=== PATIENT | male | born 1945 | race Caucasian/White ===

== ENCOUNTER → 2016-03-06 | Outpatient (CLI) | payer OTHER ==
[~2016-03-06] MED LIST: ALLO100T PO; AZIT250T PO; LPR25 PO
== END | disposition home or self-care (01) ==
LOC: C.LAB1850 09:09
PROVIDERS: ATTEND Internal Medicine Endocrinology, Diabetes & Metabolism
DX: F64.0 Transsexualism (principal)

== ENCOUNTER → 2016-06-19 | Outpatient (CLI) | payer OTHER ==
[2016-06-19 12:41] LABS: ALB/GLOB RATIO 1.4 (0.9-2); ALKALINE PHOSPHATASE 80 U/L (45-117); ALT/SGPT 34 U/L (12-78); AST/SGOT 21 U/L (15-37); BLOOD UREA NITROGEN 24 mg/dl (7-18); BUN/CREATININE RATIO 21.4 (10-20); CALCIUM 9.7 mg/dl (8.5-10.1); CARBON DIOXIDE 24 mmol/L (21-32); CHLORIDE 102 mmol/L (98-107); GLUCOSE 101 mg/dl (70-99); POTASSIUM 5.7 mmol/L (3.5-5.1); SODIUM 134 mmol/L (136-145)
== END | disposition home or self-care (01) ==
LOC: C.LAB1850 10:00
PROVIDERS: ATTEND Internal Medicine Endocrinology, Diabetes & Metabolism
DX: F64.0 Transsexualism (principal)

== ENCOUNTER → 2016-07-31 | Outpatient (CLI) | payer OTHER ==
[2016-07-31 10:55] LABS: BLOOD UREA NITROGEN 21 mg/dl (7-18); BUN/CREATININE RATIO 22.8 (10-20); CALCIUM 9.3 mg/dl (8.5-10.1); CARBON DIOXIDE 30 mmol/L (21-32); CHLORIDE 103 mmol/L (98-107); CREATININE 0.93 mg/dl (0.60-1.40); GLUCOSE 99 mg/dl (70-99); POTASSIUM 4.6 mmol/L (3.5-5.1); SODIUM 139 mmol/L (136-145)
== END | disposition home or self-care (01) ==
LOC: C.LAB1850 09:28
PROVIDERS: ATTEND Internal Medicine Endocrinology, Diabetes & Metabolism
DX: F64.0 Transsexualism (principal)

== ENCOUNTER → 2016-09-25 | Outpatient (CLI) | payer OTHER ==
[2016-09-25 13:27] LABS: BLOOD UREA NITROGEN 21 mg/dl (7-18); BUN/CREATININE RATIO 24.3 (10-20); CALCIUM 9.3 mg/dl (8.5-10.1); CARBON DIOXIDE 25 mmol/L (21-32); CHLORIDE 105 mmol/L (98-107); CREATININE 0.87 mg/dl (0.60-1.40); GLUCOSE 95 mg/dl (70-99); POTASSIUM 4.3 mmol/L (3.5-5.1); SODIUM 137 mmol/L (136-145)
[2016-09-25 13:37] LABS: TESTOSTERONE,TOTAL 106.1 ng/dl
== END | disposition home or self-care (01) ==
LOC: C.LAB1850 11:11
PROVIDERS: ATTEND Internal Medicine Endocrinology, Diabetes & Metabolism
DX: F64.0 Transsexualism (principal)

== ENCOUNTER → 2017-02-22 | Outpatient (CLI) | payer OTHER ==
[2017-02-22 13:49] LABS: TESTOSTERONE,TOTAL 74.2 ng/dl
[2017-02-22 14:23] LABS: ALBUMIN 4.2 gm/dl (3.4-5.0); ALKALINE PHOSPHATASE 73 U/L (45-117); ALT/SGPT 29 U/L (12-78); AST/SGOT 23 U/L (15-37); BLOOD UREA NITROGEN 22 mg/dl (7-18); CALCIUM 8.9 mg/dl (8.5-10.1); CARBON DIOXIDE 26 mmol/L (21-32); CREATININE 0.98 mg/dl (0.60-1.40); GLUCOSE 114 mg/dl (70-99); POTASSIUM 4.3 mmol/L (3.5-5.1); SODIUM 138 mmol/L (136-145)
[2017-02-22 14:24] LABS: TOTAL PROTEIN 7.4 gm/dl (6.4-8.2)
== END | disposition home or self-care (01) ==
LOC: C.LAB1850 12:20
PROVIDERS: ATTEND Internal Medicine Endocrinology, Diabetes & Metabolism
DX: F64.0 Transsexualism (principal)

== ENCOUNTER → 2017-08-28 | Outpatient (CLI) | payer OTHER ==
[2017-08-28 12:35] LABS: BLOOD UREA NITROGEN 20 mg/dl (7-18); CARBON DIOXIDE 25 mmol/L (21-32); CREATININE 0.97 mg/dl (0.60-1.40); GLUCOSE 110 mg/dl (70-99); SODIUM 136 mmol/L (136-145)
== END | disposition home or self-care (01) ==
LOC: C.LAB1850 11:24
PROVIDERS: ATTEND Internal Medicine Endocrinology, Diabetes & Metabolism
DX: F64.0 Transsexualism (principal)

== ENCOUNTER 2021-09-18 15:27 | Observation (INO) ==
--- NOTE | 2021-09-18 15:58 | ED Triage Note ---
Date of Service September 18, 2021 History of Present Illness This patient was briefly evaluated while in triage. An abbreviated physical exam was performed. This patient is a 76-year-old Male with past medical history of restless leg syndrome, family history of MS, TBI, who presents to the ED for evaluation of multiple days of progressive leg weakness. He has had 3 recent falls. Denies any injuries from these falls aside from a bruise to his right elbow. Denies any numbness in his legs, bowel or bladder incontinence, saddle anesthesia, back pain, chest pain, abdominal pain. Family member is hoping for a brain MRI. Has been seen by multiple providers recently. Physical Exam CONSTITUTIONAL: in no acute distress CARDIAC: regular rate normal rhythm RESPIRATORY: lungs clear to auscultation NEUROLOGIC: able to raise both legs off ground. No overt numbness in lower extremities Initial orders for labs and / or imaging were placed and patient was placed in the waiting area until a bed is available. Please see further documentation for the full ED course.
[2021-09-18 16:37] LABS: Basophils # (auto) 0.04 K/uL (0-0.2); Basophils % (auto) 0.5 %; Eosinophils # (auto) 0.05 K/uL (0-0.50); Eosinophils % (auto) 0.6 %; Hematocrit (blood only) 45.3 % (40.1-51.0); Hemoglobin 16.7 g/dl (14.0-18.0); Immature Granulocytes # (auto) 0.03 K/uL (0.00-0.02); Immature Granulocytes % (auto) 0.3 %; Lymphocytes # (auto) 1.34 K/uL (1.2-3.4); Lymphocytes % (auto) 15.4 %; Mean Corpuscular Hemoglobin 34.4 pg (25.0-34.0); Mean Corpuscular Hgb Conc 36.9 g/dL (32.0-36.0); Mean Corpuscular Volume 93.2 fL (80.0-100.0); Monocytes # (auto) 0.81 K/uL (0.24-0.82); Monocytes % (auto) 9.3 %; Neutrophils # (auto) 6.43 K/uL (1.4-6.5); Neutrophils % (auto) 73.9 %; Platelet Count 230 K/uL (130-400); RDW Coefficient of Variation 11.5 % (11.5-14.5); RDW Standard Deviation 39.7 fL (36.4-46.3); Red Blood Count 4.86 M/uL (4.63-6.08)
[2021-09-18] MEDS ORDERED: THIAMINE HCL 200 MG in SODIUM CHLORIDE 0.9% 50 ML IV STA (16:46)
--- NOTE | 2021-09-18 16:51 | Emergency Department Note ---
Impression & Plan Weakness, Acute hyponatremia, Falls frequently ED Provider Note NAME: DEREK RUANO AGE: 76 SEX: M : 1945 ARRIVES VIA: Walk-In INFORMANT: Patient, the patient's daughter ED PROVIDER(S): Gabino Maurer DO CHIEF COMPLAINT: Generalized weakness HPI: The patient is a 76-year-old male who presented to the emergency department for an evaluation of generalized weakness. The patient has been having problems for at least the last 5 weeks. His daughter states that he is been trying to go to his outpatient appointments which include his primary care physician. He was seen there recently and had some laboratory studies. He was found to have vitamin B deficiency as well as vitamin D. He does have a history of drinking alcohol but not very often and certainly does not consider himself an alcoholic. He is not been drinking recently because he has been noticing that when he tries to ambulate he has instances where both legs will go out from underneath him and he cannot support his own weight. According to his daughter he has had multiple falls because of this. She is very concerned about him being at home. She presented with him today because he had another episode where his legs went out from underneath him when he was trying to maneuver to a vehicle. The patient himself denies having any back pain. He denies having any headaches. He denies having any fever. He does have a history of intracranial hemorrhage in the past. He said he is been compliant with his outpatient medications otherwise. ROS: See above HPI for pertinent positives & negatives. A total of 10 systems reviewed and were otherwise negative. PAST MEDICAL HISTORY: See Below PAST SURGICAL HISTORY: See Below FAMILY HISTORY: See Below SOCIAL HISTORY: See Below HOME MEDICATIONS: See Below ALLERGIES: See Below VITALS: See Below PHYSICAL EXAMINATION: GENERAL: The patient is awake and alert. The patient is nonanxious appearing. He appears comfortable. EYES: The conjunctivae are clear. The pupils are round and reactive. EARS, NOSE, MOUTH AND THROAT: The nose is without any evidence of any deformity. NECK: The neck is nontender and supple. RESPIRATORY: Normal respiratory effort is noted there is no evidence of wheezing rhonchi or rales CARDIOVASCULAR: Irregular heart sounds are noted auscultation. There is no definite murmur. GASTROINTESTINAL: The abdomen is soft. Abdomen is nontender. MUSCULOSKELETAL/EXTREMITIES: There is no evidence of gross deformity full range of motion is noted in the hips and shoulders. SKIN: There is no obvious evidence of any rash. There are no petechiae, pallor or cyanosis noted. NEUROLOGIC: Patient is awake and oriented to person place and situation. Gonsalez lar tendon reflexes are absent bilaterally. Patient is able to hold each leg off the bed for approximately 5 seconds. MEDICAL DECISION MAKING: The patient is a 76-year-old male who presented to the emergency department for an evaluation with his daughter. The patient's daughter was very concerned because the patient had increasing symptoms over the course the last month. The patient's had frequent falls. He does have a history of a fall in the past where he did have an intracranial hemorrhage. The patient had no focal neurologic deficit but he appears to be off balance when he tries ambulate. I discussed patient's laboratory and radiographic studies with him and his family member. He was found to have a low sodium which appears to be a new finding. CT did not appear to show any acute process. Given the patient's findings I will discuss his case with the on-call [facility] hospitalist. Triage Nursing notes reviewed. Prior medical records reviewed Vital Signs: reviewed and remarkable for elevated blood pressure. Differential diagnosis: Infection, dehydration, metabolic abnormality, hypo/hyperglycemia, electrolyte disturbance, anemia, hypoxia, cardiac sources, intracerebral event, toxicologic, neurologic, as well as other pathologies. ER treatment provided: See below Diagnostics interpreted by me: ECG: EKG was obtained in the emergency department. My interpretation is sinus bradycardia at 59 bpm. There was no ectopy. There was no acute ST segment abnormalities noted. This was compared to a tracing from February 01, 2020. No changes were noted. Cardiac Monitoring: An order was placed for continuous cardiac monitoring. The monitor shows a rate of 55 bpm with sinus bradycardia. Laboratory studies: As stated above and show below. Imaging studies: See below Consultation(s): I discussed this case with Dr. Au [facility]. Past Med/Surg History Medical History Alcohol use Bilateral impacted cerumen GERD (gastroesophageal reflux disease) Gout, joint History of fracture of skull History of subarachnoid hemorrhage Hypertension Intracranial bleed Olecranon bursitis, right elbow Stroke TBI (traumatic brain injury) Vitamin B12 deficiency Surgical History Hx of tonsillectomy Family History Father Diabetes Tuberculosis Multiple sclerosis Denies family history of Ovarian cancer Prostate cancer Myocardial infarction Breast cancer Colorectal cancer Social History Smoking Status: Never smoker Second Hand Exposure: No; Hx Alcohol Use: Yes Alcohol Intake Frequency: 4 or More x per/Week Alcohol Intake Frequency Comment: 10 / week Hx Substance Use: No Preferred Language: Azeri Visual Impairment: Partially Limited Hearing Ability: Hard of Hearing Beliefs That Will Affect Care: None marital status: Current Living Situation: Family current occupational status: retired How many Children do You have: 3 How many Children do You have Comment: 2 girls 1 boy Feels Safe at Home: Yes Childhood Exposure to Second-Hand Smoke: No during the past year weight has: remained stable Dental Care, Regularly: No Physical Activity Frequency: Does not Exercise Seatbelt Use: always Sunscreen Use: No Allergies Allergies Allergy/AdvReac Type Severity Reaction Status Date / Time No Known Drug Allergies Allergy Verified 09/14/21 17:47 Home Meds Home Medications Medication Instructions Recorded Confirmed omeprazole magnesium 20 mg 20 mg PO DAILY 09/22/19 09/18/21 tablet,delayed release (Prilosec OTC) Previous Rx's Medication Instructions Recorded metoprolol tartrate 25 mg tablet 25 mg PO DAILY #90 tabs 10/03/20 ropinirole 0.25 mg tablet 0.25 mg PO DAILY #30 tabs 09/14/21 Results & Data (ED) Vital Signs Vital Signs - 24 hr 09/18/21 15:53 09/18/21 16:51 09/18/21 16:59 Temperature 36.9 C Temperature Source Temporal Artery Scan Pulse Rate 59 L 60 Pulse Rate [Apical] 59 L Respiratory Rate 18 18 Respiratory Effort / Characteristics Non-Labored Spontaneous Non-Labored Respiratory Depth Normal Normal Respiratory Pattern Regular Blood Pressure 134/74 Blood Pressure [Right Arm] 164/89 H Blood Pressure Mean 94 Blood Pressure Mean [Right Arm] 114 Pulse Oximetry 96 97 98 Oxygen Delivery Method Room Air Room Air Room Air Sepsis Recent Fever Within 48 Hours No Sepsis New/Unexplained Change in Mental Status No Sepsis Action Taken by Nursing No Action Required 09/18/21 18:09 09/18/21 18:49 Temperature Temperature Source Pulse Rate Pulse Rate [Apical] 55 L 64 Respiratory Rate 18 18 Respiratory Effort / Characteristics Respiratory Depth Respiratory Pattern Blood Pressure Blood Pressure [Right Arm] 171/92 H 195/99 H Blood Pressure Mean Blood Pressure Mean [Right Arm] 118 131 Pulse Oximetry 100 99 Oxygen Delivery Method Room Air Room Air Sepsis Recent Fever Within 48 Hours Sepsis New/Unexplained Change in Mental Status Sepsis Action Taken by Skilled Nursing Medications Current Medication List: was personally reviewed by me Laboratory Data Attestation: I reviewed the patient's lab results. Result diagrams: 09/18/21 16:26 09/18/21 16:26 Lab Results 09/18/21 09/18/21 09/18/21 Range/Units 16:26 16:26 16:26 WBC 8.70 (4.8-10.8) K/ul RBC 4.86 (4.63-6.08) M/uL Hgb 16.7 (14.0-18.0) g/dl Hct 45.3 (40.1-51.0) % MCV 93.2 (80.0-100.0) fL MCH 34.4 H (25.0-34.0) pg MCHC 36.9 H (32.0-36.0) g/dL RDW Std Deviation 39.7 (36.4-46.3) fL RDW Coeff of Rogers 11.5 (11.5-14.5) % Plt Count 230 (130-400) K/uL MPV 10.0 (9.4-12.4) fL Immature Gran % (Auto) 0.3 % Neut % (Auto) 73.9 % Lymph % (Auto) 15.4 % [place] % (Auto) 9.3 % Eos % (Auto) 0.6 % Baso % (Auto) 0.5 % Neut # (Auto) 6.43 (1.4-6.5) K/uL Lymph # (Auto) 1.34 (1.2-3.4) K/uL [place] # (Auto) 0.81 (0.24-0.82) K/uL Eos # (Auto) 0.05 (0-0.50) K/uL Baso # (Auto) 0.04 (0-0.2) K/uL Immature Gran # (Auto) 0.03 H (0.00-0.02) K/uL PT (9.0-12.0) Seconds INR (0.9-1.1) APTT (21.0-31.0) Seconds PTT Ratio Sodium 129 L (136-145) mmol/L Potassium 4.2 (3.5-5.1) mmol/L Chloride 98 (98-107) mmol/L Carbon Dioxide 22 (21-32) mmol/L Anion Gap 9 (3-11) BUN 17 (6-23) mg/dl Creatinine 0.92 (0.6-1.4) mg/dl Est Cr Clr Drug Dosing 75.7 ml/min Est GFR ( Amer) 92.7 ml/min Est GFR (Non-Af Amer) 79.9 ml/min BUN/Creatinine Ratio 18.5 (10-20) Glucose 144 H (70-99(Fasting)) mg/dl Calcium 9.2 (8.5-10.1) mg/dl Magnesium 1.9 (1.7-2.4) mg/dl Total Bilirubin 1.0 (0.2-1.0) mg/dl AST 32 (13-39) U/L ALT 54 H (7-52) U/L Alkaline Phosphatase 64 (34-104) U/L Total Creatine Kinase 90 (30-223) U/L Troponin I High Sens 8.2 (0-20) pg/ml Total Protein 6.8 (6.0-8.3) gm/dl Albumin 4.3 (3.4-5.0) gm/dl Globulin 2.5 (2.5-4.0) gm/dl Albumin/Globulin Ratio 1.7 (0.9-2) TSH (0.300-4.500) uIu/ml SARS-CoV-2, RNA, NAAT (NEGATIVE) 09/18/21 09/18/21 09/18/21 Range/Units 16:26 17:00 17:31 WBC (4.8-10.8) K/ul RBC (4.63-6.08) M/uL Hgb (14.0-18.0) g/dl Hct (40.1-51.0) % MCV (80.0-100.0) fL MCH (25.0-34.0) pg MCHC (32.0-36.0) g/dL RDW Std Deviation (36.4-46.3) fL RDW Coeff of Rogers (11.5-14.5) % Plt Count (130-400) K/uL MPV (9.4-12.4) fL Immature Gran % (Auto) % Neut % (Auto) % Lymph % (Auto) % [place] % (Auto) % Eos % (Auto) % Baso % (Auto) % Neut # (Auto) (1.4-6.5) K/uL Lymph # (Auto) (1.2-3.4) K/uL [place] # (Auto) (0.24-0.82) K/uL Eos # (Auto) (0-0.50) K/uL Baso # (Auto) (0-0.2) K/uL Immature Gran # (Auto) (0.00-0.02) K/uL PT 12.3 H (9.0-12.0) Seconds INR 1.2 H (0.9-1.1) APTT 32.0 H (21.0-31.0) Seconds PTT Ratio 1.2 Sodium (136-145) mmol/L Potassium (3.5-5.1) mmol/L Chloride (98-107) mmol/L Carbon Dioxide (21-32) mmol/L Anion Gap (3-11) BUN (6-23) mg/dl Creatinine (0.6-1.4) mg/dl Est Cr Clr Drug Dosing ml/min Est GFR ( Amer) ml/min Est GFR (Non-Af Amer) ml/min BUN/Creatinine Ratio (10-20) Glucose (70-99(Fasting)) mg/dl Calcium (8.5-10.1) mg/dl Magnesium (1.7-2.4) mg/dl Total Bilirubin (0.2-1.0) mg/dl AST (13-39) U/L ALT (7-52) U/L Alkaline Phosphatase (34-104) U/L Total Creatine Kinase (30-223) U/L Troponin I High Sens (0-20) pg/ml Total Protein (6.0-8.3) gm/dl Albumin (3.4-5.0) gm/dl Globulin (2.5-4.0) gm/dl Albumin/Globulin Ratio (0.9-2) TSH 1.598 (0.300-4.500) uIu/ml SARS-CoV-2, RNA, NAAT NEGATIVE (NEGATIVE) Administered Medications Discontinued Medications Sodium Chloride (Nss) 500 mls @ 999 mls/hr IV .Q31M CALVIN Stop: 09/18/21 17:30 Last Infusion: 09/18/21 17:35 Dose: 0 mls/hr Documented By: Admin: 09/18/21 16:58 Dose: 999 mls/hr Documented By: TAMMY Thiamine HCl 200 mg/ Sodium (Chloride) 52 mls @ 208 mls/hr IV NOW STA Stop: 09/18/21 16:47 Last Infusion: 09/18/21 18:27 Dose: 0 mls/hr Documented By: Admin: 09/18/21 18:09 Dose: 208 mls/hr Documented By: TAMMY Imaging Data Radiologist's Impression: Cervical Spine CT 09/18/21 16:46 CT cervical spine wo con CLINICAL HISTORY: fall . Weakness. Neck pain. COMPARISON STUDY: 02/01/2020 CT DOSE: TECHNIQUE: Standard CT of the Cervical Spine was performed without IV contrast. A dose lowering technique was utilized adhering to the principles of ALARA. FINDINGS: Bones: The bones are osteopenic. There is no evidence for an acute fracture or malalignment. The heights of the vertebral bodies are maintained. The vertebral bodies are in anatomic alignment. The odontoid is intact. Degenerative changes are seen at the atlantoaxial articulation. Disc spaces: Moderate to marked disc space narrowing is again seen at C5-6 and C6-7 bridging osteophyte formation. Apophyseal joints: Extensive degenerative apophyseal joint disease is again seen bilaterally. Soft tissues: The prevertebral soft tissues are within normal limits. IMPRESSION: 1. Osteopenia with no acute osseous pathology. 2. Degenerative disc and degenerative joint disease. ACT 112: Negative or not required by law. Electronically signed by: Isreal Mcpherson M.D. 09/18/2021 5:24 PM Chest X-Ray 09/18/21 16:46 XR chest 1V portable CLINICAL HISTORY: weakness. Evaluate cardiopulmonary status COMPARISON STUDY: 10/26/2019 TECHNIQUE: 1 view of the chest FINDINGS: Single frontal view of the chest demonstrates the cardiomediastinal silhouette to be within normal limits. The lungs are clear of alveolar opacities. There is no evidence for pleural effusion. There is no evidence for vascular congestion. There is no acute osseous pathology. IMPRESSION: 1. No acute cardiopulmonary disease. ACT 112: Negative or not required by law. Electronically signed by: Isreal Mcpherson M.D. 09/18/2021 5:[address] 09/18/21 16:46 CT head/brain wo con CLINICAL HISTORY: weakness . Status post fall COMPARISON STUDY: 02/01/2020 CT DOSE: 1521.98 mGy.cm TECHNIQUE: Standard CT of the Brain was performed without IV contrast. A dose lowering technique was utilized adhering to the principles of ALARA. FINDINGS: Extraaxial space: There is no evidence for subdural hematoma. There are no extra-axial fluid collections. Ventricles and cisterns: The ventricles are mildly dilated bilaterally. There is no evidence for midline shift or mass effect. Parenchyma: There is no subarachnoid or intraparenchymal hemorrhage. There is no evidence for an acute infarct or cerebral edema. There is again an old left frontoparietal infarct with encephalomalacia present. This is unchanged. There is mild cerebral cortical atrophy and decreased attenuation in the periventricular white matter representing remote small vessel disease. There are no gross mass lesions. Osseous structures: There is no evidence for an acute fracture. The visualized paranasal sinuses are clear. The mastoid air cells are clear bilaterally. Soft tissues: There is no evidence for focal soft tissue swelling. IMPRESSION: 1. No acute intracerebral pathology. 2. 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 3. Cerebral cortical atrophy and remote small vessel disease are again as well. ACT 112: Negative or not required by law. Electronically signed by: Isreal Mcpherson M.D. 09/18/2021 5:20 PM Discharge Plan Visit Data Chief Complaint: Leg Weakness, Bilateral Stated Complaint: LEGS DON'T WORK ED Provider: Gabino Maurer Discharge Problem: Weakness, Acute hyponatremia, Falls frequently Patient Disposition: Being Evaluated by Hospitalist Forms Stand Alone Forms: [facility] Prescriptions Prescriptions: No Action metoprolol tartrate 25 mg tablet 25 mg PO DAILY Qty: 90 3RF omeprazole magnesium [Prilosec OTC] 20 mg tablet,delayed release (DR/EC) 20 mg PO DAILY ropinirole 0.25 mg tablet 0.25 mg PO DAILY Qty: 30 1RF Referrals Referrals: Pro,Gabino Davila MD [Primary Care Provider] -
[2021-09-18 16:56] LABS: Albumin Globulin Ratio 1.7 (0.9-2); Albumin Level 4.3 gm/dl (3.4-5.0); BUN Creatinine Ratio 18.5 (10-20); Calcium 9.2 mg/dl (8.5-10.1); Creatinine Clr Calc Pharmacy 75.7 ml/min; Est GFR (African American) 92.7 ml/min; Est GFR (Non-African American) 79.9 ml/min; Globulin 2.5 gm/dl (2.5-4.0); Magnesium 1.9 mg/dl (1.7-2.4); Potassium 4.2 mmol/L (3.5-5.1); Total Protein 6.8 gm/dl (6.0-8.3)
[2021-09-18] MEDS ORDERED: SODIUM CHLORIDE 0.9% 500 ML IV SCH (17:00)
[2021-09-18 17:18] LABS: Troponin I High Sensitivity 8.2 pg/ml (0-20)
--- NOTE | 2021-09-18 17:21 | CT Scan Report ---
CT head/brain wo con CLINICAL HISTORY: weakness . Status post fall COMPARISON STUDY: 02/01/2020 CT DOSE: 1521.98 mGy.cm TECHNIQUE: Standard CT of the Brain was performed without IV contrast. A dose lowering technique was utilized adhering to the principles of ALARA. FINDINGS: Extraaxial space: There is no evidence for subdural hematoma. There are no extra-axial fluid collecti ons. Ventricles and cisterns: The ventricles are mildly dilated bilaterally. There is no evidence for midl ine shift or mass effect. Parenchyma: There is no subarachnoid or intraparenchymal hemorrhage. There is no evidence for an acut e infarct or cerebral edema. There is again an old left frontoparietal infarct with encephalomalacia present. This is unchanged. There is mild cerebral cortical atrophy and decreased attenuation in the periventricular white matter representing remote small vessel disease. There are no gross mass lesion s. Osseous structures: There is no evidence for an acute fracture. The visualized paranasal sinuses are clear. The mastoid air cells are clear bilaterally. Soft tissues: There is no evidence for focal soft tissue swelling. IMPRESSION: 1. No acute intracerebral pathology. 2. 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 3. Cerebral cortical atrophy and remote small vessel disease are again as well. ACT 112: Negative or not required by law. Electronically signed by: Isreal Mcpherson M.D. 09/18/2021 5:20 PM
--- NOTE | 2021-09-18 17:25 | CT Scan Report ---
CT cervical spine wo con CLINICAL HISTORY: fall . Weakness. Neck pain. COMPARISON STUDY: 02/01/2020 CT DOSE: TECHNIQUE: Standard CT of the Cervical Spine was performed without IV contrast. A dose lowering saurabh hnique was utilized adhering to the principles of ALARA. FINDINGS: Bones: The bones are osteopenic. There is no evidence for an acute fracture or malalignment. The heig hts of the vertebral bodies are maintained. The vertebral bodies are in anatomic alignment. The odont oid is intact. Degenerative changes are seen at the atlantoaxial articulation. Disc spaces: Moderate to marked disc space narrowing is again seen at C5-6 and C6-7 bridging osteophy te formation. Apophyseal joints: Extensive degenerative apophyseal joint disease is again seen bilaterally. Soft tissues: The prevertebral soft tissues are within normal limits. IMPRESSION: 1. Osteopenia with no acute osseous pathology. 2. Degenerative disc and degenerative joint disease. ACT 112: Negative or not required by law. Electronically signed by: Isreal Mcpherson M.D. 09/18/2021 5:24 PM
--- NOTE | 2021-09-18 17:33 | XRay Report ---
XR chest 1V portable CLINICAL HISTORY: weakness. Evaluate cardiopulmonary status COMPARISON STUDY: 10/26/2019 TECHNIQUE: 1 view of the chest FINDINGS: Single frontal view of the chest demonstrates the cardiomediastinal silhouette to be within normal li mits. The lungs are clear of alveolar opacities. There is no evidence for pleural effusion. There is no evidence for vascular congestion. There is no acute osseous pathology. IMPRESSION: 1. No acute cardiopulmonary disease. ACT 112: Negative or not required by law. Electronically signed by: Isreal Mcpherson M.D. 09/18/2021 5:32 PM
[2021-09-18 18:04] LABS: INR 1.2 (0.9-1.1); Partial Thromboplastin Ratio 1.2; Prothrombin Time 12.3 Seconds (9.0-12.0)
[2021-09-18] MEDS ORDERED: METOPROLOL TARTRATE 25 MG TAB PO ONE (20:00)
[2021-09-18 20:12] LABS: Appearance Urine Clear (Clear); Bilirubin Urine Negative (Negative); Blood Urine Negative (Negative); Color Urine Yellow; Glucose Urine UA Negative (Negative); Ketones Urine Trace (Negative); Leukocyte Esterase Urine Negative (Negative); Nitrite Urine Negative (Negative); Protein Urine Negative (Negative); Specific Gravity Urine 1.017 (1.000-1.030); Urobilinogen Urine Negative (Negative)
--- NOTE | 2021-09-18 20:32 | History & Physical Report ---
Date of Service September 18, 2021 Assessment & Plan (1) Weakness: Plan: -Likely multifactorial due to previous hemorrhagic stroke, current alcohol use, deconditioning, and poor nutrition. >Acute hyponatremia seen today not likely a major factor as this has been an ongoing issue and previous sodium was WNL -No focal neurologic defects on exam, head and cervical CT negative in ED -Stressed to patient the importance of starting PT to help build strength, PT/OT consults placed -Fall precautions ordered -Patient likely needs short inpatient rehab stay or at least home with PT/OT services and additional home health (2) Falls frequently: Plan: -See above for plan (3) Hypertension: Plan: -Patient noted to be hypertensive with systolic BP in the 190's on admission -Will give 25 mg PO metoprolol now and continue LAUNCH CHECK OUT dose in am (4) Acute hyponatremia: Plan: -Sodium noted to be 129 today, has been at or above 135 in the recent past -Serum osmolality noted to be low at 275, urine studies have yet to be collected -Acute hyponatremia likely the result or poor oral intake and possibly beer potomania -Was given 1L NSS bolus in the ED, will hold additional IV fluid for now -Monitor am BMP and urine stuides when available (5) Alcohol use: Plan: -Patient with long history of alcohol abuse -Noted to still be drinking, difficult to obtain accurate history from patient as he denies a current issue -States he has approximately 2 glasses of wine daily with dinner, last drink was noted to be 24 hours ago -No acute withdrawal symptoms, monitor on alcohol severity scale and PO ativan for now -Continue to stress the importance of decreased alcohol intake (6) Vitamin B12 deficiency: Plan: -Noted to be 140 on 08/16, was started on outpatient B12 injections -Daughter states that he is due for another injection tomorrow, could possibly give while admitted -FU with B12 ordered on admisison (7) GERD without esophagitis: Plan: -LAUNCH CHECK OUT omeprazole (8) Restless leg syndrome: Plan: -LAUNCH CHECK OUT requip , was only started on it as of 09/14 (9) Hyperglycemia, unspecified: Plan: -Monitor blood glucose as needed History of Present Illness Chief Complaint: Progressive BL lower extremity weakness with multiple falls Primary Care Provider: Gabino Ferrell MD Bradley is a 76 year old male with a PMH significant for Alcohol abuse (still using), Hypertension, GERD, previous fall and with intracranial bleed in 2014 without residual weakness, previous fall and 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 History obtained from the patient and his daughter who is primary head of sales and sitting bedside at the time of the exam. At the time of the exam the patient is resting comfortably and in no acute distress. They state that the patient has experienced progressive, BL, lower extremity weakness causing him to have multiple falls within the past month. He states that when his falls occur they are due to feeling weak in his knees and suddenly losing strength. When this happens he is typically able to catch himself and lower himself to the ground, but his daughter is concerned for the suddenness of his weakness. When asked, the patient denies recent LOC with his falls, he also denies hitting his head, chest pain, heart palpitations, SOB, loss of bowel or bladder function, saddle anesthesia, and numbness in his BL lower extremities. Of note, the patient was recently seen on 09/14/21 in the [facility] primary care clinic for the same issues. Per the clinic visit note, the patient had previously been offered PT and was also started on B12 injections for a B12 level of 140 on 08/16/21. The patient refused PT at that time stating "I don't know how it would help". Lyme titer from this visit was also noted to be negative. During the visit the patient was started on Requip for restless leg syndrome and an outpatient MRI of the brain was ordered, which has not been obtained at this time. The patient's daughter brought the patient to the ED today as she is concerned for his rapid decline in strength and concerned for high fall risk. The patient currently lives by himself and does not use a cane or walker to ambulate. When asked, the patient states that he is still drinking "a few glasses of wine with dinner" daily. He states that "I used to drink a lot when I was younger but it is not a problem now". He notes his last drink to be approximately 24 hours ago. In the ED the patient was noted to be hypertensive with systolic BP in the 190's. He was found to be hyponatremic with a sodium of 129 , serum osmolality was noted to be 275. ALT mildly elevated at 54. CT of the head and cervical spi ne were negative for acute trauma. Chest xray was negative for acute findings. In the ED the patient was given 1L NSS bolus and 200 mg IV thiamine. Allergies Allergy/AdvReac Type Severity Reaction Status Date / Time No Known Drug Allergies Allergy Verified 09/14/21 17:47 Home Medications Medication Instructions Recorded Confirmed Type omeprazole magnesium 20 mg 20 mg PO DAILY 09/22/19 09/18/21 History tablet,delayed release (Prilosec OTC) metoprolol tartrate 25 mg tablet 25 mg PO DAILY #90 tabs 10/03/20 09/18/21 Rx ropinirole 0.25 mg tablet 0.25 mg PO DAILY #30 tabs 09/14/21 09/18/21 Rx Past Med/Surg History Medical History (Updated 09/18/21 @ 21:17 by Darrell Pereyra PA-C) Alcohol use Bilateral impacted cerumen Change in mental status Constipation Gender dysphoria in adult GERD (gastroesophageal reflux disease) Gout, joint History of diverticulitis of colon History of fracture of skull History of subarachnoid hemorrhage Hypertension Inhibited sexual excitement Insomnia Intracranial bleed Olecranon bursitis, right elbow Orbital floor fracture Periorbital swelling Screening for diabetes mellitus (DM) Stroke TBI (traumatic brain injury) Vitamin B12 deficiency Surgical History Hx of tonsillectomy Family History Father Diabetes Tuberculosis Multiple sclerosis Denies family history of Ovarian cancer Prostate cancer Myocardial infarction Breast cancer Colorectal cancer Social History (Updated 09/18/21 @ 20:38 by Darrell Pereyra PA-C) Smoking Status: Never smoker Second Hand Exposure: No; Do You Dip or Chew Tobacco: No; Tobacco Cessation Education Requested by Patient: No Hx Alcohol Use: Yes Alcohol type: wine Alcohol Intake Frequency: 4 or More x per/Week Alcohol Intake Frequency Comment: At least 2 drinks daily or more Hx Substance Use: No Preferred Language: Micronesian Communication Ability: Effective Visual Impairment: Partially Limited Hearing Ability: Hard of Hearing Benefits Clerk Required: No Beliefs That Will Affect Care: None marital status: Current Living Situation: Alone current occupational status: retired How many Children do You have: 3 How many Children do You have Comment: 2 girls 1 boy Other Information That Helps Us Care for You: No Feels Safe at Home: Yes Safety Concerns: Feels Safe At This Time Childhood Exposure to Second-Hand Smoke: No during the past year weight has: remained stable Dental Care, Regularly: No Physical Activity Frequency: Does not Exercise Seatbelt Use: always Sunscreen Use: No Assistive Devices: Cane and Glasses Review of Systems Constitutional: as per Subjective / HPI; no fever and no chills Eyes: as per Subjective / HPI Ear, Nose, Mouth, Throat: as per Subjective / HPI; no dizziness and no problem reported Respiratory: as per Subjective / HPI; no cough, no chest congestion and no dyspnea Cardiovascular: as per Subjective / HPI; no chest pain, no palpitations and no lightheadedness Gastrointestinal: as per Subjective / HPI; no abdominal pain, no nausea, no vomiting, no hematemesis, no diarrhea/loose stools and no melena Genitourinary: no dysuria, no difficulty urinating or no urinary frequency Musculoskeletal: + muscle weakness BL lower extremity weakness Integumentary: as per Subjective / HPI; no problem reported Neurologic: + gait abnormality, + falls, + generalized weakness and + restless legs; no numbness, no seizure-like activity, no syncope and no headache(s) Psychiatric: no depression, no suicidal ideation and no homicidal ideation Endocrine: no problem reported Hematologic / Lymphatic: no easy bleeding and no easy bruising Allergy / Immunological: no problem reported Physical Exam Constitutional: + malnourished; no acute distress and not obese Eyes: patient with baseline right eye blindness, left pupil is round and reactive to light ENMT: external ear and nose normal, oropharynx normal Neck: trachea midline, no thyromegaly Respiratory: normal respiratory effort, lungs clear to auscultation Cardiovascular: RRR, no murmur, no edema Gastrointestinal (Abdomen): normal bowel sounds, soft, nontender, no hepatosplenomegaly Musculoskeletal: Patient without signs of acute trauma. Active and passive ROM without limitation or pain in the BL UEs. Patient with symmetrical decreased ROM of the BL LE's due to weakness Skin: no rashes, warm and dry Neurologic: CN's II-XI intact bilaterally (Patient with baseline right eye blindness ), deep tendon reflexes 2+ bilaterally and moves all extremities; not confused Speech / Cognition: normal speech and normal cognition Motor/Sensory: no tremor, normal movement and no asterixis Coordination: normal fcppec-pl-rtty test Psychiatric: A+Ox3, euthymic affect Results & Data Results & [facility] ([facility]) Vital Signs (Past 12 Hours) Vital Signs Temp Pulse Pulse Resp BP BP Pulse Ox 09/18/21 18:49 64 18 195/99 H 99 09/18/21 18:09 55 L 18 171/92 H 100 09/18/21 16:59 59 L 18 164/89 H 98 09/18/21 16:51 60 97 09/18/21 15:53 36.9 C 59 L 18 134/74 96 O2 Del Method 09/18/21 18:49 Room Air 09/18/21 18:09 Room Air 09/18/21 16:59 Room Air 09/18/21 16:51 Room Air 09/18/21 15:53 Room Air Laboratory Results Abnormal lab results 09/18/21 09/18/21 09/18/21 Range/Units 16:26 16:26 16:26 MCH 34.4 H (25.0-34.0) pg MCHC 36.9 H (32.0-36.0) g/dL Immature Gran # (Auto) 0.03 H (0.00-0.02) K/uL PT (9.0-12.0) Seconds INR (0.9-1.1) APTT (21.0-31.0) Seconds Sodium 129 L (136-145) mmol/L Glucose 144 H (70-99(Fasting)) mg/dl Osmolality 275 L (280-300) mOsm/kg ALT 54 H (7-52) U/L Urine Ketones (Negative) 09/18/21 09/18/21 Range/Units 17:31 19:35 MCH (25.0-34.0) pg MCHC (32.0-36.0) g/dL Immature Gran # (Auto) (0.00-0.02) K/uL PT 12.3 H (9.0-12.0) Seconds INR 1.2 H (0.9-1.1) APTT 32.0 H (21.0-31.0) Seconds Sodium (136-145) mmol/L Glucose (70-99(Fasting)) mg/dl Osmolality (280-300) mOsm/kg ALT (7-52) U/L Urine Ketones Trace H (Negative) Diagnostic Findings Cervical Spine CT 09/18/21 16:46 CT cervical spine wo con CLINICAL HISTORY: fall . Weakness. Neck pain. COMPARISON STUDY: 02/01/2020 CT DOSE: TECHNIQUE: Standard CT of the Cervical Spine was performed without IV contrast. A dose lowering technique was utilized adhering to the principles of ALARA. FINDINGS: Bones: The bones are osteopenic. There is no evidence for an acute fracture or malalignment. The heights of the vertebral bodies are maintained. The vertebral bodies are in anatomic alignment. The odontoid is intact. Degenerative changes are seen at the atlantoaxial articulation. Disc spaces: Moderate to marked disc space narrowing is again seen at C5-6 and C6-7 bridging osteophyte formation. Apophyseal joints: Extensive degenerative apophyseal joint disease is again seen bilaterally. Soft tissues: The prevertebral soft tissues are within normal limits. IMPRESSION: 1. Osteopenia with no acute osseous pathology. 2. Degenerative disc and degenerative joint disease. ACT 112: Negative or not required by law. Electronically signed by: Isreal Mcpherson M.D. 09/18/2021 5:24 PM Chest X-Ray 09/18/21 16:46 XR chest 1V portable CLINICAL HISTORY: weakness. Evaluate cardiopulmonary status COMPARISON STUDY: 10/26/2019 TECHNIQUE: 1 view of the chest FINDINGS: Single frontal view of the chest demonstrates the cardiomediastinal silhouette to be within normal limits. The lungs are clear of alveolar opacities. There is no evidence for pleural effusion. There is no evidence for vascular congestion. There is no acute osseous pathology. IMPRESSION: 1. No acute cardiopulmonary disease. ACT 112: Negative or not required by law. Electronically signed by: Isreal Mcpherson M.D. 09/18/2021 5:[address] 09/18/21 16:46 CT head/brain wo con CLINICAL HISTORY: weakness . Status post fall COMPARISON STUDY: 02/01/2020 CT DOSE: 1521.98 mGy.cm TECHNIQUE: Standard CT of the Brain was performed without IV contrast. A dose lowering technique was utilized adhering to the principles of ALARA. FINDINGS: Extraaxial space: There is no evidence for subdural hematoma. There are no extra-axial fluid collections. Ventricles and cisterns: The ventricles are mildly dilated bilaterally. There is no evidence for midline shift or mass effect. Parenchyma: There is no subarachnoid or intraparenchymal hemorrhage. There is no evidence for an acute infarct or cerebral edema. There is again an old left frontoparietal infarct with encephalomalacia present. This is unchanged. There is mild cerebral cortical atrophy and decreased attenuation in the periventricular white matter representing remote small vessel disease. There are no gross mass lesions. Osseous structures: There is no evidence for an acute fracture. The visualized paranasal sinuses are clear. The mastoid air cells are clear bilaterally. Soft tissues: There is no evidence for focal soft tissue swelling. IMPRESSION: 1. No acute intracerebral pathology. 2. 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 3. Cerebral cortical atrophy and remote small vessel disease are again as well. ACT 112: Negative or not required by law. Electronically signed by: Isreal Mcpherson M.D. 09/18/2021 5:20 PM Medications Administered Home Medications omeprazole magnesium 20 mg tablet,delayed release (Prilosec OTC) 20 mg PO DAILY 09/22/19 [History Confirmed 09/18/21] metoprolol tartrate 25 mg tablet 25 mg PO DAILY #90 tabs 10/03/20 [Rx Confirmed 09/18/21] ropinirole 0.25 mg tablet 0.25 mg PO DAILY #30 tabs 09/14/21 [Rx Confirmed 09/18/21] ECG Additional Comments: Sinus bradycardia Otherwise normal ECG When compared with ECG of 01-FEB-2020 21:20, T wave amplitude has decreased in Lateral leads Code Status & VTE Plan Code Status Full code as discussed with patient and family VTE Prophylaxis: Sub-Q lovenox VTE Prophylaxis Plan VTE Prophylaxis will be ordered: Yes Supervising Physician Co-Signing Physician Notes I supervised Darrell Pereyra PA-C on this admission. I interviewed and examined the patient independently of him. The plan is as written in the note except for any following changes/exceptions: None 76yo M w/ hx of B12 deficiency and prior falls who presents with falls at home. Noted to be hyponatremic. Patient reports 2 drinks/day. Noted to be B12 deficient on lab check about 1 month ago. Patient seen at approx. 3am and awake in room, but exhibiting no withdrawal symptoms. Will recheck vitamin levels, monitor and correct Na level, and get PT/OT. Monitor for any signs of alcohol withdrawal. PG Care Time/CCT Total # of Minutes Spent Total Time Spent with Patient: Total time spent is greater than 50% in coordination of care (as documented) at patient's floor/unit and/or counseling patient: Coding Level of Care Code 17151 Initial Inpt Care Lvl 3 Diagnoses Weakness R53.1 Falls frequently R29.6 Hypertension I10 Hypertension type: primary hypertension Acute hyponatremia E87.1 Alcohol use Z72.89 Vitamin B12 deficiency E53.8 GERD without esophagitis K21.9 Restless leg syndrome G25.81 Hyperglycemia, unspecified R73.9 (1) Hypertension Hypertension type: primary hypertension Qualified Code(s): I10 - Essential (primary) hypertension
[2021-09-18] MEDS ORDERED: ACETAMINOPHEN 325 MG TAB PO PRN (23:24)
[2021-09-18] MEDS ORDERED: LORazepam 1 MG TAB PO PRN (23:24)
[2021-09-19] MEDS: FOLIC ACID 1 MG TAB PO SCH ×2 (00:41→07:49)
[2021-09-19] MEDS: ENOXAPARIN INJ 40 MG/0.4 ML SYR SQ SCH (00:42)
[2021-09-19 07:09] LABS: BUN Creatinine Ratio 15.2 (10-20); Calcium 8.8 mg/dl (8.5-10.1); Creatinine Clr Calc Pharmacy 75.5 ml/min; Est GFR (African American) 92.7 ml/min; Est GFR (Non-African American) 79.9 ml/min; Potassium 3.7 mmol/L (3.5-5.1)
[2021-09-19] MEDS ORDERED: hydrALAZINE HCL 20 MG/ML VIAL IV PRN (07:43)
--- NOTE | 2021-09-19 07:46 | Hospitalist Progress Note ---
Date of Service September 19, 2021 Assessment & Plan (1) Weakness: Plan: Likely multifactorial due to previous hemorrhagic stroke, current alcohol use, deconditioning, and poor nutrition. CT head/cervical spine negative on admit, old L frontal parietal infarct with encephalomalacia, cerebral cortical atrophy and remote small vessel disease again seen. Na 129 on admit, likely related to etoh use (reports wine with dinner daily, confirmed by daughter Eleanor) TSH wnl Lyme negative, anaplasmosis smear negative (prior tx last summer) Will check babesiosis as well for completeness Rec cutting back on alcohol use (reported only 1 glass wine w/ dinner per daughter reported) B12 improved on repeat -- give dose IM as he said he was due for this this morning Ordered IV thiamine daily, given long standing issues, increased to 200mg IV BID and would continue BID for 1 month then daily at d/c to see if any improvement Fall precautions PT/OT consulted --> daughter inquired about walker. Will await reports but obv rx for walker to be provided. ?benefit from inpatient rehab vs home w/ home health PT/OT as lives alone (daughter just got life alert delivered today, attempting to keep her father in his home) Check BNP as well given SOB w/ exertion observed by nursing although could be from general deconditioning (prior echo in system from last month for reported syncope) ?Consider holter monitor to look for any pauses/arrhtyhmia causing "syncope"/weakness however denied any palpitations or curtain closing in on him/room spinning/etc MRI brain ordered for completeness --Discussed with daughter, would like this completed. 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 Also could consider outpatient follow-up for EMG testing (2) Falls frequently: Plan: -See above for plan (3) Hypertension: Plan: Patient noted to be hypertensive with systolic BP in the 190's on admission Given metoprolol 25mg PO x1 and resumed 25mg dose daily HR in the 50-60s....consider decreasing dose of BB and adding medication like low dose HCTZ (but would avoid now given hyponatremia) vs low dose lisinopril 2.5mg daily and monitor? BP currently 176/80 and will try x1 dose of lisinopril 2.5mg for better BP control although no MOYER/CP/SOb reported and monitor (4) Acute hyponatremia: Plan: Sodium noted to be 129 today, prior lows in system but has had normal values TSH wnl Serum osm 275, urine sodium 82, likely salt wasting from etoh use/beer potomania Na improved to 130 on AM labs (got 1L NSS bolus in ER), check BNP fluid restriction, nacl 1gm x1 now BMP in AM (5) Alcohol use: Plan: Patient with long history of alcohol abuse -Noted to still be drinking, difficult to obtain accurate history from patient as he denies a current issue , drinking 1-2 glasses of wine reported on admit (daughter states 1 glass per evening) ?as patient lives alone could be drinking more AWSS, Ativan available prn Continue folic acid, thiamine (increased as outlined), B12 supplementation B12 improved on repeat check, will check folate w/ AM labs Decreased etoh recommended No evidence for DTs at present, monitor (6) Vitamin B12 deficiency: Plan: Noted to be 140 on 08/16, was started on outpatient B12 injections Due for dose this morning, provided Repeat B12 improved to 528 and continue outpt tx (7) GERD without esophagitis: Plan: -FUNERAL PRE NEED CONSULTANT omeprazole , protonix while inpatient (8) Restless leg syndrome: Plan: FUNERAL [employer] NEED CONSULTANT requip , was only started on it as of 09/14 Will check iron stores with AM labs (although hgb 16.7 on admit but some dehydration and will check in AM) given MCV wnl and B12 deficiency. Will also check folate given etoh use Plan continued inpatient stay MRI brain pending Admission and Anticipated Discharge Date Admission Date: September 18, 2021 Supervising Physician Co-Signing Physician Notes SANDRA Supervision Note: I did not personally see or examine the patient today, but I verified all [place] points of SANDRA Sanchez's assessment and plan with the following exceptions/additions: None Subjective Patient evaluated-Doing well, sitting up eating lunch. No CP/SOB or fevers but reports weakness to b/l LE that comes and goes and causes him to fall. Does endorse wine every evening with dinner, discussed low Na also contributing. B12 levels improved and discussed long standing deficiency and could take some time to notice a difference. Given IM this morning as reported was due for shot. He was initially hopeful for d/c but discussed checking MRI as ordered outpatient and wanted by daughter dannie as updated on phone. She is worried as the weakness has been much worse over the past 3-4 weeks. She just got him a life alert and has been trying to keep him in his home. Inquired about neuro consult -- discussed will check MRI brain and if abnormal will consult but otherwise will consider outpatient f/u for EMG testing. Will also provide walker. Also discussed thiamine and would continue increased supplementation at d/c to help with balance given alcohol use and other vitamin def in prior testing. Pending MRI brain and sodium levels on repeat will consider discharge in am but encouragement provided to patient as he was anxious for discharge but daughter to come and visit this evening as well. She states he had been doing very well except over the past couple of weeks where she noticed increased weakness. He did endorse having rash to abdomen last year and his doctor thought it was from a tick and he took antibiotics for this. He states he was compliant with medications. Review of Systems Review of Systems: All systems reviewed & are unremarkable except as noted in HPI & below Physical Exam Constitutional: + malnourished; no acute distress and not obese Eyes: pupils equal and reactive ENMT: trachea midline without deviation, slightly dry mm Neck: trachea midline, no thyromegaly Respiratory: normal respiratory effort, lungs clear to auscultation Cardiovascular: RRR, no murmur, no edema Gastrointestinal (Abdomen): normal bowel sounds, soft, nontender, no hepatosplenomegaly Skin: no rashes, warm and dry Neurologic: CN's II-XI intact bilaterally (Patient with baseline right eye blindness ), deep tendon reflexes 2+ bilaterally and moves all extremities; not confused Speech / Cognition: normal speech and normal cognition Motor/Sensory: no tremor, normal movement and no asterixis Coordination: normal [id number] test dorsiflexion/plantar flexion equal bilaterally, no clonus, pulses palpable, slightly diminished sensation to light touch Psychiatric: alert, oriented to person/place/time, cooperative but initially irritated about staying in the hospital Genitourinary: no delacruz Results & Data Results & Data ([facility]) Vital Signs (Past 12 Hours) Vital Signs Temp Pulse Pulse Resp BP Pulse Ox O2 Del Method 09/19/21 07:41 36.8 C 80 17 192/99 H 94 Room Air 09/18/21 23:15 Room Air 09/18/21 23:15 Room Air 09/18/21 23:15 36.8 C 65 16 179/91 H 93 Room Air 09/18/21 20:00 59 L 20 171/106 H 97 Room Air Laboratory Results 09/19/21 09/18/21 09/18/21 Range/Units 06:23 19:35 19:35 WBC (4.8-10.8) K/ul RBC (4.63-6.08) M/uL Hgb (14.0-18.0) g/dl Hct (40.1-51.0) % MCV (80.0-100.0) fL MCH (25.0-34.0) pg MCHC (32.0-36.0) g/dL RDW Std Deviation (36.4-46.3) fL RDW Coeff of Rogers (11.5-14.5) % Plt Count (130-400) K/uL MPV (9.4-12.4) fL Immature Gran % (Auto) % Neut % (Auto) % Lymph % (Auto) % Weston % (Auto) % Eos % (Auto) % Baso % (Auto) % Neut # (Auto) (1.4-6.5) K/uL Lymph # (Auto) (1.2-3.4) K/uL Weston # (Auto) (0.24-0.82) K/uL Eos # (Auto) (0-0.50) K/uL Baso # (Auto) (0-0.2) K/uL Immature Gran # (Auto) (0.00-0.02) K/uL PT (9.0-12.0) Seconds INR (0.9-1.1) APTT (21.0-31.0) Seconds PTT Ratio Sodium 130 L (136-145) mmol/L Potassium 3.7 (3.5-5.1) mmol/L Chloride 98 (98-107) mmol/L Carbon Dioxide 23 (21-32) mmol/L Anion Gap 9 (3-11) BUN 14 (6-23) mg/dl Creatinine 0.92 (0.6-1.4) mg/dl Est Cr Clr Drug Dosing 75.5 ml/min Est GFR ( Amer) 92.7 ml/min Est GFR (Non-Af Amer) 79.9 ml/min BUN/Creatinine Ratio 15.2 (10-20) Glucose 115 H (70-99(Fasting)) mg/dl Osmolality (280-300) mOsm/kg Calcium 8.8 (8.5-10.1) mg/dl Magnesium (1.7-2.4) mg/dl Total Bilirubin (0.2-1.0) mg/dl AST (13-39) U/L ALT (7-52) U/L Alkaline Phosphatase (34-104) U/L Total Creatine Kinase (30-223) U/L Troponin I High Sens (0-20) pg/ml Total Protein (6.0-8.3) gm/dl Albumin (3.4-5.0) gm/dl Globulin (2.5-4.0) gm/dl Albumin/Globulin Ratio (0.9-2) Vitamin B12 (180-914) pg/ml TSH (0.300-4.500) uIu/ml Urine Color Urine Appearance (Clear) Urine pH (4.5-7.5) Ur Specific [place] (1.000-1.030) Urine Protein (Negative) Urine Glucose (UA) (Negative) Urine Ketones (Negative) Urine Blood (Negative) Urine Nitrite (Negative) Urine Bilirubin (Negative) Urine Urobilinogen (Negative) Ur Leukocyte Esterase (Negative) Urine Osmolality 595 (500-800) mOsm/kg Ur Random Sodium 82 mmol/L Ethyl Alcohol mg/dL (<10.0) mg/dl SARS-CoV-2, RNA, NAAT (NEGATIVE) 09/18/21 09/18/21 09/18/21 Range/Units 19:35 17:32 17:31 WBC (4.8-10.8) K/ul RBC (4.63-6.08) M/uL Hgb (14.0-18.0) g/dl Hct (40.1-51.0) % MCV (80.0-100.0) fL MCH (25.0-34.0) pg MCHC (32.0-36.0) g/dL RDW Std Deviation (36.4-46.3) fL RDW Coeff of Rogers (11.5-14.5) % Plt Count (130-400) K/uL MPV (9.4-12.4) fL Immature Gran % (Auto) % Neut % (Auto) % Lymph % (Auto) % Weston % (Auto) % Eos % (Auto) % Baso % (Auto) % Neut # (Auto) (1.4-6.5) K/uL Lymph # (Auto) (1.2-3.4) K/uL Weston # (Auto) (0.24-0.82) K/uL Eos # (Auto) (0-0.50) K/uL Baso # (Auto) (0-0.2) K/uL Immature Gran # (Auto) (0.00-0.02) K/uL PT 12.3 H (9.0-12.0) Seconds INR 1.2 H (0.9-1.1) APTT 32.0 H (21.0-31.0) Seconds PTT Ratio 1.2 Sodium (136-145) mmol/L Potassium (3.5-5.1) mmol/L Chloride (98-107) mmol/L Carbon Dioxide (21-32) mmol/L Anion Gap (3-11) BUN (6-23) mg/dl Creatinine (0.6-1.4) mg/dl Est Cr Clr Drug Dosing ml/min Est GFR ( Amer) ml/min Est GFR (Non-Af Amer) ml/min BUN/Creatinine Ratio (10-20) Glucose (70-99(Fasting)) mg/dl Osmolality (280-300) mOsm/kg Calcium (8.5-10.1) mg/dl Magnesium (1.7-2.4) mg/dl Total Bilirubin (0.2-1.0) mg/dl AST (13-39) U/L ALT (7-52) U/L Alkaline Phosphatase (34-104) U/L Total Creatine Kinase (30-223) U/L Troponin I High Sens (0-20) pg/ml Total Protein (6.0-8.3) gm/dl Albumin (3.4-5.0) gm/dl Globulin (2.5-4.0) gm/dl Albumin/Globulin Ratio (0.9-2) Vitamin B12 (180-914) pg/ml TSH (0.300-4.500) uIu/ml Urine Color Yellow Urine Appearance Clear (Clear) Urine pH 7.0 (4.5-7.5) Ur Specific [place] 1.017 (1.000-1.030) Urine Protein Negative (Negative) Urine Glucose (UA) Negative (Negative) Urine Ketones Trace H (Negative) Urine Blood Negative (Negative) Urine Nitrite Negative (Negative) Urine Bilirubin Negative (Negative) Urine Urobilinogen Negative (Negative) Ur Leukocyte Esterase Negative (Negative) Urine Osmolality (500-800) mOsm/kg Ur Random Sodium mmol/L Ethyl Alcohol mg/dL < 10.0 (<10.0) mg/dl SARS-CoV-2, RNA, NAAT (NEGATIVE) 09/18/21 09/18/21 09/18/21 Range/Units 17:00 16:26 16:26 WBC (4.8-10.8) K/ul RBC (4.63-6.08) M/uL Hgb (14.0-18.0) g/dl Hct (40.1-51.0) % MCV (80.0-100.0) fL MCH (25.0-34.0) pg MCHC (32.0-36.0) g/dL RDW Std Deviation (36.4-46.3) fL RDW Coeff of Rogers (11.5-14.5) % Plt Count (130-400) K/uL MPV (9.4-12.4) fL Immature Gran % (Auto) % Neut % (Auto) % Lymph % (Auto) % Weston % (Auto) % Eos % (Auto) % Baso % (Auto) % Neut # (Auto) (1.4-6.5) K/uL Lymph # (Auto) (1.2-3.4) K/uL Weston # (Auto) (0.24-0.82) K/uL Eos # (Auto) (0-0.50) K/uL Baso # (Auto) (0-0.2) K/uL Immature Gran # (Auto) (0.00-0.02) K/uL PT (9.0-12.0) Seconds INR (0.9-1.1) APTT (21.0-31.0) Seconds PTT Ratio Sodium (136-145) mmol/L Potassium (3.5-5.1) mmol/L Chloride (98-107) mmol/L Carbon Dioxide (21-32) mmol/L Anion Gap (3-11) BUN (6-23) mg/dl Creatinine (0.6-1.4) mg/dl Est Cr Clr Drug Dosing ml/min Est GFR ( Amer) ml/min Est GFR (Non-Af Amer) ml/min BUN/Creatinine Ratio (10-20) Glucose (70-99(Fasting)) mg/dl Osmolality 275 L (280-300) mOsm/kg Calcium (8.5-10.1) mg/dl Magnesium (1.7-2.4) mg/dl Total Bilirubin (0.2-1.0) mg/dl AST (13-39) U/L ALT (7-52) U/L Alkaline Phosphatase (34-104) U/L Total Creatine Kinase (30-223) U/L Troponin I High Sens (0-20) pg/ml Total Protein (6.0-8.3) gm/dl Albumin (3.4-5.0) gm/dl Globulin (2.5-4.0) gm/dl Albumin/Globulin Ratio (0.9-2) Vitamin B12 528 (180-914) pg/ml TSH (0.300-4.500) uIu/ml Urine Color Urine Appearance (Clear) Urine pH (4.5-7.5) Ur Specific [place] (1.000-1.030) Urine Protein (Negative) Urine Glucose (UA) (Negative) Urine Ketones (Negative) Urine Blood (Negative) Urine Nitrite (Negative) Urine Bilirubin (Negative) Urine Urobilinogen (Negative) Ur Leukocyte Esterase (Negative) Urine Osmolality (500-800) mOsm/kg Ur Random Sodium mmol/L Ethyl Alcohol mg/dL (<10.0) mg/dl SARS-CoV-2, RNA, NAAT NEGATIVE (NEGATIVE) 09/18/21 09/18/21 09/18/21 Range/Units 16:26 16:26 16:26 WBC (4.8-10.8) K/ul RBC (4.63-6.08) M/uL Hgb (14.0-18.0) g/dl Hct (40.1-51.0) % MCV (80.0-100.0) fL MCH (25.0-34.0) pg MCHC (32.0-36.0) g/dL RDW Std Deviation (36.4-46.3) fL RDW Coeff of Rogers (11.5-14.5) % Plt Count (130-400) K/uL MPV (9.4-12.4) fL Immature Gran % (Auto) % Neut % (Auto) % Lymph % (Auto) % Weston % (Auto) % Eos % (Auto) % Baso % (Auto) % Neut # (Auto) (1.4-6.5) K/uL Lymph # (Auto) (1.2-3.4) K/uL Weston # (Auto) (0.24-0.82) K/uL Eos # (Auto) (0-0.50) K/uL Baso # (Auto) (0-0.2) K/uL Immature Gran # (Auto) (0.00-0.02) K/uL PT (9.0-12.0) Seconds INR (0.9-1.1) APTT (21.0-31.0) Seconds PTT Ratio Sodium 129 L (136-145) mmol/L Potassium 4.2 (3.5-5.1) mmol/L Chloride 98 (98-107) mmol/L Carbon Dioxide 22 (21-32) mmol/L Anion Gap 9 (3-11) BUN 17 (6-23) mg/dl Creatinine 0.92 (0.6-1.4) mg/dl Est Cr Clr Drug Dosing 75.7 ml/min Est GFR ( Amer) 92.7 ml/min Est GFR (Non-Af Amer) 79.9 ml/min BUN/Creatinine Ratio 18.5 (10-20) Glucose 144 H (70-99(Fasting)) mg/dl Osmolality (280-300) mOsm/kg Calcium 9.2 (8.5-10.1) mg/dl Magnesium 1.9 (1.7-2.4) mg/dl Total Bilirubin 1.0 (0.2-1.0) mg/dl AST 32 (13-39) U/L ALT 54 H (7-52) U/L Alkaline Phosphatase 64 (34-104) U/L Total Creatine Kinase 90 (30-223) U/L Troponin I High Sens 8.2 (0-20) pg/ml Total Protein 6.8 (6.0-8.3) gm/dl Albumin 4.3 (3.4-5.0) gm/dl Globulin 2.5 (2.5-4.0) gm/dl Albumin/Globulin Ratio 1.7 (0.9-2) Vitamin B12 (180-914) pg/ml TSH 1.598 (0.300-4.500) uIu/ml Urine Color Urine Appearance (Clear) Urine pH (4.5-7.5) Ur Specific [place] (1.000-1.030) Urine Protein (Negative) Urine Glucose (UA) (Negative) Urine Ketones (Negative) Urine Blood (Negative) Urine Nitrite (Negative) Urine Bilirubin (Negative) Urine Urobilinogen (Negative) Ur Leukocyte Esterase (Negative) Urine Osmolality (500-800) mOsm/kg Ur Random Sodium mmol/L Ethyl Alcohol mg/dL (<10.0) mg/dl SARS-CoV-2, RNA, NAAT (NEGATIVE) 09/18/21 Range/Units 16:26 WBC 8.70 (4.8-10.8) K/ul RBC 4.86 (4.63-6.08) M/uL Hgb 16.7 (14.0-18.0) g/dl Hct 45.3 (40.1-51.0) % MCV 93.2 (80.0-100.0) fL MCH 34.4 H (25.0-34.0) pg MCHC 36.9 H (32.0-36.0) g/dL RDW Std Deviation 39.7 (36.4-46.3) fL RDW Coeff of Rogers 11.5 (11.5-14.5) % Plt Count 230 (130-400) K/uL MPV 10.0 (9.4-12.4) fL Immature Gran % (Auto) 0.3 % Neut % (Auto) 73.9 % Lymph % (Auto) 15.4 % Weston % (Auto) 9.3 % Eos % (Auto) 0.6 % Baso % (Auto) 0.5 % Neut # (Auto) 6.43 (1.4-6.5) K/uL Lymph # (Auto) 1.34 (1.2-3.4) K/uL Weston # (Auto) 0.81 (0.24-0.82) K/uL Eos # (Auto) 0.05 (0-0.50) K/uL Baso # (Auto) 0.04 (0-0.2) K/uL Immature Gran # (Auto) 0.03 H (0.00-0.02) K/uL PT (9.0-12.0) Seconds INR (0.9-1.1) APTT (21.0-31.0) Seconds PTT Ratio Sodium (136-145) mmol/L Potassium (3.5-5.1) mmol/L Chloride (98-107) mmol/L Carbon Dioxide (21-32) mmol/L Anion Gap (3-11) BUN (6-23) mg/dl Creatinine (0.6-1.4) mg/dl Est Cr Clr Drug Dosing ml/min Est GFR ( Amer) ml/min Est GFR (Non-Af Amer) ml/min BUN/Creatinine Ratio (10-20) Glucose (70-99(Fasting)) mg/dl Osmolality (280-300) mOsm/kg Calcium (8.5-10.1) mg/dl Magnesium (1.7-2.4) mg/dl Total Bilirubin (0.2-1.0) mg/dl AST (13-39) U/L ALT (7-52) U/L Alkaline Phosphatase (34-104) U/L Total Creatine Kinase (30-223) U/L Troponin I High Sens (0-20) pg/ml Total Protein (6.0-8.3) gm/dl Albumin (3.4-5.0) gm/dl Globulin (2.5-4.0) gm/dl Albumin/Globulin Ratio (0.9-2) Vitamin B12 (180-914) pg/ml TSH (0.300-4.500) uIu/ml Urine Color Urine Appearance (Clear) Urine pH (4.5-7.5) Ur Specific [place] (1.000-1.030) Urine Protein (Negative) Urine Glucose (UA) (Negative) Urine Ketones (Negative) Urine Blood (Negative) Urine Nitrite (Negative) Urine Bilirubin (Negative) Urine Urobilinogen (Negative) Ur Leukocyte Esterase (Negative) Urine Osmolality (500-800) mOsm/kg Ur Random Sodium mmol/L Ethyl Alcohol mg/dL (<10.0) mg/dl SARS-CoV-2, RNA, NAAT (NEGATIVE) Diagnostic Findings Cervical Spine CT 09/18/21 16:46 CT cervical spine wo con CLINICAL HISTORY: fall . Weakness. Neck pain. COMPARISON STUDY: 02/01/2020 CT DOSE: TECHNIQUE: Standard CT of the Cervical Spine was performed without IV contrast. A dose lowering technique was utilized adhering to the principles of ALARA. FINDINGS: Bones: The bones are osteopenic. There is no evidence for an acute fracture or malalignment. The heights of the vertebral bodies are maintained. The vertebral bodies are in anatomic alignment. The odontoid is intact. Degenerative changes are seen at the atlantoaxial articulation. Disc spaces: Moderate to marked disc space narrowing is again seen at C5-6 and C6-7 bridging osteophyte formation. Apophyseal joints: Extensive degenerative apophyseal joint disease is again seen bilaterally. Soft tissues: The prevertebral soft tissues are within normal limits. IMPRESSION: 1. Osteopenia with no acute osseous pathology. 2. Degenerative disc and degenerative joint disease. ACT 112: Negative or not required by law. Electronically signed by: Isreal Mcpherson M.D. 09/18/2021 5:24 PM Chest X-Ray 09/18/21 16:46 XR chest 1V portable CLINICAL HISTORY: weakness. Evaluate cardiopulmonary status COMPARISON STUDY: 10/26/2019 TECHNIQUE: 1 view of the chest FINDINGS: Single frontal view of the chest demonstrates the cardiomediastinal silhouette to be within normal limits. The lungs are clear of alveolar opacities. There is no evidence for pleural effusion. There is no evidence for vascular congestion. There is no acute osseous pathology. IMPRESSION: 1. No acute cardiopulmonary disease. ACT 112: Negative or not required by law. Electronically signed by: Isreal Mcpherson M.D. 09/18/2021 5:[address] 09/18/21 16:46 CT head/brain wo con CLINICAL HISTORY: weakness . Status post fall COMPARISON STUDY: 02/01/2020 CT DOSE: 1521.98 mGy.cm TECHNIQUE: Standard CT of the Brain was performed without IV contrast. A dose lowering technique was utilized adhering to the principles of ALARA. FINDINGS: Extraaxial space: There is no evidence for subdural hematoma. There are no extra-axial fluid collections. Ventricles and cisterns: The ventricles are mildly dilated bilaterally. There is no evidence for midline shift or mass effect. Parenchyma: There is no subarachnoid or intraparenchymal hemorrhage. There is no evidence for an acute infarct or cerebral edema. There is again an old left frontoparietal infarct with encephalomalacia present. This is unchanged. There is mild cerebral cortical atrophy and decreased attenuation in the periventricular white matter representing remote small vessel disease. There are no gross mass lesions. Osseous structures: There is no evidence for an acute fracture. The visualized paranasal sinuses are clear. The mastoid air cells are clear bilaterally. Soft tissues: There is no evidence for focal soft tissue swelling. IMPRESSION: 1. No acute intracerebral pathology. 2. 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 3. Cerebral cortical atrophy and remote small vessel disease are again as well. ACT 112: Negative or not required by law. Electronically signed by: Isreal Mcpherson M.D. 09/18/2021 5:20 PM PG Care Time/CCT Total # of Minutes Spent Total Time Spent with Patient: Total time spent is greater than 50% in coordination of care (as documented) at patient's floor/unit and/or counseling patient: Coding Level of Care Code 07610 Subseq Obs Care Lvl 3 Diagnoses Weakness R53.1 Falls frequently R29.6 Hypertension I10 Hypertension type: primary hypertension Acute hyponatremia E87.1 Alcohol use Z72.89 Vitamin B12 deficiency E53.8 GERD without esophagitis K21.9 Restless leg syndrome G25.81 (1) Hypertension Hypertension type: primary hypertension Qualified Code(s): I10 - Essential (primary) hypertension
[2021-09-19] MEDS: PANTOprazole 40 MG TAB PO SCH (07:49)
[2021-09-19] MEDS: METOPROLOL TARTRATE 25 MG TAB PO SCH (07:49)
--- NOTE | 2021-09-19 08:28 | CT Scan Report ---
CT lumbar spine wo con CLINICAL HISTORY: LE weakness with multiple falls TECHNIQUE: Multidetector row helical CT of the lumbar spine was performed without administration of i ntravenous contrast. Coronal and sagittal reformations were obtained. Automated dose lowering techniq ues and/or adjustment according to patient size were utilized for this exam. CT DOSE: 720.90 mGy.cm Comparison: None available at the time of this dictation. FINDINGS: For counting purposes, the last complete intervertebral disc space is considered L5-S1. No acute fractures are identified. Degenerative changes are noted in the visualized spine. There is s uggestion of moderate canal stenosis at L3-L4 and L4-L5. Vertebral body alignment is within normal li mits. Atherosclerotic changes are seen in the aorta. IMPRESSION: Degenerative changes without evidence of acute bony injury. ACT 112: Negative or not required by law. Electronically signed by: Vince Olivier M.D. 09/19/2021 8:26 AM
[2021-09-19] MEDS: THIAMINE HCL 200 MG in SODIUM CHLORIDE 0.9% 50 ML IV SCH ×2 (08:43→20:40)
[2021-09-19] MEDS ORDERED: CYANOCOBALAMIN 1000 MCG/ML VIAL IM ONE (10:00)
[2021-09-19] MEDS ORDERED: SODIUM CHLORIDE 1 GM TABLET PO ONE (12:13)
[2021-09-19] MEDS ORDERED: lisinopril 2.5 MG TAB PO ONE (13:12)
[2021-09-19] MEDS ORDERED: GADOBUTROL 65ML VIAL IV ONE (13:28)
--- NOTE | 2021-09-19 13:51 | Magnetic Resonance Report ---
MR brain wo/w con CLINICAL HISTORY: b/l LE weakness with multiple falls. Evaluate for mass or cva. COMPARISON STUDY: 08/10/[address] brain from 09/18/2021 TECHNIQUE: Multiplanar multisequence images of the brain were performed before and after Gadavist, 8 .5 mL of IV contrast. Diffusion weighted imaging and ADC mapping was also performed. FINDINGS: Extra-axial space: There is no evidence for a subdural hematoma, There are no extra-axial fluid lala ections. Ventricles and cisterns: The ventricles are mildly dilated bilaterally. There is no evidence for mid line shift or mass effect. Parenchyma: On noncontrast images, there is no evidence for an acute hemorrhage or infarct. No acute diffusion abnormalities are noted on diffusion weighted imaging or ADC mapping. There is again an ol d infarct present involving the left frontal parietal lobe with encephalomalacia present. There is mi ld cerebral cortical atrophy present. There is bright signal seen on T2 and FLAIR weighted sequences within the centrum semiovale and periventricular white matter characteristic of remote small vessel d isease. The sulci and gyri appear normal without effacement. The midline structures are unremarkable. The posterior fossa structures appear normal. On postcontrast images, there is no evidence for enhancing mass lesion. Osseous structures: The paranasal sinuses are well aerated. The mastoid air cells are well aerated. Soft tissues: No focal soft tissue abnormalities are identified. IMPRESSION: 1. No acute intracranial abnormalities. 2. There is again evidence for an old left frontal parietal infarct with encephalomalacia. 3. Cerebral cortical atrophy and remote small vessel disease are again seen as well. ACT 112: Negative or not required by law. Electronically signed by: Isreal Mcpherson M.D. 09/19/2021 1:50 PM
[2021-09-19] MEDS ORDERED: FUROSEMIDE 20 MG TAB PO ONE (15:07)
[2021-09-19] MEDS: MELATONIN 3 MG TAB PO PRN (20:39)
[2021-09-19] MEDS: rOPINIRole HCL 0.25 MG TABLET PO SCH (20:39)
[2021-09-19] MEDS ORDERED: rOPINIRole HCL 0.25 MG TABLET PO SCH (21:00)
[2021-09-20] MEDS: ENOXAPARIN INJ 40 MG/0.4 ML SYR SQ SCH (00:19)
[2021-09-20] MEDS ORDERED: GADOBUTROL 65ML VIAL IV ONE (04:48)
--- NOTE | 2021-09-20 05:35 | Electrocardiogram Report ---
Test Reason : Blood Pressure : / mmHG Vent. Rate : 059 BPM Atrial Rate : 059 BPM P-R Int : 172 ms QRS Dur : 090 ms QT Int : 442 ms P-R-T Axes : 013 000 020 degrees QTc Int : 437 ms Sinus bradycardia Otherwise normal ECG When compared with ECG of 01-FEB-2020 21:20, T wave amplitude has decreased in Lateral leads Confirmed by Gerard Farr ([id number]) on 09/20/2021 5:35:04 AM Referred By: Gabby Ortega Confirmed By:Gerard Farr
--- NOTE | 2021-09-20 06:56 | Magnetic Resonance Report ---
MRI OF THE LUMBAR SPINE WITH AND WITHOUT CONTRAST CLINICAL HISTORY: knees buckling randomly. Multiple falls. COMPARISON STUDY: Lumbar spine CT September 18, 2021. TECHNIQUE: Utilizing a 1.5 Ruthy magnet and dedicated coil, multiplanar, [facility] was [facility] before and after uneventful IV administration of 8.5 mL of Gadavist. FINDINGS: For purposes of numbering on this exam, the L5-S1 disc space is assigned to axial image 23 of 25. Deejay tebral body heights are maintained. There is no suspicious marrow replacement. There is no lumbar spi ne fracture. Marrow signal abnormality along the inferior endplate of L4 is degenerative. There is no intracanalicular mass, fluid collection or abnormal enhancement. The conus terminates at the mid L1 level. Paravertebral soft tissues are unremarkable. Multilevel degenerative changes are most pronounc ed at the L4-L5 level. Paravertebral soft tissues are unremarkable. L1-2: There is mild facet arthrosis. Minimal disc bulge is present. Central canal and neural foramen are patent. L2-3: There is mild facet arthrosis. Central canal and neural foramen are patent. There is a small le ft foraminal disc protrusion. L3-4: Moderate facet arthrosis is present. This minimal disc bulge. Central canal is patent. Neural f oramen are patent. L4-5: There is moderate disc space narrowing. There is disc bulge with severe facet arthrosis. There is mild narrowing of the central canal and moderate narrowing of the left lateral recess. There is mi ld during of the right lateral recess. There is moderate bilateral neural foraminal stenosis. Patent AP diameter canal is 7.7 mm. L5-S1: The central canal is patent. There is severe facet arthrosis. Neural foramen are patent. IMPRESSION: 1. No lumbar spine fracture. No suspicious marrow replacement. Marrow signal abnormality along the in ferior endplate of L4 which is degenerative. 2. Mild multilevel degenerative disc disease and severe multilevel facet arthrosis. Mild central yunior l stenosis at L4-L5. 3. Multilevel neural foraminal stenosis, as detailed above. This is most pronounced at the L4-L5 leve l where there is moderate bilateral neural foraminal stenosis. ACT 112: Negative or not required by law. Electronically signed by: Greg Gee M.D. 09/20/2021 6:54 AM
[2021-09-20 07:24] LABS: BUN Creatinine Ratio 16.5 (10-20); Calcium 9.3 mg/dl (8.5-10.1); Creatinine Clr Calc Pharmacy 63.7 ml/min; Est GFR (African American) 75.5 ml/min; Est GFR (Non-African American) 65.1 ml/min; Potassium 3.8 mmol/L (3.5-5.1)
[2021-09-20] MEDS: PANTOprazole 40 MG TAB PO SCH (07:30)
[2021-09-20] MEDS: FOLIC ACID 1 MG TAB PO SCH (07:30)
[2021-09-20] MEDS: METOPROLOL TARTRATE 25 MG TAB PO SCH (07:30)
--- NOTE | 2021-09-20 07:40 | Hospitalist Progress Note ---
Date of Service September 20, 2021 Assessment & Plan (1) Weakness: Plan: Likely multifactorial due to previous hemorrhagic stroke, current alcohol use, deconditioning, and poor nutrition. CT head/cervical spine negative on admit, old L frontal parietal infarct with encephalomalacia, cerebral cortical atrophy and remote small vessel disease again seen. MRI Brain negative (wanted ordered outpatient) MRI Lumbar spine with multilevel DDD and severe multilevel facet arthrosis and mild central canal stenosis at L4-L5. Moderate b/l neural foraminal stenosis most pronounced at L4-L5 Dr Villaseñor consulted, no surgical intervention, rec'd for PT/OT Lyme negative, anaplasmosis smear negative (prior tx last summer) Babesiosis as well for completeness but doubt contributing -- pending Rec cutting back on alcohol use (reported only 1 glass wine w/ dinner per daughter reported) B12 improved on repeat. Given IM dose 09/19 Na 129 on admit, likely related to etoh use (reports wine with dinner daily, confirmed by daughter [place]) --> 131 this morning. Additional 1gm Nacl to be provided (given 1gm PO x 1 and lasix 20mg PO for elevated TSH wnl BNP although recent ECHO for reported syncope w/ normal LV size/function, EF 55- 60%) Ordered IV thiamine daily, given long standing issues, increased to 200mg IV BID and would continue BID for 1 month then daily at d/c to see if any improvement Of note, patient also taking "Ultra" sleep aides as reporting difficulty sleeping. Did retire in January ?more drinking/deconditioning since then compounded with anticholinergic effects Effective sleep w/ melatonin and requip 0.5mg HS and will continue for tonight and at discharge Fall precautions PT/OT consulted -- recommending rehab. Patient initially hoping to go home with HH PT/OT but lengthy discussion with daughter at bedside and patient at home alone (although just got life alert today) and wanting to maintain independence and willing to talk with CM and have referrals sent. Did discuss sometimes beds take a couple of days as well and lucho continue to monitor his progress while inpatient and pending course may be able to consider but at present time would benefit from acute inpatient rehab to work on strengthening/conditioning and tools to prevent falls at home and continue home health/outpatient following inpatient course. Daughter [place] on board and encouragement provided to patient (2) Falls frequently: Plan: See above for plan (3) Hypertension: Plan: Patient noted to be hypertensive with systolic BP in the 190's on admission Given metoprolol 25mg PO x1 and resumed 25mg dose daily HR in the 50-60s....consider decreasing dose of BB (?holter to look for pauses but denied symptoms prior to fall consistent w/ such) Given lisinopril 2.5mg x 1 09/19 and BP stable 131/78 this afternoon but given 20mg PO lasix x 1 --> consider adding 2.5mg lisinopril daily to help with BP control given prior elevations (4) Acute hyponatremia: Plan: Sodium noted to be 129 today, prior lows in system but has had normal values TSH wnl Serum osm 275, urine sodium 82, likely salt wasting from etoh use/beer potomania Na improved to 130 on AM labs (got 1L NSS bolus in ER), check BNP fluid restriction, nacl 1gm x1 09/19 with improvement in Na to 131 and additinal dose x 1 to be provided this afternoon Monitor (5) Alcohol use: Plan: Patient with long history of alcohol abuse -Noted to still be drinking, difficult to obtain accurate history from patient as he denies a current issue , drinking 1-2 glasses of wine reported on admit (daughter states 1 glass per evening) ?as patient lives alone could be drinking more Continue folic acid, thiamine (increased as outlined), B12 supplementation B12 improved on repeat check Folate wnl but continue PO while inpatient, encouraged continued use if drinking at home but recommended cutting back No evidence for DTs at present, monitor AWSS, Ativan available prn (6) Vitamin B12 deficiency: Plan: Noted to be 140 on 08/16, was started on outpatient B12 injections , given IM x 1 day prior as was due Repeat B12 improved to 528 and continue outpt tx (7) GERD without esophagitis: Plan: WELCOME HOSTESS omeprazole , protonix while inpatient (8) Restless leg syndrome: Plan: WELCOME HOSTESS requip , was only started on it as of 09/14 and reported ineffective --> increased to 0.5mg last evening and reports improvement and will continue 0.5mg dose MCV wnl w/ B12 deficiency, and checked folate/iron stores --> wnl Plan continued inpatient stay as PT/OT recommending rehab in patient otherwise living alone at home. CM following Will also continue PT/OT while inpatient while searching for rehab if making improvements Admission and Anticipated Discharge Date Admission Date: September 18, 2021 Subjective Eval this morning, doing well. Discussed lumbar MRI and therapy recommended per discussion with ortho spine. Patient agreeable. Will have RN call PT for re-eval today to see about home with HH therapy vs inpatient rehab and update daughter [place]. Patient reports improvement in RLS symptoms and did report improvement in sleep with the melatonin up until going down for testing. Discussed his sleep aide could also be contributing and would avoid use in the future and use the melatonin as well. Can send rx for increased dose of requip as well. Patient hopeful for discharge home today however will see how he does and discuss with daughter this afternoon (left voicemail this morning). Discussed with daughter and patient at bedside repeat PT evals with recommendation for inpatient rehab. Patient wanted to discuss home with home therapy first and then see how he does after a week ro two to determine need for rehab. Discussed not the way it works with insurance and it's the opposite. Would like to ensure strength and safety at home given lives alone and wanting to prevent falls and maintain independence at home by himself as that is his and daughters primary goal. Did discuss possibly no bed for couple days depending and could continue to monitor how he does/if makes improvements while waiting could consider but would benefit from at least short term rehab. He was at [facility] for 3 weeks following brain bleed, discussed not nearly as long given totally different situations and would suspect less than a week to work on getting strength and tools to work with walker and prevent falls/worsening issues with back if he has continued traumas. Review of Systems Review of Systems: All systems reviewed & are unremarkable except as noted in HPI & below Physical Exam Constitutional: + malnourished; no acute distress and not obese Eyes: BLINDNESS RIGHT EYE, Baseline, anicteric ENMT: trachea midline without deviation, slightly dry mm Neck: trachea midline, no thyromegaly Respiratory: normal respiratory effort, lungs clear to auscultation Cardiovascular: regular rate (60bpm), regular rhythm, no appreciated m/r/g, no calf tenderness, cap refill wnl, pulses palpable Gastrointestinal (Abdomen): normal bowel sounds, soft, nontender, no hepatosplenomegaly Skin: no rashes, warm and dry Neurologic: CN's II-XI intact bilaterally (Patient with baseline right eye blindness ) and moves all extremities; not confused Speech / Cognition: normal speech and normal cognition Motor/Sensory: no tremor, normal movement and no asterixis Coordination: normal [id number] test dorsiflexion/plantar flexion equal bilaterally, no clonus, pulses palpable slightly diminished DTRs b/l LE, sensation to light touch slightly diminished but + to pressure Psychiatric: alert, oriented to person/place/time, cooperative but initially irritated about staying in the hospital but willing to hear what options are avilable to ensure safety Genitourinary: no delacruz Results & Data Results & Data ([facility]) Vital Signs (Past 12 Hours) Vital Signs Temp Pulse Resp BP Pulse Ox O2 Del Method 09/20/21 07:22 36.6 C 68 18 168/72 H 98 Room Air 09/19/21 20:47 36.4 C L 63 18 173/90 H 96 Room Air Laboratory Results 09/20/21 09/20/21 09/20/21 Range/Units 12:42 06:46 06:46 Sodium 131 L (136-145) mmol/L Potassium 3.9 (3.5-5.1) mmol/L Chloride 96 L (98-107) mmol/L Carbon Dioxide 27 (21-32) mmol/L Anion Gap 8 (3-11) BUN 19 (6-23) mg/dl Creatinine 1.07 (0.6-1.4) mg/dl Est Cr Clr Drug Dosing 64.9 ml/min Est GFR ( Amer) 77.2 ml/min Est GFR (Non-Af Amer) 66.6 ml/min BUN/Creatinine Ratio 17.8 (10-20) Glucose 112 H (70-99(Fasting)) mg/dl Calcium 9.5 (8.5-10.1) mg/dl Iron (35-175) mcg/dl TIBC (250-450) mcg/dl Unsaturated IBC (155-355) mcg/dl Transferrin % Sat (20-50) % Ferritin (8-388) ng/ml Ammonia 27.0 (18-72) umol/L Folate 7.76 (>5.38) ng/ml 09/20/21 Range/Units 06:46 Sodium 131 L (136-145) mmol/L Potassium 3.8 (3.5-5.1) mmol/L Chloride 98 (98-107) mmol/L Carbon Dioxide 26 (21-32) mmol/L Anion Gap 7 (3-11) BUN 18 (6-23) mg/dl Creatinine 1.09 (0.6-1.4) mg/dl Est Cr Clr Drug Dosing 63.7 ml/min Est GFR ( Amer) 75.5 ml/min Est GFR (Non-Af Amer) 65.1 ml/min BUN/Creatinine Ratio 16.5 (10-20) Glucose 124 H (70-99(Fasting)) mg/dl Calcium 9.3 (8.5-10.1) mg/dl Iron 126 (35-175) mcg/dl TIBC 330 (250-450) mcg/dl Unsaturated IBC 204 (155-355) mcg/dl Transferrin % Sat 38 (20-50) % Ferritin 156.8 (8-388) ng/ml Ammonia (18-72) umol/L Folate (>5.38) ng/ml Diagnostic Findings Lumbar Spine MRI 09/20/21 00:00 MRI OF THE LUMBAR SPINE WITH AND WITHOUT CONTRAST CLINICAL HISTORY: knees buckling randomly. Multiple falls. COMPARISON STUDY: Lumbar spine CT September 18, 2021. TECHNIQUE: Utilizing a 1.5 Ruthy magnet and dedicated coil, multiplanar, multiecho imaging of the lumbar spine was performed before and after uneventful IV administration of 8.5 mL of Gadavist. FINDINGS: For purposes of numbering on this exam, the L5-S1 disc space is assigned to axial image 23 of 25. Vertebral body heights are maintained. There is no suspicious marrow replacement. There is no lumbar spine fracture. Marrow signal abnormality along the inferior endplate of L4 is degenerative. There is no intracanalicular mass, fluid collection or abnormal enhancement. The conus terminates at the mid L1 level. Paravertebral soft tissues are unremarkable. Multilevel degenerative changes are most pronounced at the L4-L5 level. Paravertebral soft tissues are unremarkable. L1-2: There is mild facet arthrosis. Minimal disc bulge is present. Central canal and neural foramen are patent. L2-3: There is mild facet arthrosis. Central canal and neural foramen are patent. There is a small left foraminal disc protrusion. L3-4: Moderate facet arthrosis is present. This minimal disc bulge. Central canal is patent. Neural foramen are patent. L4-5: There is moderate disc space narrowing. There is disc bulge with severe facet arthrosis. There is mild narrowing of the central canal and moderate narrowing of the left lateral recess. There is mild during of the right lateral recess. There is moderate bilateral neural foraminal stenosis. Patent AP diameter canal is 7.7 mm. L5-S1: The central canal is patent. There is severe facet arthrosis. Neural foramen are patent. IMPRESSION: 1. No lumbar spine fracture. No suspicious marrow replacement. Marrow signal abnormality along the inferior endplate of L4 which is degenerative. 2. Mild multilevel degenerative disc disease and severe multilevel facet arthrosis. Mild central canal stenosis at L4-L5. 3. Multilevel neural foraminal stenosis, as detailed above. This is most pronounced at the L4-L5 level where there is moderate bilateral neural foraminal stenosis. ACT 112: Negative or not required by law. Electronically signed by: Greg Gee M.D. 09/20/2021 6:54 AM PG Care Time/CCT Total # of Minutes Spent Total Time Spent with Patient: Total time spent is greater than 50% in coordination of care (as documented) at patient's floor/unit and/or counseling patient: Prolonged Care Time Prolonged Care Time: Yes total additional minutes 45 -- > additional 20 minutes at bedside with patient and daughter this afternoon in addition to multiple trips to room earlier in the day to discuss treatment options/rehab for patient and safety concerns as well as coordination with specialist regarding imaging and possible need for any type of surgical intervention Coding Level of Care Code 88411 Subseq Hosp Care Lvl 2 (25 - SIGNIFICANT, SEPARATELY IDENTIFIABLE ) Diagnoses Weakness R53.1 Falls frequently R29.6 Hypertension I10 Hypertension type: primary hypertension Acute hyponatremia E87.1 Alcohol use Z72.89 Vitamin B12 deficiency E53.8 GERD without esophagitis K21.9 Restless leg syndrome G25.81 Additional Codes Prolonged Care Time - Prolonged Care Time: Yes ([id number]) (1) Hypertension Hypertension type: primary hypertension Qualified Code(s): I10 - Essential (primary) hypertension
[2021-09-20 07:41] LABS: Ferritin 156.8 ng/ml (8-388)
[2021-09-20] MEDS ORDERED: FUROSEMIDE 20 MG TAB PO ONE (07:57)
[2021-09-20] MEDS: THIAMINE HCL 200 MG in SODIUM CHLORIDE 0.9% 50 ML IV SCH ×2 (08:57→21:17)
--- NOTE | 2021-09-20 11:44 | Orthopedic Consultation ---
Date of Consultation September 20, 2021 Assessment & Plan (1) Weakness: MRI lumbar spine does demonstrate evidence of an extraforaminal disc L4-5 on the right and normal expected degenerative changes but I do not appreciate any significant neural compression to account for his leg weakness. I suspect this is a more medically related phenomenon. He is not a surgical candidate at this time. History of Present Illness Reason for Consultation: Leg weakness with falls Attending Physician: Becky Fox MD History of Present Illness This is a 76-year-old male presents with history of recent falls and sensation of bilateral leg weakness. This morning he denies any radicular type pain he denies any numbness or tingling in the lower extremities. Allergies Allergy/AdvReac Type Severity Reaction Status Date / Time No Known Drug Allergies Allergy Verified 09/14/21 17:47 Home Medications Medication Instructions Recorded Confirmed Type omeprazole magnesium 20 mg 20 mg PO DAILY 09/22/19 09/18/21 History tablet,delayed release (Prilosec OTC) metoprolol tartrate 25 mg tablet 25 mg PO DAILY #90 tabs 10/03/20 09/18/21 Rx ropinirole 0.25 mg tablet 0.25 mg PO DAILY #30 tabs 09/14/21 09/18/21 Rx Patient History Medical History (Updated 09/18/21 @ 21:17 by Darrell Pereyra PA-C) Alcohol use Bilateral impacted cerumen Change in mental status Constipation Gender dysphoria in adult GERD (gastroesophageal reflux disease) Gout, joint History of diverticulitis of colon History of fracture of skull History of subarachnoid hemorrhage Hypertension Inhibited sexual excitement Insomnia Intracranial bleed Olecranon bursitis, right elbow Orbital floor fracture Periorbital swelling Screening for diabetes mellitus (DM) Stroke TBI (traumatic brain injury) Vitamin B12 deficiency Surgical History Hx of tonsillectomy Family History Father Diabetes Tuberculosis Multiple sclerosis Denies family history of Ovarian cancer Prostate cancer Myocardial infarction Breast cancer Colorectal cancer Social History (Updated 09/18/21 @ 20:38 by Darrell Pereyra PA-C) Smoking Status: Never smoker Second Hand Exposure: No; Do You Dip or Chew Tobacco: No; Tobacco Cessation Education Requested by Patient: No Hx Alcohol Use: Yes Alcohol type: wine Alcohol Intake Frequency: 4 or More x per/Week Alcohol Intake Frequency Comment: At least 2 drinks daily or more Hx Substance Use: No Preferred Language: Estonian Communication Ability: Effective Visual Impairment: Partially Limited Hearing Ability: Hard of Hearing Grinder Operator Tool Required: No Beliefs That Will Affect Care: None marital status: Current Living Situation: Alone current occupational status: retired How many Children do You have: 3 How many Children do You have Comment: 2 girls 1 boy Other Information That Helps Us Care for You: No Feels Safe at Home: Yes Safety Concerns: Feels Safe At This Time Childhood Exposure to Second-Hand Smoke: No during the past year weight has: remained stable Dental Care, Regularly: No Physical Activity Frequency: Does not Exercise Seatbelt Use: always Sunscreen Use: No Assistive Devices: None Physical Exam Physical Exam: On exam he is alert and cooperative. He has reasonable strength testing of the bilateral plantar flexion dorsiflexion quadriceps. Sensory appears to be symmetric and intact. He has no evidence of ankle clonus and deep tendon reflexes are diminished. Results & Data ([facility]) Vital Signs (Past 12 Hours) Vital Signs Temp Pulse Resp BP Pulse Ox O2 Del Method 09/20/21 07:22 36.6 C 68 18 168/72 H 98 Room Air
[2021-09-20 13:27] LABS: BUN Creatinine Ratio 17.8 (10-20); Calcium 9.5 mg/dl (8.5-10.1); Creatinine Clr Calc Pharmacy 64.9 ml/min; Est GFR (African American) 77.2 ml/min; Est GFR (Non-African American) 66.6 ml/min; Potassium 3.9 mmol/L (3.5-5.1)
[2021-09-20] MEDS ORDERED: SODIUM CHLORIDE 1 GM TABLET PO ONE (14:14)
[2021-09-20] MEDS: DOCUSATE SODIUM/SENNA 50/8.6MG TAB PO SCH (15:44)
[2021-09-20] MEDS: rOPINIRole HCL 0.25 MG TABLET PO SCH (21:11)
[2021-09-20] MEDS: MELATONIN 3 MG TAB PO PRN (21:12)
[2021-09-21] MEDS: ENOXAPARIN INJ 40 MG/0.4 ML SYR SQ SCH ×2 (01:06→23:05)
[2021-09-21 06:55] LABS: Albumin Globulin Ratio 1.7 (0.9-2); BUN Creatinine Ratio 19.5 (10-20); Bilirubin,Total 1.1 mg/dl (0.2-1.0); Calcium 9.2 mg/dl (8.5-10.1); Creatinine Clr Calc Pharmacy 58.9 ml/min; Est GFR (African American) 68.6 ml/min; Est GFR (Non-African American) 59.2 ml/min; Globulin 2.3 gm/dl (2.5-4.0); Magnesium 1.9 mg/dl (1.7-2.4); Total Protein 6.3 gm/dl (6.0-8.3)
[2021-09-21] MEDS ORDERED: SODIUM CHLORIDE 1 GM TABLET PO ONE (07:52)
--- NOTE | 2021-09-21 07:54 | Hospitalist Progress Note ---
Date of Service September 21, 2021 Assessment & Plan (1) Weakness: Plan: Likely multifactorial due to previous hemorrhagic stroke, current alcohol use, deconditioning, and poor nutrition. CT head/cervical spine negative on admit, old L frontal parietal infarct with encephalomalacia, cerebral cortical atrophy and remote small vessel disease again seen. MRI Brain negative (wanted ordered outpatient) MRI Lumbar spine with multilevel DDD and severe multilevel facet arthrosis and mild central canal stenosis at L4-L5. Moderate b/l neural foraminal stenosis most pronounced at L4-L5 Dr Villaseñor consulted, no surgical intervention, rec'd for PT/OT Lyme negative, anaplasmosis smear negative (prior tx last summer) Babesiosis as well for completeness but doubt contributing -- pending Rec cutting back on alcohol use (reported only 1 glass wine w/ dinner per daughter reported) B12 improved on repeat. Given IM dose 09/19 Na 129 on admit, likely related to etoh use (reports wine with dinner daily, confirmed by daughter Leck Kill) --> 132 this AM (got 1gm Nacl 09/20, will repeat for today) TSH wnl BNP although recent ECHO for reported syncope w/ normal LV size/function, EF 55- 60%) Ordered IV thiamine daily, given long standing issues, --> increased to 200mg IV BID and would continue BID for 1 month then daily at d/c to see if any improvement Of note, patient also taking "Ultra" sleep aides as reporting difficulty sleeping. Did retire in January ?more drinking/deconditioning since then compounded with anticholinergic effects Effective sleep w/ melatonin and requip 0.5mg HS and will continue for tonight and at discharge. Requip 0.25mg for daytime ordered for today as required Fall precautions PT/OT consulted -- recommending rehab. Patient initially hoping to go home with HH PT/OT but lengthy discussion with daughter at bedside and patient at home alone (although just got life alert today) and wanting to maintain independence and willing to talk with CM and have referrals sent. Did discuss sometimes beds take a couple of days as well and lucho continue to monitor his progress while inpatient and pending course may be able to consider but at present time would benefit from acute inpatient rehab to work on strengthening/conditioning and tools to prevent falls at home and continue home health/outpatient following inpatient course. Taqueria Johnson on board and encouragement provided to patient -->Possible bed at [facility] once insurance auth received but CM awaiting hearing back from [facility] at present (2) Falls frequently: Plan: See above for plan (3) Hypertension: Plan: Patient noted to be hypertensive with systolic BP in the 190's on admission Given metoprolol 25mg PO x1 and resumed 25mg dose daily HR in the 50-60s....consider decreasing dose of BB (?holter to look for pauses but denied symptoms prior to fall consistent w/ such) Given lisinopril 2.5mg x 1 09/19 and BP stable 131/78 afternoon but given 20mg PO lasix x 1 on 09/20 and held off further lisinopril BP elevated this morning, added lisinopril 2.5mg and will monitor. No CP/SOB/MOYER reported (4) Acute hyponatremia: Plan: Sodium noted to be 129 today, prior lows in system but has had normal values TSH wnl Serum osm 275, urine sodium 82, likely salt wasting from etoh use/beer potomania Na improved to 130 on AM labs (got 1L NSS bolus in ER), check BNP nacl 1gm x1 09/19 with improvement in Na to 131 and additional dose ordered Na 132, 1gm Nacl Continue Fluid restriction BMP in AM (5) Alcohol use: Plan: Patient with long history of alcohol abuse -Noted to still be drinking, difficult to obtain accurate history from patient as he denies a current issue , drinking 1-2 glasses of wine reported on admit (daughter states 1 glass per evening) ?as patient lives alone could be drinking more Continue folic acid, thiamine (increased as outlined), B12 supplementation B12 improved on repeat check Folate wnl but continue PO while inpatient, encouraged continued use if drinking at home but recommended cutting back No evidence for DTs at present, monitor AWSS, Ativan available prn (6) Vitamin B12 deficiency: Plan: Noted to be 140 on 08/16, was started on outpatient B12 injections , given IM x 1 day prior as was due Repeat B12 improved to 528 and continue outpt tx (7) GERD without esophagitis: Plan: FLOWER [employer]IPPER omeprazole , protonix while inpatient (8) Restless leg syndrome: Plan: FLOWER [employer]IPPER requip , was only started on it as of 09/14 and reported ineffective --> increased to 0.5mg last evening and reports improvement and will continue 0.5mg dose MCV wnl w/ B12 deficiency, and checked folate/iron stores --> wnl Plan continued inpatient stay, PT/OT rec'd rehab for strength/conditioning inpatient who lives alone and wanting to maintain autonomy. Awaiting to hear back from insurance, CM following. Admission and Anticipated Discharge Date Admission Date: September 18, 2021 Supervising Physician Co-Signing Physician Notes PA Supervision Note: I did not personally see or examine the patient today, but I verified all [place] points of SANDRA Sanchez's assessment and plan with the following exceptions/additions: None Subjective Eval this morning, doing well. Slept great, RLS symptoms controlled at night, would like something for daytime. Na improved. Stated some male came in from rehab and stated had bed last night -- > discussed with ROS [facility] and have [facility] if/when insurance approved but waiting to hear back from [facility] first. No fevr/chills, chest pain,shortness of breath, abdominal pain, nausea, vomiting. Feeling much improved, apologized for being angry last evening, reassurance provided. Questions/concerns addressed. Leck Kill to visit later this morning and will update later once hear back from insurance. Review of Systems Review of Systems: All systems reviewed & are unremarkable except as noted in HPI & below Physical Exam Physical Exam: General: WD/WN male sitting up in bed, NAD HEENT: blindness right eye, eyes anicteric, trachea midline, mmm Resp: CTAB, no w/c/r, 99% on RA CV: RRR, no m/r/g, no calf tenderness or edema, pulses palpable GI:+BS, soft, nontender : no delacruz MSK/Neuro: moves all extremities, follows commands, no facial droop/slurred speech, no tremor, slightly decreased DTR b/l LE, decreased sensation to light touch, but intact to pressure, full strength b/l LE Psych: AOx3, cooperative and pleasant Skin: warm, dry Results & Data Results & Data ([facility]) Vital Signs (Past 12 Hours) Vital Signs Temp Pulse Resp BP Pulse Ox O2 Del Method 09/20/21 21:10 Room Air 09/20/21 21:35 36.4 C L 67 18 149/82 H 97 Room Air Laboratory Results 09/21/21 09/20/21 Range/Units 05:47 12:42 Sodium 132 L 131 L (136-145) mmol/L Potassium 4.0 3.9 (3.5-5.1) mmol/L Chloride 99 96 L (98-107) mmol/L Carbon Dioxide 26 27 (21-32) mmol/L Anion Gap 7 8 (3-11) BUN 23 19 (6-23) mg/dl Creatinine 1.18 1.07 (0.6-1.4) mg/dl Est Cr Clr Drug Dosing 58.9 64.9 ml/min Est GFR ( Amer) 68.6 77.2 ml/min Est GFR (Non-Af Amer) 59.2 66.6 ml/min BUN/Creatinine Ratio 19.5 17.8 (10-20) Glucose 126 H 112 H (70-99(Fasting)) mg/dl Calcium 9.2 9.5 (8.5-10.1) mg/dl Magnesium 1.9 (1.7-2.4) mg/dl Total Bilirubin 1.1 H (0.2-1.0) mg/dl AST 32 (13-39) U/L ALT 62 H (7-52) U/L Alkaline Phosphatase 62 (34-104) U/L Total Protein 6.3 (6.0-8.3) gm/dl Albumin 4.0 (3.4-5.0) gm/dl Globulin 2.3 L (2.5-4.0) gm/dl Albumin/Globulin Ratio 1.7 (0.9-2) PG Care Time/CCT Total # of Minutes Spent Total Time Spent with Patient: Total time spent is greater than 50% in coordination of care (as documented) at patient's floor/unit and/or counseling patient: Coding Level of Care Code 78731 Subseq Hosp Care Lvl 2 Diagnoses Weakness R53.1 Falls frequently R29.6 Hypertension I10 Hypertension type: primary hypertension Acute hyponatremia E87.1 Alcohol use Z72.89 Vitamin B12 deficiency E53.8 GERD without esophagitis K21.9 Restless leg syndrome G25.81 (1) Hypertension Hypertension type: primary hypertension Qualified Code(s): I10 - Essential (primary) hypertension
[2021-09-21] MEDS: METOPROLOL TARTRATE 25 MG TAB PO SCH (08:39)
[2021-09-21] MEDS: FOLIC ACID 1 MG TAB PO SCH (08:39)
[2021-09-21] MEDS: DOCUSATE SODIUM/SENNA 50/8.6MG TAB PO SCH (08:39)
[2021-09-21] MEDS: PANTOprazole 40 MG TAB PO SCH (08:39)
[2021-09-21] MEDS: THIAMINE HCL 200 MG in SODIUM CHLORIDE 0.9% 50 ML IV SCH ×2 (10:23→21:03)
[2021-09-21] MEDS: lisinopril 2.5 MG TAB PO SCH (12:12)
[2021-09-21] MEDS: rOPINIRole HCL 0.25 MG TABLET PO SCH ×2 (13:57→21:00)
[2021-09-21] MEDS: MELATONIN 3 MG TAB PO SCH (21:02)
--- NOTE | 2021-09-22 07:47 | Hospitalist Progress Note ---
Date of Service September 22, 2021 Assessment & Plan (1) Weakness: Plan: Likely multifactorial due to previous hemorrhagic stroke, current alcohol use, deconditioning, and poor nutrition. CT head/cervical spine negative on admit, old L frontal parietal infarct with encephalomalacia, cerebral cortical atrophy and remote small vessel disease again seen. MRI Brain negative (wanted ordered outpatient) MRI Lumbar spine with multilevel DDD and severe multilevel facet arthrosis and mild central canal stenosis at L4-L5. Moderate b/l neural foraminal stenosis most pronounced at L4-L5 Dr Villaseñor consulted, no surgical intervention, rec'd for PT/OT Lyme negative, anaplasmosis smear negative (prior tx last summer) Babesiosis as well for completeness but doubt contributing -- pending Rec cutting back on alcohol use (reported only 1 glass wine w/ dinner per daughter reported) B12 improved on repeat. Given IM dose 09/19 Na 129 on admit, likely related to etoh use as reports wine with dinner daily, confirmed by tish Johnson Na improving slowly, did not get lasix yesterday with sodium chloride Na 132 , will give additional dose 1gm NaCl tablet for today with 20mg lasix given improvement in days past TSH wnl BNP slight elevation but no hx CHF, ECHO last month for syncope w/ normal LV size/function, EF 55-60%. No LE swelling, 98% on RA and lung exam without overload Ordered IV thiamine daily, given long standing issues--> increased to 200mg IV BID and would continue BID for 1 month then daily at d/c to see if any improvement Of note, patient also taking "Ultra" sleep aides as reporting difficulty sleeping. Did retire in January ?more drinking/deconditioning since then compounded with anticholinergic effects Effective sleep w/ melatonin and requip 0.5mg HS and will continue for tonight and at discharge. Requip 0.25mg for daytime ordered and reported effective. Can continue at d/c Maintain fall precautions PT/OT consulted -- recommending rehab. Patient initially hoping to go home with PT/OT but lengthy discussion with daughter at bedside and patient at home alone (although just got life alert 09/21) and wanting to maintain independent at home and agreed for short term rehab to work on strength/conditioning and tools to prevent falls at home [facility] if insurance auth approved today and tish Johnson could transport Otherwise, [facility] to have bed but may not be until tomorrow. CM aware and following Updated [place], she will be here this afternoon and can transport to rehab if able (2) Falls frequently: Plan: See above for plan Also ordered requip for RLS (started outpatient, increased dose and effective and would continue) Avoid alcohol, PT/OT and rehab planned (3) Hypertension: Plan: Patient noted to be hypertensive with systolic BP in the 190's on admission and given metoprolol x 1 on admit, resumed 25mg daily HR in 50-60s, no block on EKG, Lyme negative. ?holter to look for arrythmias/holiday heart from alcohol contributing but denied palpitations prior to weakness. Added lisinopril 2.5mg daily to help with BP control and continued --> BP currently 145/81 (4) Acute hyponatremia: Plan: Sodium noted to be 129, prior lows in system but has had normal values in between, suspect salt wasting from etoh/potomania Serum osm 275, urine sodium 82 TSH wnl Given 1L NSS in ER BNP slight elevation but no hx CHF, ECHO w/ normal EF and no LE edema/hypoxia and was given 1gm Nac Na currently 132 and will give addition Nacl 1gm for today. Fluid restriction Monitor BMP if remaining inpatient, otherwise can repeat labs at SNF in next 48 hours to ensure continued stability/improvement vs repeat urine studies (5) Alcohol use: Plan: Patient with long history of alcohol abuse -Noted to still be drinking, difficult to obtain accurate history from patient as he denies a current issue , drinking 1-2 glasses of wine reported on admit (daughter states 1 glass per evening) ?as patient lives alone could be drinking more Continue folic acid, thiamine (increased as outlined), B12 supplementation B12 improved on repeat check Folate wnl but continue PO while inpatient, encouraged continued use if drinking at home but recommended cutting back No evidence for DTs at present, monitor AWSS, Ativan available prn (6) Vitamin B12 deficiency: Plan: Noted to be 140 on 08/16, was started on outpatient B12 injections , given IM x 1 day prior as was due Repeat B12 improved to 528 and continue outpt tx (7) GERD without esophagitis: Plan: AWNING MAKER omeprazole , protonix while inpatient 40mg and would rec increased omeprazole to 40mg daily outpt given drinking (8) Restless leg syndrome: Plan: AWNING [employer]KER requip , was only started on it as of 09/14 and reported ineffective --> increased to 0.5mg HS and 0.25mg for day with control of symptoms and continued Continue B12 (repeat labs improved), ferritin not low MRI brain negative as obtained above for weakness on admit Plan continued inpatient stay awaiting insurance auth for possible [facility]. To hear back this afternoon, if approved, could accept today. If not, likely inpatient until tomorrow for bed at [facility] Updated daughter [place] this morning 09/22 Admission and Anticipated Discharge Date Admission Date: September 18, 2021 Supervising Physician Co-Signing Physician Notes PA Supervision Note: I did not personally see or examine the patient today, but I verified all [place] points of SANDRA Sanchez's assessment and plan with the following exceptions/additions: None Subjective Patient evaluated this morning. Doing well, sitting up eating breakfast. Sleeping and feeling better with ordered medications. Just had labs drawn Thinks he's been here long enough but he is hopeful for short stay at rehab. [place] to be here after noon. Discussed if hearing back about Melissa can have bed today and will transport, otherwise [facility] but may not happen until tomorrow. Trouble with getting bend over and getting back up yesterday;discussed core strengthening given deconditioning since retiring. Eating/drinking, no cp/sob, fever/chills, nausea, vomiting or abdominal pain. Updated [place] via phone and she plans on visiting this afternoon. Review of Systems Review of Systems: All systems reviewed & are unremarkable except as noted in HPI & below Physical Exam Physical Exam: General: WD/WN male sitting up in bed, NAD, eating yakut toast HEENT: blindness right eye, eyes anicteric, trachea midline, mmm Resp: CTAB, no w/c/r, 98% on RA CV: RRR, no m/r/g, no calf tenderness or edema, pulses palpable GI:+BS, soft, nontender : no delacruz MSK/Neuro: moves all extremities, follows commands, no facial droop/slurred speech, no tremor, slightly decreased DTR b/l LE, decreased sensation to light touch, but intact to pressure, full strength b/l LE Psych: AOx3, cooperative and pleasant Skin: warm, dry Results & Data Results & Data ([facility]) Vital Signs (Past 12 Hours) Vital Signs Temp Pulse Resp BP Pulse Ox O2 Del Method 09/21/21 21:00 Room Air 09/21/21 23:36 36.7 C 58 L 18 156/82 H 97 Room Air Laboratory Results 09/22/21 09/22/21 09/19/21 Range/Units 10:44 08:01 12:43 Sodium 132 L (136-145) mmol/L Potassium Pending TNP Chloride 99 (98-107) mmol/L Carbon Dioxide 24 (21-32) mmol/L Anion Gap 9 (3-11) BUN 22 (6-23) mg/dl Creatinine 1.09 (0.6-1.4) mg/dl Est Cr Clr Drug Dosing 63.7 ml/min Est GFR ( Amer) 75.5 ml/min Est GFR (Non-Af Amer) 65.1 ml/min BUN/Creatinine Ratio 20.2 H (10-20) Glucose 119 H (70-99(Fasting)) mg/dl Calcium 9.6 (8.5-10.1) mg/dl Total Bilirubin 1.3 H (0.2-1.0) mg/dl AST Pending TNP ALT 79 H (7-52) U/L Alkaline Phosphatase 58 (34-104) U/L Total Protein 7.0 (6.0-8.3) gm/dl Albumin 4.4 (3.4-5.0) gm/dl Globulin 2.6 (2.5-4.0) gm/dl Albumin/Globulin Ratio 1.7 (0.9-2) Babesia microti DNA PCR Not Detected (Not Detected) PG Care Time/CCT Total # of Minutes Spent Total Time Spent with Patient: Total time spent is greater than 50% in coordination of care (as documented) at patient's floor/unit and/or counseling patient: Coding Level of Care Code 32049 Subseq Hosp Care Lvl 2 Diagnoses Weakness R53.1 Falls frequently R29.6 Hypertension I10 Hypertension type: primary hypertension Acute hyponatremia E87.1 Alcohol use Z72.89 Vitamin B12 deficiency E53.8 GERD without esophagitis K21.9 Restless leg syndrome G25.81 (1) Hypertension Hypertension type: primary hypertension Qualified Code(s): I10 - Essential (primary) hypertension
[2021-09-22 09:23] LABS: Alanine Aminotransferase 79 U/L (7-52); Albumin Globulin Ratio 1.7 (0.9-2); Albumin Level 4.4 gm/dl (3.4-5.0); Alkaline Phosphatase 58 U/L (34-104); Anion Gap 9 (3-11); BUN Creatinine Ratio 20.2 (10-20); Bilirubin,Total 1.3 mg/dl (0.2-1.0); Blood Urea Nitrogen 22 mg/dl (6-23); Calcium 9.6 mg/dl (8.5-10.1); Carbon Dioxide 24 mmol/L (21-32); Chloride 99 mmol/L (98-107); Creatinine Clr Calc Pharmacy 63.7 ml/min; Est GFR (African American) 75.5 ml/min; Est GFR (Non-African American) 65.1 ml/min; Globulin 2.6 gm/dl (2.5-4.0); Glucose 119 mg/dl (70-99(Fasting)); Sodium 132 mmol/L (136-145)
[2021-09-22 09:26] LABS: Babesia microti DNA Not Detected (Not Detected)
[2021-09-22] MEDS: DOCUSATE SODIUM/SENNA 50/8.6MG TAB PO SCH (09:32)
[2021-09-22] MEDS: FOLIC ACID 1 MG TAB PO SCH (09:32)
[2021-09-22] MEDS: lisinopril 2.5 MG TAB PO SCH (09:32)
[2021-09-22] MEDS: METOPROLOL TARTRATE 25 MG TAB PO SCH (09:32)
[2021-09-22] MEDS: PANTOprazole 40 MG TAB PO SCH (09:33)
[2021-09-22] MEDS: rOPINIRole HCL 0.25 MG TABLET PO SCH ×2 (09:33→21:18)
[2021-09-22] MEDS: THIAMINE HCL 200 MG in SODIUM CHLORIDE 0.9% 50 ML IV SCH ×2 (09:36→21:18)
[2021-09-22] MEDS ORDERED: FUROSEMIDE INJ 20 MG/2 ML VIAL IV ONE (11:15)
[2021-09-22] MEDS ORDERED: SODIUM CHLORIDE 1 GM TABLET PO ONE (11:15)
[2021-09-22 11:22] LABS: Potassium 3.6 mmol/L (3.5-5.1)
[2021-09-22] MEDS: MELATONIN 3 MG TAB PO SCH (21:18)
[2021-09-22] MEDS: ENOXAPARIN INJ 40 MG/0.4 ML SYR SQ SCH (23:10)
[2021-09-23] MEDS: DOCUSATE SODIUM/SENNA 50/8.6MG TAB PO SCH (09:33)
[2021-09-23] MEDS: FOLIC ACID 1 MG TAB PO SCH (09:36)
[2021-09-23] MEDS: lisinopril 2.5 MG TAB PO SCH (09:37)
[2021-09-23] MEDS: METOPROLOL TARTRATE 25 MG TAB PO SCH (09:43)
[2021-09-23] MEDS: PANTOprazole 40 MG TAB PO SCH (09:43)
[2021-09-23] MEDS: THIAMINE HCL 200 MG in SODIUM CHLORIDE 0.9% 50 ML IV SCH (09:43)
[2021-09-23] MEDS: rOPINIRole HCL 0.25 MG TABLET PO SCH (09:43)
--- NOTE | 2021-09-23 16:17 | Discharge Summary ---
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 History obtained from the patient and his daughter who is primary postal support employee and sitting bedside at the time of the exam. At the time of the exam the patient is resting comfortably and in no acute distress. They state that the patient has experienced progressive, BL, lower extremity weakness causing him to have multiple falls within the past month. He states that when his falls occur they are due to feeling weak in his knees and suddenly losing strength. When this happens he is typically able to catch himself and lower himself to the ground, but his daughter is concerned for the suddenness of his weakness. When asked, the patient denies recent LOC with his falls, he also denies hitting his head, chest pain, heart palpitations, SOB, loss of bowel or bladder function, saddle anesthesia, and numbness in his BL lower extremities. Of note, the patient was recently seen on 09/14/21 in the [facility] primary care clinic for the same issues. Per the clinic visit note, the patient had previously been offered PT and was also started on B12 injections for a B12 level of 140 on 08/16/21. The patient refused PT at that time stating "I don't know how it would help". Lyme titer from this visit was also noted to be negative. During the visit the patient was started on Requip for restless leg syndrome and an outpatient MRI of the brain was ordered, which has not been obtained at this time. The patient's daughter brought the patient to the ED today as she is concerned for his rapid decline in strength and concerned for high fall risk. The patient currently lives by himself and does not use a cane or walker to ambulate. When asked, the patient states that he is still drinking "a few glasses of wine with dinner" daily. He states that "I used to drink a lot when I was younger but it is not a problem now". He notes his last drink to be approximately 24 hours ago. In the ED the patient was noted to be hypertensive with systolic BP in the 190's. He was found to be hyponatremic with a sodium of 129 , serum osmolality was noted to be 275. ALT mildly elevated at 54. CT of the head and cervical spine were negative for acute trauma. Chest xray was negative for acute findings. In the ED the patient was given 1L NSS bolus and 200 mg IV thiamine. Principal Diagnosis Generalized Weakness; Multiple Falls; Lumbar Stenosis Discharge Exam PHYSICAL EXAM General Appearance: WDWN in NAD who is A&O x 3 HEENT: Head is normocephalic/atraumatic; Hearing grossly intact; Mucous membranes moist Neck: Supple; Trachea midline; Neg JVD Heart: RRR with no M/G/R Lungs: CTA in all lung tao bilaterally; Respirations unlabored; Neg accessory muscle use Abdomen: Soft, non-tender, non-distended; Positive BS x 4 quadrants Extremities: Capillary refill < 2 seconds; Neg cyanosis or edema Neurological: Speech clear; moves all extremities, follows commands, no tremor, full strength b/l LE Psychiatric: Appropriate mood/affect Skin: Normal Color; Warm/Dry Discharge Data Allergies Allergy/AdvReac Type Severity Reaction Status Date / Time No Known Drug Allergies Allergy Verified 09/14/21 17:47 Consultations 09/18/21 19:04 ED Decision to Admit Stat 09/20/21 07:37 Consult Orthopedic Surgery Routine Ordered Studies Cervical Spine CT 09/18/21 16:46 CT cervical spine wo con CLINICAL HISTORY: fall . Weakness. Neck pain. COMPARISON STUDY: 02/01/2020 CT DOSE: TECHNIQUE: Standard CT of the Cervical Spine was performed without IV contrast. A dose lowering technique was utilized adhering to the principles of ALARA. FINDINGS: Bones: The bones are osteopenic. There is no evidence for an acute fracture or malalignment. The heights of the vertebral bodies are maintained. The vertebral bodies are in anatomic alignment. The odontoid is intact. Degenerative changes are seen at the atlantoaxial articulation. Disc spaces: Moderate to marked disc space narrowing is again seen at C5-6 and C6-7 bridging osteophyte formation. Apophyseal joints: Extensive degenerative apophyseal joint disease is again seen bilaterally. Soft tissues: The prevertebral soft tissues are within normal limits. IMPRESSION: 1. Osteopenia with no acute osseous pathology. 2. Degenerative disc and degenerative joint disease. ACT 112: Negative or not required by law. Electronically signed by: Isreal Mcpherson M.D. 09/18/2021 5:24 PM Chest X-Ray 09/18/21 16:46 XR chest 1V portable CLINICAL HISTORY: weakness. Evaluate cardiopulmonary status COMPARISON STUDY: 10/26/2019 TECHNIQUE: 1 view of the chest FINDINGS: Single frontal view of the chest demonstrates the cardiomediastinal silhouette to be within normal limits. The lungs are clear of alveolar opacities. There is no evidence for pleural effusion. There is no evidence for vascular congestion. There is no acute osseous pathology. IMPRESSION: 1. No acute cardiopulmonary disease. ACT 112: Negative or not required by law. Electronically signed by: Isreal Mcpherson M.D. 09/18/2021 5:[address] 09/18/21 16:46 CT head/brain wo con CLINICAL HISTORY: weakness . Status post fall COMPARISON STUDY: 02/01/2020 CT DOSE: 1521.98 mGy.cm TECHNIQUE: Standard CT of the Brain was performed without IV contrast. A dose lowering technique was utilized adhering to the principles of ALARA. FINDINGS: Extraaxial space: There is no evidence for subdural hematoma. There are no extra-axial fluid collections. Ventricles and cisterns: The ventricles are mildly dilated bilaterally. There is no evidence for midline shift or mass effect. Parenchyma: There is no subarachnoid or intraparenchymal hemorrhage. There is no evidence for an acute infarct or cerebral edema. There is again an old left frontoparietal infarct with encephalomalacia present. This is unchanged. There is mild cerebral cortical atrophy and decreased attenuation in the periventricular white matter representing remote small vessel disease. There are no gross mass lesions. Osseous structures: There is no evidence for an acute fracture. The visualized paranasal sinuses are clear. The mastoid air cells are clear bilaterally. Soft tissues: There is no evidence for focal soft tissue swelling. IMPRESSION: 1. No acute intracerebral pathology. 2. 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 3. Cerebral cortical atrophy and remote small vessel disease are again as well. ACT 112: Negative or not required by law. Electronically signed by: Isreal Mcpherson M.D. 09/18/2021 5:[address] 09/18/21 20:12 CT lumbar spine wo con CLINICAL HISTORY: LE weakness with multiple falls TECHNIQUE: Multidetector row helical CT of the lumbar spine was performed without administration of intravenous contrast. Coronal and sagittal reformations were obtained. Automated dose lowering techniques and/or adjustment according to patient size were utilized for this exam. CT DOSE: 720.90 mGy.cm Comparison: None available at the time of this dictation. FINDINGS: For counting purposes, the last complete intervertebral disc space is considered L5-S1. No acute fractures are identified. Degenerative changes are noted in the visualized spine. There is suggestion of moderate canal stenosis at L3-L4 and L4-L5. Vertebral body alignment is within normal limits. Atherosclerotic changes are seen in the aorta. IMPRESSION: Degenerative changes without evidence of acute bony injury. ACT 112: Negative or not required by law. Electronically signed by: Vince Olivier M.D. 09/19/2021 8:26 AM Brain MRI 09/19/21 07:48 MR brain wo/w con CLINICAL HISTORY: b/l LE weakness with multiple falls. Evaluate for mass or cva. COMPARISON STUDY: 08/10/[address] brain from 09/18/2021 TECHNIQUE: Multiplanar multisequence images of the brain were performed before and after Gadavist, 8.5 mL of IV contrast. Diffusion weighted imaging and ADC mapping was also performed. FINDINGS: Extra-axial space: There is no evidence for a subdural hematoma, There are no extra-axial fluid collections. Ventricles and cisterns: The ventricles are mildly dilated bilaterally. There is no evidence for midline shift or mass effect. Parenchyma: On noncontrast images, there is no evidence for an acute hemorrhage or infarct. No acute diffusion abnormalities are noted on diffusion weighted imaging or ADC mapping. There is again an old infarct present involving the left frontal parietal lobe with encephalomalacia present. There is mild cerebral cortical atrophy present. There is bright signal seen on T2 and FLAIR weighted sequences within the centrum semiovale and periventricular white matter characteristic of remote small vessel disease. The sulci and gyri appear normal without effacement. The midline structures are unremarkable. The posterior fossa structures appear normal. On postcontrast images, there is no evidence for enhancing mass lesion. Osseous structures: The paranasal sinuses are well aerated. The mastoid air cells are well aerated. Soft tissues: No focal soft tissue abnormalities are identified. IMPRESSION: 1. No acute intracranial abnormalities. 2. There is again evidence for an old left frontal parietal infarct with encephalomalacia. 3. Cerebral cortical atrophy and remote small vessel disease are again seen as well. ACT 112: Negative or not required by law. Electronically signed by: Isreal Mcpherson M.D. 09/19/2021 1:50 PM Lumbar Spine MRI 09/20/21 00:00 MRI OF THE LUMBAR SPINE WITH AND WITHOUT CONTRAST CLINICAL HISTORY: knees buckling randomly. Multiple falls. COMPARISON STUDY: Lumbar spine CT September 18, 2021. TECHNIQUE: Utilizing a 1.5 Ruthy magnet and dedicated coil, multiplanar, multiecho imaging of the lumbar spine was performed before and after uneventful IV administration of 8.5 mL of Gadavist. FINDINGS: For purposes of numbering on this exam, the L5-S1 disc space is assigned to axial image 23 of 25. Vertebral body heights are maintained. There is no suspicious marrow replacement. There is no lumbar spine fracture. Marrow signal abnormality along the inferior endplate of L4 is degenerative. There is no intracanalicular mass, fluid collection or abnormal enhancement. The conus terminates at the mid L1 level. Paravertebral soft tissues are unremarkable. Multilevel degenerative changes are most pronounced at the L4-L5 level. Paravertebral soft tissues are unremarkable. L1-2: There is mild facet arthrosis. Minimal disc bulge is present. Central canal and neural foramen are patent. L2-3: There is mild facet arthrosis. Central canal and neural foramen are sim nt. There is a small left foraminal disc protrusion. L3-4: Moderate facet arthrosis is present. This minimal disc bulge. Central canal is patent. Neural foramen are patent. L4-5: There is moderate disc space narrowing. There is disc bulge with severe facet arthrosis. There is mild narrowing of the central canal and moderate narrowing of the left lateral recess. There is mild during of the right lateral recess. There is moderate bilateral neural foraminal stenosis. Patent AP diameter canal is 7.7 mm. L5-S1: The central canal is patent. There is severe facet arthrosis. Neural foramen are patent. IMPRESSION: 1. No lumbar spine fracture. No suspicious marrow replacement. Marrow signal abnormality along the inferior endplate of L4 which is degenerative. 2. Mild multilevel degenerative disc disease and severe multilevel facet arthrosis. Mild central canal stenosis at L4-L5. 3. Multilevel neural foraminal stenosis, as detailed above. This is most pronounced at the L4-L5 level where there is moderate bilateral neural foraminal stenosis. ACT 112: Negative or not required by law. Electronically signed by: Greg Gee M.D. 09/20/2021 6:54 AM Hospital Course (1) Weakness: Likely multifactorial due to previous hemorrhagic stroke, current alcohol use, deconditioning, and poor nutrition. CT head/cervical spine negative on admit, old L frontal parietal infarct with encephalomalacia, cerebral cortical atrophy and remote small vessel disease again seen. MRI Brain negative MRI Lumbar spine with multilevel DDD and severe multilevel facet arthrosis and mild central canal stenosis at L4-L5. Moderate b/l neural foraminal stenosis most pronounced at L4-L5 Dr Villaseñor consulted, no surgical intervention, rec'd for PT/OT Lyme negative, anaplasmosis smear negative (prior tx last summer); Babesiosis negative Rec cutting back on alcohol use (reported only 1 glass wine w/ dinner per daughter reported) B12 improved on repeat. Given IM dose 09/19 Na 129 on admit, likely related to etoh use as reports wine with dinner daily, confirmed by daughter Elizabeth. Currently at 134. Will be at risk for ongoing chronic hyponatremia in setting of ETOH consumption TSH wnl BNP slight elevation but no hx CHF, ECHO last month for syncope w/ normal LV size/function, EF 55-60%. No LE swelling, 98% on RA and lung exam without overload Ordered IV thiamine daily, given long standing issues--> increased to 200mg IV BID and would continue BID for 1 month then daily at d/c to see if any improvement Of note, patient also taking "Ultra" sleep aides as reporting difficulty sleeping. Did retire in January ?more drinking/deconditioning since then compounded with anticholinergic effects Effective sleep w/ melatonin and requip 0.5mg HS and will continue at discharge Maintain fall precautions PT/OT consulted -- recommending rehab. Patient initially hoping to go home with PT/OT but lengthy discussion with daughter at bedside and patient at home alone (although just got life alert 09/21) and wanting to maintain independence at home and agreed for short term rehab to work on strength/conditioning and tools to prevent falls at home. However, attempts at peer to peer was unable to be completed on Saturday due to timing and unable to do until normal business hours which would be on [place]. Patient was adamant he was not going to stay until Saturday to await a decision. A long conversation was had between the patient, his daughter Elizabeth, myself, case management, and Dr. Fox. The daughter expresses concern for falls and his weakness which is very valid. The patient is fully aware that he could be making a bad decision but stated he has made up his mind that he wants to go h ome today. He feels there are other options except inpatient settings. We did discuss the different types of options. Patient is alert and oriented and is aware of the risks associated with falls and being at home alone. He understands what he would need to do should he have an emergency. He is clearly in his right state of mind to make the decision for himself. We did arrange for a wheeled walker and home health services. Reinforced what he needs to do if he would have an emergency (call 911/come to ED). He states he is motivated to get better but feels he can do this on his own with home services. He is potentially at risk for readmission due to falls or generalized weakness at home. Again, he is capable of making this decision. He is medically stable and he is not leaving against medical advise but it was encouraged for him to consider inpatient rehab to try and be more successful at home. He asked for wheelchair transportation to be set up and this was arranged. Rxs sent to his pharmacy. (2) Falls frequently: See above for plan Also ordered requip for RLS (started outpatient, increased dose and effective and would continue) Avoid alcohol, PT/OT with home services (3) Hypertension: Patient noted to be hypertensive with systolic BP in the 190's on admission and given metoprolol x 1 on admit, resumed 25mg daily HR in 50-60s, no block on EKG, Lyme negative. ?holter to look for arrythmias/holiday heart from alcohol contributing but denied palpitations prior to weakness. this could be arranged with his PCP Added lisinopril 2.5mg daily to help with BP control and continued --> BP currently improving (4) Acute hyponatremia: Sodium noted to be 129, prior lows in system but has had normal values in between, suspect salt wasting from etoh/potomania Serum osm 275, urine sodium 82 TSH wnl BNP slight elevation but no hx CHF, ECHO w/ normal EF and no LE edema/hypoxia and was given 1gm Nac Na currently 132 Fluid restriction (5) Alcohol use: Patient with long history of alcohol abuse -Noted to still be drinking, difficult to obtain accurate history from patient as he denies a current issue , drinking 1-2 glasses of wine reported on admit (daughter states 1 glass per evening) ?as patient lives alone could be drinking more Continue folic acid, thiamine (increased as outlined), B12 supplementation improved number here Folate wnl but continue PO while inpatient, encouraged continued use if drinking at home but recommended cutting back No evidence for DTs at present; no active withdrawal (6) Vitamin B12 deficiency: Noted to be 140 on 08/16, was started on outpatient B12 injections , given IM x 1 day prior as was due Repeat B12 improved to 528 and continue outpt tx (7) GERD without esophagitis: FLAT EXAMINER omeprazole , protonix while inpatient 40mg and increased omeprazole to 40mg daily outpt given drinking (8) Restless leg syndrome: FLAT EXAMINER requip , was only started on it as of 09/14 and reported ineffective --> increased to 0.5mg HS and 0.25mg for day Continue B12 (repeat labs improved), ferritin not low MRI brain negative as obtained above for weakness on admit Total Time Total Time Spent Total Time Spent (In Minutes): Spent greater than 30 minutes preparing patient for discharge. This includes discussion with patient/family, assessment, intervention, medication reconciliation, and coordination of care. Discharge Plan Discharge Items Patient Disposition: Home - Home Health Services Reason For Visit: LOWER EXTREMITY WEAKNESS AND FALLS Discharge Diagnosis: Falls; Lower Extremity Weakness; Lumbar Stenosis Activity: Resume your previous activity Non-emergency contact: Primary Care Provider Call non-emergency contact if: you have any medication questions, your symptoms worsen and you have a fever Follow-up/Referrals: [facility] [Other] (Appointment Saturday, November 20, 2021 @1400) Dax Henriquez MD [Physician] - (appointment Mar 31, 2022 @1400) Gabino Ferrell MD [Primary Care Provider] - () Diet: Heart Healthy Addtl Attending Provider Instructions: You have been hospitalized for falls/legs giving out. Imaging of the head and neck did not show any acute abnormality to explain this. We did have MRI of the lumbar spine which does show stenosis but I had orthopedic spine surgeon review films and did not feel anything surgical at this time and recommended therapy to work on strength/conditioning. Your B12 levels are improved, but your blood pressure was on the higher side and we started lisinopril 2.5mg daily and you should continue this. You were also using the "ultra" sleep aide which can have effects that worsen symptoms, especially as we get older, and worsened with alcohol use. We have started melatonin 3mg at night and would recommend you continue this and work on a better sleep/wake schedule. You should also continue daily folate given alcohol use to prevent any symptoms but your levels were fine. As I discussed before, sometimes people with balance issues have a deficiency in B1 (thiamine) and while we did not test this (because we started supplementation and this would skew the result) and I would recommend you continue 200mg by mouth twice daily for a month and then 100mg by mouth daily after. This can help improve balance. I have also worked on getting you set up for EMG (nerve testing) with Neurology for further investigation. It is recommended that you avoid alcohol use to prevent worsening low sodium as this can contribute to weakness, and has improved slowly while in the hospital. You were evaluated by therapy and while your ideal plan was for home with home therapy, it is recommended that you undergo a short inpatient rehab to work on strengthening /conditioning to help maintain your independence and ability to stay in your home by yourself with the addition of the LifeAlert ordered by your daughter. Ultimately, we have to abide your wishes and will set you up for home therapy. Should you have any issues please talk with your family doctor. If you have an emergency please call 911 and be evaluated in the hospital/ER You should continue ambulating/walking with a walker to help prevent any falls as we talked about, trauma from a fall could eventually cause issues with your back if you aren't careful and that's why rehab is so important. We have also sent a prescription for requip for restless legs at increased dose you were started on by your primary care provider. I have also increased your omeprazole to 40mg daily as you were on increased dose of acid stonecutter assistant in the hospital and alcohol can irritate your stomach and I believe this will also help. You should follow up with your primary care provider in the next 7-10 days to monitor your progress after discharge from the hospital. it has been a pleasure being a part of the medical team providing for you while you have been in the hospital. Take care! Pending Studies at Discharge: No Stand-Alone Forms: My [facility], Smoking Cessation Medications and DC Order Prescriptions: New ropinirole 0.25 mg Tablet 0.5 mg PO HS Qty: 30 0RF lisinopril 2.5 mg Tablet 2.5 mg PO QAM Qty: 30 0RF melatonin 3 mg Tablet 3 mg PO HS Qty: 30 0RF folic acid 1 mg Tablet 1 mg PO QAM Qty: 30 0RF thiamine HCl (vitamin B1) 100 mg tablet 200 mg PO BID 30 Days Qty: 120 0RF Continued metoprolol tartrate 25 mg tablet 25 mg PO DAILY Qty: 90 3RF Changed omeprazole 40 mg capsule,delayed release(DR/EC) 40 mg PO DAILY Qty: 30 0RF Discontinued ropinirole 0.25 mg tablet 0.25 mg PO DAILY Qty: 30 1RF Discharge Orders: Discharge Order (Routine); Ordered 09/23/21 Ordered By: Natividad Flores/Other Patient Handouts: Preventing Falls in the Home, Falls Prevent Adjust Living Space Admission Data Admit Date/Time: 09/18/21 19:58 Attending Provider: Becky Fox Admit Provider: Olivier Au Primary Care Provider: Gabino Ferrell Other Providers: Olivier Au ; [facility] ; Mayur Villaseñor ; [facility] ; [facility] ; [facility] Other Interventions: Discharge Summary Assessment (RN) Last Done: 09/23/21 16:03 Supervising Physician Co-Signing Physician Notes PA Supervision Note: I personally saw and examined the patient. I verified all [place] points and agree with SANDRA Simon with the following exceptions and/or additions: S-patient feeling well and adamant about going home instead of waiting to go to rehab. See discussion as above with SANDRA Simon. Similar conversation had between myself, the patient, and his daughter. Patient understands risks of falls and injury if goes home without 24/7 care or rehab is recommended. O- Vitals reviewed Gen: AAOx3, NAD HEENT: Anicteric sclerae, EOMI CV: RRR no mgr nl S1S2 Pulm: CTAB no wcr Abd: +BS soft NT ND no masses or hernias Skin: No rashes, warm/dry A/L-17-nvvt-old male here with falls, lower extremity weakness, hyponatremia, improving Needs rehab but declines at this time Stable for discharge to home with home health to be arranged, walker Coding Level of Care Code D/C DAY MANAGEMENT >30 MINS Diagnoses Weakness R53.1 Falls frequently R29.6 Hypertension I10 Hypertension type: primary hypertension Acute hyponatremia E87.1 Alcohol use Z72.89 Vitamin B12 deficiency E53.8 GERD without esophagitis K21.9 Restless leg syndrome G25.81
== END 2021-09-23 16:45 | disposition home health service (06) ==
LOC: ED 15:27 → 3E 19:58 → SUATTDRO 19:58 → INTOOBSV 19:58 → 3E 23:04

== ENCOUNTER 2022-05-14 20:44 | Observation (INO) ==
[2022-05-14] MEDS ORDERED: SODIUM CHLORIDE 0.9% 1000ML 500 ML IV ONE (21:12)
--- NOTE | 2022-05-14 21:19 | Emergency Department Note ---
Impression & Plan Dizziness, Hypertension, Stroke-like symptoms, Abnormal head CT ED Provider Note NAME: DEREK RUANO AGE: 77 SEX: M : 1945 ARRIVES VIA: Walk-In INFORMANT: [Patient][family] ED PROVIDER(S): [Winston Horta MD] Patient first seen by me at 2100. CHIEF COMPLAINT: Near syncope, off balance HISTORY OF PRESENT ILLNESS: The patient is a 77-year-old male with a history of previous CVA and intracranial bleeding. He is currently undergoing a work-up for syncope and near syncope. He has seen neurology and cardiology and has a loop recorder in place. The patient states that suddenly, at around 720pm, 1 hour and 40 minutes ago, he was off balance and almost dizzy and lightheaded. He had to hold onto things to walk and his daughter had to hold him to walk him in the house. He presents by private vehicle. The patient states that he was feeling fine and at baseline today. There has been no cough or cold or congestion. No fever or chills. No one-sided weakness, no difficulty with his speech. His daughter states that she felt he seemed a little confused when she first talked to him after his symptoms began. PMHx/PSHx: See Below SOCIAL HISTORY: See Below. PHYSICAL EXAM: GENERAL: Patient is in no acute distress. HEENT: No acute trauma, normocephalic atraumatic, mucous membranes moist, no nasal congestion. No nystagmus. NECK: No stridor, no adenopathy, no meningismus, trachea is midline. LUNGS: Clear to auscultation bilaterally, no wheeze, no rhonchi, breath sounds equal. Dry cough noted. HEART: Without murmurs gallops or rubs, regular rate and rhythm. ABDOMEN: Soft, nontender, bowel sounds positive, no peritonitis. EXTREMITIES: No cyanosis, mild bilateral pedal edema, full range of motion of all the joints without pain or difficulty, no signs for acute trauma. NEUROLOGIC: Oriented x 3, no speech slur or facial droop, no cerebellar dysfunction or extremity drift. Equal hand grasp. SKIN: No rash, no jaundice, no diaphoresis. DIFFERENTIAL DIAGNOSIS: Stroke, intracranial bleeding, dehydration, electrolyte imbalance, infection, anemia, vertigo, among others. EMERGENCY DEPARTMENT COURSE/PROCEDURES: Prior/Outside records reviewed: Previous family practice and cardiology notes. ECG per my interpretation: Indication was possible stroke. The ECG shows a sinus rhythm with some PACs. The rate is 93. There is no ST elevation, no PVCs. The QTc is 455. Continuous Cardiac Monitoring per my interpretation: An order was placed for continuous cardiac monitoring. The monitor shows a rate of 88 with normal sinus rhythm. Critical Care Note: I have personally spent 51 minutes of critical care time in the direct management of this patient. This includes bedside care, interpretation of diagnostic studies, and testing, discussion with consultants, patient, and family members, and other required patient management activities. This 51 minutes is in excess of all separately billable procedures. MEDICAL DECISION MAKING: There is no leukocytosis or concerning anemia. There is a normal platelet count. No coagulopathy. Sodium is low at 129, this appears baseline for the patient. There is no renal failure. No concerning liver enzyme elevation. ECG showed a sinus rhythm, there were some PACs, no ST elevation or concerning dysrhythmia. Cardiac enzyme testing x1 is not consistent with acute cardiac injury. Urinalysis showed some potential dehydration, no infection. COVID, influenza and RSV test were negative. Chest film per my review did not show mediastinal widening, pneumonia or pneumothorax. There was no CHF. Brain CT showed a potential stroke in the area of the josué, some older changes were seen. CT angio of the head and neck were performed, there was basilar artery stenosis seen. On exam, the patient did not have any focal neurologic findings, there was no facial droop. No speech slur. Given the patient's presentation, a stroke alert was called. Patient was noted to be hypertensive. He was given 5 mg of IV labetalol. He received a 500 cc saline bolus. Patient was seen by neurology via telemedicine. The patient's issues with balance and dizziness have markedly improved. He was able to walk and felt more at baseline. Given his improvement, given his history of intracranial bleeding, TNK was not felt warranted. The patient was ordered for oral aspirin as well as oral Pravachol, he did pass his swallow study. I did speak with neurology, Dr. Parks. The patient will be hospitalized for a stroke work-up, the patient will be admitted to the medicine service. No need for transfer to [facility]. The patient is aware of his findings, his family is aware. He is currently resting comfortably. I did speak with case management, the on-call hospitalist was consulted. DISPOSITION: The patient presentation and findings warrant a hospital stay. Past Med/Surg History Medical History Alcohol use Bilateral impacted cerumen Change in mental status Chronic cough Constipation Gender dysphoria in adult GERD (gastroesophageal reflux disease) Gout, joint History of diverticulitis of colon History of fracture of skull History of subarachnoid hemorrhage Hypertension Inhibited sexual excitement Insomnia Intracranial bleed Olecranon bursitis, right elbow Orbital floor fracture Periorbital swelling Screening for diabetes mellitus (DM) Stroke TBI (traumatic brain injury) Vitamin B12 deficiency Surgical History Hx of tonsillectomy Family History Father Diabetes Tuberculosis Multiple sclerosis Denies family history of Ovarian cancer Prostate cancer Myocardial infarction Breast cancer Colorectal cancer Social History Smoking Status: Never smoker Second Hand Exposure: No; Hx Alcohol Use: Yes Alcohol type: beer Alcohol Intake Frequency: 4 or More x per/Week Alcohol Intake Frequency Comment: At least 2 drinks daily or more Hx Substance Use: No Preferred Language: Gibralt[place] Communication Ability: Effective Visual Impairment: Partially Limited Hearing Ability: Hard of Hearing Portable Machine Sander Required: No Beliefs That Will Affect Care: None marital status: Current Living Situation: Alone current occupational status: retired How many Children do You have: 3 How many Children do You have Comment: 2 girls 1 boy Feels Safe at Home: Yes Childhood Exposure to Second-Hand Smoke: No during the past year weight has: remained stable Dental Care, Regularly: No Physical Activity Frequency: Does not Exercise Seatbelt Use: sometimes Sunscreen Use: No Assistive Devices: None Allergies Allergies Allergy/AdvReac Type Severity Reaction Status Date / Time No Known Allergies Allergy Verified 05/14/22 21:41 Home Meds Home Medications Medication Instructions Recorded Confirmed amlodipine 5 mg tablet 5 mg PO DAILY 02/28/22 05/14/22 thiamine HCl (vitamin B1) 100 mg 100 mg PO BID 05/14/22 05/14/22 tablet (Vitamin B-1) Previous Rx's Medication Instructions Recorded folic acid 1 mg tablet 1 mg PO QAM #30 tabs 09/21/21 melatonin 3 mg tablet 3 mg PO HS #30 tabs 09/21/21 metoprolol tartrate 25 mg tablet 25 mg PO DAILY #90 tabs 10/24/21 omeprazole 40 mg capsule,delayed 40 mg PO DAILY #90 caps 10/24/21 release ropinirole 0.25 mg tablet 0.5 mg PO HS #180 tabs 10/24/21 gabapentin 300 mg capsule 300 mg PO BID #180 caps 01/16/22 ipratropium bromide 21 mcg (0.03 2 spray intranasal BID #30 mL 03/26/22 %) nasal spray benzonatate 100 mg capsule 100 mg PO BID PRN cough #60 caps 04/17/22 fluticasone propionate 50 2 spray intranasal DAILY #48 grams 04/20/22 mcg/actuation nasal spray,suspension (Flonase Allergy Relief) Results & Data (ED) Vital Signs Vital Signs - 24 hr 05/14/22 20:46 05/14/22 21:59 05/14/22 21:12 Temperature 36.5 C Temperature Source Temporal Artery Scan Pulse Rate - Sitting 103 H Pulse Rate - Standing 101 H Pulse Rate 88 86 Pulse Rate from SpO2 Sensor Respiratory Rate 18 Respiratory Effort / Characteristics Non-Labored Spontaneous Respiratory Depth Normal Blood Pressure - Sitting 183/95 H Blood Pressure- Standing 163/98 H Blood Pressure 174/99 H Blood Pressure Mean 124 Pulse Oximetry 97 Oxygen Delivery Method Room Air Sepsis New/Unexplained Change in Mental Status N/A Sepsis Action Taken by Nursing No Action Required 05/14/22 22:56 05/14/22 23:00 Temperature Temperature Source Pulse Rate - Sitting Pulse Rate - Standing Pulse Rate 88 Pulse Rate from SpO2 Sensor 91 H Respiratory Rate 15 Respiratory Effort / Characteristics Respiratory Depth Blood Pressure - Sitting Blood Pressure- Standing Blood Pressure 158/98 H 156/79 H Blood Pressure Mean 118 104 Pulse Oximetry 96 Oxygen Delivery Method Sepsis New/Unexplained Change in Mental Status Sepsis Action Taken by Long Term Medications Current Medication List: was personally reviewed by me Laboratory Data Attestation: I reviewed the patient's lab results. 05/14/22 21:15 05/14/22 21:15 Lab Results 05/14/22 05/14/22 05/14/22 Range/Units 21:15 21:15 21:15 WBC 9.16 (4.8-10.8) K/ul RBC 5.29 (4.70-6.10) M/uL Hgb 17.9 (14.0-18.0) g/dl Hct 48.8 (42.0-52.0) % MCV 92.2 (80.0-100.0) fL MCH 33.8 (25.0-34.0) pg MCHC 36.7 H (32.0-36.0) g/dL RDW Std Deviation 38.5 (36.4-46.3) fL RDW Coeff of Rogers 11.4 L (11.5-14.5) % Plt Count 178 (130-400) K/uL MPV 10.8 (9.4-12.4) fL Immature Gran % (Auto) 0.4 % Neut % (Auto) 77.4 % Lymph % (Auto) 13.9 % [place]arrard % (Auto) 6.3 % Eos % (Auto) 1.2 % Baso % (Auto) 0.8 % Neut # (Auto) 7.09 H (1.40-6.50) K/uL Lymph # (Auto) 1.27 (1.2-3.4) K/uL Garrard # (Auto) 0.58 (0.11-0.59) K/uL Eos # (Auto) 0.11 (0-0.50) K/uL Baso # (Auto) 0.07 (0-0.2) K/uL Immature Gran # (Auto) 0.04 (0.01-0.20) K/uL PT 10.7 (9.0-12.0) Seconds INR 1.0 (0.9-1.1) APTT 28.1 (21.0-31.0) Seconds PTT Ratio 1.0 Sodium 129 L (136-145) mmol/L Potassium 3.9 (3.5-5.1) mmol/L Chloride 92 L (98-107) mmol/L Carbon Dioxide 25 (21-32) mmol/L Anion Gap 12 H (3-11) BUN 19 (6-23) mg/dl Creatinine 0.96 (0.6-1.4) mg/dl Est Cr Clr Drug Dosing 81.6 ml/min Est GFR ( Amer) 87.4 ml/min Est GFR (Non-Af Amer) 75.4 ml/min BUN/Creatinine Ratio 19.8 (10-20) Glucose 134 H (70-99(Fasting)) mg/dl Calcium 10.0 (8.6-10.3) mg/dl Magnesium 2.1 (1.7-2.4) mg/dl Total Bilirubin 0.9 (0.2-1.0) mg/dl AST 28 (13-39) U/L ALT 30 (7-52) U/L Alkaline Phosphatase 84 (34-104) U/L Troponin I High Sens 7.7 (0-20) pg/ml Total Protein 7.8 (6.0-8.3) gm/dl Albumin 5.0 (3.4-5.0) gm/dl Globulin 2.8 (2.5-4.0) gm/dl Albumin/Globulin Ratio 1.8 (0.9-2) Urine Color Urine Appearance (Clear) Urine pH (4.5-7.5) Ur Specific [place] (1.000-1.030) Urine Protein (Negative) Urine Glucose (UA) (Negative) Urine Ketones (Negative) Urine Blood (Negative) Urine Nitrite (Negative) Urine Bilirubin (Negative) Urine Urobilinogen (Negative) Ur Leukocyte Esterase (Negative) SARS-CoV-2 (PCR) (Negative) Influenza Type A (PCR) (Neg) Influenza Type B (PCR) (Neg) RSV (RT-PCR) (Neg) 05/14/22 05/14/22 Range/Units 21:40 22:23 WBC (4.8-10.8) K/ul RBC (4.70-6.10) M/uL Hgb (14.0-18.0) g/dl Hct (42.0-52.0) % MCV (80.0-100.0) fL MCH (25.0-34.0) pg MCHC (32.0-36.0) g/dL RDW Std Deviation (36.4-46.3) fL RDW Coeff of Rogers (11.5-14.5) % Plt Count (130-400) K/uL MPV (9.4-12.4) fL Immature Gran % (Auto) % Neut % (Auto) % Lymph % (Auto) % Garrard % (Auto) % Eos % (Auto) % Baso % (Auto) % Neut # (Auto) (1.40-6.50) K/uL Lymph # (Auto) (1.2-3.4) K/uL [place] # (Auto) (0.11-0.59) K/uL Eos # (Auto) (0-0.50) K/uL Baso # (Auto) (0-0.2) K/uL Immature Gran # (Auto) (0.01-0.20) K/uL PT (9.0-12.0) Seconds INR (0.9-1.1) APTT (21.0-31.0) Seconds PTT Ratio Sodium (136-145) mmol/L Potassium (3.5-5.1) mmol/L Chloride (98-107) mmol/L Carbon Dioxide (21-32) mmol/L Anion Gap (3-11) BUN (6-23) mg/dl Creatinine (0.6-1.4) mg/dl Est Cr Clr Drug Dosing ml/min Est GFR ( Amer) ml/min Est GFR (Non-Af Amer) ml/min BUN/Creatinine Ratio (10-20) Glucose (70-99(Fasting)) mg/dl Calcium (8.6-10.3) mg/dl Magnesium (1.7-2.4) mg/dl Total Bilirubin (0.2-1.0) mg/dl AST (13-39) U/L ALT (7-52) U/L Alkaline Phosphatase (34-104) U/L Troponin I High Sens (0-20) pg/ml Total Protein (6.0-8.3) gm/dl Albumin (3.4-5.0) gm/dl Globulin (2.5-4.0) gm/dl Albumin/Globulin Ratio (0.9-2) Urine Color Yellow Urine Appearance Clear (Clear) Urine pH 7.0 (4.5-7.5) Ur Specific [place] 1.033 H (1.000-1.030) Urine Protein Negative (Negative) Urine Glucose (UA) Negative (Negative) Urine Ketones 1+ H (Negative) Urine Blood Negative (Negative) Urine Nitrite Negative (Negative) Urine Bilirubin Negative (Negative) Urine Urobilinogen Negative (Negative) Ur Leukocyte Esterase Negative (Negative) SARS-CoV-2 (PCR) NEGATIVE (Negative) Influenza Type A (PCR) Negative (Neg) Influenza Type B (PCR) Negative (Neg) RSV (RT-PCR) Negative (Neg) Administered Medications Discontinued Medications Aspirin (Aspirin Chew 324 Mg) 324 mg PO NOW STA Stop: 05/14/22 22:37 Last Admin: 05/14/22 23:03 Dose: 324 mg Documented By: JASON Sodium Chloride (Nss 1000ml) 500 mls @ 999 mls/hr IV .Q31M ONE Stop: 05/14/22 21:42 Last Infusion: 05/14/22 23:03 Dose: 0 mls/hr Documented By: Admin: 05/14/22 21:47 Dose: 999 mls/hr Documented By: CARMELO Ioversol (Optiray 320 500ml) 113 ml IV ONCE ONE Stop: 05/14/22 21:25 Last Admin: 05/14/22 21:24 Dose: 113 ml Documented By: BILL Labetalol HCl (Labetalol Hcl Iv 5 Mg/Ml 20ml) 5 mg IV NOW STA Stop: 05/14/22 22:47 Last Admin: 05/14/22 23:03 Dose: 5 mg Documented By: JASON Co-signed By: CARMELO Pravastatin Sodium (Pravastatin Sod 20 Mg Tab) 20 mg PO NOW STA Stop: 05/14/22 22:37 Last Admin: 05/14/22 23:03 Dose: 20 mg Documented By: JASON Imaging Data Radiologist's Impression: Head CT 05/14/22 21:12 CR Exam(s): CT HEAD Without Contrast EXAM: CT Head Without Intravenous Contrast CLINICAL HISTORY: Reason for exam: neuro deficit, acute stroke suspected. TECHNIQUE: Axial computed tomography images of the head/brain without intravenous contrast. CTDI is 35.96 mGy and DLP is 537.48 mGy-cm. Automated exposure control was utilized for the study. A dose lowering technique was utilized adhering to the principles of ALARA. COMPARISON: Head CT 09/18/21. FINDINGS: Brain: Mild/moderate atrophy and chronic, nonspecific white matter disease and a chronic left frontotemporal infarct are stable. Hypodensity in the midline josué, may be artifact, right paramedian pontine infarct not excluded. No edema or acute, cortical infarct. No acute hemorrhage. Ventricles: No hydrocephalus or midline shift. Bones/joints: No skull fracture. Soft tissues: No scalp hematoma. Sinuses: Clear. Mastoid air cells: No mastoid effusion. IMPRESSION: 1. Artifact versus pontine infarct. 2. No acute bleed. 3. Stable age-related findings and chronic left frontal infarct. Communications: Call Doctor Stroke Electronically signed by: Susan Cheng M.D. 05/14/22 21:41 PM Head CTA 05/14/22 21:12 CR Exam(s): CTA HEAD With Contrast IV Amt: 113 ml optiray 320 EXAM: CT Angiography Head With Intravenous Contrast CLINICAL HISTORY: Reason for exam: neuro deficit, acute stroke suspected. TECHNIQUE: Axial computed tomographic angiography images of the head with intravenous contrast. CTDI is 76 mGy and DLP is 1186.57 mGy-cm. Automated exposure control was utilized for the study. A dose lowering technique was utilized adhering to the principles of ALARA. MIP reconstructed images were created and reviewed. CONTRAST: Patient received 113 ml optiray 320 of IV contrast COMPARISON: None. FINDINGS: Right internal carotid artery: Patent. Right anterior cerebral artery: Patent. Right middle cerebral artery: Patent. Right posterior cerebral artery: Patent. Right vertebral artery: Patent. Left internal carotid artery: Patent. Left anterior cerebral artery: Patent. Left middle cerebral artery: Patent. Left posterior cerebral artery: Patent. Left vertebral artery: Patent. Basilar artery: Patent, with severe, focal luminal narrowing at the vertebrobasilar junction that is suspicious for 80-90% stenosis, axial series 5 image 89. The vessel is tortuous at this level. Other: Atherosclerosis bilateral cavernous ICA with less than 50% stenosis. IMPRESSION: 1. Suspect severe, focal basilar stenosis, versus artifact. 2. No aneurysm or large vessel occlusion. Communications: Call Doctor Stroke Electronically signed by: Susan Cheng M.D. 05/14/22 21:45 PM Neck CTA 05/14/22 21:12 CR Exam(s): CTA NECK With Contrast IV Amt: 113ml opitray 320 EXAM: CT Angiography Neck With Intravenous Contrast CLINICAL HISTORY: Reason for exam: neuro deficit, acute stroke suspected. TECHNIQUE: Routine carotid CT angiography protocol was performed with intravenous contrast. NASCET criteria using the distal ICAs for comparison were used for evaluation of stenoses. CTDI is 76 mGy and DLP is 1186.57 mGy-cm. Automated exposure control was utilized for the study. A dose lowering technique was utilized adhering to the principles of ALARA. MIP reconstructed images were created and reviewed. Dental metal artifact limits evaluation at the craniocervical junction. CONTRAST: Patient received 113ml Optiray 320 of IV contrast COMPARISON: None. FINDINGS: VASCULATURE: Right common carotid artery: Patent. Right internal carotid artery: Patent. Right vertebral artery: Patent. Left common carotid artery: Patent. Left internal carotid artery: Patent. Left vertebral artery: Patent. Codominant. Other: Moderate ectasia and mild atherosclerosis bilateral carotid bifurcation, without significant stenosis. IMPRESSION: 1. No dissection, occlusion, or significant stenosis. CAROTID STENOSIS REFERENCE USING NASCET CRITERIA: % ICA stenosis = (1 - narrowest ICA diameter/diameter of distal cervical ICA) x 100. Mild - <50% stenosis. Moderate - 50-69% stenosis. Severe - 70-94% stenosis. Near occlusion - 95-99% stenosis. Occluded - 100% stenosis. Communications: Call Doctor Stroke Electronically signed by: Susan Cheng M.D. 05/14/22 21:51 PM Discharge Plan Visit Data Chief Complaint: Syncope Stated Complaint: SYNCOPE ED Provider: Winston Horta Discharge Problem: Dizziness, Hypertension, Stroke-like symptoms, Abnormal head CT Patient Disposition: Admitted As Inpatient Condition: Fair Forms Stand Alone Forms: Count Includes [facility] Prescriptions Prescriptions: No Action metoprolol tartrate 25 mg tablet 25 mg PO DAILY Qty: 90 3RF omeprazole 40 mg capsule,delayed release(DR/EC) 40 mg PO DAILY Qty: 90 3RF ropinirole 0.25 mg tablet 0.5 mg PO HS Qty: 180 3RF fluticasone propionate [Flonase Allergy Relief] 50 mcg/actuation spray,suspension 2 spray intranasal DAILY Qty: 48 0RF Rx Instructions: administer into each nostril gabapentin 300 mg capsule 300 mg PO BID Qty: 180 3RF amlodipine 5 mg tablet 5 mg PO DAILY ipratropium bromide 21 mcg (0.03 %) spray,non-aerosol 2 spray intranasal BID Qty: 30 2RF Rx Instructions: administer into each nostril benzonatate 100 mg capsule 100 mg PO BID PRN (Reason: cough) Qty: 60 1RF melatonin 3 mg Tablet 3 mg PO HS Qty: 30 0RF folic acid 1 mg Tablet 1 mg PO QAM Qty: 30 0RF thiamine HCl (vitamin B1) [Vitamin B-1] 100 mg Tablet 100 mg PO BID Referrals Referrals: Pro,Gabino Davila MD [Primary Care Provider] -
[2022-05-14] MEDS ORDERED: OPTIRAY 320 500ml IV ONE (21:24)
[2022-05-14 21:30] LABS: Basophils # (auto) 0.07 K/uL (0-0.2); Basophils % (auto) 0.8 %; Eosinophils # (auto) 0.11 K/uL (0-0.50); Eosinophils % (auto) 1.2 %; Hematocrit (blood only) 48.8 % (42.0-52.0); Hemoglobin 17.9 g/dl (14.0-18.0); Immature Granulocytes # (auto) 0.04 K/uL (0.01-0.20); Immature Granulocytes % (auto) 0.4 %; Lymphocytes # (auto) 1.27 K/uL (1.2-3.4); Lymphocytes % (auto) 13.9 %; Mean Corpuscular Hemoglobin 33.8 pg (25.0-34.0); Mean Corpuscular Hgb Conc 36.7 g/dL (32.0-36.0); Mean Corpuscular Volume 92.2 fL (80.0-100.0); Mean Platelet Volume 10.8 fL (9.4-12.4); Monocytes # (auto) 0.58 K/uL (0.11-0.59); Monocytes % (auto) 6.3 %; Neutrophils # (auto) 7.09 K/uL (1.40-6.50); Neutrophils % (auto) 77.4 %; Platelet Count 178 K/uL (130-400); RDW Coefficient of Variation 11.4 % (11.5-14.5); RDW Standard Deviation 38.5 fL (36.4-46.3); Red Blood Count 5.29 M/uL (4.70-6.10); White Blood Count 9.16 K/ul (4.8-10.8)
--- NOTE | 2022-05-14 21:42 | CT Scan Report ---
Exam(s): CT HEAD Without Contrast EXAM: CT Head Without Intravenous Contrast CLINICAL HISTORY: Reason for exam: neuro deficit, acute stroke suspected. TECHNIQUE: Axial computed tomography images of the head/brain without intravenous contrast. CTDI is 35.96 mGy and DLP is 537.48 mGy-cm. Automated exposure control was utilized for the study. A dose lowering technique was utilized adhering to the principles of ALARA. COMPARISON: Head CT 09/18/21. FINDINGS: Brain: Mild/moderate atrophy and chronic, nonspecific white matter disease and a chronic left frontotemporal infarct are stable. Hypodensity in the midline josué, may be artifact, right paramedian pontine infarct not excluded. No edema or acute, cortical infarct. No acute hemorrhage. Ventricles: No hydrocephalus or midline shift. Bones/joints: No skull fracture. Soft tissues: No scalp hematoma. Sinuses: Clear. Mastoid air cells: No mastoid effusion. IMPRESSION: 1. Artifact versus pontine infarct. 2. No acute bleed. 3. Stable age-related findings and chronic left frontal infarct. Communications: Call Doctor Stroke Electronically signed by: Susan Cheng M.D. 05/14/22 21:41 PM
[2022-05-14 21:44] LABS: Partial Thromboplastin Time 28.1 Seconds (21.0-31.0); Prothrombin Time 10.7 Seconds (9.0-12.0)
--- NOTE | 2022-05-14 21:46 | CT Scan Report ---
Exam(s): CTA HEAD With Contrast IV Amt: 113 ml optiray 320 EXAM: CT Angiography Head With Intravenous Contrast CLINICAL HISTORY: Reason for exam: neuro deficit, acute stroke suspected. TECHNIQUE: Axial computed tomographic angiography images of the head with intravenous contrast. CTDI is 76 mGy and DLP is 1186.57 mGy-cm. Automated exposure control was utilized for the study. A dose lowering technique was utilized adhering to the principles of ALARA. MIP reconstructed images were created and reviewed. CONTRAST: Patient received 113 ml optiray 320 of IV contrast COMPARISON: None. FINDINGS: Right internal carotid artery: Patent. Right anterior cerebral artery: Patent. Right middle cerebral artery: Patent. Right posterior cerebral artery: Patent. Right vertebral artery: Patent. Left internal carotid artery: Patent. Left anterior cerebral artery: Patent. Left middle cerebral artery: Patent. Left posterior cerebral artery: Patent. Left vertebral artery: Patent. Basilar artery: Patent, with severe, focal luminal narrowing at the vertebrobasilar junction that is suspicious for 80-90% stenosis, axial series 5 image 89. The vessel is tortuous at this level. Other: Atherosclerosis bilateral cavernous ICA with less than 50% stenosis. IMPRESSION: 1. Suspect severe, focal basilar stenosis, versus artifact. 2. No aneurysm or large vessel occlusion. Communications: Call Doctor Stroke Electronically signed by: Susan Cheng M.D. 05/14/22 21:45 PM
--- NOTE | 2022-05-14 21:52 | CT Scan Report ---
Exam(s): CTA NECK With Contrast IV Amt: 113ml opitray 320 EXAM: CT Angiography Neck With Intravenous Contrast CLINICAL HISTORY: Reason for exam: neuro deficit, acute stroke suspected. TECHNIQUE: Routine carotid CT angiography protocol was performed with intravenous contrast. NASCET criteria using the distal ICAs for comparison were used for evaluation of stenoses. CTDI is 76 mGy and DLP is 1186.57 mGy-cm. Automated exposure control was utilized for the study. A dose lowering technique was utilized adhering to the principles of ALARA. MIP reconstructed images were created and reviewed. Dental metal artifact limits evaluation at the craniocervical junction. CONTRAST: Patient received 113ml Optiray 320 of IV contrast COMPARISON: None. FINDINGS: VASCULATURE: Right common carotid artery: Patent. Right internal carotid artery: Patent. Right vertebral artery: Patent. Left common carotid artery: Patent. Left internal carotid artery: Patent. Left vertebral artery: Patent. Codominant. Other: Moderate ectasia and mild atherosclerosis bilateral carotid bifurcation, without significant stenosis. IMPRESSION: 1. No dissection, occlusion, or significant stenosis. CAROTID STENOSIS REFERENCE USING NASCET CRITERIA: % ICA stenosis = (1 - narrowest ICA diameter/diameter of distal cervical ICA) x 100. Mild - <50% stenosis. Moderate - 50-69% stenosis. Severe - 70-94% stenosis. Near occlusion - 95-99% stenosis. Occluded - 100% stenosis. Communications: Call Doctor Stroke Electronically signed by: Susan Cheng M.D. 05/14/22 21:51 PM
[2022-05-14 21:54] LABS: Bilirubin,Total 0.9 mg/dl (0.2-1.0); Magnesium 2.1 mg/dl (1.7-2.4); Potassium 3.9 mmol/L (3.5-5.1)
[2022-05-14 21:56] LABS: Troponin I High Sensitivity 7.7 pg/ml (0-20)
[2022-05-14 22:00] LABS: Albumin Globulin Ratio 1.8 (0.9-2); BUN Creatinine Ratio 19.8 (10-20); Creatinine Clr Calc Pharmacy 81.6 ml/min; Est GFR (African American) 87.4 ml/min; Est GFR (Non-African American) 75.4 ml/min; Globulin 2.8 gm/dl (2.5-4.0); Total Protein 7.8 gm/dl (6.0-8.3)
[2022-05-14] MEDS ORDERED: PRAVASTATIN SOD 20 MG TAB PO STA (22:36)
[2022-05-14] MEDS ORDERED: ASPIRIN CHEW 324 MG PO STA (22:36)
[2022-05-14 22:37] LABS: Influenza A virus by PCR Negative (Neg); Influenza B virus by PCR Negative (Neg); RSV by PCR Negative (Neg); SARS CoV2 RNA(COVID-19) Ceph NEGATIVE (Negative)
[2022-05-14] MEDS ORDERED: LABETALOL HCL IV 5 MG/ML 20ML IV STA (22:46)
[2022-05-14 23:02] LABS: Appearance Urine Clear (Clear); Bilirubin Urine Negative (Negative); Blood Urine Negative (Negative); Color Urine Yellow; Glucose Urine UA Negative (Negative); Ketones Urine 1+ (Negative); Leukocyte Esterase Urine Negative (Negative); Nitrite Urine Negative (Negative); Protein Urine Negative (Negative); Specific Gravity Urine 1.033 (1.000-1.030); Urobilinogen Urine Negative (Negative)
--- NOTE | 2022-05-14 23:16 | History & Physical Report ---
Date of Service May 14, 2022 Assessment & Plan (1) TIA (transient ischemic attack): Plan: 77 yo male PMHx of CVA, intracranial bleed, HTN, chronic cough, alcoholism, lumbosacral radiculopathy GERD, and RLS presents with TIA. #TIA #H/o stroke, ?hemorrhagic #Traumatic brain injury with intracranial bleed -presented to ED asymptomatic after experiencing 1.5 hours of dizzy/lightheadedness without syncope at home. He does have a h/o of a stroke with intracranial bleed 7 years ago. He had fell and hit head at the time and it was undetermined if bleed was due to the stroke or the fall itself. In the ED, telestroke was contacted and TPA was deferred due to pt being asymptomatic and his history. Advised giving ASA and pravastatin. -CT brain: no acute bleed, suspicious pontine infarct -CTA head/neck: severe basilar stenosis -MRI brain pending -MR angio head pending -Passed dysphagia screen. Neuro checks q2h. -cont. daily ASA, pravastatin -allow for permissive HTN, BP goal <220/<120 for first 24-48 hours. Metoprolol and amlodipine held. -Neuro consulted. Will want to discuss if patient is a candidate for TPA in the future given history of intracranial bleed. #H/o syncope -follows with [place] [facility] -loop recorder in place, per records no syncopal events since placement of recorder -consider cardio consult and loop recorder interrogation -monitor on tele #HTN -given dose of labetalol in ED. -allow for permissive HTN as above. Hold metoprolol and amlodipine. #GERD -cont. PPI #Restless Leg Syndrome -cont. ropinirole #Chronic Cough -cont. benzonatate, flonase, ipratropium nasal #Alcoholism -cont. folic acid and thiamine #Lumbosacral radiculopathy -cont. gabapentin DVT ppx: SCDs, ASA FEN/GI: HH Code Status: Full Dispo: PCU (2) Hypertension: (3) Chronic cough: (4) Lumbosacral radiculopathy: (5) Alcohol use: (6) GERD without esophagitis: (7) Alcoholism: (8) H/O traumatic brain injury: (9) H/O: stroke with residual effects: (10) History of syncope: History of Present Illness Chief Complaint: TIA Primary Care Provider: Gabino Ferrell MD 77 yo male PMHx of CVA, intracranial bleed, HTN, chronic cough, alcoholism, lumbosacral radiculopathy GERD, and RLS presents with TIA. Around 7pm yesterday evening he was sitting down and started feeling dizzy and lightheaded like his "head was coming off." Denies room spinning. He got up and made it to his bed where he laid down. Symptoms resolved about 1.5 hours later. Denies headache, fever, fatigue, weakness/numbness/tingling, chest pain, sob, abd pain, N/V. Per ED, daughter stated that he seemed a little confused during symptom onset. Allergies Allergy/AdvReac Type Severity Reaction Status Date / Time No Known Allergies Allergy Verified 05/14/22 21:41 Home Medications Medication Instructions Recorded Confirmed Type folic acid 1 mg tablet 1 mg PO QAM #30 tabs 09/21/21 05/14/22 Rx melatonin 3 mg tablet 3 mg PO HS #30 tabs 09/21/21 05/14/22 Rx metoprolol tartrate 25 mg tablet 25 mg PO DAILY #90 tabs 10/24/21 05/14/22 Rx omeprazole 40 mg capsule,delayed 40 mg PO DAILY #90 caps 10/24/21 05/14/22 Rx release ropinirole 0.25 mg tablet 0.5 mg PO HS #180 tabs 10/24/21 05/14/22 Rx gabapentin 300 mg capsule 300 mg PO BID #180 caps 01/16/22 05/14/22 Rx amlodipine 5 mg tablet 5 mg PO DAILY 02/28/22 05/14/22 History ipratropium bromide 21 mcg (0.03 2 spray intranasal BID #30 mL 03/26/22 05/14/22 Rx %) nasal spray benzonatate 100 mg capsule 100 mg PO BID PRN cough #60 caps 04/17/22 05/14/22 Rx fluticasone propionate 50 2 spray intranasal DAILY #48 grams 04/20/22 05/14/22 Rx mcg/actuation nasal spray,suspension (Flonase Allergy Relief) thiamine HCl (vitamin B1) 100 mg 100 mg PO BID 05/14/22 05/14/22 History tablet (Vitamin B-1) aspirin 81 mg tablet,delayed 81 mg PO QAM #30 tabs 05/15/22 Rx release metformin 500 mg tablet 500 mg PO DAILY #30 tabs 05/15/22 Rx pravastatin 20 mg tablet 20 mg PO DAILY@1700 30 days #30 05/15/22 Rx tabs Past Med/Surg History Medical History (Updated 05/15/22 @ 13:52 by Manish Alvarado MD) Alcohol use Bilateral impacted cerumen Change in mental status Chronic cough Constipation Gender dysphoria in adult GERD (gastroesophageal reflux disease) Gout, joint History of diverticulitis of colon History of fracture of skull History of subarachnoid hemorrhage Hypertension Inhibited sexual excitement Insomnia Intracranial bleed Olecranon bursitis, right elbow Orbital floor fracture Periorbital swelling Screening for diabetes mellitus (DM) Stroke Stroke-like symptoms TBI (traumatic brain injury) Vitamin B12 deficiency Surgical History Hx of tonsillectomy Family History Father Diabetes Tuberculosis Multiple sclerosis Denies family history of Ovarian cancer Prostate cancer Myocardial infarction Breast cancer Colorectal cancer Social History Smoking Status: Never smoker Second Hand Exposure: No; Hx Alcohol Use: Yes Alcohol type: beer Alcohol Intake Frequency: 4 or More x per/Week Alcohol Intake Frequency Comment: At least 2 drinks daily or more Hx Substance Use: No Preferred Language: Lithuanian Communication Ability: Effective Visual Impairment: Partially Limited Hearing Ability: Hard of Hearing 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 Beliefs That Will Affect Care: None marital status: Current Living Situation: Alone current occupational status: retired How many Children do You have: 3 How many Children do You have Comment: 2 girls 1 boy Feels Safe at Home: Yes Childhood Exposure to Second-Hand Smoke: No during the past year weight has: remained stable Dental Care, Regularly: No Physical Activity Frequency: Does not Exercise Seatbelt Use: sometimes Sunscreen Use: No Assistive Devices: Glasses Review of Systems Review of Systems: All systems reviewed & are unremarkable except as noted in HPI & below Physical Exam Physical Exam: Constitutional: in no acute distress, pleasant and normal affect, intact memory. AOx3. Sppech intact. Vitals as above. HEENT: No scleral injection or discharge. Moist mucous membranes. Neck: Supple without lymphadenopathy or thyromegaly. Trachea midline. Lungs: Clear to auscultation bilaterally with good effort. Cardiac: Regular rate and rhythm. No murmurs. No extremity edema. 2+ distal peripheral pulses. Abdomen: Soft, nontender, and nondistended.No guarding. No hepatosplenomegaly. MSK: No cyanosis or clubbing. Extremities motor strength 5/5. Skin: No rashes, warm, dry. Neurologic: No focal deficits. PERRL. Normal sensation bilaterally. Results & Data Results & Data Vital Signs (Past 12 Hours) Vital Signs Temp Pulse Resp BP Pulse Ox O2 Del Method 05/14/22 23:00 88 15 156/79 H 96 05/14/22 22:56 158/98 H 05/14/22 21:12 86 05/14/22 20:46 36.5 C 88 18 174/99 H 97 Room Air Laboratory Results Laboratory Results WBC 9.16 K/ul (4.8-10.8) 05/14/22 21:15 RBC 5.29 M/uL (4.70-6.10) 05/14/22 21:15 Hgb 17.9 g/dl (14.0-18.0) 05/14/22 21:15 Hct 48.8 % (42.0-52.0) 05/14/22 21:15 MCV 92.2 fL (80.0-100.0) 05/14/22 21:15 MCH 33.8 pg (25.0-34.0) 05/14/22 21:15 MCHC 36.7 g/dL (32.0-36.0) H 05/14/22 21:15 RDW Std Deviation 38.5 fL (36.4-46.3) 05/14/22 21:15 RDW Coeff of [place] 11.4 % (11.5-14.5) L 05/14/22 21:15 Plt Count 178 K/uL (130-400) 05/14/22 21:15 MPV 10.8 fL (9.4-12.4) 05/14/22 21:15 Immature Gran % (Auto) 0.4 % 05/14/22 21:15 Neut % (Auto) 77.4 % 05/14/22 21:15 Lymph % (Auto) 13.9 % 05/14/22 21:15 [place] % (Auto) 6.3 % 05/14/22 21:15 Eos % (Auto) 1.2 % 05/14/22 21:15 Baso % (Auto) 0.8 % 05/14/22 21:15 Neut # (Auto) 7.09 K/uL (1.40-6.50) H 05/14/22 21:15 Lymph # (Auto) 1.27 K/uL (1.2-3.4) 05/14/22 21:15 [place] # (Auto) 0.58 K/uL (0.11-0.59) 05/14/22 21:15 Eos # (Auto) 0.11 K/uL (0-0.50) 05/14/22 21:15 Baso # (Auto) 0.07 K/uL (0-0.2) 05/14/22 21:15 Immature Gran # (Auto) 0.04 K/uL (0.01-0.20) 05/14/22 21:15 PT 10.7 Seconds (9.0-12.0) 05/14/22 21:15 INR 1.0 (0.9-1.1) 05/14/22 21:15 APTT 28.1 Seconds (21.0-31.0) 05/14/22 21:15 PTT Ratio 1.0 05/14/22 21:15 Sodium 129 mmol/L (136-145) L 05/14/22 21:15 Potassium 3.9 mmol/L (3.5-5.1) 05/14/22 21:15 Chloride 92 mmol/L (98-107) L 05/14/22 21:15 Carbon Dioxide 25 mmol/L (21-32) 05/14/22 21:15 Anion Gap 12 (3-11) H 05/14/22 21:15 BUN 19 mg/dl (6-23) 05/14/22 21:15 Creatinine 0.96 mg/dl (0.6-1.4) 05/14/22 21:15 Est Cr Clr Drug Dosing 81.6 ml/min 05/14/22 21:15 Est GFR ( Amer) 87.4 ml/min 05/14/22 21:15 Est GFR (Non-Af Amer) 75.4 ml/min 05/14/22 21:15 BUN/Creatinine Ratio 19.8 (10-20) 05/14/22 21:15 Glucose 134 mg/dl (70-99(Fasting)) H 05/14/22 21:15 Calcium 10.0 mg/dl (8.6-10.3) 05/14/22 21:15 Magnesium 2.1 mg/dl (1.7-2.4) 05/14/22 21:15 Total Bilirubin 0.9 mg/dl (0.2-1.0) 05/14/22 21:15 AST 28 U/L (13-39) 05/14/22 21:15 ALT 30 U/L (7-52) 05/14/22 21:15 Alkaline Phosphatase 84 U/L (34-104) 05/14/22 21:15 Troponin I High Sens 7.7 pg/ml (0-20) 05/14/22 21:15 Total Protein 7.8 gm/dl (6.0-8.3) 05/14/22 21:15 Albumin 5.0 gm/dl (3.4-5.0) 05/14/22 21:15 Globulin 2.8 gm/dl (2.5-4.0) 05/14/22 21:15 Albumin/Globulin Ratio 1.8 (0.9-2) 05/14/22 21:15 Urine Color Yellow 05/14/22 22:23 Urine Appearance Clear (Clear) 05/14/22 22:23 Urine pH 7.0 (4.5-7.5) 05/14/22 22:23 Ur Specific [place] 1.033 (1.000-1.030) H 05/14/22 22:23 Urine Protein Negative (Negative) 05/14/22 22:23 Urine Glucose (UA) Negative (Negative) 05/14/22 22:23 Urine Ketones 1+ (Negative) H 05/14/22 22:23 Urine Blood Negative (Negative) 05/14/22 22:23 Urine Nitrite Negative (Negative) 05/14/22 22:23 Urine Bilirubin Negative (Negative) 05/14/22 22:23 Urine Urobilinogen Negative (Negative) 05/14/22 22:23 Ur Leukocyte Esterase Negative (Negative) 05/14/22 22:23 SARS-CoV-2 (PCR) NEGATIVE (Negative) 05/14/22 21:40 Influenza Type A (PCR) Negative (Neg) 05/14/22 21:40 Influenza Type B (PCR) Negative (Neg) 05/14/22 21:40 RSV (RT-PCR) Negative (Neg) 05/14/22 21:[address] 05/14/22 21:12 CR Exam(s): CT HEAD Without Contrast EXAM: CT Head Without Intravenous Contrast CLINICAL HISTORY: Reason for exam: neuro deficit, acute stroke suspected. TECHNIQUE: Axial computed tomography images of the head/brain without intravenous contrast. CTDI is 35.96 mGy and DLP is 537.48 mGy-cm. Automated exposure control was utilized for the study. A dose lowering technique was utilized adhering to the principles of ALARA. COMPARISON: Head CT 09/18/21. FINDINGS: Brain: Mild/moderate atrophy and chronic, nonspecific white matter disease and a chronic left frontotemporal infarct are stable. Hypodensity in the midline josué, may be artifact, right paramedian pontine infarct not excluded. No edema or acute, cortical infarct. No acute hemorrhage. Ventricles: No hydrocephalus or midline shift. Bones/joints: No skull fracture. Soft tissues: No scalp hematoma. Sinuses: Clear. Mastoid air cells: No mastoid effusion. IMPRESSION: 1. Artifact versus pontine infarct. 2. No acute bleed. 3. Stable age-related findings and chronic left frontal infarct. Communications: Call Doctor Stroke Electronically signed by: Susan Cheng M.D. 05/14/22 21:41 PM Head CTA 05/14/22 21:12 CR Exam(s): CTA HEAD With Contrast IV Amt: 113 ml optiray 320 EXAM: CT Angiography Head With Intravenous Contrast CLINICAL HISTORY: Reason for exam: neuro deficit, acute stroke suspected. TECHNIQUE: Axial computed tomographic angiography images of the head with intravenous contrast. CTDI is 76 mGy and DLP is 1186.57 mGy-cm. Automated exposure control was utilized for the study. A dose lowering technique was utilized adhering to the principles of ALARA. MIP reconstructed images were created and reviewed. CONTRAST: Patient received 113 ml optiray 320 of IV contrast COMPARISON: None. FINDINGS: Right internal carotid artery: Patent. Right anterior cerebral artery: Patent. Right middle cerebral artery: Patent. Right posterior cerebral artery: Patent. Right vertebral artery: Patent. Left internal carotid artery: Patent. Left anterior cerebral artery: Patent. Left middle cerebral artery: Patent. Left posterior cerebral artery: Patent. Left vertebral artery: Patent. Basilar artery: Patent, with severe, focal luminal narrowing at the vertebrobasilar junction that is suspicious for 80-90% stenosis, axial series 5 image 89. The vessel is tortuous at this level. Other: Atherosclerosis bilateral cavernous ICA with less than 50% stenosis. IMPRESSION: 1. Suspect severe, focal basilar stenosis, versus artifact. 2. No aneurysm or large vessel occlusion. Communications: Call Doctor Stroke Electronically signed by: Susan Cheng M.D. 05/14/22 21:45 PM Neck CTA 05/14/22 21:12 CR Exam(s): CTA NECK With Contrast IV Amt: 113ml opitray 320 EXAM: CT Angiography Neck With Intravenous Contrast CLINICAL HISTORY: Reason for exam: neuro deficit, acute stroke suspected. TECHNIQUE: Routine carotid CT angiography protocol was performed with intravenous contrast. NASCET criteria using the distal ICAs for comparison were used for evaluation of stenoses. CTDI is 76 mGy and DLP is 1186.57 mGy-cm. Automated exposure control was utilized for the study. A dose lowering technique was utilized adhering to the principles of ALARA. MIP reconstructed images were created and reviewed. Dental metal artifact limits evaluation at the craniocervical junction. CONTRAST: Patient received 113ml Optiray 320 of IV contrast COMPARISON: None. FINDINGS: VASCULATURE: Right common carotid artery: Patent. Right internal carotid artery: Patent. Right vertebral artery: Patent. Left common carotid artery: Patent. Left internal carotid artery: Patent. Left vertebral artery: Patent. Codominant. Other: Moderate ectasia and mild atherosclerosis bilateral carotid bifurcation, without significant stenosis. IMPRESSION: 1. No dissection, occlusion, or significant stenosis. CAROTID STENOSIS REFERENCE USING NASCET CRITERIA: % ICA stenosis = (1 - narrowest ICA diameter/diameter of distal cervical ICA) x 100. Mild - <50% stenosis. Moderate - 50-69% stenosis. Severe - 70-94% stenosis. Near occlusion - 95-99% stenosis. Occluded - 100% stenosis. Communications: Call Doctor Stroke Electronically signed by: Susan Cheng M.D. 05/14/22 21:51 PM Supervising Physician Co-Signing Physician Notes Patient seen and examined, chart reviewed, case discussed with Dr. Sandhu and I agree with the assessment and plan as above. In brief, patient is a 77yo male presenting with diziness and lightheadedness Symptoms lasted appx 1.5 hours. Now with no complaints. Patient feels back to normal. CT Head wtih possible pontine infarct as well as focal basilar stenosis. Exam unremarkable Neurological exam with no acute findings Assessment/Plan Complete stroke workup. MRI and MRA head for morning Anti-platelet and Pravastatin Remainder as above Resident Activity Tracking Resident Involvement: Resident Care Provided Care Provided: Adult Hospital Medicine (2) Hypertension Hypertension type: unspecified Qualified Code(s): I10 - Essential (primary) hypertension
[2022-05-15] MEDS ORDERED: GADOBUTROL 65ML VIAL IV ONE (02:28)
[2022-05-15] MEDS ORDERED: ACETAMINOPHEN 325 MG TAB PO PRN (02:40)
[2022-05-15] MEDS ORDERED: BENZONATATE 100 MG CAPSULE PO PRN (02:40)
--- NOTE | 2022-05-15 03:01 | Magnetic Resonance Report ---
Exam(s): MRA HEAD Without Contrast EXAM: MR Angiography Head Without Intravenous Contrast CLINICAL HISTORY: Reason for exam: stroke. TECHNIQUE: Magnetic resonance angiography images of the head without intravenous contrast. Moderate to severe motion artifact limits evaluation. COMPARISON: CTA head done the previous evening. FINDINGS: Right internal carotid artery: Patent. Right anterior cerebral artery: Patent. Right middle cerebral artery: Patent. Right posterior cerebral artery: Patent. Right vertebral artery: Nondiagnostic. Left internal carotid artery: Patent. Left anterior cerebral artery: Patent. Left middle cerebral artery: Patent. Left posterior cerebral artery: Patent. Left vertebral artery: Nondiagnostic. Basilar artery: Mid and distal portions are patent. Other: IMPRESSION: 1. Grossly patent tetlin of [place] with moderate to severe motion artifact limiting evaluation. Electronically signed by: Susan Cheng M.D. 05/15/22 03:00 AM
--- NOTE | 2022-05-15 03:04 | Magnetic Resonance Report ---
Exam(s): MRI HEAD W/WO Contrast IV Amt: 7cc gadavist EXAM: MR Head Without and With Intravenous Contrast CLINICAL HISTORY: Reason for exam: stroke. TECHNIQUE: Magnetic resonance images of the head/brain without and with intravenous contrast in multiple planes. Moderate to severe motion artifact. CONTRAST: Patient received 7cc Gadavist of IV contrast COMPARISON: Head CT done the previous evening. FINDINGS: Brain: No edema or acute infarct, with attention to the josué. No acute or chronic hemorrhage. No abnormal enhancement. Chronic infarct left frontal lobe, diffuse atrophy and chronic white matter disease are noted. Ventricles: No hydrocephalus or midline shift. Bones/joints: No calvarial lesions. Soft tissues: No scalp hematoma. Sinuses: Clear. Mastoid air cells: No mastoid effusion. IMPRESSION: 1. No abnormal enhancement, acute infarct, bleed, or acute intracranial abnormality. 2. Specifically, no pontine infarct. 3. Chronic left frontal lobe infarct and age-related findings are again noted. 4. Moderate to severe motion artifact. Electronically signed by: Susan Cheng M.D. 05/15/22 03:03 AM
[2022-05-15 04:42] LABS: Chol HDL Ratio 3.5 (0-5)
--- NOTE | 2022-05-15 08:17 | XRay Report ---
XR chest 1V portable HISTORY: 77 years-old Male cough acute cough COMPARISON: Chest CT 02/21/2022 TECHNIQUE: AP view of the chest FINDINGS: Cardiac silhouette is enlarged. A loop recorder device is present. Atherosclerosis of the aorta. Unch anged mild right hemidiaphragmatic elevation. There is no pneumothorax, pleural effusion, lobar airsp leandra consolidation or overt pulmonary edema. Mild chronic interstitial coarsening of the lung bases. D egenerative changes of the shoulders and spine. IMPRESSION: No acute process. ACT 112: Negative or not required by law. The above report was generated using voice recognition software. It may contain grammatical, syntax o r spelling errors. Electronically signed by: Jayesh Gonzalez M.D. 05/15/2022 8:16 AM
[2022-05-15 08:46] LABS: Estimated Average Glucose 154 mg/dl
--- NOTE | 2022-05-15 08:59 | Discharge Summary ---
Discharge Summary Date of Service May 15, 2022 Admission HPI Per Admitting Provider 77 yo male PMHx of CVA, intracranial bleed, HTN, chronic cough, alcoholism, lumbosacral radiculopathy GERD, and RLS presents with TIA. Around 7pm yesterday evening he was sitting down and started feeling dizzy and lightheaded like his "head was coming off." Denies room spinning. He got up and made it to his bed where he laid down. Symptoms resolved about 1.5 hours later. Denies headache, fever, fatigue, weakness/numbness/tingling, chest pain, sob, abd pain, N/V. Per ED, daughter stated that he seemed a little confused during symptom onset. Admission Exam Per Admitting Provider Constitutional: in no acute distress, pleasant and normal affect, intact memory. AOx3. Sppech intact. Vitals as above. HEENT: No scleral injection or discharge. Moist mucous membranes. Neck: Supple without lymphadenopathy or thyromegaly. Trachea midline. Lungs: Clear to auscultation bilaterally with good effort. Cardiac: Regular rate and rhythm. No murmurs. No extremity edema. 2+ distal peripheral pulses. Abdomen: Soft, nontender, and nondistended. No guarding. No hepatosplenomegaly. MSK: No cyanosis or clubbing. Extremities motor strength 5/5. Skin: No rashes, warm, dry. Neurologic: No focal deficits. PERRL. Normal sensation bilaterally. Principal Dx & Hospital Course #1 = Principal Diagnosis (1) TIA (transient ischemic attack): Symptoms of acute onset dizziness and disequilibrium yesterday with a history of CVA and intracranial hemorrhage, BP not low but rather in the 160s systolic, no other symptoms including no gait disturbance, focal neurologic deficits Stroke alert called, and underwent telestroke consult via [place] provider Dr. Parks Head CT, CTA head/neck, brain MRI and MRA performed; chronic left frontal lobe infarct, no acute infarcts, grossly patent [place] Patient with resolution of symptoms 1.5 hours after they started Has a history of prior left hemisphere ICH in 2014 Aspirin started, to continue baby aspirin daily on discharge Pravastatin 20 mg daily for cholesterol, and avoid high sensitivity statin at this point due to potential ICH concerns Defer BP control to PCP, continue home medication metoprolol and amlodipine, BP [id number] systolic A1c 7.7% here, new diagnosis, see below Carotid artery duplex study in 1 year recommended Per telestroke neurology, prior ICH was probably posttraumatic and less likely primary, unlikely to have cerebral amyloid angiopathy, no cerebral microbleeds. Due to this, he could be a future IV thrombolytic candidate if he were to have significant persistent acute ischemic stroke deficits in the future. This should be further addressed by a local neurologist, patient should have follow- up with Dr. Henriquez in the near future. (2) DM2 (diabetes mellitus, type 2): A1c 7.0% on 05/14/2022, consistent with new diagnosis of type 2 diabetes Patient with significant dietary indiscretion including alcohol use at home, discussed carb restriction Discharged with metformin 500 mg daily, to follow-up with PCP regarding further management of diabetes Patient's daughter also has diabetes and will assist with dietary modifications (3) Hypertension: Continue metoprolol and amlodipine, with further adjustment of medications and possibly sleep study if has not been done to rule out MANI (4) Acute hyponatremia: Sodium of 129 on this admission, increased to 130 overnight Possibly low solute diet as patient does drink alcohol at home, no history of heart failure, discussed staying away from low-salt diet at this point and decreasing alcohol intake Plan Dispo: Home, follow-up with PCP Discharge Exam Constitutional WD/WN, vitals as above Respiratory normal respiratory effort, lungs clear to auscultation Cardiovascular RRR, no murmur, no edema Neurologic PERRL, EOMI, accommodation nl, no face palsy, no dysarthria Bilateral upper and lower extremity sensation intact, no motor deficits, no muscle atrophy Updated Medication List Medication Instructions Recorded Confirmed Type folic acid 1 mg tablet 1 mg PO QAM #30 tabs 09/21/21 05/14/22 Rx melatonin 3 mg tablet 3 mg PO HS #30 tabs 09/21/21 05/14/22 Rx metoprolol tartrate 25 mg tablet 25 mg PO DAILY #90 tabs 10/24/21 05/14/22 Rx omeprazole 40 mg capsule,delayed 40 mg PO DAILY #90 caps 10/24/21 05/14/22 Rx release ropinirole 0.25 mg tablet 0.5 mg PO HS #180 tabs 10/24/21 05/14/22 Rx gabapentin 300 mg capsule 300 mg PO BID #180 caps 01/16/22 05/14/22 Rx amlodipine 5 mg tablet 5 mg PO DAILY 02/28/22 05/14/22 History ipratropium bromide 21 mcg (0.03 2 spray intranasal BID #30 mL 03/26/22 05/14/22 Rx %) nasal spray benzonatate 100 mg capsule 100 mg PO BID PRN cough #60 caps 04/17/22 05/14/22 Rx fluticasone propionate 50 2 spray intranasal DAILY #48 grams 04/20/22 05/14/22 Rx mcg/actuation nasal spray,suspension (Flonase Allergy Relief) thiamine HCl (vitamin B1) 100 mg 100 mg PO BID 05/14/22 05/14/22 History tablet (Vitamin B-1) aspirin 81 mg tablet,delayed 81 mg PO QAM #30 tabs 05/15/22 Rx release metformin 500 mg tablet 500 mg PO DAILY #30 tabs 05/15/22 Rx pravastatin 20 mg tablet 20 mg PO DAILY@1700 30 days #30 05/15/22 Rx tabs Hospital Stay Data Consultations 05/14/22 22:41 ED Decision to Admit Stat 05/15/22 02:40 Consult Neurology Routine Diagnostic Imagining Performed 05/14/22 21:12 CT angio head w con Stat CT angio neck with con Stat CT head/brain wo con Stat 05/15/22 00:23 MRI Brain [MR brain wo/w con] Routine 05/15/22 00:30 MR angio head wo con Routine Discharge Instructions Given to Patient (Per Discharging Provider) You were admitted to the hospital for evaluation of neurologic symptoms, to make sure you did not have a stroke. You had imaging studies and lab monitoring, and it does not look like you had an acute stroke. This was probably what we call a TIA (transient ischemic attack), or "mini stroke". These are neurologic episodes that mimic stroke, but do not leave lasting brain damage. You returned to your normal function. You were evaluated by the Neurologist, who recommended prav astatin, a low dose cholesterol medication, to help decrease your risk of strokes moving forward. You were also noted to have a low sodium level. Because you do not have a history of heart failure, and you have had low salt levels before that required you to be given salt, I recommend you use regular salt at home instead of the seasoning you use. This should help with your mild low sodium. You should have labwork through your family doctor office to keep an eye on your sodium levels in a couple weeks. Your new medications are as follows: Pravastatin, for cholesterol, 1 pill daily Aspirin 81 milligrams (baby aspirin), one tablet daily metformin, 500 milligrams (1 tablet) daily Your A1c was 7.7%; this means that you classify as having Diabetes. Because of this, we recommend you decrease your carbohydrate intake (full sugar sodas and drinks, baked goods, bread, pasta, potatoes, rice). You can still have these things, but in moderation. Please follow up with your primary doc about this new diagnosis and how to manage it moving forward. I have sent in a month's worth of the metformin. This can cause some GI upset in the fire few days sometimes, so call your doctor if you are having GI issues. If you have any questions regarding medical concerns, call your family doctor's office. If you have urgent concerns about your health or safety, please come back to the ER for evaluation. Total Time Total Time Spent Total Time Spent (In Minutes): 45 minutes Coding Level of Care Code 20064 INP/OBS DISCH >30 MIN Diagnoses TIA (transient ischemic attack) G45.9 DM2 (diabetes mellitus, type 2) E11.9 Hypertension I10 Hypertension type: unspecified Acute hyponatremia E87.1
[2022-05-15] MEDS ORDERED: IPRATROPIUM BROMIDE NASAL SPRAY 0.06% 15ML NAE SCH (09:00)
[2022-05-15] MEDS ORDERED: ASPIRIN 81 MG ECTAB PO SCH (09:00)
[2022-05-15] MEDS ORDERED: FOLIC ACID 1 MG TAB PO SCH (09:00)
[2022-05-15] MEDS ORDERED: PANTOprazole 40 MG TAB PO SCH (09:00)
[2022-05-15] MEDS ORDERED: THIAMINE HCL 100 MG TAB PO SCH (09:00)
[2022-05-15] MEDS ORDERED: FLUTICASONE PROPIONATE NA SPR 16 GM BTL SCH (09:00)
[2022-05-15] MEDS ORDERED: GABAPENTIN 300 MG CAP PO SCH (09:00)
[2022-05-15 10:10] LABS: Calcium 9.2 mg/dl (8.6-10.3); Potassium 4.2 mmol/L (3.5-5.1)
[2022-05-15 10:16] LABS: Est GFR (African American) 94.9 ml/min; Est GFR (Non-African American) 81.9 ml/min
--- NOTE | 2022-05-15 10:53 | Electrocardiogram Report ---
Test Reason : Blood Pressure : / mmHG Vent. Rate : 093 BPM Atrial Rate : 093 BPM P-R Int : 182 ms QRS Dur : 092 ms QT Int : 366 ms P-R-T Axes : 055 016 040 degrees QTc Int : 455 ms Poor data quality, interpretation may be adversely affected Sinus rhythm with Premature atrial complexes Otherwise normal ECG When compared with ECG of 18-SEP-2021 16:53, Premature atrial complexes are now Present Vent. rate has increased BY 34 BPM Confirmed by David Pierce ([id number]) on 05/15/2022 10:52:32 AM Referred By: REFERRED SELF Confirmed By:David Pierce
--- NOTE | 2022-05-15 14:06 | Neurology Consultation ---
Date of Consultation May 15, 2022 Assessment & Plan (1) Stroke-like symptoms: Impression: The patient had an episode of dizziness, lightheadedness, with questionable imbalance yesterday evening, which resolved in 90 minutes. Brain MRI did not show acute intracranial pathology. The patient is started on a spirin, and statin. The case was assessed with stroke specialist. The patient is willing to be discharged home, with outpatient follow-ups. He has been symptom-free since yesterday 9 PM. Cardiac rhythm monitoring has been showing sinus rhythm. Recommendations/plan: I agree with starting patient on daily aspirin 81 mg and pravastatin 20 mg daily. There is no further indication for permissive hypertension. The patient is still hypertensive. Treatment adjustment to lower blood pressure down to normal range, and follow-up with primary care physician. There is no indication for EEG or additional inpatient work-up at this time. If the patient continue having similar symptoms, then outpatient EEG with additional work-up might be considered. The patient is neurologically stable and can be discharged home. Follow-up with outpatient neurology clinic. (2) TBI (traumatic brain injury): Impression: The patient had intracranial hemorrhage in 2014. Underlying etiology was not clear but considered most likely due to trauma. Imaging studies did not reveal any evidence of intracranial vascular malformation or amyloid angiopathy. Repeat MRI today was also negative for any evidence of such vascular pathologies. There was a concern of future stroke symptoms and eligibility for thrombolytic treatment. Recommendations/plan: Even though it was not clearly defined in earlier guidelines, but history of intracranial hemorrhage, without active bleeding, primary vascular malformation or amyloid angiopathy should not be considered as absolute contraindication for thrombolytic treatment. Such history should be considered as relative contraindication, and risks and benefits of thrombolytic treatments should be assessed during any future indication. (3) Idiopathic polyneuropathy: Impression: The patient has established diagnosis of peripheral polyneuropathy. 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 (5) Dizziness: Impression: Recent neurological symptoms are more suggestive of dizziness, which can be due to blood pressure sudden changes. However, TIA should be considered in differential. Plan As above. Thank you for the consultation. History of Present Illness Reason for Consultation: Stroke like symptoms Requesting Physician: Karolina Eli DO Attending Physician: Karolina M. Sreedhar, DO History of Present Illness The patient is a 77-year-old right-handed male, who was brought to emergency department yesterday, after the patient had sudden onset dizziness, lightheadedness, while sitting and reading around 7:20 PM yesterday. There was no additional neurological symptoms. The patient describes such feeling as he has had was feeling off, without spinning sensation, additional sensorimotor deficits, mental status change, tonic-clonic activity, alteration of awareness, or headaches. Apparently, the patient lives alone, and called his daughter, who came to check on him. The patient was having slight unsteadiness during ambulation. They activated EMS and the patient was brought to emergency department. His symptoms were not focal, but he contacted with telestroke specialist, who evaluated the patient in detail. Apparently, the patient's symptoms were resolved and 1-1/2 hours. The patient was not a candidate for thrombolytic treatment. The patient has stayed symptom-free, since yesterday. While he is in ED, cardiac rhythm monitoring has been unremarkable. Brain MRI and MRA studies were unremarkable and did not show acute intracranial pathology but chronic atherosclerotic changes. The patient is started on aspirin and statin on this admission. Adjustment of blood pressure management is also recommended based on the patient's elevated blood pressure. The patient would l varun to go home and pursue with additional work-up in outpatient setting. Apparently, this is a reasonable option and the patient will be discharged home soon. There was also concern regarding the patient's history of intracranial hemorrhage in 2014. The patient had significant left hemorrhagic intracranial hemorrhage involving frontal and temporal region. The patient did not need intervention at that time. According to chart, he had MRI study and September 2021, which did not reveal any evidence to suggest cerebral amyloid angiopathy. There was no reported brain cerebral microbleeds. We repeated brain MRI this time, which did not show any evidence of intracranial vascular malformation or evidence of amyloid angiopathy. The other concern was whether the patient would be candidate for thrombolytic treatment, in case of future cerebrovascular accident. Apparently, in early guidelines, intracranial hemorrhage was considered a contraindication for thrombolytic treatment. However, further refinement of guideline suggest only active and detectable intracranial hemorrhage as an absolute contraindication. History of intracranial hemorrhage without primary vascular malformations including amyloid angiopathy should not be considered absolute contraindication but may be relative contraindication. I have discussed the case with the patient, other family members, and hospitalist physician. Allergies Allergy/AdvReac Type Severity Reaction Status Date / Time No Known Allergies Allergy Verified 05/14/22 21:41 Home Medications Medication Instructions Recorded Confirmed Type folic acid 1 mg tablet 1 mg PO QAM #30 tabs 09/21/21 05/14/22 Rx melatonin 3 mg tablet 3 mg PO HS #30 tabs 09/21/21 05/14/22 Rx metoprolol tartrate 25 mg tablet 25 mg PO DAILY #90 tabs 10/24/21 05/14/22 Rx omeprazole 40 mg capsule,delayed 40 mg PO DAILY #90 caps 10/24/21 05/14/22 Rx release ropinirole 0.25 mg tablet 0.5 mg PO HS #180 tabs 10/24/21 05/14/22 Rx gabapentin 300 mg capsule 300 mg PO BID #180 caps 01/16/22 05/14/22 Rx amlodipine 5 mg tablet 5 mg PO DAILY 02/28/22 05/14/22 History ipratropium bromide 21 mcg (0.03 2 spray intranasal BID #30 mL 03/26/22 05/14/22 Rx %) nasal spray benzonatate 100 mg capsule 100 mg PO BID PRN cough #60 caps 04/17/22 05/14/22 Rx fluticasone propionate 50 2 spray intranasal DAILY #48 grams 04/20/22 05/14/22 Rx mcg/actuation nasal spray,suspension (Flonase Allergy Relief) thiamine HCl (vitamin B1) 100 mg 100 mg PO BID 05/14/22 05/14/22 History tablet (Vitamin B-1) aspirin 81 mg tablet,delayed 81 mg PO QAM #30 tabs 05/15/22 Rx release metformin 500 mg tablet 500 mg PO DAILY #30 tabs 05/15/22 Rx pravastatin 20 mg tablet 20 mg PO DAILY@1700 30 days #30 05/15/22 Rx tabs Patient History Medical History (Updated 05/15/22 @ 13:52 by Manish Alvarado MD) Alcohol use Bilateral impacted cerumen Change in mental status Chronic cough Constipation Gender dysphoria in adult GERD (gastroesophageal reflux disease) Gout, joint History of diverticulitis of colon History of fracture of skull History of subarachnoid hemorrhage Hypertension Inhibited sexual excitement Insomnia Intracranial bleed Olecranon bursitis, right elbow Orbital floor fracture Periorbital swelling Screening for diabetes mellitus (DM) Stroke Stroke-like symptoms TBI (traumatic brain injury) Vitamin B12 deficiency Surgical History Hx of tonsillectomy Family History Father Diabetes Tuberculosis Multiple sclerosis Denies family history of Ovarian cancer Prostate cancer Myocardial infarction Breast cancer Colorectal cancer Social History Smoking Status: Never smoker Second Hand Exposure: No; Hx Alcohol Use: Yes Alcohol type: beer Alcohol Intake Frequency: 4 or More x per/Week Alcohol Intake Frequency Comment: At least 2 drinks daily or more Hx Substance Use: No Preferred Language: Pashto Communication Ability: Effective Visual Impairment: Partially Limited Hearing Ability: Hard of Hearing 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 Beliefs That Will Affect Care: None marital status: Current Living Situation: Alone current occupational status: retired How many Children do You have: 3 How many Children do You have Comment: 2 girls 1 boy Feels Safe at Home: Yes Childhood Exposure to Second-Hand Smoke: No during the past year weight has: remained stable Dental Care, Regularly: No Physical Activity Frequency: Does not Exercise Seatbelt Use: sometimes Sunscreen Use: No Assistive Devices: Glasses Review of Systems Review of Systems: All systems reviewed & are unremarkable except as noted in HPI & below Physical Exam Physical Exam: General Examination: Constitutional: Well developed person in no acute distress. HENT: Normal exam with inspection. CV: Hearth rhythm is regular. Neck: Supple, no carotid bruits. Lungs: Non-labored and comfortable breathing. Abdomen: Soft, non-tender, non-distended. Skin: No rash or ecchymosis. Extremities: No edema or cyanosis NEUROLOGICAL EXAMINATION: Mental Status: Alert and oriented to place, person and time. Cranial Nerves: II-XII are intact except right eye near total vision loss. No nystagmus. Funduscopy: Not assessed Motor: 5-/5 in all extremities without asymmetry. Tone: Normal without spasticity or rigidity. Sensory: Decreased sensation distal lower extremities up to mid calves, to all sensory modalities symmetrically. Coordination: No dysmetria with FTN testing. Speech: Fluent. Comprehension is intact. Gait: Not assessed at this time. Based on description, the patient has wide- based walking pattern. Musculoskeletal: Normal muscle bulk, no atrophy. DTRs: 1+ in upper extremities and knees, and absent in ankles. Plantar reflexes bilaterally downgoing. Results & Data Vital Signs (Past 12 Hours) Vital Signs Pulse Pulse Resp BP BP Pulse Ox O2 Del Method 05/15/22 13:00 72 23 161/93 H 96 Room Air 05/15/22 12:00 76 15 151/89 H 98 Room Air 05/15/22 11:30 69 19 154/83 H 99 Room Air 05/15/22 09:30 83 22 05/15/22 09:00 87 20 05/15/22 08:30 69 10 L 95 05/15/22 08:01 71 22 05/15/22 08:01 170/96 H 05/15/22 08:00 72 20 05/15/22 07:30 68 18 96 05/15/22 07:00 72 15 96 05/15/22 07:00 146/81 H 05/15/22 06:30 69 18 95 05/15/22 08:48 74 16 165/82 H 96 Room Air 05/15/22 06:00 68 15 143/76 H 94 05/15/22 05:00 70 13 124/60 94 05/15/22 04:30 65 19 97 05/15/22 04:07 123/60 05/15/22 04:07 72 15 96 05/15/22 04:00 64 12 98 05/15/22 03:30 70 17 96 05/15/22 03:00 66 15 95 05/15/22 03:00 159/95 H 05/15/22 02:46 163/93 H 05/15/22 02:46 73 16 97 05/15/22 02:41 78 15 Laboratory Results Laboratory Results - last 24 hr 05/14/22 05/14/22 05/14/22 21:15 21:15 21:15 WBC 9.16 RBC 5.29 Hgb 17.9 Hct 48.8 MCV 92.2 MCH 33.8 MCHC 36.7 H RDW Std Deviation 38.5 RDW Coeff of [place] 11.4 L Plt Count 178 MPV 10.8 Immature Gran % (Auto) 0.4 Neut % (Auto) 77.4 Lymph % (Auto) 13.9 [place] % (Auto) 6.3 Eos % (Auto) 1.2 Baso % (Auto) 0.8 Neut # (Auto) 7.09 H Lymph # (Auto) 1.27 [place] # (Auto) 0.58 Eos # (Auto) 0.11 Baso # (Auto) 0.07 Immature Gran # (Auto) 0.04 PT 10.7 INR 1.0 APTT 28.1 PTT Ratio 1.0 Sodium 129 L Potassium 3.9 Chloride 92 L Carbon Dioxide 25 Anion Gap 12 H BUN 19 Creatinine 0.96 Est Cr Clr Drug Dosing 81.6 Est GFR ( Amer) 87.4 Est GFR (Non-Af Amer) 75.4 BUN/Creatinine Ratio 19.8 Glucose 134 H Estimat Average Glucose Hemoglobin A1c Osmolality Calcium 10.0 Magnesium 2.1 Total Bilirubin 0.9 AST 28 ALT 30 Alkaline Phosphatase 84 Troponin I High Sens 7.7 Total Protein 7.8 Albumin 5.0 Globulin 2.8 Albumin/Globulin Ratio 1.8 Triglycerides Cholesterol LDL Cholesterol, Calc VLDL Cholesterol, Calc HDL Cholesterol Cholesterol/HDL Ratio Urine Color Urine Appearance Urine pH Ur Specific [place] Urine Protein Urine Glucose (UA) Urine Ketones Urine Blood Urine Nitrite Urine Bilirubin Urine Urobilinogen Ur Leukocyte Esterase SARS-CoV-2 (PCR) Influenza Type A (PCR) Influenza Type B (PCR) RSV (RT-PCR) 05/14/22 05/14/22 05/15/22 21:40 22:23 03:59 WBC RBC Hgb Hct MCV MCH MCHC RDW Std Deviation RDW Coeff of [place] Plt Count MPV Immature Gran % (Auto) Neut % (Auto) Lymph % (Auto) [place] % (Auto) Eos % (Auto) Baso % (Auto) Neut # (Auto) Lymph # (Auto) [place] # (Auto) Eos # (Auto) Baso # (Auto) Immature Gran # (Auto) PT INR APTT PTT Ratio Sodium Potassium Chloride Carbon Dioxide Anion Gap BUN Creatinine Est Cr Clr Drug Dosing Est GFR ( Amer) Est GFR (Non-Af Amer) BUN/Creatinine Ratio Glucose Estimat Average Glucose 154 Hemoglobin A1c 7.0 H Osmolality Calcium Magnesium Total Bilirubin AST ALT Alkaline Phosphatase Troponin I High Sens Total Protein Albumin Globulin Albumin/Globulin Ratio Triglycerides Cholesterol LDL Cholesterol, Calc VLDL Cholesterol, Calc HDL Cholesterol Cholesterol/HDL Ratio Urine Color Yellow Urine Appearance Clear Urine pH 7.0 Ur Specific [place] 1.033 H Urine Protein Negative Urine Glucose (UA) Negative Urine Ketones 1+ H Urine Blood Negative Urine Nitrite Negative Urine Bilirubin Negative Urine Urobilinogen Negative Ur Leukocyte Esterase Negative SARS-CoV-2 (PCR) NEGATIVE Influenza Type A (PCR) Negative Influenza Type B (PCR) Negative RSV (RT-PCR) Negative 05/15/22 05/15/22 05/15/22 03:59 08:00 08:00 WBC RBC Hgb Hct MCV MCH MCHC RDW Std Deviation RDW Coeff of [place] Plt Count MPV Immature Gran % (Auto) Neut % (Auto) Lymph % (Auto) [place] % (Auto) Eos % (Auto) Baso % (Auto) Neut # (Auto) Lymph # (Auto) [place] # (Auto) Eos # (Auto) Baso # (Auto) Immature Gran # (Auto) PT INR APTT PTT Ratio Sodium 130 L Potassium 4.2 Chloride 96 L Carbon Dioxide 23 Anion Gap 11 BUN 16 Creatinine 0.89 Est Cr Clr Drug Dosing 88.0 Est GFR ( Amer) 94.9 Est GFR (Non-Af Amer) 81.9 BUN/Creatinine Ratio 18.0 Glucose 137 H Estimat Average Glucose Hemoglobin A1c Osmolality 274 L Calcium 9.2 Magnesium Total Bilirubin AST ALT Alkaline Phosphatase Troponin I High Sens Total Protein Albumin Globulin Albumin/Globulin Ratio Triglycerides 78 Cholesterol 171 LDL Cholesterol, Calc 106 VLDL Cholesterol, Calc 16 HDL Cholesterol 49 Cholesterol/HDL Ratio 3.5 Urine Color Urine Appearance Urine pH Ur Specific [place] Urine Protein Urine Glucose (UA) Urine Ketones Urine Blood Urine Nitrite Urine Bilirubin Urine Urobilinogen Ur Leukocyte Esterase SARS-CoV-2 (PCR) Influenza Type A (PCR) Influenza Type B (PCR) RSV (RT-PCR) Diagnostic Findings Head CT 05/14/22 21:12 CR Exam(s): CT HEAD Without Contrast EXAM: CT Head Without Intravenous Contrast CLINICAL HISTORY: Reason for exam: neuro deficit, acute stroke suspected. TECHNIQUE: Axial computed tomography images of the head/brain without intravenous contrast. CTDI is 35.96 mGy and DLP is 537.48 mGy-cm. Automated exposure control was utilized for the study. A dose lowering technique was utilized adhering to the principles of ALARA. COMPARISON: Head CT 09/18/21. FINDINGS: Brain: Mild/moderate atrophy and chronic, nonspecific white matter disease and a chronic left frontotemporal infarct are stable. Hypodensity in the midline josué, may be artifact, right paramedian pontine infarct not excluded. No edema or acute, cortical infarct. No acute hemorrhage. Ventricles: No hydrocephalus or midline shift. Bones/joints: No skull fracture. Soft tissues: No scalp hematoma. Sinuses: Clear. Mastoid air cells: No mastoid effusion. IMPRESSION: 1. Artifact versus pontine infarct. 2. No acute bleed. 3. Stable age-related findings and chronic left frontal infarct. Communications: Call Doctor Stroke Electronically signed by: Susan Cheng M.D. 05/14/22 21:41 PM Head CTA 05/14/22 21:12 CR Exam(s): CTA HEAD With Contrast IV Amt: 113 ml optiray 320 EXAM: CT Angiography Head With Intravenous Contrast CLINICAL HISTORY: Reason for exam: neuro deficit, acute stroke suspected. TECHNIQUE: Axial computed tomographic angiography images of the head with intravenous contrast. CTDI is 76 mGy and DLP is 1186.57 mGy-cm. Automated exposure control was utilized for the study. A dose lowering technique was utilized adhering to the principles of ALARA. MIP reconstructed images were created and reviewed. CONTRAST: Patient received 113 ml optiray 320 of IV contrast COMPARISON: None. FINDINGS: Right internal carotid artery: Patent. Right anterior cerebral artery: Patent. Right middle cerebral artery: Patent. Right posterior cerebral artery: Patent. Right vertebral artery: Patent. Left internal carotid artery: Patent. Left anterior cerebral artery: Patent. Left middle cerebral artery: Patent. Left posterior cerebral artery: Patent. Left vertebral artery: Patent. Basilar artery: Patent, with severe, focal luminal narrowing at the vertebrobasilar junction that is suspicious for 80-90% stenosis, axial series 5 image 89. The vessel is tortuous at this level. Other: Atherosclerosis bilateral cavernous ICA with less than 50% stenosis. IMPRESSION: 1. Suspect severe, focal basilar stenosis, versus artifact. 2. No aneurysm or large vessel occlusion. Communications: Call Doctor Stroke Electronically signed by: Susan Cheng M.D. 05/14/22 21:45 PM Neck CTA 05/14/22 21:12 CR Exam(s): CTA NECK With Contrast IV Amt: 113ml opitray 320 EXAM: CT Angiography Neck With Intravenous Contrast CLINICAL HISTORY: Reason for exam: neuro deficit, acute stroke suspected. TECHNIQUE: Routine carotid CT angiography protocol was performed with intravenous contrast. NASCET criteria using the distal ICAs for comparison were used for evaluation of stenoses. CTDI is 76 mGy and DLP is 1186.57 mGy-cm. Automated exposure control was utilized for the study. A dose lowering technique was utilized adhering to the principles of ALARA. MIP reconstructed images were created and reviewed. Dental metal artifact limits evaluation at the craniocervical junction. CONTRAST: Patient received 113ml Optiray 320 of IV contrast COMPARISON: None. FINDINGS: VASCULATURE: Right common carotid artery: Patent. Right internal carotid artery: Patent. Right vertebral artery: Patent. Left common carotid artery: Patent. Left internal carotid artery: Patent. Left vertebral artery: Patent. Codominant. Other: Moderate ectasia and mild atherosclerosis bilateral carotid bifurcation, without significant stenosis. IMPRESSION: 1. No dissection, occlusion, or significant stenosis. CAROTID STENOSIS REFERENCE USING NASCET CRITERIA: % ICA stenosis = (1 - narrowest ICA diameter/diameter of distal cervical ICA) x 100. Mild - <50% stenosis. Moderate - 50-69% stenosis. Severe - 70-94% stenosis. Near occlusion - 95-99% stenosis. Occluded - 100% stenosis. Communications: Call Doctor Stroke Electronically signed by: Susan Cheng M.D. 05/14/22 21:51 PM Chest X-Ray 05/14/22 21:24 XR chest 1V portable HISTORY: 77 years-old Male cough acute cough COMPARISON: Chest CT 02/21/2022 TECHNIQUE: AP view of the chest FINDINGS: Cardiac silhouette is enlarged. A loop recorder device is present. Atherosclerosis of the aorta. Unchanged mild right hemidiaphragmatic elevation. There is no pneumothorax, pleural effusion, lobar airspace consolidation or overt pulmonary edema. Mild chronic interstitial coarsening of the lung bases. Degenerative changes of the shoulders and spine. IMPRESSION: No acute process. ACT 112: Negative or not required by law. The above report was generated using voice recognition software. It may contain grammatical, syntax or spelling errors. Electronically signed by: Jayesh Gonzalez M.D. 05/15/2022 8:16 AM Brain MRI 05/15/22 00:23 Exam(s): MRI HEAD W/WO Contrast IV Amt: 7cc gadavist EXAM: MR Head Without and With Intravenous Contrast CLINICAL HISTORY: Reason for exam: stroke. TECHNIQUE: Magnetic resonance images of the head/brain without and with intravenous contrast in multiple planes. Moderate to severe motion artifact. CONTRAST: Patient received 7cc Gadavist of IV contrast COMPARISON: Head CT done the previous evening. FINDINGS: Brain: No edema or acute infarct, with attention to the josué. No acute or chronic hemorrhage. No abnormal enhancement. Chronic infarct left frontal lobe, diffuse atrophy and chronic white matter disease are noted. Ventricles: No hydrocephalus or midline shift. Bones/joints: No calvarial lesions. Soft tissues: No scalp hematoma. Sinuses: Clear. Mastoid air cells: No mastoid effusion. IMPRESSION: 1. No abnormal enhancement, acute infarct, bleed, or acute intracranial abnormality. 2. Specifically, no pontine infarct. 3. Chronic left frontal lobe infarct and age-related findings are again noted. 4. Moderate to severe motion artifact. Electronically signed by: Susan Cheng M.D. 05/15/22 03:03 AM Head MRA 05/15/22 00:30 Exam(s): MRA HEAD Without Contrast EXAM: MR Angiography Head Without Intravenous Contrast CLINICAL HISTORY: Reason for exam: stroke. TECHNIQUE: Magnetic resonance angiography images of the head without intravenous contrast. Moderate to severe motion artifact limits evaluation. COMPARISON: CTA head done the previous evening. FINDINGS: Right internal carotid artery: Patent. Right anterior cerebral artery: Patent. Right middle cerebral artery: Patent. Right posterior cerebral artery: Patent. Right vertebral artery: Nondiagnostic. Left internal carotid artery: Patent. Left anterior cerebral artery: Patent. Left middle cerebral artery: Patent. Left posterior cerebral artery: Patent. Left vertebral artery: Nondiagnostic. Basilar artery: Mid and distal portions are patent. Other: IMPRESSION: 1. Grossly patent [place] with moderate to severe motion artifact limiting evaluation. Electronically signed by: Susan Cheng M.D. 05/15/22 03:00 AM (4) Optic nerve contusion Encounter type: initial encounter Laterality: right Qualified Code(s): S04.011A - Injury of optic nerve, right eye, initial encounter
--- NOTE | 2022-05-15 15:49 | Billing Data ---
Date of Service May 14, 2022 Coding Level of Care Code 38658 INT INP/OBS CARE
[2022-05-15] MEDS ORDERED: PRAVASTATIN SOD 20 MG TAB PO SCH (17:00)
[2022-05-15] MEDS ORDERED: rOPINIRole HCL 0.25 MG TABLET PO SCH (21:00)
[2022-05-15] MEDS ORDERED: MELATONIN 3 MG TAB PO SCH (21:00)
== END 2022-05-15 07:12 | disposition home or self-care (01) ==
LOC: ED 20:44 → EDINP 20:44 → SUATTDRO 05-15 00:10 → EDINP 05-15 02:40

== ENCOUNTER 2023-03-28 12:16 | Observation (INO) ==
[2023-03-28 13:17] LABS: Basophils # (auto) 0.05 K/uL (0.00-0.20); Basophils % (auto) 0.5 %; Eosinophils # (auto) 0.16 K/uL (0.00-0.50); Eosinophils % (auto) 1.8 %; Hematocrit (blood only) 43.2 % (42.0-52.0); Hemoglobin 15.1 g/dl (14.0-18.0); Immature Granulocytes # (auto) 0.03 K/uL (0.01-0.20); Immature Granulocytes % (auto) 0.3 %; Lymphocytes # (auto) 0.77 K/uL (1.20-3.40); Lymphocytes % (auto) 8.4 %; Mean Corpuscular Hemoglobin 32.6 pg (25.0-34.0); Mean Corpuscular Volume 93.3 fL (80.0-100.0); Mean Platelet Volume 11.1 fL (9.4-12.4); Monocytes # (auto) 0.58 K/uL (0.11-0.59); Monocytes % (auto) 6.3 %; Neutrophils # (auto) 7.55 K/uL (1.40-6.50); Neutrophils % (auto) 82.7 %; Platelet Count 200 K/uL (130-400); RDW Coefficient of Variation 14.3 % (11.5-14.5); RDW Standard Deviation 48.9 fL (36.4-46.3); Red Blood Count 4.63 M/uL (4.70-6.10); White Blood Count 9.14 K/ul (4.8-10.8)
--- NOTE | 2023-03-28 13:27 | XRay Report ---
XR chest 1V portable HISTORY: Pleural effusion, worsening shortness of breath COMPARISON: Chest 03/26/2023. FINDINGS: No pneumothorax. The heart remains enlarged. Moderate left pleural effusions and left basil ar atelectasis remains unchanged. There is mild interstitial pulmonary edema which has progressed in the interval. Calcifications within the aortic knob. No new focal lung consolidations. There are old, healed left-sided rib fractures. IMPRESSION: 1. Moderate left pleural effusion and left basilar atelectasis, unchanged. 2. Interval development of mild interstitial pulmonary edema. ACT 112: Negative or not required by law. Electronically signed by: Bartolome Meyers M.D. 03/28/2023 1:26 PM
[2023-03-28 13:33] LABS: Calcium 9.7 mg/dl (8.6-10.3); Creatinine Clr Calc Pharmacy 65.8 ml/min; Est GFR (Non-African American) 76.8 ml/min; Potassium 4.5 mmol/L (3.5-5.1)
[2023-03-28 13:36] LABS: Troponin I High Sensitivity 18.5 pg/ml (0-20)
[2023-03-28 14:31] LABS: Adenovirus PCR Not Detected (NotDetected); Bordetella parapertussis PCR Not Detected (NotDetected); Bordetella pertussis PCR Not Detected (NotDetected); Chlamydia pneumoniae PCR Not Detected (NotDetected); Coronavirus 229E PCR Not Detected (NotDetected); Coronavirus CoV-2 (COVID19)PCR Not Detected (NotDetected); Coronavirus HKU1 PCR Not Detected (NotDetected); Coronavirus NL63 PCR Not Detected (NotDetected); Coronavirus OC43PCR Not Detected (NotDetected); Human Metapneumovirus PCR Not Detected (NotDetected); Influenza A PCR Not Detected (NotDetected); Influenza B PCR Not Detected (NotDetected); Mycoplasma pneumoniae PCR Not Detected (NotDetected); Parainfluenza Virus 1 PCR Not Detected (NotDetected); Parainfluenza Virus 2 PCR Not Detected (NotDetected); Parainfluenza Virus 3 PCR Not Detected (NotDetected); Parainfluenza Virus 4 PCR Not Detected (NotDetected); Respiratory Syncytial VirusPCR Not Detected (NotDetected); Rhinovirus/Enterovirus PCR Not Detected (NotDetected)
--- NOTE | 2023-03-28 15:14 | Emergency Department Note ---
Impression & Plan Pleural effusion ED Provider Note NAME: DEREK RUANO AGE: 78 SEX: M : 1945 ARRIVES VIA: Walk-In INFORMANT: Patient, ED PROVIDER(S): Brittany Gonsalez MD CHIEF COMPLAINT: Shortness of breath, elevated heart rate HPI: This is 78-year-old male with history of previous atrial flutter, recurrent pleural effusion presenting for shortness of breath and elevated heart rate. Patient was seen 2 days ago for similar complaints but at that time he was found to be in a flutter into the 110s-130s as well as a fairly moderate to large pleural effusion of the left lung. Patient presents today for worsening shortness of breath, no new cough. He reports no fevers, chills. He notes that he did follow-up with cardiology in the morning and have a cardioversion to sinus rhythm. He notes that despite this he feels persistently short of breath. ROS: See above HPI for pertinent positives & negatives. A total of 10 systems reviewed and were otherwise negative. PAST MEDICAL HISTORY: See Below PAST SURGICAL HISTORY: See Below FAMILY HISTORY: See Below SOCIAL HISTORY: See Below HOME MEDICATIONS: See Below ALLERGIES: See Below VITALS: See Below PHYSICAL EXAMINATION: General: resting comfortably in no acute distress Head: Normocephalic and atraumatic Eyes: Normal inspection, extraocular muscles intact Ear, nose, throat: Normal external exam Neck: Normal range of motion Respiratory: Diminished lung sounds on the left Cardiovascular: Regular rate/rhythm, no murmur GI: soft, nontender, no guarding or rebound Extremities: nontender, moves all extremities Neuro: The patient awake and alert, appropriately conversive, no focal deficits, symmetric faces Skin: Warm, dry, and intact MEDICAL DECISION MAKING: This is a 78-year-old male with history of previous atrial flutter, recurrent pleural effusion presenting for shortness of breath. Patient currently is in sinus tachycardia on EKG. Otherwise he has a persistent pleural effusion with worsening/mild pulmonary edema. -Consider pneumonia or viral syndrome as underlying cause as well -No pneumonia/opacity seen on chest x-ray upon my independent interpretation -ECG independently interpreted by me with sinus tachycardia, rate of 109, normal axis, normal SC, normal QRS, normal QTc, no ST segment elevations consistent with STEMI criteria -On the monitor, patient does appear to be in sinus rhythm. -Patient has failed outpatient therapy and will require inpatient admission for likely drainage of his pleural effusion which has had in the past. -Viral swab negative at this time -Lab work reveals no significant electrolyte disturbances, no leukocytosis or anemia. Troponin is 18.5 with a BNP of 344. -Discussed case for admission with [place] hospitalists. Differential diagnosis: Pneumonia, viral syndrome, paroxysmal atrial flutter, pleural effusion ER treatment provided: See below Diagnostics interpreted by me: ECG: As above Cardiac Monitoring: An order was placed for continuous cardiac monitoring. The monitor shows a rate of 105 with sinus rhythm. Laboratory studies: As stated above and show below. Imaging studies: See below. Past Med/Surg History Medical History Chest wall pain On anticoagulant therapy eliquis bid PAF (paroxysmal atrial fibrillation) Diabetes mellitus, type 2 NIDDM Poor historian Chronic cough reason for inhalers>uses inhaler prn, last a few days ago Syncopal episodes Loop recorder placed 03/2022 At least one of his syncopal episodes appears to have been a vasovagal episode (occurred after coughing fit) per cardio Constipation Gender dysphoria in adult History of diverticulitis of colon History of subarachnoid hemorrhage 2015- left hemorrhagic intracranial hemorrhage involving frontal and temporal region. The patient did not need intervention at that time. Orbital floor fracture hx TBI (traumatic brain injury) Due to intracranial hemorrhage in 2014 Underlying etiology was not clear but considered most likely due to trauma Stroke "mini-stroke" ? a year ago>treated at [place] (no issues from event) GERD (gastroesophageal reflux disease) Hypertension Surgical History History of loop recorder medtronic placed 03/2022 @ [facility] History of transesophageal echocardiography (BRENDA) 11/06/22 @ [facility] History of colonoscopy History of tooth extraction Hx of tonsillectomy Family History Father Diabetes Tuberculosis Multiple sclerosis Other Hypertension No family history of adverse response to anesthesia No family history of bleeding disorder Stroke Denies family history of Ovarian cancer Prostate cancer Myocardial infarction Breast cancer Colorectal cancer Social History Smoking Status: Never smoker Second Hand Exposure: No; Do You Dip or Chew Tobacco: No; Hx Alcohol Use: No Hx Substance Use: No Preferred Language: Nigerien Communication Ability: Effective Visual Impairment: Partially Limited Hearing Ability: Hard of Hearing Quality Assurance Coordinator Required: No Beliefs That Will Affect Care: None marital status: Current Living Situation: Family current occupational status: retired How many Children do You have: 3 How many Children do You have Comment: 2 girls 1 boy Feels Safe at Home: Yes Childhood Exposure to Second-Hand Smoke: No Diet: regular during the past year weight has: remained stable Dental Care, Regularly: No Physical Activity Frequency: Does not Exercise Seatbelt Use: always Sunscreen Use: No Assistive Devices: Cane and Glasses Allergies Allergies Allergy/AdvReac Type Severity Reaction Status Date / Time No Known Drug Allergies Allergy Unknown Verified 03/27/23 07:12 Home Meds Home Medications Medication Instructions Recorded Confirmed thiamine HCl (vitamin B1) 100 mg 100 mg PO BID 05/14/22 03/28/23 tablet (Vitamin B-1) ipratropium bromide 21 mcg (0.03 2 spray intranasal TID 01/29/23 03/28/23 %) nasal spray Previous Rx's Medication Instructions Recorded folic acid 1 mg tablet 1 mg PO QAM #30 tabs 09/21/21 melatonin 3 mg tablet 3 mg PO HS #30 tabs 09/21/21 aspirin 81 mg tablet,delayed 81 mg PO QAM #30 tabs 05/15/22 release fluticasone furoate 100 1 inh inhalation DAILY #3 Inhalers 10/01/22 mcg-vilanterol 25 mcg/dose inhalation powder (Breo Ellipta) gabapentin 300 mg capsule 300 mg PO BID #180 caps 10/26/22 apixaban 5 mg tablet (Eliquis) 5 mg PO BID #180 tabs 10/31/22 omeprazole 40 mg capsule,delayed 40 mg PO DAILY #90 caps 10/31/22 release metformin 500 mg tablet 1,000 mg (2 x 500 mg) PO BID #360 12/06/22 tabs ropinirole 0.25 mg tablet 0.5 mg (2 x 0.25 mg) PO HS #180 12/17/22 tabs fluticasone propionate 50 2 spray intranasal DAILY #48 grams 12/20/22 mcg/actuation nasal spray,suspension (Flonase Allergy Relief) diltiazem HCl 120 mg 120 mg PO DAILY #30 caps 03/05/23 capsule,extended release 24 hr metoprolol succinate 100 mg 100 mg PO DAILY #90 tabs 03/27/23 tablet,extended release 24 hr Results & Data (ED) Vital Signs Vital Signs - 24 hr 03/28/23 12:19 03/28/23 12:24 03/28/23 12:51 Temperature 36.3 C L Temperature Source Temporal Artery Scan Pulse Rate 115 H Pulse Rate [Right Finger] Pulse Rhythm [Right Finger] Respiratory Rate 18 Respiratory Effort / Characteristics Non-Labored Non-Labored Spontaneous Respiratory Depth Normal Blood Pressure 197/110 H Blood Pressure [Right Arm] Blood Pressure Mean 139 Blood Pressure Mean [Right Arm] Pulse Oximetry 93 98 Oxygen Delivery Method Room Air Room Air Oxygen Flow Rate 0 Sepsis Recent Fever Within 48 Hours No Sepsis New/Unexplained Change in Mental Status No Sepsis Action Taken by Nursing No Action Required 03/28/23 12:51 03/28/23 13:30 03/28/23 14:45 Temperature Temperature Source Pulse Rate 98 H Pulse Rate [Right Finger] 102 H 104 H Pulse Rhythm [Right Finger] Regular Regular Respiratory Rate 12 20 Respiratory Effort / Characteristics Respiratory Depth Normal Blood Pressure Blood Pressure [Right Arm] 172/127 H 176/111 H Blood Pressure Mean Blood Pressure Mean [Right Arm] 142 132 Pulse Oximetry 96 97 Oxygen Delivery Method Room Air Room Air Oxygen Flow Rate Sepsis Recent Fever Within 48 Hours Sepsis New/Unexplained Change in Mental Status Sepsis Action Taken by Nursing 03/28/23 14:45 Temperature Temperature Source Pulse Rate 106 H Pulse Rate [Right Finger] Pulse Rhythm [Right Finger] Respiratory Rate 22 Respiratory Effort / Characteristics Respiratory Depth Blood Pressure 176/111 H Blood Pressure [Right Arm] Blood Pressure Mean 132 Blood Pressure Mean [Right Arm] Pulse Oximetry 97 Oxygen Delivery Method Oxygen Flow Rate Sepsis Recent Fever Within 48 Hours Sepsis New/Unexplained Change in Mental Status Sepsis Action Taken by Nursing Laboratory Data 03/28/23 12:32 03/28/23 12:32 Lab Results 03/28/23 03/28/23 Range/Units 12:32 Unknown WBC 9.14 (4.8-10.8) K/ul RBC 4.63 L (4.70-6.10) M/uL Hgb 15.1 (14.0-18.0) g/dl Hct 43.2 (42.0-52.0) % MCV 93.3 (80.0-100.0) fL MCH 32.6 (25.0-34.0) pg MCHC 35.0 (32.0-36.0) g/dL RDW Std Deviation 48.9 H (36.4-46.3) fL RDW Coeff of [place] 14.3 (11.5-14.5) % Plt Count 200 (130-400) K/uL MPV 11.1 (9.4-12.4) fL Immature Gran % (Auto) 0.3 % Neut % (Auto) 82.7 % Lymph % (Auto) 8.4 % [place] % (Auto) 6.3 % Eos % (Auto) 1.8 % Baso % (Auto) 0.5 % Neut # (Auto) 7.55 H (1.40-6.50) K/uL Lymph # (Auto) 0.77 L (1.20-3.40) K/uL [place] # (Auto) 0.58 (0.11-0.59) K/uL Eos # (Auto) 0.16 (0.00-0.50) K/uL Baso # (Auto) 0.05 (0.00-0.20) K/uL Immature Gran # (Auto) 0.03 (0.01-0.20) K/uL Sodium 136 (136-145) mmol/L Potassium 4.5 (3.5-5.1) mmol/L Chloride 100 (98-107) mmol/L Carbon Dioxide 25 (21-32) mmol/L Anion Gap 11 (3-11) BUN 15 (6-23) mg/dl Creatinine 0.94 (0.6-1.4) mg/dl Est Cr Clr Drug Dosing 65.8 ml/min Est GFR ( Amer) 89.0 ml/min Est GFR (Non-Af Amer) 76.8 ml/min BUN/Creatinine Ratio 16.0 (10-20) Glucose 112 H (70-99(Fasting)) mg/dl Calcium 9.7 (8.6-10.3) mg/dl Troponin I High Sens 18.5 (0-20) pg/ml B-Natriuretic Peptide 344 H (0-100) pg/ml Adenovirus (PCR) Not Detected (NotDetected) B. pertussis DNA (PCR) Not Detected (NotDetected) B.parapertussis DNA PCR Not Detected (NotDetected) C. pneumoniae DNA (PCR) Not Detected (NotDetected) Coronavirus OC43 (PCR) Not Detected (NotDetected) Coronavirus HKU1 (PCR) Not Detected (NotDetected) Coronavirus 229E (PCR) Not Detected (NotDetected) SARS-CoV-2 (PCR) Not Detected (NotDetected) Coronavirus NL63 (PCR) Not Detected (NotDetected) Human Metapneumovir PCR Not Detected (NotDetected) Influenza Type A (PCR) Not Detected (NotDetected) Influenza Type B (PCR) Not Detected (NotDetected) M. pneumoniae (PCR) Not Detected (NotDetected) Parainfluenza 1 (PCR) Not Detected (NotDetected) Parainfluenza 2 (PCR) Not Detected (NotDetected) Parainfluenza 3 (PCR) Not Detected (NotDetected) Parainfluenza 4 (PCR) Not Detected (NotDetected) RSV (PCR) Not Detected (NotDetected) Entero/Rhino (PCR) Not Detected (NotDetected) Imaging Data Radiologist's Impression: Chest X-Ray 03/28/23 12:48 XR chest 1V portable HISTORY: Pleural effusion, worsening shortness of breath COMPARISON: Chest 03/26/2023. FINDINGS: No pneumothorax. The heart remains enlarged. Moderate left pleural effusions and left basilar atelectasis remains unchanged. There is mild interstitial pulmonary edema which has progressed in the interval. Calcifications within the aortic knob. No new focal lung consolidations. There are old, healed left-sided rib fractures. IMPRESSION: 1. Moderate left pleural effusion and left basilar atelectasis, unchanged. 2. Interval development of mild interstitial pulmonary edema. ACT 112: Negative or not required by law. Electronically signed by: Bartolome Meyers M.D. 03/28/2023 1:26 PM Discharge Plan Visit Data Chief Complaint: Shortness of Breath/Dyspnea Stated Complaint: TROUBLE BREATHING ED Provider: Brittany Gonsalez Discharge Problem: Pleural effusion Forms Stand Alone Forms: [facility] [employer] Prescriptions Prescriptions: No Action fluticasone furoate-vilanterol [Breo Ellipta] 100-25 mcg/dose blister with device 1 inh inhalation DAILY Qty: 3 3RF gabapentin 300 mg capsule 300 mg PO BID Qty: 180 3RF metformin 500 mg tablet 1,000 mg PO BID Qty: 360 1RF ropinirole 0.25 mg tablet 0.5 mg PO HS Qty: 180 3RF fluticasone propionate [Flonase Allergy Relief] 50 mcg/actuation spray,suspension 2 spray intranasal DAILY Qty: 48 0RF Rx Instructions: administer into each nostril ipratropium bromide 21 mcg (0.03 %) spray,non-aerosol 2 spray intranasal TID Rx Instructions: administer into each nostril diltiazem HCl 120 mg capsule,extended release 24hr 120 mg PO DAILY Qty: 30 5RF Eliquis 5 mg tablet 5 mg PO BID Qty: 180 3RF Hold Instructions: Resume on 02/08/23. Hold for 7 days omeprazole 40 mg capsule,delayed release(DR/EC) 40 mg PO DAILY Qty: 90 3RF melatonin 3 mg Tablet 3 mg PO HS Qty: 30 0RF folic acid 1 mg Tablet 1 mg PO QAM Qty: 30 0RF thiamine HCl (vitamin B1) [Vitamin B-1] 100 mg Tablet 100 mg PO BID aspirin 81 mg Tablet,Delayed Release (Dr/Ec) 81 mg PO QAM Qty: 30 0RF metoprolol succinate 100 mg tablet extended release 24 hr 100 mg PO DAILY Qty: 90 3RF Referrals Referrals: Gabino Ferrell MD [Primary Care Provider] -
--- NOTE | 2023-03-28 15:23 | History & Physical Report ---
Date of Service March 28, 2023 Assessment & Plan (1) Recurrent left pleural effusion: Plan: Ongoing SOB, with acute worsening after his cardioversion on 03/27 S/p left-sided thoracentesis x 2; etiology unclear at that time, however they were exudative based on lights criteria; cytology negative for malignancy Will add on Lasix 20 mg IV QAM to cover for transudative Pulmonology consulted for thoracentesis Hold Eliquis for now Per Pulmonology, plan is to perform thoracentesis on Saturday morning 03/30 (Eliquis should be held for 48 hours at this point) BioFire negative Supplement oxygen as needed A.m. CBC, BMP, mag (2) Sinus tachycardia: Plan: Patient was cardioverted with Dr. Gonzalez for persistent atrial flutter on 03/27 EKG on arrival revealed sinus tachycardia with PACs at 109 bpm; QTc 482 Troponin mildly elevated, continue to trend q6h If patient returns to A-fib consider heparin (3) Syncopal episodes: Plan: History of multiple loop recorder Fall precautions (4) Hypertension: Plan: Metoprolol, diltiazem (5) DM2 (diabetes mellitus, type 2): Plan: T2DM diet SSI [id number], CF 50, carb ratio 20 (6) PAF (paroxysmal atrial fibrillation): Plan: It was recently discovered that patient might have been in atrial flutter since September 2022 He had a cardioversion on 03/27, and his metoprolol was decreased from 100 mg BID --> 100 mg daily Hold Eliquis Continue metoprolol at 100 mg/day dosage Plan Disposition: Admit to [facility] telemetry Full code T2DM, AHA diet VTE PPx: SCDs (hold Eliquis prior to thoracentesis) History of Present Illness Chief Complaint: SOB/dyspnea Primary Care Provider: Gabino Ferrell MD Bradley is a 78-year-old male with PMH of chronic cough, lung mass/multiple pulmonary nodules, subarachnoid hemorrhage, TBI, T2DM, GERD, HTN, alcoholism, and paroxysmal A-fib. Patient presented for ongoing SOB on 03/28. SOB is worse when lying flat. He notes it is both at rest and exertional. Of note, he had a cardioversion the day before on 03/27 for atrial flutter. Patient has had recurrent left-sided pleural effusions, for which she has had 2 thoracenteses in January 2023 (cytology was negative for malignancy at that time; and the patient had follow-up pleural biopsies at [facility]). Patient reports that he did not take his morning medications today. He notes that his metoprolol was previously 100 mg twice daily, but was switched to 100 mg daily after the cardioversion yesterday. Noted his breathing was short and fast last night, and he was having some tachycardia. He also notes he has had a productive cough for the past 3 days, with 1 episode of pink sputum production. He denies smoking, and tobacco use. He endorses moderate alcohol use but reports that it is "not too much". No history of MIs, per patient. No recent falls or trauma to the chest wall. Patient has a walker at home, but reports he does not use it. Patient is mildly tachycardic and hypertensive at time of admission. ED course: ROS: Patient endorses SOB at rest (worse when laying flat), and productive cough (one episode of pink sputum production; on eliquis). Patient denies fever, body aches, chills, sweating, lightheadedness, dizziness, MOYER, chest pain/pressure, pain/pressure in neck, shoulders, or jaw, pleuritic CP, abdominal pain, N/V/D, urinary s/s, or N/T in legs. Allergies Allergy/AdvReac Type Severity Reaction Status Date / Time No Known Drug Allergies Allergy Unknown Verified 03/27/23 07:12 Home Medications Medication Instructions Recorded Confirmed Type folic acid 1 mg tablet 1 mg PO QAM #30 tabs 09/21/21 03/28/23 Rx melatonin 3 mg tablet 3 mg PO HS #30 tabs 09/21/21 03/28/23 Rx thiamine HCl (vitamin B1) 100 mg 100 mg PO BID 05/14/22 03/28/23 History tablet (Vitamin B-1) aspirin 81 mg tablet,delayed 81 mg PO QAM #30 tabs 05/15/22 03/28/23 Rx release fluticasone furoate 100 1 inh inhalation DAILY #3 Inhalers 10/01/22 03/28/23 Rx mcg-vilanterol 25 mcg/dose inhalation powder (Breo Ellipta) gabapentin 300 mg capsule 300 mg PO BID #180 caps 10/26/22 03/28/23 Rx apixaban 5 mg tablet (Eliquis) 5 mg PO BID #180 tabs 10/31/22 03/28/23 Rx omeprazole 40 mg capsule,delayed 40 mg PO DAILY #90 caps 10/31/22 03/28/23 Rx release metformin 500 mg tablet 1,000 mg (2 x 500 mg) PO BID #360 12/06/22 03/28/23 Rx tabs ropinirole 0.25 mg tablet 0.5 mg (2 x 0.25 mg) PO HS #180 12/17/22 03/28/23 Rx tabs fluticasone propionate 50 2 spray intranasal DAILY #48 grams 12/20/22 03/28/23 Rx mcg/actuation nasal spray,suspension (Flonase Allergy Relief) ipratropium bromide 21 mcg (0.03 2 spray intranasal TID 01/29/23 03/28/23 History %) nasal spray diltiazem HCl 120 mg 120 mg PO DAILY #30 caps 03/05/23 03/28/23 Rx capsule,extended release 24 hr metoprolol succinate 100 mg 100 mg PO DAILY #90 tabs 03/27/23 03/28/23 Rx tablet,extended release 24 hr Past Med/Surg History Medical History Chest wall pain On anticoagulant therapy eliquis bid PAF (paroxysmal atrial fibrillation) Diabetes mellitus, type 2 NIDDM Poor historian Chronic cough reason for inhalers>uses inhaler prn, last a few days ago Syncopal episodes Loop recorder placed 03/2022 At least one of his syncopal episodes appears to have been a vasovagal episode (occurred after coughing fit) per cardio Constipation Gender dysphoria in adult History of diverticulitis of colon History of subarachnoid hemorrhage 2014- left hemorrhagic intracranial hemorrhage involving frontal and temporal region. The patient did not need intervention at that time. Orbital floor fracture hx TBI (traumatic brain injury) Due to intracranial hemorrhage in 2014 Underlying etiology was not clear but considered most likely due to trauma Stroke "mini-stroke" ? a year ago>treated at [place] (no issues from event) GERD (gastroesophageal reflux disease) Hypertension Surgical History History of loop recorder medtronic placed 03/2022 @ [facility] History of transesophageal echocardiography (BRENDA) 11/06/22 @ [facility] History of colonoscopy History of tooth extraction Hx of tonsillectomy Family History Father Diabetes Tuberculosis Multiple sclerosis Other Hypertension No family history of adverse response to anesthesia No family history of bleeding disorder Stroke Denies family history of Ovarian cancer Prostate cancer Myocardial infarction Breast cancer Colorectal cancer Social History Smoking Status: Never smoker Second Hand Exposure: No; Do You Dip or Chew Tobacco: No; Hx Alcohol Use: Yes Alcohol type: wine Alcohol Intake Frequency: 4 or More x per/Week Alcohol Intake Frequency Comment: At least 2 drinks daily or more Hx Substance Use: No Preferred Language: Marshallese Communication Ability: Effective Visual Impairment: Partially Limited Hearing Ability: Hard of Hearing Hospice Nurse Practitioner Required: No Beliefs That Will Affect Care: None marital status: Current Living Situation: Family Current Living Situation Comment: lives with son current occupational status: retired How many Children do You have: 3 How many Children do You have Comment: 2 girls 1 boy Feels Safe at Home: Yes Safety Concerns: Feels Safe At This Time Childhood Exposure to Second-Hand Smoke: No Diet: regular during the past year weight has: remained stable Dental Care, Regularly: No Physical Activity Frequency: Does not Exercise Seatbelt Use: always Sunscreen Use: No Assistive Devices: Glasses Review of Systems Review of Systems: See HPI above Physical Exam 2 Physical Exam: General: Mild respiratory distress; conversationally dyspneic; non-toxic appearing; well-nourished; cooperative; SpO2 94% on RA HEENT: normocephalic, atraumatic; no scleral icterus; PERRLA w/ EOMs intact; moist mucus membrane; vision and hearing grossly intact Neck: supple; no lymphadenopathy; trachea midline Skin: warm, dry without signs of tenting; no cyanosis; no rashes, bruising, lesions, or erythema noted CV: chest wall NTP; RR, mildly tachycardic at 106 bpm; S1/S2 normal; no murmurs/rubs/gallops; pulses intact and symmetric at radial, DP, and PT Lungs: Mild respiratory distress; symmetrical chest wall expansion; expiratory rhonchi and basilar crackles across all lung tao; diminished breath sounds in the lower lobes bilaterally ABD: Soft, NTP; BS present; no rebound/guarding; no ascites; moderate distention secondary to body habitus MSK: no tics or fasciculations; no edema noted in the LEs b/l, nonerythematous Neuro: A&Ox3; normal mood and affect; fluent speech; sensation grossly intact in the LEs b/l Results & Data Results & Data Vital Signs (Past 12 Hours) Vital Signs Temp Pulse Pulse Resp BP BP Pulse Ox 03/28/23 14:45 106 H 22 176/111 H 97 03/28/23 14:45 104 H 20 176/111 H 97 03/28/23 13:30 98 H 03/28/23 12:51 102 H 12 172/127 H 96 03/28/23 12:51 98 03/28/23 12:19 36.3 C L 115 H 18 197/110 H 93 O2 Del Method O2 Flow Rate 03/28/23 14:45 03/28/23 14:45 Room Air 03/28/23 13:30 03/28/23 12:51 Room Air 03/28/23 12:51 Room Air 0 03/28/23 12:19 Room Air Laboratory Results Abnormal lab results 03/28/23 Range/Units 12:32 RBC 4.63 L (4.70-6.10) M/uL RDW Std Deviation 48.9 H (36.4-46.3) fL Neut # (Auto) 7.55 H (1.40-6.50) K/uL Lymph # (Auto) 0.77 L (1.20-3.40) K/uL Glucose 112 H (70-99(Fasting)) mg/dl B-Natriuretic Peptide 344 H (0-100) pg/ml Diagnostic Findings Chest X-Ray 03/28/23 12:48 XR chest 1V portable HISTORY: Pleural effusion, worsening shortness of breath COMPARISON: Chest 03/26/2023. FINDINGS: No pneumothorax. The heart remains enlarged. Moderate left pleural effusions and left basilar atelectasis remains unchanged. There is mild interstitial pulmonary edema which has progressed in the interval. Calcifications within the aortic knob. No new focal lung consolidations. There are old, healed left-sided rib fractures. IMPRESSION: 1. Moderate left pleural effusion and left basilar atelectasis, unchanged. 2. Interval development of mild interstitial pulmonary edema. ACT 112: Negative or not required by law. Electronically signed by: Bartolome Meyers M.D. 03/28/2023 1:26 PM Code Status & VTE Plan Code Status Full code VTE Prophylaxis Plan VTE Prophylaxis will be ordered: Yes Supervising Physician Co-Signing Physician Notes Patient seen and examined, chart reviewed, case discussed with Bartolome Vivas PA-C and I agree with the assessment and plan as above except as otherwise noted Labs and images reviewed Bradley is a 78-year-old male with a history of recurrent left pleural effusion, A-fib s/p cardioversion remains in sinus rhythm who presents with recurrent and worsened dyspnea with continued moderate left pleural effusion and interval development of mild interstitial pulmonary edema. Patient was previously by pulmonology for his left pleural effusion tapped, initial was bloody and second less so. Was exudative by lights criteria. No malignancy was noted in the pathology. Some concern for cardiac etiology of his underlying dyspnea especially given he did not improve significantly after the fluid was drained. Patient did follow-up with cardiology and had a subsequent cardioversion with return to sinus which he remains in at bedside assessment, but has still had increased dyspnea. Denies history of CHF does have mild pulmonary edema noted on x-ray. BNP is elevated at 344, last 142 and troponin is mildly elevated at 18/36 in the setting of tachycardia without chest pain. Troponin is trended and Echo 03/23/2022 was with a EF of 55 to 60%, and grade 1 diastolic dysfunction without other abnormality noted. Given superimposed pulmonary edema will give gentle diuresis with Lasix 20 mg twice daily and follow for clinical progression. Pulmonology also consulted for evaluation of persistent one-sided effusion; this was reviewed with pulmonology who anticipate a thoracentesis on Saturday. Eliquis has been held in anticipation of this. Patient was cardioverted and remains in sinus, if he has return to A-fib then bridged with heparin GTT for stroke prophylaxis. At bedside lungs are with basilar crackles, and rhonchi. agree with assessment and management as above PG Care Time/CCT Total # of Minutes Spent Total Time Spent with Patient: Total time spent is greater than 50% in coordination of care (as documented) at patient's floor/unit and/or counseling patient: Coding [place] [address] INT INP/OBS CARE 3/75MIN Patient Type Established History Comprehensive Exam Comprehensive Medical Decision Making High Complexity Diagnoses Recurrent left pleural effusion J90 Sinus tachycardia R00.0 Syncope, unspecified syncope type R55 Syncope type: unspecified Primary hypertension I10 Hypertension type: primary hypertension DM2 (diabetes mellitus, type 2) E11.9 PAF (paroxysmal atrial fibrillation) I48.0 (3) Syncopal episodes Syncope type: unspecified Qualified Code(s): R55 - Syncope and collapse (4) Hypertension Hypertension type: primary hypertension Qualified Code(s): I10 - Essential (primary) hypertension
[2023-03-28] MEDS: METOPROLOL SUCC 50MG EXT REL TAB PO STA (16:30)
[2023-03-28] MEDS ORDERED: CARBOHYDRATES FOR HYPOGLYCEMIA PO PRN (18:37)
[2023-03-28] MEDS ORDERED: DEXTROSE 50% 50 ML SYRINGE IV PRN (18:37)
[2023-03-28] MEDS ORDERED: ACETAMINOPHEN 325 MG TAB PO PRN (18:37)
[2023-03-28] MEDS ORDERED: GLUCAGON FOR INJ 1 MG VIAL SQ PRN (18:37)
[2023-03-28] MEDS ORDERED: ONDANSETRON INJ 2 MG/ML 2 ML VIAL IV PRN (18:37)
[2023-03-28] MEDS ORDERED: GLUCOSE 10 TAB/TUBE PO PRN (18:37)
[2023-03-28] MEDS ORDERED: GLUCOSE 40% GEL 15 GM TUBE PO PRN (18:37)
[2023-03-28] MEDS: INSULIN ASPART PER UNIT CHARGE SC SCH (19:43)
[2023-03-28] MEDS: GABAPENTIN 300 MG CAP PO SCH (20:11)
[2023-03-28] MEDS: MELATONIN 3 MG TAB PO SCH (20:12)
[2023-03-28] MEDS: IPRATROPIUM BROMIDE NASAL SPRAY 0.06% 15ML NAE SCH (20:12)
[2023-03-28] MEDS: rOPINIRole HCL 0.25 MG TABLET PO SCH (20:12)
[2023-03-29 04:49] LABS: Basophils # (auto) 0.05 K/uL (0.00-0.20); Basophils % (auto) 0.7 %; Eosinophils # (auto) 0.19 K/uL (0.00-0.50); Eosinophils % (auto) 2.5 %; Hematocrit (blood only) 36.2 % (42.0-52.0); Hemoglobin 12.7 g/dl (14.0-18.0); Immature Granulocytes # (auto) 0.03 K/uL (0.01-0.20); Immature Granulocytes % (auto) 0.4 %; Lymphocytes # (auto) 0.92 K/uL (1.20-3.40); Lymphocytes % (auto) 12.2 %; Mean Corpuscular Hemoglobin 32.2 pg (25.0-34.0); Mean Corpuscular Hgb Conc 35.1 g/dL (32.0-36.0); Mean Corpuscular Volume 91.9 fL (80.0-100.0); Mean Platelet Volume 10.2 fL (9.4-12.4); Monocytes # (auto) 0.73 K/uL (0.11-0.59); Monocytes % (auto) 9.7 %; Neutrophils % (auto) 74.5 %; Platelet Count 197 K/uL (130-400); RDW Coefficient of Variation 14.1 % (11.5-14.5); RDW Standard Deviation 47.7 fL (36.4-46.3); Red Blood Count 3.94 M/uL (4.70-6.10); White Blood Count 7.52 K/ul (4.8-10.8)
[2023-03-29 05:03] LABS: BUN Creatinine Ratio 15.4 (10-20); Calcium 9.1 mg/dl (8.6-10.3); Creatinine Clr Calc Pharmacy 59.5 ml/min; Est GFR (African American) 78.8 ml/min; Magnesium 1.6 mg/dl (1.7-2.4); Potassium 4.3 mmol/L (3.5-5.1)
[2023-03-29 05:10] LABS: Troponin I High Sensitivity 26.8 pg/ml (0-20)
--- NOTE | 2023-03-29 05:55 | Electrocardiogram Report ---
Test Reason : Blood Pressure : / mmHG Vent. Rate : 109 BPM Atrial Rate : 109 BPM P-R Int : 146 ms QRS Dur : 076 ms QT Int : 358 ms P-R-T Axes : 048 019 052 degrees QTc Int : 482 ms Poor data quality, interpretation may be adversely affected Sinus tachycardia with Premature atrial complexes Otherwise normal ECG When compared with ECG of 27-MAR-2023 08:03, Premature atrial complexes are now Present Confirmed by Gerard Farr ([id number]) on 03/29/2023 5:55:27 AM Referred By: Confirmed By:Gerard Farr
[2023-03-29] MEDS: FUROSEMIDE INJ 20 MG/2 ML VIAL IV SCH (09:02)
[2023-03-29] MEDS: PANTOprazole 40 MG TAB PO SCH (09:02)
[2023-03-29] MEDS: dilTIAZem HCL 120 MG CAPCR PO SCH (09:03)
[2023-03-29] MEDS: METOPROLOL SUCC 50MG EXT REL TAB PO SCH (09:04)
[2023-03-29] MEDS: FOLIC ACID 1 MG TAB PO SCH (09:04)
[2023-03-29] MEDS: FLUTICASONE/VILANTEROL 100/25MCG 14 PUFFS/INHALER INH SCH (09:04)
[2023-03-29] MEDS: ASPIRIN 81 MG ECTAB PO SCH (09:04)
[2023-03-29] MEDS: FLUTICASONE PROPIONATE NA SPR 16 GM BTL SCH (09:05)
[2023-03-29] MEDS: MAGNESIUM SULFATE / D5W 1 GM/100 ML BAG IV SCH (09:05)
[2023-03-29 10:47] LABS: Basophils # (auto) 0.05 K/uL (0.00-0.20); Basophils % (auto) 0.7 %; Eosinophils # (auto) 0.11 K/uL (0.00-0.50); Eosinophils % (auto) 1.5 %; Hematocrit (blood only) 38.5 % (42.0-52.0); Hemoglobin 13.5 g/dl (14.0-18.0); Immature Granulocytes # (auto) 0.03 K/uL (0.01-0.20); Immature Granulocytes % (auto) 0.4 %; Lymphocytes # (auto) 0.74 K/uL (1.20-3.40); Lymphocytes % (auto) 9.8 %; Mean Corpuscular Hemoglobin 32.4 pg (25.0-34.0); Mean Corpuscular Hgb Conc 35.1 g/dL (32.0-36.0); Mean Corpuscular Volume 92.3 fL (80.0-100.0); Mean Platelet Volume 10.8 fL (9.4-12.4); Monocytes % (auto) 9.2 %; Neutrophils # (auto) 5.94 K/uL (1.40-6.50); Neutrophils % (auto) 78.4 %; Platelet Count 221 K/uL (130-400); RDW Coefficient of Variation 14.4 % (11.5-14.5); RDW Standard Deviation 48.5 fL (36.4-46.3); Red Blood Count 4.17 M/uL (4.70-6.10); White Blood Count 7.57 K/ul (4.8-10.8)
[2023-03-29 11:16] LABS: INR 1.1 (0.9-1.1); Partial Thromboplastin Ratio 1.2; Partial Thromboplastin Time 34 Seconds (21-31); Prothrombin Time 12.1 Seconds (9.0-12.0)
[2023-03-29] MEDS: HEPARIN SODIUM/DEXTROSE 25,000 UNITS/500 ML BAG IV SCH (11:38)
[2023-03-29] MEDS: Heparin IV Adult Wt-Based Low-Dose *NO* INITIAL Bolus Protocol IV SCH (11:42)
--- NOTE | 2023-03-29 16:47 | Hospitalist Progress Note ---
Date of Service March 29, 2023 Assessment & Plan (1) Recurrent left pleural effusion: Plan: - Ongoing SOB, with acute worsening after his cardioversion on 03/27 - S/p left-sided thoracentesis x 2; etiology unclear at that time, however they were exudative based on lights criteria; cytology negative for malignancy - Continue Lasix 20 mg IV QAM to cover for transudative Pulmonology consulted for thoracentesis - Eliquis on hold, transitioned to heparin drip - plan is to perform thoracentesis on Saturday morning 03/30 (after Eliquis held for 48 hours) BioFire negative Mag 1.6 --> replaced IV CBC BMP and MAG am labs (2) PAF (paroxysmal atrial fibrillation): Plan: It was recently discovered that patient might have been in atrial flutter since September 2022 Cardioverted on 03/27, and his metoprolol was decreased from 100 mg BID --> 100 mg daily, continue this dose EKG on arrival revealed sinus tachycardia with PACs at 109 bpm; QTc 482 - Hold Eliquis Troponin mildly elevated, peaked at 36, now downtrending --> likely demand ischemia (3) Hypertension: Plan: Metoprolol, diltiazem (4) DM2 (diabetes mellitus, type 2): Plan: T2DM diet SSI [id number], CF 50, carb ratio 20 Plan Disposition: continued inpatient stay VTE PPx: heparin drip Admission and Anticipated Discharge Date Admission Date: March 28, 2023 Supervising Physician Co-Signing Physician Notes PA Supervision Note: I did not personally see or examine the patient today, but I verified all [place] points of SANDRA Morfin's assessment and plan with the following exceptions/additions: None Subjective patient sitting in bed. States he has not been out of bed today, annoyed with being connected to the IV pole. States his shortness of breath has improved since arrival to the ER. Understands plan for thoracentesis tomorrow 03/30 Tele SR 80-90s with PACs and PVCs Review of Systems Review of Systems: All systems reviewed & are unremarkable except as noted in Subjective Physical Exam Physical Exam: General: NAD, VS as above Resp: normal respiratory effort, on room air, diminished breath sounds LLL CV: RRR, no murmur, Abd: normal bowel sounds, non tender, soft Extremities: Moves all extremities, no edema Neuro: A&O x3, Results & Data Results & Data Vital Signs (Past 12 Hours) Vital Signs Temp Pulse Pulse Resp BP BP Pulse Ox 03/29/23 15:31 36.6 C 68 16 125/76 92 03/29/23 15:31 70 03/29/23 10:58 37.0 C 70 16 131/79 95 03/29/23 09:00 03/29/23 07:34 87 03/29/23 07:13 36.8 C 82 14 157/88 H 95 03/29/23 04:47 36.8 C 82 18 146/87 H 96 O2 Del Method 03/29/23 15:31 Room Air 03/29/23 15:31 03/29/23 10:58 Room Air 03/29/23 09:00 Room Air 03/29/23 07:34 03/29/23 07:13 Room Air 03/29/23 04:47 Room Air Laboratory Results CBC, chemistry and magnesium reviewed Diagnostic Findings checks x-ray reviewed PG Care Time/CCT Total # of Minutes Spent Total Time Spent with Patient: Total time spent is greater than 50% in coordination of care (as documented) at patient's floor/unit and/or counseling patient: Coding Level of Care Code 82483 SUB INP/OBS CARE 2/35MIN Diagnoses Recurrent left pleural effusion J90 PAF (paroxysmal atrial fibrillation) I48.0 Primary hypertension I10 Hypertension type: primary hypertension DM2 (diabetes mellitus, type 2) E11.9 (3) Hypertension Hypertension type: primary hypertension Qualified Code(s): I10 - Essential (primary) hypertension
--- NOTE | 2023-03-29 18:20 | Pulmonary Consultation ---
Date of Consultation March 29, 2023 Assessment & Plan (1) SOB (shortness of breath): (2) Pleural effusion: (3) Atrial flutter: (4) Abnormal chest CT: Plan Chest x-ray 03/28/2023 personally reviewed: Portable film, good inspiratory effort, moderate to large left-sided pleural effusion, increased hilar and pulmonary vascular markings -- Recurrent left-sided pleural effusion Multiple thoracentesis in the past, lymphocytic -- Exertional shortness of breath Multifactorial A-fib Pleural effusion -- Abnormal chest CT Recommend repeat CT chest to be done around April 2023 CT chest 02/07/2023 personally reviewed: Right lower lobe 7 mm Right upper lobe 2.4 cm x 1 cm opacity/scarring Pulmonary nodule small left-sided pleural effusion with minimal atelectasis of the left lower lobe Cardiomegaly No significant mediastinal lymphadenopathy Plan: Last dose of apixaban was evening of 03/27/2023, patient needs to be off of apixaban for at least 48 hours before doing thoracentesis Tentative plan would be tomorrow Currently he is on heparin drip. Heparin drip needs to be stopped for at least 4 hours before the procedure. Will hold it at 6 AM tomorrow. Please note the above document was generated using voice recognition software. It may contain grammatical, syntax or spelling errors.Any formal questions or concerns about the content, text or information contained within the body of this dictation should be directly addressed to the provider for clarification. History of Present Illness Attending Physician: Becky Fox MD History of Present Illness 78-year-old male present to the hospital with complaints of worsening shortness of breath Past medical history: A-fib on apixaban, GERD, hypertension, history of subarachnoid hemorrhage, chronic cough Pulmonary consulted for pleural effusion At the time of examination patient was resting comfortably. He was saturating 92-93% on room air He stated after the cardioversion was done his breathing is better but it is still not up to par especially on exertion Denies any chest pain, no chest tightness, no wheezing, no diaphoresis. No fever or chills No dysuria, or diarrhea. 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 Denies any exposure to any concrete or dust Allergies Allergy/AdvReac Type Severity Reaction Status Date / Time No Known Drug Allergies Allergy Unknown Verified 03/27/23 07:12 Home Medications Medication Instructions Recorded Confirmed Type folic acid 1 mg tablet 1 mg PO QAM #30 tabs 09/21/21 03/28/23 Rx melatonin 3 mg tablet 3 mg PO HS #30 tabs 09/21/21 03/28/23 Rx thiamine HCl (vitamin B1) 100 mg 100 mg PO BID 05/14/22 03/28/23 History tablet (Vitamin B-1) aspirin 81 mg tablet,delayed 81 mg PO QAM #30 tabs 05/15/22 03/28/23 Rx release fluticasone furoate 100 1 inh inhalation DAILY #3 Inhalers 10/01/22 03/28/23 Rx mcg-vilanterol 25 mcg/dose inhalation powder (Breo Ellipta) gabapentin 300 mg capsule 300 mg PO BID #180 caps 10/26/22 03/28/23 Rx apixaban 5 mg tablet (Eliquis) 5 mg PO BID #180 tabs 10/31/22 03/28/23 Rx omeprazole 40 mg capsule,delayed 40 mg PO DAILY #90 caps 10/31/22 03/28/23 Rx release metformin 500 mg tablet 1,000 mg (2 x 500 mg) PO BID #360 12/06/22 03/28/23 Rx tabs ropinirole 0.25 mg tablet 0.5 mg (2 x 0.25 mg) PO HS #180 12/17/22 03/28/23 Rx tabs fluticasone propionate 50 2 spray intranasal DAILY #48 grams 12/20/22 03/28/23 Rx mcg/actuation nasal spray,suspension (Flonase Allergy Relief) ipratropium bromide 21 mcg (0.03 2 spray intranasal TID 01/29/23 03/28/23 History %) nasal spray diltiazem HCl 120 mg 120 mg PO DAILY #30 caps 03/05/23 03/28/23 Rx capsule,extended release 24 hr metoprolol succinate 100 mg 100 mg PO DAILY #90 tabs 03/27/23 03/28/23 Rx tablet,extended release 24 hr Patient History Medical History Chest wall pain On anticoagulant therapy eliquis bid PAF (paroxysmal atrial fibrillation) Diabetes mellitus, type 2 NIDDM Poor historian Chronic cough reason for inhalers>uses inhaler prn, last a few days ago Syncopal episodes Loop recorder placed 03/2022 At least one of his syncopal episodes appears to have been a vasovagal episode (occurred after coughing fit) per cardio Constipation Gender dysphoria in adult History of diverticulitis of colon History of subarachnoid hemorrhage 2014- left hemorrhagic intracranial hemorrhage involving frontal and temporal region. The patient did not need intervention at that time. Orbital floor fracture hx TBI (traumatic brain injury) Due to intracranial hemorrhage in 2014 Underlying etiology was not clear but considered most likely due to trauma Stroke "mini-stroke" ? a year ago>treated at [facility] (no issues from event) GERD (gastroesophageal reflux disease) Hypertension Surgical History History of loop recorder medtronic placed 03/2022 @ [facility] History of transesophageal echocardiography (BRENDA) 11/06/22 @ [facility] History of colonoscopy History of tooth extraction Hx of tonsillectomy Family History Father Diabetes Tuberculosis Multiple sclerosis Other Hypertension No family history of adverse response to anesthesia No family history of bleeding disorder Stroke Denies family history of Ovarian cancer Prostate cancer Myocardial infarction Breast cancer Colorectal cancer Social History Smoking Status: Never smoker Second Hand Exposure: No; Do You Dip or Chew Tobacco: No; Hx Alcohol Use: Yes Alcohol type: wine Alcohol Intake Frequency: 4 or More x per/Week Alcohol Intake Frequency Comment: At least 2 drinks daily or more Hx Substance Use: No Preferred Language: Bengali Communication Ability: Effective Visual Impairment: Partially Limited Hearing Ability: Hard of Hearing Header Boss Required: No Beliefs That Will Affect Care: None marital status: Current Living Situation: Family Current Living Situation Comment: lives with son current occupational status: retired How many Children do You have: 3 How many Children do You have Comment: 2 girls 1 boy Feels Safe at Home: Yes Safety Concerns: Feels Safe At This Time Childhood Exposure to Second-Hand Smoke: No Diet: regular during the past year weight has: remained stable Dental Care, Regularly: No Physical Activity Frequency: Does not Exercise Seatbelt Use: always Sunscreen Use: No Assistive Devices: Glasses Review of Systems 2 Review of Systems: All systems reviewed & are unremarkable except as noted in HPI & below Physical Exam 2 Physical Exam: Constitutional: No acute distress HEENT: EOMI, PERRLA Respiratory system: Decreased air entry on the left side, no wheeze, no rhonchi, mild crackles bilateral lower lobes CVS: S1-S2 positive, no murmurs or gallops Abdomen: Soft, nontender, nondistended, positive bowel sounds x4, obese Extremities: +2 pulses bilaterally radialis/ dorsalis pedis, no cyanosis, +1 pitting edema bilateral lower extremity Neuro: Awake alert oriented x3 Psych: Normal mood and affect G/U: No Alcaraz Skin: no rashes, warm and dry Lymphatic: no cervical or axillary lymphadenopathy Results & Data Results & Data Vital Signs (Past 12 Hours) Vital Signs Temp Pulse Pulse Resp BP BP Pulse Ox 03/29/23 07:13 36.8 C 82 14 157/88 H 95 03/29/23 04:47 36.8 C 82 18 146/87 H 96 03/29/23 01:41 36.6 C 92 H 18 168/82 H 96 03/29/23 01:24 98 H 03/29/23 01:00 03/28/23 22:29 93 H 18 137/83 93 03/28/23 20:15 101 H 22 155/106 H 96 O2 Del Method 03/29/23 07:13 Room Air 03/29/23 04:47 Room Air 03/29/23 01:41 Room Air 03/29/23 01:24 03/29/23 01:00 Room Air 03/28/23 22:29 Room Air 03/28/23 20:15 Room Air Laboratory Results 03/29/23 10:30 03/29/23 04:35 PG Care Time/CCT Total # of Minutes Spent Total Time Spent with Patient: Total time spent is greater than 50% in coordination of care (as documented) at patient's floor/unit and/or counseling patient: Coding Level of Care Code 63564 INT INP/OBS CARE 3/75MIN Diagnoses SOB (shortness of breath) R06.02 Pleural effusion J90 Atrial flutter I48.[address] R93.89
[2023-03-29 18:28] LABS: ANTI-Xa, UFH(UnfractionatedHep 0.38 IU/ml (0.3-0.7)
[2023-03-30 06:26] LABS: Basophils # (auto) 0.04 K/uL (0.00-0.20); Basophils % (auto) 0.6 %; Eosinophils # (auto) 0.26 K/uL (0.00-0.50); Eosinophils % (auto) 3.6 %; Hematocrit (blood only) 38.3 % (42.0-52.0); Hemoglobin 13.2 g/dl (14.0-18.0); Immature Granulocytes # (auto) 0.03 K/uL (0.01-0.20); Immature Granulocytes % (auto) 0.4 %; Lymphocytes # (auto) 1.08 K/uL (1.20-3.40); Lymphocytes % (auto) 15.1 %; Mean Corpuscular Hemoglobin 32.2 pg (25.0-34.0); Mean Corpuscular Hgb Conc 34.5 g/dL (32.0-36.0); Mean Corpuscular Volume 93.4 fL (80.0-100.0); Monocytes # (auto) 0.81 K/uL (0.11-0.59); Monocytes % (auto) 11.3 %; Neutrophils # (auto) 4.94 K/uL (1.40-6.50); Platelet Count 209 K/uL (130-400); RDW Coefficient of Variation 14.1 % (11.5-14.5); RDW Standard Deviation 48.8 fL (36.4-46.3); White Blood Count 7.16 K/ul (4.8-10.8)
[2023-03-30 06:51] LABS: Anion Gap 10 (3-11); BUN Creatinine Ratio 17.8 (10-20); Blood Urea Nitrogen 21 mg/dl (6-23); Calcium 8.9 mg/dl (8.6-10.3); Carbon Dioxide 24 mmol/L (21-32); Chloride 98 mmol/L (98-107); Creatinine Clr Calc Pharmacy 52.4 ml/min; Est GFR (African American) 67.6 ml/min; Est GFR (Non-African American) 58.3 ml/min; Glucose 113 mg/dl (70-99(Fasting)); Sodium 132 mmol/L (136-145)
[2023-03-30 07:04] LABS: ANTI-Xa, UFH(UnfractionatedHep 0.34 IU/ml (0.3-0.7)
--- NOTE | 2023-03-30 12:04 | Procedure Note ---
Procedure Note Date of Service March 30, 2023 Note Procedure: Diagnostic therapeutic ultrasound-guided catheter thoracentesis Graffiti Cleaner: Dr. Rosa Giordano Indication: Recurrent left pleural effusion Consent: Signed by patient and verified with timeout prior to procedure Anesthesia: 1% lidocaine without epinephrine local. Procedure: Consent was verified and timeout performed. Appropriate imaging studies were reviewed prior to the procedure. Patient was placed in a seated position and limited thoracic ultrasound was performed of the left chest. See separate imaging. Appropriate site above the diaphragm for thoracentesis was selected. The skin was prepped and draped in normal sterile fashion. Lidocaine was used for local analgesia. Fluid was aspirated via the finder needle. A small skin katheryn was made with the scalpel and the catheter over the needle apparatus was advanced over the rib into the pleural space. Using the syringe one-way valve system, a total of 1700 mL's of serous fluid was removed. Procedure was terminated due to patient coughing. The catheter was removed and observed to be intact. A sterile dressing was applied. Post procedure chest x-ray was ordered. Fluid was sent for labs, culture and cytology. Complications: None Blood loss: Less than 1 cc Coding CPT Codes Pulmonary/Thoracic - Pulmonary and Thoracic: 99463 Thoracentesis w imaging ([id number]) [facility] [place] (Charges) Pulmonary/Thoracic Procedure 1: Pulmonary and Thoracic: 43538 Thoracentesis w imaging
--- NOTE | 2023-03-30 12:08 | Pulmonology Progress Note ---
Date of Service March 30, 2023 Assessment & Plan (1) SOB (shortness of breath): (2) Pleural effusion: (3) Atrial flutter: (4) Abnormal chest CT: Plan Chest x-ray 03/28/2023 personally reviewed: Portable film, good inspiratory effort, moderate to large left-sided pleural effusion, increased hilar and pulmonary vascular markings -- Recurrent left-sided pleural effusion Multiple thoracentesis in the past, lymphocytic -- Exertional shortness of breath Multifactorial A-fib Pleural effusion -- Abnormal chest CT Recommend repeat CT chest to be done around April 2023 CT chest 02/07/2023 personally reviewed: Right lower lobe 7 mm Right upper lobe 2.4 cm x 1 cm opacity/scarring Pulmonary nodule small left-sided pleural effusion with minimal atelectasis of the left lower lobe Cardiomegaly No significant mediastinal lymphadenopathy Plan: S/p thoracentesis on the left side today. 1700 mL serous fluid was removed Follow-up chest x-ray. The chest x-ray does not show any pneumothorax, patient okay to be discharged from pulmonary perspective. Continue with diuretics as per cardiology Outpatient follow-up with primary credit compliance officer Please note the above document was generated using voice recognition software. It may contain grammatical, syntax or spelling errors.Any formal questions or concerns about the content, text or information contained within the body of this dictation should be directly addressed to the provider for clarification. Admission and Anticipated Discharge Date Admission Date: March 28, 2023 Subjective Patient seen and examined at bedside. No acute distress, neurocentral 9 No headache, no nausea, no vomiting Fair appetite Heparin drip has been hold since 6 AM Shortness of breath is at baseline. Denies any palpitation Review of Systems 2 Review of Systems: All systems reviewed & are unremarkable except as noted in Subjective Physical Exam 2 Physical Exam: Constitutional: No acute distress HEENT: EOMI, PERRLA Respiratory system: Decreased air entry on the left side, no wheeze, no rhonchi, mild crackles bilateral lower lobes CVS: S1-S2 positive, no murmurs or gallops Abdomen: Soft, nontender, nondistended, positive bowel sounds x4, obese Extremities: +2 pulses bilaterally radialis/ dorsalis pedis, no cyanosis, +1 pitting edema bilateral lower extremity Neuro: Awake alert oriented x3 Psych: Normal mood and affect G/U: No Alcaraz Skin: no rashes, warm and dry Lymphatic: no cervical or axillary lymphadenopathy Results & Data Results & Data Vital Signs (Past 12 Hours) Vital Signs Temp Pulse Pulse Resp BP BP Pulse Ox 03/30/23 11:09 36.4 C L 70 18 136/83 94 03/30/23 09:00 03/30/23 08:18 36.7 C 65 18 131/76 97 03/30/23 07:44 68 03/30/23 04:01 36.6 C 70 18 125/66 95 03/30/23 04:00 68 O2 Del Method 03/30/23 11:09 Room Air 03/30/23 09:00 Room Air 03/30/23 08:18 Room Air 03/30/23 07:44 03/30/23 04:01 Room Air 03/30/23 04:00 Laboratory Results 03/30/23 05:46 03/30/23 08:19 PG Care Time/CCT Total # of Minutes Spent Total Time Spent with Patient: Total time spent is greater than 50% in coordination of care (as documented) at patient's floor/unit and/or counseling patient: Coding Level of Care Code 92448 SUB INP/OBS CARE 3/50MIN Diagnoses SOB (shortness of breath) R06.02 Pleural effusion J90 Atrial flutter I48.[address] R93.89
--- NOTE | 2023-03-30 12:27 | XRay Report ---
XR chest 1V portable HISTORY: 78 years-old Male S/P Thoracentesis follow-up study in a patient with shortness of breath a nd history of pleural effusion COMPARISON: 03/28/2023 TECHNIQUE: AP view of the chest FINDINGS: Cardiac silhouette is enlarged. Improving pulmonary edema. Atherosclerosis of the aorta. No pneumotho rax. A cardiac loop recorder device is noted. Trace right and small left pleural effusions, decreased on the left with improved aeration of the left lung. Mild persistent left basilar atelectasis. Bones appear grossly intact. IMPRESSION: 1. Decreased size of the left pleural effusion status post thoracentesis. 2. No postprocedural pneumothorax. ACT 112: Negative or not required by law. The above report was generated using voice recognition software. It may contain grammatical, syntax o r spelling errors. Electronically signed by: Jayesh Gonzalez M.D. 03/30/2023 12:26 PM
[2023-03-30 12:41] LABS: Albumin Level 4.1 gm/dl (3.4-5.0); Bilirubin,Total 1.5 mg/dl (0.2-1.0)
[2023-03-30 12:46] LABS: Total Protein 6.5 gm/dl (6.0-8.3)
[2023-03-30 12:50] LABS: Total Protein Pleural Fluid 3.9 gm/dl
[2023-03-30 13:24] LABS: Appearance Pleural Fluid Clear; Color Pleural Fluid Yellow; Lymphocytes, Fluid 97 %; Mono,Macrophage,Mesothelial 2 %; Neutrophils, Fluid 1 %; RBC Pleural Fluid Auto < 2000 /uL; Source Pleural Fluid Left Lung; WBC Pleural Fluid Auto 771 /uL
[2023-03-30] MEDS: POLYETHYLENE (MIRALAX) 17 GM PACK PO PRN (14:02)
[2023-03-30] MEDS: APIXABAN 5 MG TABLET PO SCH (14:02)
--- NOTE | 2023-03-30 14:32 | Discharge Summary ---
Discharge Summary Date of Service March 30, 2023 Notes For Next Care Provider - Keep cardiology and pulmonology appointments - needs repeat CT in april Medication Changes From Visit none Admission HPI Per Admitting Provider Bradley is a 78-year-old male with PMH of chronic cough, lung mass/multiple pulmonary nodules, subarachnoid hemorrhage, TBI, T2DM, GERD, HTN, alcoholism, and paroxysmal A-fib. Patient presented for ongoing SOB on 03/28. SOB is worse when lying flat. He notes it is both at rest and exertional. Of note, he had a cardioversion the day before on 03/27 for atrial flutter. Patient has had recurrent left-sided pleural effusions, for which she has had 2 thoracenteses in January 2023 (cytology was negative for malignancy at that time; and the patient had follow-up pleural biopsies at [facility]). Patient reports that he did not take his morning medications today. He notes that his metoprolol was previously 100 mg twice daily, but was switched to 100 mg daily after the cardioversion yesterday. Noted his breathing was short and fast last night, and he was having some tachycardia. He also notes he has had a productive cough for the past 3 days, with 1 episode of pink sputum production. He denies smoking, and tobacco use. He endorses moderate alcohol use but reports that it is "not too much". No history of MIs, per patient. No recent falls or trauma to the chest wall. Patient has a walker at home, but reports he does not use it. Patient is mildly tachycardic and hypertensive at time of admission. ED course: ROS: Patient endorses SOB at rest (worse when laying flat), and productive cough (one episode of pink sputum production; on eliquis). Patient denies fever, body aches, chills, sweating, lightheadedness, dizziness, MOYER, chest pain/pressure, pain/pressure in neck, shoulders, or jaw, pleuritic CP, abdominal pain, N/V/D, urinary s/s, or N/T in legs. Principal Dx & Hospital Course #1 = Principal Diagnosis (1) Recurrent left pleural effusion: - Ongoing SOB, with acute worsening after his cardioversion on 03/27 - S/p left-sided thoracentesis x 2; etiology unclear at that time, however they were exudative based on lights criteria; cytology negative for malignancy - Received Lasix 20 mg IV cover for transudative while inpatient and this seemed to help his shortness of breath. This was not continued on discharge and will defer to cardiology for further need. Pulmonology consulted for thoracentesis - Eliquis on hold, transitioned to heparin drip - s/p thoracentesis with Dr. Giordano 03/30 - post procedural xray without pneumothrax [employer] negative Magnesium replaced IV (2) HFrEF (heart failure with reduced ejection fraction): Acute HFrEF Echo 11/2022 with EF 45-50% - of note this is while patient was in prolonged afib/aflutter - Discussed case with Dr. Gonzalez (reception centre manager cardiology) - recommended that we continue the diltiazem at present (in case he returns to AF), would likely be good candidate for Entresto, but will leave that decision up to primary jinriksha driver as well as timing for repeat echo (3) PAF (paroxysmal atrial fibrillation): It was recently discovered that patient might have been in atrial flutter since September 2022 Cardioverted on 03/27, and his metoprolol was decreased from 100 mg BID --> 100 mg daily, continue this dose EKG on arrival revealed sinus tachycardia with PACs at 109 bpm; QTc 482 Troponin mildly elevated, peaked at 36, now downtrending --> likely demand ischemia Eliquis held on admission, resumed after thoracentesis (4) Hypertension: Continue home Metoprolol, diltiazem (5) DM2 (diabetes mellitus, type 2): Resume home metformin at discharge Plan Dispo: discharge to home with close pulmonology and cardiology follow up Discharge Exam General: NAD, VS as above Resp: normal respiratory effort, on room air, LLL breath sounds improved CV: RRR, no murmur, Abd: normal bowel sounds, non tender, mild distention. Has not had a BM since arrival Extremities: Moves all extremities, Updated Medication List Medication Instructions Recorded Confirmed Type folic acid 1 mg tablet 1 mg PO QAM #30 tabs 09/21/21 03/28/23 Rx melatonin 3 mg tablet 3 mg PO HS #30 tabs 09/21/21 03/28/23 Rx thiamine HCl (vitamin B1) 100 mg 100 mg PO BID 05/14/22 03/28/23 History tablet (Vitamin B-1) aspirin 81 mg tablet,delayed 81 mg PO QAM #30 tabs 05/15/22 03/28/23 Rx release fluticasone furoate 100 1 inh inhalation DAILY #3 Inhalers 10/01/22 03/28/23 Rx mcg-vilanterol 25 mcg/dose inhalation powder (Breo Ellipta) gabapentin 300 mg capsule 300 mg PO BID #180 caps 10/26/22 03/28/23 Rx apixaban 5 mg tablet (Eliquis) 5 mg PO BID #180 tabs 10/31/22 03/28/23 Rx omeprazole 40 mg capsule,delayed 40 mg PO DAILY #90 caps 10/31/22 03/28/23 Rx release metformin 500 mg tablet 1,000 mg (2 x 500 mg) PO BID #360 12/06/22 03/28/23 Rx tabs ropinirole 0.25 mg tablet 0.5 mg (2 x 0.25 mg) PO HS #180 12/17/22 03/28/23 Rx tabs fluticasone propionate 50 2 spray intranasal DAILY #48 grams 12/20/22 03/28/23 Rx mcg/actuation nasal spray,suspension (Flonase Allergy Relief) ipratropium bromide 21 mcg (0.03 2 spray intranasal TID 01/29/23 03/28/23 History %) nasal spray diltiazem HCl 120 mg 120 mg PO DAILY #30 caps 03/05/23 03/28/23 Rx capsule,extended release 24 hr metoprolol succinate 100 mg 100 mg PO DAILY #90 tabs 03/27/23 03/28/23 Rx tablet,extended release 24 hr Hospital Stay Data Consultations 03/28/23 16:05 ED Decision to Admit Stat 03/28/23 18:37 Consult Pulmonology Routine Diagnostic Imagining Performed Chest X-Ray 03/28/23 12:48 XR chest 1V portable HISTORY: Pleural effusion, worsening shortness of breath COMPARISON: Chest 03/26/2023. FINDINGS: No pneumothorax. The heart remains enlarged. Moderate left pleural effusions and left basilar atelectasis remains unchanged. There is mild interstitial pulmonary edema which has progressed in the interval. Calcifications within the aortic knob. No new focal lung consolidations. There are old, healed left-sided rib fractures. IMPRESSION: 1. Moderate left pleural effusion and left basilar atelectasis, unchanged. 2. Interval development of mild interstitial pulmonary edema. ACT 112: Negative or not required by law. Electronically signed by: Bartolome Meyers M.D. 03/28/2023 1:26 PM Chest X-Ray 03/30/23 12:04 XR chest 1V portable HISTORY: 78 years-old Male S/P Thoracentesis follow-up study in a patient with shortness of breath and history of pleural effusion COMPARISON: 03/28/2023 TECHNIQUE: AP view of the chest FINDINGS: Cardiac silhouette is enlarged. Improving pulmonary edema. Atherosclerosis of the aorta. No pneumothorax. A cardiac loop recorder device is noted. Trace right and small left pleural effusions, decreased on the left with improved aeration of the left lung. Mild persistent left basilar atelectasis. Bones appear grossly intact. IMPRESSION: 1. Decreased size of the left pleural effusion status post thoracentesis. 2. No postprocedural pneumothorax. ACT 112: Negative or not required by law. The above report was generated using voice recognition software. It may contain grammatical, syntax or spelling errors. Electronically signed by: Jayesh Gonzalez M.D. 03/30/2023 12:26 PM Pending Results Patient Have Any Pending Studies at Discharge: Yes (fluid studies ) Discharge Instructions Given to Patient (Per Discharging Provider) You were hospitalized after having a pleural effusion that was drained by Dr. Giordano ([facility] - Pulmonology). Now that this is drained you should have improvement in your shortness of breath. Please keep your scheduled pulmonology and cardiology appointments. Your pulmonology appointment is scheduled for 04/05 Your cardiology appointment is scheduled for 04/09 - You will need another CT scan in April of 2023 You need to continue taking Eliquis, your next dose is tonight 03/30. - I discussed your case with the reception centre manager jinriksha driver and he recommended you just keep your appointment on the to determine if your medication needs to be changed and when you will need another heart ultrasound. - During your stay your heart stayed in normal sinus rhythm. You will not need insulin when you leave the hospital. You can resume your metformin on 03/31 There were no changes to your home medications. If you do not have a bowel movement you can purchase miralax or colace over the counter to help with that. You were given a dose of miralax here before you left. It was our pleasure taking care of you. Total Time Total Time Spent Total Time Spent (In Minutes): Time spend day of discharge 40 minutes including direct patient care, medication reconciliation, documentation, review of labs and images, and coordination of care. Supervising Physician Co-Signing Physician Notes PA Supervision Note: I personally saw and examined the patient. I verified all [place]wood points and agree with SANDRA Morfin with the following exceptions and/or additions: S-Pt feeling well, no concerns O- Vitals reviewed Gen: [AAOx3, NAD] HEENT: [anicteric sclerae, EOMI] CV: [RRR no mgr nl S1S2] Pulm: [decreased BS at left base, otherwise clear Abd: [+BS soft NT ND no masses or hernias] Ext: [no edema, 2+ DP pulses] CBC, BMP reviewed A/P-78 yo male here with left pleural effusion and SOB, now s/p thoracentesis and diuresis Improved, stable for dc to home With HFrEF--> f/u with Cardiology and consider adding on Entresto or ACEi/ARB, and other GDMT. Will need repeat ECHO as outpt after in sinus to see if cardiomyopathy has resolved resume Deannquis Coding Level of Care Code 24038 INP/OBS DISCH >30 MIN Diagnoses Recurrent left pleural effusion J90 HFrEF (heart failure with reduced ejection fraction) I50.20 PAF (paroxysmal atrial fibrillation) I48.0 Primary hypertension I10 Hypertension type: primary hypertension DM2 (diabetes mellitus, type 2) E11.9
== END 2023-03-30 17:01 | disposition home or self-care (01) ==
LOC: ED 12:16 → SUATTDRO 16:12 → INTOOBSV 16:12 → EDINP 16:12 → 2N 03-29 00:22

== ENCOUNTER 2023-05-20 08:24 | Inpatient (IN) ==
--- NOTE | 2023-05-20 08:52 | Emergency Department Note ---
Impression & Plan Acute hyponatremia, Pleural effusion, Atrial tachycardia, Shortness of breath ED Provider Note NAME: DEREK RUANO AGE: 78 SEX: M : 1945 ARRIVES VIA: Walk-In INFORMANT: Patient ED PROVIDER(S): Rios Raymundo DO CHIEF COMPLAINT: Shortness of breath HPI: Patient is a 78-year-old male with a past medical history of stroke, hypertension, alcoholism, atrial flutter, heart failure with reduced ejection fracture, cardiomyopathy who presents to the ER for shortness of breath which started last night. He denies any headache or change in vision. No chest pain but admits to shortness of breath. Does not believe the changes with positions. He does note that he cannot get up and move around as he is so short of breath. No belly pain, nausea, vomiting, or diarrhea. No dysuria, urgency, or frequency. No other exacerbating or remitting factors. ADDITIONAL HISTORY OBTAINED: Per HPI Chronic Medical/Social Conditions Affecting Care: Per HPI PAST MEDICAL HISTORY:See Below PAST SURGICAL HISTORY:See Below FAMILY HISTORY:See Below SOCIAL HISTORY:See Below HOME MEDICATIONS:See Below ALLERGIES:See Below VITALS:See Below PHYSICAL EXAMINATION: GENERAL: Sitting up in bed, alert, chronically ill-appearing, show EYE EXAM: normal conjunctiva. PERRL and EOM's grossly intact. OROPHARYNX: no exudate, no erythema, lips, buccal mucosa, and tongue normal and mucous membranes are moist NECK: supple, no nuchal rigidity, no adenopathy, non-tender LUNGS: Clear to auscultation. Normal chest wall mechanics HEART: no murmurs, S1 normal and S2 normal ABDOMEN: abdomen soft, non-tender, normo-active bowel sounds, no masses, no rebound or guarding. UPPER EXTREMITIES: upper extremities are grossly normal. LOWER EXTREMITIES: No pitting edema. NEURO EXAM: Normal sensorium, cranial nerves II-XII grossly intact, normal speech, no gross weakness of arms, no gross weakness of legs. MEDICAL DECISION MAKING: Patient is a 78-year-old male presents ER for above-stated complaint. IV was established blood work is obtained. Labs show no significant leukocytosis or anemia. BMP with mild hyponatremia 126. LFTs bilirubin was unremarkable. Troponin was negative. Lipase unremarkable. Patient was persistently tachycardic was given IV Lopressor. Given IV fluids. Chest x-ray with a worsening pleural effusion. He was updated bedside discussed with the hospitalist minute for further workup. Consults/Care Managements Discussions: Per MDM Triage Nursing notes reviewed. Limited review of prior medical records performed Vital Signs: reviewed and remarkable for tachypneic, tachycardic and hypertensive Differential diagnosis: Differential diagnoses includes but is not limited to pneumonia, bronchitis, COPD/Asthma exacerbation, pneumothorax, pulmonary embolism, congestive heart failure, acute coronary syndrome ER treatment provided: See below Diagnostics interpreted by me include EKG and cardiac monitoring as listed below: -Cardiac Monitoring: An order was placed for continuous cardiac monitoring. The monitor shows a rate of 125 with sinus rhythm. -ECG: Sinus tachycardia rate of 126 Normal axis No PVCs QTc 506 no -Laboratory studies:Interpreted by me as stated above in MDM and shown below. Imaging studies: Xrays: As interpreted by me: Portable AP upright 1 view of the chest shows worsening left-sided pleural effusion CTs show: none Procedures:none Critical Care: None Past Med/Surg History Medical History (Updated 05/20/23 @ 12:33 by Bartolome Vivas PA-C) DM2 (diabetes mellitus, type 2) PAF (paroxysmal atrial fibrillation) Recurrent left pleural effusion Hypertension Chest wall pain On anticoagulant therapy eliquis bid PAF (paroxysmal atrial fibrillation) Diabetes mellitus, type 2 NIDDM Poor historian Chronic cough reason for inhalers>uses inhaler prn, last a few days ago Constipation Gender dysphoria in adult History of diverticulitis of colon History of subarachnoid hemorrhage 2015- left hemorrhagic intracranial hemorrhage involving frontal and temporal region. The patient did not need intervention at that time. Orbital floor fracture hx TBI (traumatic brain injury) Due to intracranial hemorrhage in 2014 Underlying etiology was not clear but considered most likely due to trauma Stroke "mini-stroke" ? a year ago>treated at [facility] (no issues from event) GERD (gastroesophageal reflux disease) Hypertension Surgical History History of loop recorder medtronic placed 03/2022 @ [facility] History of transesophageal echocardiography (BRENDA) 11/06/22 @ [facility] History of colonoscopy History of tooth extraction Hx of tonsillectomy Family History Father Diabetes Tuberculosis Multiple sclerosis Other Hypertension No family history of adverse response to anesthesia No family history of bleeding disorder Stroke Denies family history of Ovarian cancer Prostate cancer Myocardial infarction Breast cancer Colorectal cancer Social History Smoking Status: Never smoker Second Hand Exposure: No; Do You Dip or Chew Tobacco: No; Hx Alcohol Use: Yes Alcohol type: wine Alcohol Intake Frequency: 4 or More x per/Week Alcohol Intake Frequency Comment: At least 2 drinks daily or more Hx Substance Use: No Preferred Language: Mosotho Communication Ability: Effective Visual Impairment: Partially Limited Hearing Ability: Hard of Hearing Supervisor [employer] Required: No Beliefs That Will Affect Care: None marital status: Current Living Situation: Family Current Living Situation Comment: lives with son current occupational status: retired How many Children do You have: 3 How many Children do You have Comment: 2 girls 1 boy Feels Safe at Home: Yes Childhood Exposure to Second-Hand Smoke: No Diet: regular during the past year weight has: remained stable Dental Care, Regularly: No Physical Activity Frequency: Does not Exercise Seatbelt Use: always Sunscreen Use: No Assistive Devices: Glasses Allergies Allergies Allergy/AdvReac Type Severity Reaction Status Date / Time No Known Drug Allergies Allergy Unknown Verified 05/20/23 11:00 Home Meds Home Medications Medication Instructions Recorded Confirmed thiamine HCl (vitamin B1) 100 mg 100 mg PO BID 05/14/22 05/20/23 tablet (Vitamin B-1) ipratropium bromide 21 mcg (0.03 2 spray intranasal TID 01/29/23 05/20/23 %) nasal spray metoprolol succinate 50 mg 50 mg PO DAILY 05/20/23 05/20/23 tablet,extended release 24 hr ropinirole 0.25 mg tablet 0.25 mg PO HS 05/20/23 05/20/23 Previous Rx's Medication Instructions Recorded folic acid 1 mg tablet 1 mg PO QAM #30 tabs 09/21/21 melatonin 3 mg tablet 3 mg PO HS #30 tabs 09/21/21 aspirin 81 mg tablet,delayed 81 mg PO QAM #30 tabs 05/15/22 release fluticasone furoate 100 1 inh inhalation DAILY #3 Inhalers 10/01/22 mcg-vilanterol 25 mcg/dose inhalation powder (Breo Ellipta) gabapentin 300 mg capsule 300 mg PO BID #180 caps 10/26/22 apixaban 5 mg tablet (Eliquis) 5 mg PO BID #180 tabs 10/31/22 omeprazole 40 mg capsule,delayed 40 mg PO DAILY #90 caps 10/31/22 release metformin 500 mg tablet 1,000 mg (2 x 500 mg) PO BID #360 12/06/22 tabs fluticasone propionate 50 2 spray intranasal DAILY #48 grams 12/20/22 mcg/actuation nasal spray,suspension (Flonase Allergy Relief) diltiazem HCl 120 mg 120 mg PO DAILY #90 caps 04/29/23 capsule,extended release 24 hr Results & Data (ED) Vital Signs Vital Signs - 24 hr 05/20/23 08:28 05/20/23 08:37 05/20/23 08:40 Temperature 36.6 C Temperature Source Temporal Artery Scan Pulse Rate 126 H Pulse Rate [Right Finger] 126 H Pulse Rhythm Respiratory Rate 20 28 H Respiratory Effort / Characteristics Non-Labored Respiratory Depth Normal Blood Pressure 175/88 H Blood Pressure [Right Arm] 159/104 H Blood Pressure Mean 117 Blood Pressure Mean [Right Arm] 122 Pulse Oximetry 95 96 96 Oxygen Delivery Method Room Air Room Air Room Air Sepsis Recent Fever Within 48 Hours No Sepsis New/Unexplained Change in Mental Status No Sepsis Action Taken by Nursing No Action Required 05/20/23 08:50 05/20/23 08:58 05/20/23 10:16 Temperature Temperature Source Pulse Rate 126 H 126 H Pulse Rate [Right Finger] 128 H Pulse Rhythm Regular Respiratory Rate 28 H 22 Respiratory Effort / Characteristics Respiratory Depth Blood Pressure Blood Pressure [Right Arm] 167/116 H Blood Pressure Mean Blood Pressure Mean [Right Arm] 133 Pulse Oximetry 96 96 Oxygen Delivery Method Room Air Room Air Sepsis Recent Fever Within 48 Hours Sepsis New/Unexplained Change in Mental Status Sepsis Action Taken by Nursing 05/20/23 11:02 05/20/23 11:18 Temperature Temperature Source Pulse Rate 127 H 124 H Pulse Rate [Right Finger] Pulse Rhythm Respiratory Rate Respiratory Effort / Characteristics Respiratory Depth Blood Pressure 169/110 H 164/123 H Blood Pressure [Right Arm] Blood Pressure Mean Blood Pressure Mean [Right Arm] Pulse Oximetry Oxygen Delivery Method Sepsis Recent Fever Within 48 Hours Sepsis New/Unexplained Change in Mental Status Sepsis Action Taken by Nursing Laboratory Data 05/20/23 08:42 05/20/23 08:42 Lab Results 05/20/23 Range/Units 08:42 WBC 7.71 (4.8-10.8) K/ul RBC 4.47 L (4.70-6.10) M/uL Hgb 14.3 (14.0-18.0) g/dl Hct 39.7 L (42.0-52.0) % MCV 88.8 (80.0-100.0) fL MCH 32.0 (25.0-34.0) pg MCHC 36.0 (32.0-36.0) g/dL RDW Std Deviation 43.3 (36.4-46.3) fL RDW Coeff of Rogers 13.3 (11.5-14.5) % Plt Count 283 (130-400) K/uL MPV 10.3 (9.4-12.4) fL Immature Gran % (Auto) 0.5 % Neut % (Auto) 73.1 % Lymph % (Auto) 14.9 % Rabun % (Auto) 8.3 % Eos % (Auto) 2.3 % Baso % (Auto) 0.9 % Neut # (Auto) 5.63 (1.40-6.50) K/uL Lymph # (Auto) 1.15 L (1.20-3.40) K/uL Rabun # (Auto) 0.64 H (0.11-0.59) K/uL Eos # (Auto) 0.18 (0.00-0.50) K/uL Baso # (Auto) 0.07 (0.00-0.20) K/uL Immature Gran # (Auto) 0.04 (0.01-0.20) K/uL Sodium 126 L (136-145) mmol/L Potassium 4.4 (3.5-5.1) mmol/L Chloride 94 L (98-107) mmol/L Carbon Dioxide 24 (21-32) mmol/L Anion Gap 8 (3-11) BUN 10 (6-23) mg/dl Creatinine 0.78 (0.6-1.4) mg/dl Est Cr Clr Drug Dosing 87.4 ml/min Est GFR ( Amer) 99.5 ml/min Est GFR (Non-Af Amer) 85.9 ml/min BUN/Creatinine Ratio 12.8 (10-20) Glucose 118 H (70-99(Fasting)) mg/dl Calcium 9.4 (8.6-10.3) mg/dl Total Bilirubin 0.7 (0.2-1.0) mg/dl AST 19 (13-39) U/L ALT 13 (7-52) U/L Alkaline Phosphatase 65 (34-104) U/L Troponin I High Sens 14.2 (0-20) pg/ml Total Protein 7.2 (6.0-8.3) gm/dl Albumin 4.7 (3.4-5.0) gm/dl Globulin 2.5 (2.5-4.0) gm/dl Albumin/Globulin Ratio 1.9 (0.9-2) Lipase 5 L (11-82) U/L Administered Medications Discontinued Medications Diltiazem HCl (Diltiazem Hcl 120 Mg Capcr) 120 mg PO NOW STA Stop: 05/20/23 11:58 Last Admin: 05/20/23 12:43 Dose: 120 mg Documented By: YOBANI Sodium Chloride (Nss) 500 mls @ 999 mls/hr IV .Q31M ONE Stop: 05/20/23 09:49 Last Infusion: 05/20/23 10:28 Dose: Infused Documented By: Admin: 05/20/23 09:54 Dose: 999 mls/hr Documented By: YOBANI Metoprolol Succinate (Metoprolol Succ 50mg Ext Rel Tab) 50 mg PO NOW STA Stop: 05/20/23 11:59 Last Admin: 05/20/23 12:44 Dose: 50 mg Documented By: YOBANI Metoprolol Tartrate (Metoprolol Tartrate 1 Mg/Ml Vial) 2.5 mg IV NOW STA Stop: 05/20/23 10:21 Last Admin: 05/20/23 11:02 Dose: 2.5 mg Documented By: YOBANI Imaging Data Radiologist's Impression: Chest X-Ray 05/20/23 08:49 XR chest 1V portable CLINICAL HISTORY: Chest pain, nonspecific TECHNIQUE: Single frontal radiograph of the chest was obtained. Comparison: Comparison is made to chest radiograph 03/30/2023 FINDINGS: Chest wall electronic device is unchanged. The cardiomediastinal silhouette is stable. There is prominence and cephalization of the vasculature with Parth B lines seen. Left greater than right airspace opacities are seen. Moderate left pleural effusion. IMPRESSION: 1. Cardiomegaly and moderate pulmonary edema, increased from prior. 2. Moderate left pleural effusion, increased from prior. ACT 112: Negative or not required by law. Electronically signed by: Vince Olivier M.D. 05/20/2023 9:42 AM Discharge Plan Visit Data Chief Complaint: Shortness of Breath/Dyspnea Stated Complaint: SOB ED Provider: Rios Raymundo Discharge Problem: Acute hyponatremia, Pleural effusion, Atrial tachycardia, Shortness of breath Patient Disposition: Admitted As Inpatient Discharge Instructions Interventions: ED Discharge Assessment Last Done: 05/20/23 11:46
[2023-05-20 09:27] LABS: Basophils # (auto) 0.07 K/uL (0.00-0.20); Basophils % (auto) 0.9 %; Eosinophils # (auto) 0.18 K/uL (0.00-0.50); Eosinophils % (auto) 2.3 %; Hematocrit (blood only) 39.7 % (42.0-52.0); Hemoglobin 14.3 g/dl (14.0-18.0); Immature Granulocytes # (auto) 0.04 K/uL (0.01-0.20); Immature Granulocytes % (auto) 0.5 %; Lymphocytes # (auto) 1.15 K/uL (1.20-3.40); Lymphocytes % (auto) 14.9 %; Mean Corpuscular Volume 88.8 fL (80.0-100.0); Mean Platelet Volume 10.3 fL (9.4-12.4); Monocytes # (auto) 0.64 K/uL (0.11-0.59); Monocytes % (auto) 8.3 %; Neutrophils # (auto) 5.63 K/uL (1.40-6.50); Neutrophils % (auto) 73.1 %; Platelet Count 283 K/uL (130-400); RDW Coefficient of Variation 13.3 % (11.5-14.5); RDW Standard Deviation 43.3 fL (36.4-46.3); Red Blood Count 4.47 M/uL (4.70-6.10); White Blood Count 7.71 K/ul (4.8-10.8)
--- NOTE | 2023-05-20 09:43 | XRay Report ---
XR chest 1V portable CLINICAL HISTORY: Chest pain, nonspecific TECHNIQUE: Single frontal radiograph of the chest was obtained. Comparison: Comparison is made to chest radiograph 03/30/2023 FINDINGS: Chest wall electronic device is unchanged. The cardiomediastinal silhouette is stable. There is promi nence and cephalization of the vasculature with Parth B lines seen. Left greater than right airspace opacities are seen. Moderate left pleural effusion. IMPRESSION: 1. Cardiomegaly and moderate pulmonary edema, increased from prior. 2. Moderate left pleural effusion, increased from prior. ACT 112: Negative or not required by law. Electronically signed by: Vince Olivier M.D. 05/20/2023 9:42 AM
[2023-05-20 09:49] LABS: Albumin Globulin Ratio 1.9 (0.9-2); Albumin Level 4.7 gm/dl (3.4-5.0); BUN Creatinine Ratio 12.8 (10-20); Bilirubin,Total 0.7 mg/dl (0.2-1.0); Calcium 9.4 mg/dl (8.6-10.3); Creatinine Clr Calc Pharmacy 87.4 ml/min; Est GFR (African American) 99.5 ml/min; Est GFR (Non-African American) 85.9 ml/min; Globulin 2.5 gm/dl (2.5-4.0); Potassium 4.4 mmol/L (3.5-5.1); Total Protein 7.2 gm/dl (6.0-8.3)
[2023-05-20] MEDS: SODIUM CHLORIDE 0.9% 500 ML IV ONE (09:54)
[2023-05-20 09:55] LABS: Troponin I High Sensitivity 14.2 pg/ml (0-20)
--- NOTE | 2023-05-20 10:55 | History & Physical Report ---
Date of Service May 20, 2023 Assessment & Plan (1) Atrial flutter with rapid ventricular response: Plan: SOB developed the evening of 05/19 and continued in the morning of 05/20 Hx of atrial flutter with RVR and recurrent left-sided pleural effusion s/p thoracentesis x 3 Patient was cardioverted on 03/27, but this has been an ongoing issue; ?SOB from atrial flutter vs pleural effusion EKG on arrival revealed atrial flutter with 2: 1 AV conduction at 126 bpm; QTc 506 Troponin WNL Paroxysmal, but suspect alcohol use may be playing a role Upcoming appointment with Dr. Villegas on Sunday 05/21 to determine if atrial flutter ablation and Watchman would be an option Cardiology consulted; per discussion: Will hold diltiazem p.o. for now given heart failure and concern for reduced EF Continue metoprolol supinate; will increase metoprolol succinate to 50 mg p.o. BID while diltiazem on hold Continue diuresis with Lasix Does not make sense to give amiodarone in the meantime, as patient has likely been in this rhythm for several months now Per Dr. Gonzalez, will plan to perform ablation either Sunday 05/21 or 05/[address] and place on heparin IV for now A.m. CBC, BMP (2) Pleural effusion: Plan: Recurrent left-sided pleural effusion s/p thoracentesis x 3 CXR revealed cardiomegaly with moderate pulmonary edema; moderate left pleural effusion (increased from prior) Pulmonology consulted Recommended diuresis Patient will likely require VATS Lasix 40mg IV daily (3) HFrEF (heart failure with reduced ejection fraction): Plan: Acute on chronic - suspect rate related with atrial flutter last echo: transesophageal on 12/06/2022 revealed LVEF at 45-50% Repeat echocardiogram ordered, pending Strict I&Os Daily Weights 1500mL fluid restriction Lasix (as above) (4) Alcohol use: Plan: Regular alcohol use daily, with last drinks the evening of 05/18 (3 drinks total) He denies PMH of alcohol withdrawal or seizures AWSS at risk protocol Continue daily thiamine, folic acid supplementations (5) Acute hyponatremia: Plan: Na 126 on arrival May be secondary to alcohol use Will reassess after diuresis Follow a.m. labs (6) DM2 (diabetes mellitus, type 2): Plan: Last A1c 5.7% on 01/30/2023 Hold metformin SSI; 110-150, CF 50, carb ratio 15 BSG ACHS Adjust regimen as needed Plan Disposition: Admit to PCU telemetry Full code AHA, T2DM, low Na diet (1500mL fluid restriction) VTE PPx: Hold Eliquis, heparin drip (w/o bolus) History of Present Illness Chief Complaint: SOB/Dyspnea Primary Care Provider: Gabino Ferrell MD Bradley is a 78-year-old male with PMH of paroxysmal A-fib (on Eliquis), recurrent left-sided pleural effusion, chronic cough, lung mass/multiple pulmonary nodules, subarachnoid hemorrhage, TBI, T2DM, GERD, alcoholism, and HTN. He presented for worsening SOB the evening of 05/18. Patient reports he had a hard time catching his breath while walking to the bathroom, but also has SOB at rest and is conversationally dyspneic. He had trouble sleeping at night, and called his daughter at 7:40 AM today to bring him to the hospital. Positionally dyspneic; lays on his left side at night. He noted increased heart rate this morning around 122 bpm and he checked at home. He also reports that he has had increased fatigue over the past week. Note: Patient has had recurrent left-si ded pleural effusions beginning January 2023 (cytology was negative for malignancy at that time). Patient notes he has had a black and blue bruise on his chest from device implantation; however he had this checked and is still getting readings. Patient's daughter (Elizabeth) is at the bedside and provides additional history. She reports that he had an appointment on Sunday 05/21 at 2:[address] Villegas at [facility]; this was a consultation to have a procedure done at [facility]. Patient did not take his regular morning medicine today; he reports no recent change in medications. Last took Eliquis the evening of 05/18. Patient lives by himself. He denies any recent falls, injuries, or trauma to the chest wall. He does not use ambulatory assist devices such as cane or walker. No sick contacts. No supplemental oxygen at home. No CPAP at night. Patient denies smoking, tobacco use. He does endorse regular alcohol use; last drink was the evening of 05/18 where he drank 3 total drinks (little champagne bottles, vodka with Celsius, and wine). He reports he has been drinking less because he "cannot do it". Patient does believe that alcohol helps him sleep, as melatonin does not help. He denies history of alcohol withdrawal or seizures. ED course: NSS 500 mL IV Metoprolol tartrate 2.5 mg IV ROS: Patient endorses increased fatigue over the last week, SOB at rest, MOYER, and chr onic dry cough. Patient denies fever, chills, nightsweats, dizziness/lightheadedness with walking, wheezing, pleuritic CP, hemoptysis, chest pain, chest palpitations, abdominal pain, N/V/D, urinary s/s, or swelling/erythema/pain/numbness/tingling in arms or legs. Allergies Allergy/AdvReac Type Severity Reaction Status Date / Time No Known Drug Allergies Allergy Unknown Verified 05/20/23 11:00 Home Medications Medication Instructions Recorded Confirmed Type folic acid 1 mg tablet 1 mg PO QAM #30 tabs 09/21/21 05/20/23 Rx melatonin 3 mg tablet 3 mg PO HS #30 tabs 09/21/21 05/20/23 Rx thiamine HCl (vitamin B1) 100 mg 100 mg PO BID 05/14/22 05/20/23 History tablet (Vitamin B-1) aspirin 81 mg tablet,delayed 81 mg PO QAM #30 tabs 05/15/22 05/20/23 Rx release fluticasone furoate 100 1 inh inhalation DAILY #3 Inhalers 10/01/22 05/20/23 Rx mcg-vilanterol 25 mcg/dose inhalation powder (Breo Ellipta) gabapentin 300 mg capsule 300 mg PO BID #180 caps 10/26/22 05/20/23 Rx apixaban 5 mg tablet (Eliquis) 5 mg PO BID #180 tabs 10/31/22 05/20/23 Rx omeprazole 40 mg capsule,delayed 40 mg PO DAILY #90 caps 10/31/22 05/20/23 Rx release metformin 500 mg tablet 1,000 mg (2 x 500 mg) PO BID #360 12/06/22 05/20/23 Rx tabs fluticasone propionate 50 2 spray intranasal DAILY #48 grams 12/20/22 05/20/23 Rx mcg/actuation nasal spray,suspension (Flonase Allergy Relief) ipratropium bromide 21 mcg (0.03 2 spray intranasal TID 01/29/23 05/20/23 History %) nasal spray diltiazem HCl 120 mg 120 mg PO DAILY #90 caps 04/29/23 05/20/23 Rx capsule,extended release 24 hr metoprolol succinate 50 mg 50 mg PO DAILY 05/20/23 05/20/23 History tablet,extended release 24 hr ropinirole 0.25 mg tablet 0.25 mg PO HS 05/20/23 05/20/23 History Past Med/Surg History Medical History DM2 (diabetes mellitus, type 2) PAF (paroxysmal atrial fibrillation) Recurrent left pleural effusion Hypertension Chest wall pain On anticoagulant therapy eliquis bid PAF (paroxysmal atrial fibrillation) Diabetes mellitus, type 2 NIDDM Poor historian Chronic cough reason for inhalers>uses inhaler prn, last a few days ago Constipation Gender dysphoria in adult History of diverticulitis of colon History of subarachnoid hemorrhage 2015- left hemorrhagic intracranial hemorrhage involving frontal and temporal region. The patient did not need intervention at that time. Orbital floor fracture hx TBI (traumatic brain injury) Due to intracranial hemorrhage in 2014 Underlying etiology was not clear but considered most likely due to trauma Stroke "mini-stroke" ? a year ago>treated at [facility] (no issues from event) GERD (gastroesophageal reflux disease) Hypertension Surgical History History of loop recorder medtronic placed 03/2022 @ [facility] History of transesophageal echocardiography (BRENDA) 11/06/22 @ [facility] History of colonoscopy History of tooth extraction Hx of tonsillectomy Family History Father Diabetes Tuberculosis Multiple sclerosis Other Hypertension No family history of adverse response to anesthesia No family history of bleeding disorder Stroke Denies family history of Ovarian cancer Prostate cancer Myocardial infarction Breast cancer Colorectal cancer Social History Smoking Status: Never smoker Second Hand Exposure: No; Do You Dip or Chew Tobacco: No; Hx Alcohol Use: Yes Alcohol type: wine Alcohol Intake Frequency: 4 or More x per/Week Alcohol Intake Frequency Comment: At least 2 drinks daily or more Hx Substance Use: No Preferred Language: Cuban Communication Ability: Effective Visual Impairment: Partially Limited Hearing Ability: Hard of Hearing Sign Painter Required: No Beliefs That Will Affect Care: None marital status: Current Living Situation: Alone Current Living Situation Comment: lives with son current occupational status: retired How many Children do You have: 3 How many Children do You have Comment: 2 girls 1 boy Feels Safe at Home: Yes Childhood Exposure to Second-Hand Smoke: No Diet: regular during the past year weight has: remained stable Dental Care, Regularly: No Physical Activity Frequency: Does not Exercise Seatbelt Use: always Sunscreen Use: No Assistive Devices: Cane, Glasses and Walker Review of Systems Review of Systems: See HPI above Physical Exam Physical Exam: General: Acute respiratory distress; non-toxic appearing; well-nourished; cooperative; SpO2 96% on RA HEENT: normocephalic, atraumatic; no scleral icterus; left eye PERRLA; moist mucus membrane; patient can only see out of his left eye and hear out of his left ear Neck: supple; no lymphadenopathy; trachea midline Skin: warm, dry without signs of tenting; no cyanosis; no rashes, bruising, lesions, or erythema noted CV: chest wall NTP; black and blue bruising on the left upper chest wall; irregular rhythm, tachycardic at 124 bpm; S1/S2 normal; no murmurs/rubs/gallops; pulses intact and symmetric at radial, DP, and PT Lungs: Acute respiratory distress; conversationally dyspneic; symmetrical chest wall expansion; diminished breath sounds in left lower lung tao; expiratory wheezing ABD: Soft, NTP; BS present; no rebound/guarding; no distention MSK: no tics or fasciculations; no edema noted in the LEs b/l, nonerythematous Back: Notable solid mass on upper left back Neuro: A&Ox3; normal mood and affect; fluent speech; no focal deficits; sensation grossly intact in the LEs b/l Results & Data Results & Data Vital Signs (Past 12 Hours) Vital Signs Temp Pulse Pulse Resp BP BP Pulse Ox 05/20/23 10:16 128 H 22 167/116 H 96 05/20/23 08:58 126 H 28 H 96 05/20/23 08:50 126 H 05/20/23 08:40 126 H 28 H 159/104 H 96 05/20/23 08:37 96 05/20/23 08:28 36.6 C 126 H 20 175/88 H 95 O2 Del Method 05/20/23 10:16 Room Air 05/20/23 08:58 Room Air 05/20/23 08:50 05/20/23 08:40 Room Air 05/20/23 08:37 Room Air 05/20/23 08:28 Room Air Laboratory Results Abnormal lab results 05/20/23 Range/Units 08:42 RBC 4.47 L (4.70-6.10) M/uL Hct 39.7 L (42.0-52.0) % Lymph # (Auto) 1.15 L (1.20-3.40) K/uL [place] # (Auto) 0.64 H (0.11-0.59) K/uL Sodium 126 L (136-145) mmol/L Chloride 94 L (98-107) mmol/L Glucose 118 H (70-99(Fasting)) mg/dl Lipase 5 L (11-82) U/L Diagnostic Findings Chest X-Ray 05/20/23 08:49 XR chest 1V portable CLINICAL HISTORY: Chest pain, nonspecific TECHNIQUE: Single frontal radiograph of the chest was obtained. Comparison: Comparison is made to chest radiograph 03/30/2023 FINDINGS: Chest wall electronic device is unchanged. The cardiomediastinal silhouette is stable. There is prominence and cephalization of the vasculature with Parth B lines seen. Left greater than right airspace opacities are seen. Moderate left pleural effusion. IMPRESSION: 1. Cardiomegaly and moderate pulmonary edema, increased from prior. 2. Moderate left pleural effusion, increased from prior. ACT 112: Negative or not required by law. Electronically signed by: Vince Olivier M.D. 05/20/2023 9:42 AM Code Status & VTE Plan Code Status Full code VTE Prophylaxis Plan VTE Prophylaxis will be ordered: Yes Supervising Physician Co-Signing Physician Notes I personally saw and examined the patient. I independently reviewed the labs, EKG, imaging, problem list, medication list, past medical history and family history. I verified all [place] points and agree with Bartolome Vivas PA-C with the following exceptions and/or additions: 78-year-old male with ongoing problems with atrial flutter and RVR, heart failure and recurrent pleural effusion. Presents to the ER with shortness of breath mainly on exertion. No hypoxia. He was cardioverted in March however unfortunately went back into atrial flutter and was admitted the following day with what was interpreted again as sinus tachycardia although this has been misinterpreted multiple times last year and without the telemetry is difficult to tell. No cough, fever or chills. O/E HS increased rate, regular rhythm, no murmur, Chest bibasal absent breath sounds, no crackles, Abdo SNT, no CVA tenderness A/P Atrial flutter with rapid ventricular rate - stop diltiazem due to cardiomyopathy, "increase" metoprolol succinate to 50 mg p.o. BID (unclear what he is actually taking, cardiology notes 100mg BID, pulmonology notes 100mg daily, he has been picking up 50mg PO daily), ultimately plan is for EP study with possible ablation and will defer to cardiology regarding this Acute on chronic heart failure with borderline ejection fraction - Lasix 40 mg IV daily, strict I's and O's, daily weights Recurrent pleural effusion - he has had thoracentesis multiple times for this but continues to recur due to heart failure as his atrial flutter is ongoing. Atrial flutter needs to be dealt with first and then can consider thoracentesis. On discussion with pulmonology thoracentesis has not been completely ruled out this admission therefore we will switch from Eliquis to heparin to allow this to happen if necessary. May improve slightly with Lasix. PG Care Time/CCT Total # of Minutes Spent Total Time Spent with Patient: Total time spent is greater than 50% in coordination of care (as documented) at patient's floor/unit and/or counseling patient: Coding [place] [address] INT INP/OBS CARE 3/75MIN Patient Type Established Medical Decision Making High Complexity Diagnoses Atrial flutter with rapid ventricular response I48.92 Pleural effusion J90 HFrEF (heart failure with reduced ejection fraction) I50.20 Alcohol use Z78.9 Acute hyponatremia E87.1 DM2 (diabetes mellitus, type 2) E11.9
[2023-05-20] MEDS: METOPROLOL TARTRATE 1 MG/ML VIAL IV STA (11:02)
[2023-05-20] MEDS: dilTIAZem HCL 120 MG CAPCR PO STA (12:43)
[2023-05-20] MEDS: METOPROLOL SUCC 50MG EXT REL TAB PO STA (12:44)
[2023-05-20] MEDS ORDERED: LORazepam 1 MG in SYRINGE 0.5 ML IV PRN (12:49)
--- NOTE | 2023-05-20 13:01 | Pulmonary Consultation ---
Date of Consultation May 20, 2023 Assessment & Plan (1) Recurrent pleural effusion: (2) Atrial flutter: (3) Systolic CHF: Heart failure chronicity: chronic Qualified Code(s): I50.22 - Chronic systolic (congestive) heart failure (4) HFrEF (heart failure with reduced ejection fraction): Plan IMPRESSION: 78-year-old male with a history of chronic cough, abnormal chest CT, and recurrent LEFT-sided pleural effusion in the setting of persistent atrial flutter who presents back to the emergency department with complaints of shortness of breath and findings of LEFT-sided effusion. RECOMMENDATIONS: 1. Recurrent LEFT-sided pleural effusion - Again, extensively evaluated in the past. Review of chest films today is actually concerning for worsening pulmonary edema in the RIGHT-sided lung tao. We will add a dose of IV Lasix today. Patient is on Eliquis which does complicate serial thoracentesis. It was with hopes during most recent visit that the patient's heart rate becomes under better control after evaluation by interventional cardiology with the intent for cardio ablation with Watchman procedure performed. Unfortunately, the patient developed an abrupt onset of shortness of breath which brought him to the emergency department. The patient is not hypoxic on room air. He is persistently tachycardic. He has been hypertensive. I question if a large driving force of his current symptoms is an acute CHF exacerbation with worsening RIGHT-sided pulmonary edema. While he does have an underlying LEFT- sided effusion, this alone is not resulting in his degree of dyspnea. 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 That being said, he had held his Eliquis last evening so he is coming up on 24 hours of being off the medication. Certainly thoracentesis could be considered later tomorrow afternoon in the setting of emergency, but at this point, I do feel that it makes more sense to diurese the patient and see if we can offload some of his volume and see if this improves his symptoms. Ideally, we hopefully have the patient discharged in time to make his consultation appointment at [facility] on Saturday. We will review the patient's effusion tomorrow as well as symptoms and discuss need for thoracentesis versus improvement with active diuresis. If the patient improves with diuresis alone, he could be discharged to follow-up with us at the end of the week for thoracentesis if necessary. 2. Atrial flutter - Findings have been consistent since about September. Set to undergo evaluation by interventional cardiology at [facility] on 05/21. Ideally, this appointment would be imperative to hopefully allow the patient undergo definitive intervention to prevent recurrence of tacky dysrhythmia and recurrence of his effusion. Would aim for rate and pressure control is much as possible while in the hospital setting to prevent recurrence of effusion or worsening the patient's symptoms in general as I believe some of the symptoms he is experiencing are likely related to his profound hypertension and associated tachycardia. 3. CHF - Worsening pulmonary edema noted on chest x-ray today which has been independent from prior films. Will place dose of Lasix now with follow-up chest x-ray tomorrow. Hopefully this helps offload the patient's volume and improve his symptoms. Thank you for allowing us to participate in the care of this pleasant patient. Pulmonary will continue to follow. Supervising Physician Co-Signing Physician Notes Patient seen and examined. EMR reviewed. Discussed with MIN. Agree with assessment plan as noted. Given the recurrent nature of the patient's lymphocytic exudative effusion, would recommend video-assisted thoracoscopic evaluation for potential pleural biopsy and or pleurodesis. Agree that rate control and resolution of the patient's atrial arrhythmia may result in resolution of the pleural effusion and the patient has an appointment scheduled with cardiology in [place] in 48 hours. Given the need for interventional cardiology evaluation at [place] and potential need for thoracic surgery, would recommend reaching out to [facility] to see whether or not it makes sense to have the patient evaluated as an inpatient to facilitate most of these evaluations. If we keep him here and hold his anticoagulation for therapeutic thoracentesis, it is likely he is going to miss his outpatient cardiology evaluation at [place] which will further delay definitive therapy for his atrial arrhythmia. These recommendations were communicated to the admitting service. Will follow along and see how he responds to diuretics. Certainly there is no urgent indication for pursuing a thoracentesis at this point time until his anticoagulation has been weaned off History of Present Illness Reason for Consultation: Recurrent L-sided pleural effusion; ?thoracentesis Requesting Physician: Bartolome Vivas PA-C Attending Physician: Jam Henson MD History of Present Illness Patient is a 78-year-old male with significant past medical history of chronic cough, pulmonary nodules, recurrent LEFT-sided pleural effusion, and atrial flutter who presents to the emergency department with increasing shortness of breath. The patient was last seen in the office on 05/15/2023 and follow-up with recent hospitalization. Patient notes that he developed worsening trouble with breathing while at rest this evening. He also reports some shortness of breath with exertion. He denies any chest pain or palpitations. No dizziness, lightheadedness, or presyncope. He did take his blood pressure was was also noted to be significantly elevated. The patient does have an appointment Saturday with interventional cardiology for evaluation of his ongoing atrial flutter which is likely driving majority of his symptoms. Allergies Allergy/AdvReac Type Severity Reaction Status Date / Time No Known Drug Allergies Allergy Unknown Verified 05/20/23 11:00 Home Medications Medication Instructions Recorded Confirmed Type folic acid 1 mg tablet 1 mg PO QAM #30 tabs 09/21/21 05/20/23 Rx melatonin 3 mg tablet 3 mg PO HS #30 tabs 09/21/21 05/20/23 Rx thiamine HCl (vitamin B1) 100 mg 100 mg PO BID 05/14/22 05/20/23 History tablet (Vitamin B-1) aspirin 81 mg tablet,delayed 81 mg PO QAM #30 tabs 05/15/22 05/20/23 Rx release fluticasone furoate 100 1 inh inhalation DAILY #3 Inhalers 10/01/22 05/20/23 Rx mcg-vilanterol 25 mcg/dose inhalation powder (Breo Ellipta) gabapentin 300 mg capsule 300 mg PO BID #180 caps 10/26/22 05/20/23 Rx apixaban 5 mg tablet (Eliquis) 5 mg PO BID #180 tabs 10/31/22 05/20/23 Rx omeprazole 40 mg capsule,delayed 40 mg PO DAILY #90 caps 10/31/22 05/20/23 Rx release metformin 500 mg tablet 1,000 mg (2 x 500 mg) PO BID #360 12/06/22 05/20/23 Rx tabs fluticasone propionate 50 2 spray intranasal DAILY #48 grams 12/20/22 05/20/23 Rx mcg/actuation nasal spray,suspension (Flonase Allergy Relief) ipratropium bromide 21 mcg (0.03 2 spray intranasal TID 01/29/23 05/20/23 History %) nasal spray diltiazem HCl 120 mg 120 mg PO DAILY #90 caps 04/29/23 05/20/23 Rx capsule,extended release 24 hr metoprolol succinate 50 mg 50 mg PO DAILY 05/20/23 05/20/23 History tablet,extended release 24 hr ropinirole 0.25 mg tablet 0.25 mg PO HS 05/20/23 05/20/23 History Patient History Medical History (Updated 05/20/23 @ 12:33 by Bartolome Vivas PA-C) DM2 (diabetes mellitus, type 2) PAF (paroxysmal atrial fibrillation) Recurrent left pleural effusion Hypertension Chest wall pain On anticoagulant therapy eliquis bid PAF (paroxysmal atrial fibrillation) Diabetes mellitus, type 2 NIDDM Poor historian Chronic cough reason for inhalers>uses inhaler prn, last a few days ago Constipation Gender dysphoria in adult History of diverticulitis of colon History of subarachnoid hemorrhage 2014- left hemorrhagic intracranial hemorrhage involving frontal and temporal region. The patient did not need intervention at that time. Orbital floor fracture hx TBI (traumatic brain injury) Due to intracranial hemorrhage in 2014 Underlying etiology was not clear but considered most likely due to trauma Stroke "mini-stroke" ? a year ago>treated at [facility] (no issues from event) GERD (gastroesophageal reflux disease) Hypertension Surgical History History of loop recorder medtronic placed 03/2022 @ [facility] History of transesophageal echocardiography (BRENDA) 11/06/22 @ [facility] History of colonoscopy History of tooth extraction Hx of tonsillectomy Family History Father Diabetes Tuberculosis Multiple sclerosis Other Hypertension No family history of adverse response to anesthesia No family history of bleeding disorder Stroke Denies family history of Ovarian cancer Prostate cancer Myocardial infarction Breast cancer Colorectal cancer Social History Smoking Status: Never smoker Second Hand Exposure: No; Do You Dip or Chew Tobacco: No; Hx Alcohol Use: Yes Alcohol type: wine Alcohol Intake Frequency: 4 or More x per/Week Alcohol Intake Frequency Comment: At least 2 drinks daily or more Hx Substance Use: No Preferred Language: Yakut Communication Ability: Effective Visual Impairment: Partially Limited Hearing Ability: Hard of Hearing Applications Coordinator Required: No Beliefs That Will Affect Care: None marital status: Current Living Situation: Family Current Living Situation Comment: lives with son current occupational status: retired How many Children do You have: 3 How many Children do You have Comment: 2 girls 1 boy Feels Safe at Home: Yes Childhood Exposure to Second-Hand Smoke: No Diet: regular during the past year weight has: remained stable Dental Care, Regularly: No Physical Activity Frequency: Does not Exercise Seatbelt Use: always Sunscreen Use: No Assistive Devices: Glasses Review of Systems Review of Systems: A complete 10 point review of systems was reviewed with the patient with pertinent positives and negatives as per history of present illness. All else were negative. Physical Exam Physical Exam: VITAL SIGNS - Vital signs and nursing notes were reviewed. GENERAL - 78-year-old male appearing his stated age who is in no acute distress. Communicates well with provider and answers questions appropriately. SKIN - Without rashes or lesions. NOSE - Midline and without cyanosis. MOUTH/OROPHARYNX - Without perioral cyanosis. NECK - Neck with FROM. LUNGS - Chest wall evaluation demonstrates a normal chest wall A:P diameter. Auscultation reveals diminished breath sounds at the LEFT sided lung base. CARDIAC - RRR with S1/S2. No murmur, rubs, or gallops appreciated. ABDOMEN - Abdominal inspection demonstrates on obese abdomen. BS normoactive all four quadrants. No tenderness, palpable masses, or ascites noted. EXTREMITIES - Nail clubbing not present. No peripheral cyanosis. No pretibial edema present. +3/5 radial palpated throughout. PSYCH - A&Ox3 and cooperates fully with examiner. Pt is very pleasant and interacts well with examiner. Results & Data Results & Data Vital Signs (Past 12 Hours) Vital Signs Temp Pulse Pulse Resp BP BP Pulse Ox 05/20/23 11:54 117 H 20 158/114 H 96 05/20/23 11:18 124 H 164/123 H 05/20/23 11:02 127 H 169/110 H 05/20/23 10:16 128 H 22 167/116 H 96 05/20/23 08:58 126 H 28 H 96 05/20/23 08:50 126 H 05/20/23 08:40 126 H 28 H 159/104 H 96 05/20/23 08:37 96 05/20/23 08:28 36.6 C 126 H 20 175/88 H 95 O2 Del Method 05/20/23 11:54 Room Air 05/20/23 11:18 05/20/23 11:02 05/20/23 10:16 Room Air 05/20/23 08:58 Room Air 05/20/23 08:50 05/20/23 08:40 Room Air 05/20/23 08:37 Room Air 05/20/23 08:28 Room Air PG Care Time/CCT Total # of Minutes Spent Total Time Spent with Patient: Total time spent is greater than 50% in coordination of care (as documented) at patient's floor/unit and/or counseling patient: Coding Level of Care Code 88296 INT INP/OBS CARE 375MIN Diagnoses Recurrent pleural effusion J90 Atrial flutter I48.92 Chronic systolic congestive heart failure I50.22 Heart failure chronicity: chronic HFrEF (heart failure with reduced ejection fraction) I50.20
[2023-05-20 13:33] LABS: Magnesium 1.3 mg/dl (1.7-2.4)
[2023-05-20] MEDS: FUROSEMIDE INJ 20 MG/2 ML VIAL IV ONE ×2 (13:41→17:47)
[2023-05-20] MEDS: HEPARIN SODIUM/DEXTROSE 25,000 UNITS/500 ML BAG IV SCH (13:45)
[2023-05-20 14:50] LABS: INR 1.1 (0.9-1.1); Partial Thromboplastin Ratio 1.2; Partial Thromboplastin Time 33 Seconds (21-31); Prothrombin Time 11.6 Seconds (9.0-12.0)
--- NOTE | 2023-05-20 16:23 | Cardiology Consultation ---
Date of Consultation May 20, 2023 Assessment & Plan (1) Heart failure with mid-range ejection fraction: (2) Atrial flutter with rapid ventricular response: (3) Cardiomyopathy: (4) Recurrent pleural effusion: (5) Hypertension: Plan ASSESSMENT/PLAN: 1. Acute heart failure with midrange EF: He appears hypervolemic. Ongoing atrial flutter likely playing a role. Agree with Lasix. Strict I's and O's, daily weights and low-sodium diet, less than 2000 mg daily recommended. Discussed with nursing staff and patient. Consider another dose of Lasix 20 mg IV tonight and likely Lasix 40 mg IV tomorrow. Will try to achieve at least 1 L negative net fluid balance today. 2. Atrial flutter: Recommend judaism of sinus rhythm. Has an appointment at [facility] but not with electrophysiology, later this week. Reviewed available ECGs in EHR and all demonstrated either sinus rhythm but more recently, atrial flutter. No evidence of atrial fibrillation. Continue beta-perez. Given concern for significantly reduced EF, would hold diltiazem. If becomes unstable, would recommend DC cardioversion. Otherwise, recommend atrial flutter ablation. Discussed with repair service clerk, Dr. Parmar, who reviewed ECG and is agreeable for possible ablation this week. Continue anticoagulation for stroke risk reduction. 3. Cardiomyopathy: LV systolic function was mildly reduced when last evaluated in November 2022. Recommend repeating echo. Concerned that LV systolic function may have further declined given ongoing atrial flutter with tachycardia. Continue metoprolol succinate. Depending on echo findings, would consider ARNI after some diuresis. 4. Hypertension: Blood pressure elevated but should improve with diuresis. Can further make adjustments if necessary after diuresis. 5. Recurrent pleural effusion: Followed by pulmonology. No imminent plans for thoracentesis according to pulmonology consult. 6. Disposition: Plan of care discussed with Bartolome Vivas PA-C of the primary hospitalist service. Patient's daughter updated about conversation with el ectrophysiology for potential ablation here soon. Cardiology will continue to follow. Thank you for allowing me to participate in the care of your patient. Please call for any other questions or concerns. Sincerely, Good Farr M.D. History of Present Illness Reason for Consultation: Atrial flutter with rapid ventricular response Requesting Physician: Bartolome Vivas PA-C Attending Physician: Jam Henson MD History of Present Illness Mr. Fermin is a pleasant 78-year-old gentleman with history significant for persistent atrial flutter, recurrent left-sided pleural effusion s/p multiple thoracentesis, subarachnoid hemorrhage, type 2 diabetes, hypertension, lung mass/pulmonary nodules, loop recorder implantation, and cardiomyopathy. His primary county records management officer is Dr. Gan. He has been having issues with atrial flutter with rapid ventricular response and underwent cardioversion in March 2023 but noted to have recurrent atrial flutter with rapid ventricular response. He checks his blood pressure at home and states that his heart rate is mostly 90s to 120s. He became acutely short of breath in bed with orthopnea on 05/19/2023. He admits that he was breathing rapidly but denies chest pain. He checked his blood pressure and it was elevated with systolic in the 180s and diastolic 111 with heart rate of 122. He had significant dyspnea on exertion as well. He came to the emergency department this morning and was given Lasix 20 mg IV. He was noted to be in atrial flutter with rapid ventricular response. He received metoprolol tartrate 2.5 mg IV x 1. He had not taken his morning medications which include metoprolol succinate 100 mg daily and diltiazem 120 mg daily. Upon further questioning, he was not entirely sure if he takes metoprolol in the morning or at night and unclear if he has missed any doses. His last dose of Eliquis was in the evening on 05/19/2023 and he was started on heparin drip this morning in the ER. With dose of Lasix, he had used the restroom 4 times to void at the time that he was being evaluated this afternoon. Unfortunately, I's and O's were not being collected. He apparently has an appointment with Dr. Villegas at [facility] on 05/22/2023. He and his daughter believe it is to discuss ablation and Watchman device, however he has not been seen by electrophysiology. He denies syncope, near syncope, edema, melena, hematochezia, or hematuria. Review of systems: As above. Review of systems otherwise negative/unremarkable. Family history: No known premature CAD. Social history: Denies smoking or drug abuse. Consumes 2 or 3 alcoholic beverages daily. Lives alone. Has 3 children and his daughter, Elizabeth, lives close by. Elizabeth was present at the bedside. Allergies Allergy/AdvReac Type Severity Reaction Status Date / Time No Known Drug Allergies Allergy Unknown Verified 05/20/23 11:00 Home Medications Medication Instructions Recorded Confirmed Type folic acid 1 mg tablet 1 mg PO QAM #30 tabs 09/21/21 05/20/23 Rx melatonin 3 mg tablet 3 mg PO HS #30 tabs 09/21/21 05/20/23 Rx thiamine HCl (vitamin B1) 100 mg 100 mg PO BID 05/14/22 05/20/23 History tablet (Vitamin B-1) aspirin 81 mg tablet,delayed 81 mg PO QAM #30 tabs 05/15/22 05/20/23 Rx release fluticasone furoate 100 1 inh inhalation DAILY #3 Inhalers 10/01/22 05/20/23 Rx mcg-vilanterol 25 mcg/dose inhalation powder (Breo Ellipta) gabapentin 300 mg capsule 300 mg PO BID #180 caps 10/26/22 05/20/23 Rx apixaban 5 mg tablet (Eliquis) 5 mg PO BID #180 tabs 10/31/22 05/20/23 Rx omeprazole 40 mg capsule,delayed 40 mg PO DAILY #90 caps 10/31/22 05/20/23 Rx release metformin 500 mg tablet 1,000 mg (2 x 500 mg) PO BID #360 12/06/22 05/20/23 Rx tabs fluticasone propionate 50 2 spray intranasal DAILY #48 grams 12/20/22 05/20/23 Rx mcg/actuation nasal spray,suspension (Flonase Allergy Relief) ipratropium bromide 21 mcg (0.03 2 spray intranasal TID 01/29/23 05/20/23 History %) nasal spray diltiazem HCl 120 mg 120 mg PO DAILY #90 caps 04/29/23 05/20/23 Rx capsule,extended release 24 hr metoprolol succinate 50 mg 50 mg PO DAILY 05/20/23 05/20/23 History tablet,extended release 24 hr ropinirole 0.25 mg tablet 0.25 mg PO HS 05/20/23 05/20/23 History Patient History Medical History DM2 (diabetes mellitus, type 2) PAF (paroxysmal atrial fibrillation) Recurrent left pleural effusion Hypertension Chest wall pain On anticoagulant therapy eliquis bid PAF (paroxysmal atrial fibrillation) Diabetes mellitus, type 2 NIDDM Poor historian Chronic cough reason for inhalers>uses inhaler prn, last a few days ago Constipation Gender dysphoria in adult History of diverticulitis of colon History of subarachnoid hemorrhage 2015- left hemorrhagic intracranial hemorrhage involving frontal and temporal region. The patient did not need intervention at that time. Orbital floor fracture hx TBI (traumatic brain injury) Due to intracranial hemorrhage in 2014 Underlying etiology was not clear but considered most likely due to trauma Stroke "mini-stroke" ? a year ago>treated at [facility] (no issues from event) GERD (gastroesophageal reflux disease) Hypertension Surgical History History of loop recorder medtronic placed 03/2022 @ [facility] History of transesophageal echocardiography (BRENDA) 11/06/22 @ [facility] History of colonoscopy History of tooth extraction Hx of tonsillectomy Family History Father Diabetes Tuberculosis Multiple sclerosis Other Hypertension No family history of adverse response to anesthesia No family history of bleeding disorder Stroke Denies family history of Ovarian cancer Prostate cancer Myocardial infarction Breast cancer Colorectal cancer Social History Smoking Status: Never smoker Second Hand Exposure: No; Do You Dip or Chew Tobacco: No; Hx Alcohol Use: Yes Alcohol type: wine Alcohol Intake Frequency: 4 or More x per/Week Alcohol Intake Frequency Comment: At least 2 drinks daily or more Hx Substance Use: No Preferred Language: Setswana Communication Ability: Effective Visual Impairment: Partially Limited Hearing Ability: Hard of Hearing Nuclear Officer Required: No Beliefs That Will Affect Care: None marital status: Current Living Situation: Family Current Living Situation Comment: lives with son current occupational status: retired How many Children do You have: 3 How many Children do You have Comment: 2 girls 1 boy Feels Safe at Home: Yes Childhood Exposure to Second-Hand Smoke: No Diet: regular during the past year weight has: remained stable Dental Care, Regularly: No Physical Activity Frequency: Does not Exercise Seatbelt Use: always Sunscreen Use: No Assistive Devices: Glasses Physical Exam Physical Exam: Gen.: No acute distress. Alert. HEENT: Anicteric sclera. Neck: Thick neck. No bruits. Normal carotid upstrokes bilaterally. Cardiac: No ventricular heave. Regular and tachycardic. Normal S1-S2. No murmurs, rubs, or gallops. Pulmonary: Decreased breath sounds at the bases, much more so on the left. Otherwise, clear to auscultation bilaterally without wheezes, rales, or rhonchi. Abdomen: Soft, nontender, nondistended, with normoactive bowel sounds. No bruits noted. Extremities: 2+ radial pulses bilaterally. 2+ posterior tibialis pulses bilaterally. Trace to 1+ bilateral lower extremity edema. No cyanosis. Psychiatric: Affect appears appropriate. Results & Data Vital Signs (Past 12 Hours) Vital Signs Temp Pulse Pulse Resp BP BP Pulse Ox 05/20/23 15:00 120 H 05/20/23 13:53 37.1 C 113 H 30 H 148/102 H 95 05/20/23 11:54 117 H 20 158/114 H 96 05/20/23 11:18 124 H 164/123 H 05/20/23 11:02 127 H 169/110 H 05/20/23 10:16 128 H 22 167/116 H 96 05/20/23 08:58 126 H 28 H 96 05/20/23 08:50 126 H 05/20/23 08:40 126 H 28 H 159/104 H 96 05/20/23 08:37 96 05/20/23 08:28 36.6 C 126 H 20 175/88 H 95 O2 Del Method 05/20/23 15:00 05/20/23 13:53 Room Air 05/20/23 11:54 Room Air 05/20/23 11:18 05/20/23 11:02 05/20/23 10:16 Room Air 05/20/23 08:58 Room Air 05/20/23 08:50 05/20/23 08:40 Room Air 05/20/23 08:37 Room Air 05/20/23 08:28 Room Air Laboratory Results Laboratory Results - last 24 hr 05/20/23 08:42 WBC 7.71 RBC 4.47 L Hgb 14.3 Hct 39.7 L MCV 88.8 MCH 32.0 MCHC 36.0 RDW Std Deviation 43.3 RDW Coeff of Rogers 13.3 Plt Count 283 MPV 10.3 Immature Gran % (Auto) 0.5 Neut % (Auto) 73.1 Lymph % (Auto) 14.9 [place] % (Auto) 8.3 Eos % (Auto) 2.3 Baso % (Auto) 0.9 Neut # (Auto) 5.63 Lymph # (Auto) 1.15 L [place] # (Auto) 0.64 H Eos # (Auto) 0.18 Baso # (Auto) 0.07 Immature Gran # (Auto) 0.04 PT 11.6 INR 1.1 APTT 33 H PTT Ratio 1.2 Sodium 126 L Potassium 4.4 Chloride 94 L Carbon Dioxide 24 Anion Gap 8 BUN 10 Creatinine 0.78 Est Cr Clr Drug Dosing 87.4 Est GFR ( Amer) 99.5 Est GFR (Non-Af Amer) 85.9 BUN/Creatinine Ratio 12.8 Glucose 118 H Calcium 9.4 Magnesium 1.3 L Total Bilirubin 0.7 AST 19 ALT 13 Alkaline Phosphatase 65 Troponin I High Sens 14.2 Total Protein 7.2 Albumin 4.7 Globulin 2.5 Albumin/Globulin Ratio 1.9 Lipase 5 L Diagnostic Findings ECG personally reviewed: ECG 05/20/2023 8:39 AM: Atrial flutter with 2-1 AV conduction at [address] abnormality. Pulmonary consultation from today reviewed. Chest x-ray 05/20/2023: Curly B-lines and prominence and cephalization of the vasculature per radiology. Moderate left pleural effusion. Chest x-ray image personally reviewed. Left pleural effusion and increased vascular markings noted. Multiple outpatient cardiology notes reviewed. Transesophageal echo 12/06/2022: EF 45 to 50%. Mild global hypokinesis. Biatrial dilation. Labs from 05/20/2023 demonstrated hyponatremia, normal renal function, hypomagnesemia, normal transaminase levels, normal blood counts. Cardioversion note from 03/27/2023 reviewed. Telemetry reviewed: Atrial flutter. All 8 ECGs available for review on EHR demonstrated either sinus rhythm or atrial flutter. No evidence of atrial fibrillation. Medications Administered Current Inpatient Medications Heparin Sodium/Dextrose (Heparin Sodium/Dextrose) 25,000 units in 500 mls @ 29 mls/hr IV .[id number] [facility]; Protocol Stop: 06/19/23 13:14 Last Admin: 05/20/23 13:45 Dose: 1,450 units/hr, 29 mls/hr Lorazepam 1 mg/ Syringe 1 mls @ 2 mls/min IV ONE PRN; Protocol PRN Reason: EtoH Withdrawal AWSS 6-10 Lasix 20 mg IV x 1 given. PG Care Time/CCT Total # of Minutes Spent Total Time Spent with Patient: Total time spent is greater than 50% in coordination of care (as documented) at patient's floor/unit and/or counseling patient: Coding Level of Care Code 13333 INT INP/OBS CARE 375MIN Diagnoses Heart failure with mid-range ejection fraction I50.22 Atrial flutter with rapid ventricular response I48.92 Cardiomyopathy, unspecified type I42.9 Cardiomyopathy type: unspecified Recurrent pleural effusion J90 Hypertension I10 Hypertension type: unspecified (3) Cardiomyopathy Cardiomyopathy type: unspecified Qualified Code(s): I42.9 - Cardiomyopathy, unspecified (5) Hypertension Hypertension type: unspecified Qualified Code(s): I10 - Essential (primary) hypertension
[2023-05-20] MEDS ORDERED: DEXTROSE 50% 50 ML SYRINGE IV PRN (17:41)
[2023-05-20] MEDS ORDERED: GLUCAGON FOR INJ 1 MG VIAL SQ PRN (17:41)
[2023-05-20] MEDS ORDERED: CARBOHYDRATES FOR HYPOGLYCEMIA PO PRN (17:41)
[2023-05-20] MEDS ORDERED: GLUCOSE 40% GEL 15 GM TUBE PO PRN (17:41)
[2023-05-20] MEDS ORDERED: GLUCOSE 10 TAB/TUBE PO PRN (17:41)
[2023-05-20] MEDS: MAGNESIUM SULFATE / D5W 1 GM/100 ML BAG IV SCH (17:47)
[2023-05-20] MEDS: INSULIN ASPART PER UNIT CHARGE SC SCH (18:51)
[2023-05-20] MEDS: ACETAMINOPHEN 325 MG TAB PO PRN (18:51)
[2023-05-20] MEDS: PANTOprazole 40 MG TAB PO SCH (19:56)
[2023-05-20 20:43] LABS: BUN Creatinine Ratio 11.1 (10-20); Calcium 9.2 mg/dl (8.6-10.3); Creatinine Clr Calc Pharmacy 68.9 ml/min; Est GFR (African American) 83.6 ml/min; Est GFR (Non-African American) 72.1 ml/min; Potassium 3.8 mmol/L (3.5-5.1)
[2023-05-20] MEDS: MELATONIN 3 MG TAB PO SCH (23:28)
[2023-05-20] MEDS: THIAMINE HCL 100 MG TAB PO SCH (23:28)
[2023-05-20] MEDS: rOPINIRole HCL 0.25 MG TABLET PO SCH (23:28)
[2023-05-20] MEDS: GABAPENTIN 300 MG CAP PO SCH (23:28)
[2023-05-20] MEDS: METOPROLOL SUCC 50MG EXT REL TAB PO SCH (23:29)
[2023-05-20] MEDS: IPRATROPIUM BROMIDE NASAL SPRAY 0.06% 15ML NAE SCH (23:29)
[2023-05-21 05:37] LABS: Basophils # (auto) 0.04 K/uL (0.00-0.20); Basophils % (auto) 0.5 %; Eosinophils # (auto) 0.12 K/uL (0.00-0.50); Eosinophils % (auto) 1.5 %; Hematocrit (blood only) 36.4 % (42.0-52.0); Hemoglobin 12.9 g/dl (14.0-18.0); Immature Granulocytes # (auto) 0.02 K/uL (0.01-0.20); Immature Granulocytes % (auto) 0.2 %; Lymphocytes # (auto) 0.75 K/uL (1.20-3.40); Lymphocytes % (auto) 9.2 %; Mean Corpuscular Hemoglobin 32.2 pg (25.0-34.0); Mean Corpuscular Hgb Conc 35.4 g/dL (32.0-36.0); Mean Corpuscular Volume 90.8 fL (80.0-100.0); Mean Platelet Volume 9.6 fL (9.4-12.4); Monocytes # (auto) 0.91 K/uL (0.11-0.59); Monocytes % (auto) 11.1 %; Neutrophils # (auto) 6.35 K/uL (1.40-6.50); Neutrophils % (auto) 77.5 %; Platelet Count 270 K/uL (130-400); RDW Coefficient of Variation 13.5 % (11.5-14.5); RDW Standard Deviation 44.8 fL (36.4-46.3); Red Blood Count 4.01 M/uL (4.70-6.10); White Blood Count 8.19 K/ul (4.8-10.8)
[2023-05-21 05:47] LABS: Creatinine Clr Calc Pharmacy 73.3 ml/min; Est GFR (African American) 90.2 ml/min; Est GFR (Non-African American) 77.8 ml/min; Magnesium 2.1 mg/dl (1.7-2.4)
[2023-05-21 05:58] LABS: ANTI-Xa, UFH(UnfractionatedHep 0.78 IU/ml (0.3-0.7)
--- NOTE | 2023-05-21 07:52 | Pulmonology Progress Note ---
Date of Service May 21, 2023 Assessment & Plan (1) Recurrent pleural effusion: (2) Atrial flutter: (3) Systolic CHF: Heart failure chronicity: chronic Qualified Code(s): I50.22 - Chronic systolic (congestive) heart failure (4) HFrEF (heart failure with reduced ejection fraction): Plan IMPRESSION: 78-year-old male with a history of chronic cough, abnormal chest CT, and recurrent LEFT-sided pleural effusion in the setting of persistent atrial flutter who presents back to the emergency department with complaints of shortness of breath and findings of LEFT-sided effusion. RECOMMENDATIONS: 1. Recurrent LEFT-sided pleural effusion -patient with persistent LEFT-sided effusion. He does seem to be breathing better after the initiation of diuretic therapy. Agree with continuing to diurese the patient. Bedside ultrasound was performed which demonstrates persistent pleural fluid with area large enough for potential thoracentesis to remove excess fluid. Discussed this with the patient and given that he is 48 hours out from his last dose of Eliquis. We will hold his heparin at this time with plans for performing therapeutic thoracentesis later this afternoon. Heparin can be restarted after this. Review of cardiology documentation shows plans for possible ablation here which would hopefully help improve the patient's baseline symptoms and hopefully help prevent recurrence of effusion. 2. Atrial flutter - Findings have been consistent since about September. Reviewed cardiology consultation and appreciate their guidance and management. Assessment for ablation to be performed locally which is great for the patient. 3. CHF - Continue with volume offloading per cardiology guidance. Thank you for allowing us to participate in the care of this pleasant patient. Pulmonary will continue to follow. Admission and Anticipated Discharge Date Admission Date: May 20, 2023 Subjective Patient seen and evaluated at bedside. He reports that his breathing feels better today. He has been having a moderate amount of urine output. No complaints of chest pain, palpitations, shortness of breath, dizziness, or lightheadedness noted. Review of Systems Review of Systems: A complete 10 point review of systems was reviewed with the patient with pertinent positives and negatives as per history of present illness. All else were negative. Physical Exam Physical Exam: VITAL SIGNS - Vital signs and nursing notes were reviewed. GENERAL - 78-year-old male appearing his stated age who is in no acute distress. Communicates well with provider and answers questions appropriately. LUNGS - Auscultation reveals diminished breath sounds at the LEFT sided lung base. CARDIAC - RRR with S1/S2. No murmur, rubs, or gallops appreciated. ABDOMEN - Abdominal inspection demonstrates on obese abdomen. BS normoactive all four quadrants. No tenderness, palpable masses, or ascites noted. EXTREMITIES - Nail clubbing not present. No peripheral cyanosis. No pretibial edema present. +3/5 radial palpated throughout. PSYCH - A&Ox3 and cooperates fully with examiner. Pt is very pleasant and interacts well with examiner. Results & Data Results & Data Vital Signs (Past 12 Hours) Vital Signs Temp Pulse Resp BP Pulse Ox O2 Del Method 05/21/23 07:42 36.5 C 83 16 122/79 96 Room Air 05/21/23 03:27 36.4 C L 94 H 20 130/79 96 Room Air 05/20/23 22:10 Room Air 05/20/23 22:04 36.5 C 128 H 20 157/102 H 97 Room Air PG Care Time/CCT Total # of Minutes Spent Total Time Spent with Patient: Total time spent is greater than 50% in coordination of care (as documented) at patient's floor/unit and/or counseling patient: Coding Level of Care Code 81885 SUB INP/OBS CARE 2/35MIN Diagnoses Recurrent pleural effusion J90 Atrial flutter I48.92 Chronic systolic congestive heart failure I50.22 Heart failure chronicity: chronic HFrEF (heart failure with reduced ejection fraction) I50.20
[2023-05-21] MEDS: FLUTICASONE/VILANTEROL 100/25MCG 14 PUFFS/INHALER INH SCH (08:16)
[2023-05-21] MEDS: FOLIC ACID 1 MG TAB PO SCH (08:16)
[2023-05-21] MEDS: ASPIRIN 81 MG ECTAB PO SCH (08:16)
[2023-05-21] MEDS: FUROSEMIDE 40 MG/4 ML VIAL IV SCH (08:16)
[2023-05-21] MEDS: FLUTICASONE PROPIONATE NA SPR 16 GM BTL SCH (08:17)
--- NOTE | 2023-05-21 09:06 | Cardiology Progress Note ---
Date of Service May 21, 2023 Assessment & Plan (1) Heart failure with mid-range ejection fraction: (2) Atrial flutter with rapid ventricular response: (3) Cardiomyopathy: (4) Recurrent pleural effusion: (5) Hypertension: Plan ASSESSMENT/PLAN: 1. Acute heart failure with reduced EF: Volume status much improved. Clinically also much improved. Continue Lasix 40 mg IV for now. If any signs of azotemia, can discontinue and initiate oral Lasix. I's and O's have been i naccurate as he voided several times in the ER yesterday without collection of urine. Strict I's and O's, daily weights and low-sodium diet, less than 2000 mg daily recommended. Start low-dose Entresto. Recommend spironolactone and SGLT2 inhibitor to be initiated in near future, if no contraindication. 2. Atrial flutter: Recommend latter day of sinus rhythm. I have discussed with Dr. Parmar of electrophysiology. Plan for possible atrial flutter ablation during this hospital stay. Continue beta-perez for now. Heart rate has improved. Avoid diltiazem given significantly reduced LV systolic function and heart failure with reduced EF. Continue anticoagulation for stroke risk reduction. 3. Cardiomyopathy: LV systolic function is now severely reduced. Likely tachycardia induced. If not significantly improved after improved heart rate and latter day of sinus rhythm, other secondary workup can be completed, including ischemic workup. Likely due to ongoing tachycardia with atrial flutter. LV systolic function will hopefully improve with improved heart rate and latter day of sinus. Continue metoprolol succinate. Start Entresto. If no significant improvement after optimized medical therapy, would consider ICD for primary prevention. 4. Hypertension: Blood pressure well-controlled today. Adjusting heart failure medications as above. 5. Recurrent pleural effusion: Followed by pulmonology. 6. Disposition: Plan of care communicated with Dr. Rosales of the primary hospitalist service. Cardiology will continue to follow. Patient's daughter, Elizabeth, was updated via telephone. Admission and Anticipated Discharge Date Admission Date: May 20, 2023 Subjective Patient seen this morning. He was alone in his hospital room. His breathing is much better. It is not quite yet back to baseline but denies orthopnea. He denies chest pain, syncope, near syncope, edema, or bleeding. Physical Exam Physical Exam: Gen.: No acute distress. Alert. HEENT: Anicteric sclera. Neck: Thick neck. Cardiac: No ventricular heave. Irregular with normal heart rate. Normal S1-S2. No murmurs, rubs, or gallops. Pulmonary: Decreased breath sounds at the left base. Otherwise, clear to auscultation bilaterally without wheezes, rales, or rhonchi. Abdomen: Soft, nontender, nondistended, with normoactive bowel sounds. No bruits noted. Extremities: 2+ radial pulses bilaterally. 2+ posterior tibialis pulses bilaterally. No pitting edema. No cyanosis. Psychiatric: Affect appears appropriate. Results & Data Vital Signs (Past 12 Hours) Vital Signs Temp Pulse Resp BP Pulse Ox O2 Del Method 05/21/23 07:42 36.5 C 83 16 122/79 96 Room Air 05/21/23 03:27 36.4 C L 94 H 20 130/79 96 Room Air 05/20/23 22:10 Room Air 05/20/23 22:04 36.5 C 128 H 20 157/102 H 97 Room Air Intake & Output 05/19/23 05/20/23 05/21/23 05/22/23 06:59 06:59 06:59 06:59 Intake Total 1199.667 / 1199.667 39.234 / 39.234 Output Total 1225 / 1225 Balance -25.333 / -25.333 39.234 / 39.234 Weight 202 lb 2.622 oz Laboratory Results Laboratory Results - last 24 hr 05/20/23 05/20/23 05/20/23 08:42 18:33 20:11 WBC 7.71 RBC 4.47 L Hgb 14.3 Hct 39.7 L MCV 88.8 MCH 32.0 MCHC 36.0 RDW Std Deviation 43.3 RDW Coeff of Rogers 13.3 Plt Count 283 MPV 10.3 Immature Gran % (Auto) 0.5 Neut % (Auto) 73.1 Lymph % (Auto) 14.9 [place] % (Auto) 8.3 Eos % (Auto) 2.3 Baso % (Auto) 0.9 Neut # (Auto) 5.63 Lymph # (Auto) 1.15 L [place] # (Auto) 0.64 H Eos # (Auto) 0.18 Baso # (Auto) 0.07 Immature Gran # (Auto) 0.04 PT 11.6 INR 1.1 APTT 33 H PTT Ratio 1.2 Heparin Anti-Xa, Unfract 0.90 H* Sodium 126 L 126 L Potassium 4.4 3.8 Chloride 94 L 90 L Carbon Dioxide 24 26 Anion Gap 8 10 BUN 10 11 Creatinine 0.78 0.99 Est Cr Clr Drug Dosing 87.4 68.9 Est GFR ( Amer) 99.5 83.6 Est GFR (Non-Af Amer) 85.9 72.1 BUN/Creatinine Ratio 12.8 11.1 Glucose 118 H 162 H POC Glucose 160 H Calcium 9.4 9.2 Magnesium 1.3 L Total Bilirubin 0.7 AST 19 ALT 13 Alkaline Phosphatase 65 Troponin I High Sens 14.2 Total Protein 7.2 Albumin 4.7 Globulin 2.5 Albumin/Globulin Ratio 1.9 Lipase 5 L 05/20/23 05/21/23 05/21/23 22:07 05:16 07:18 WBC 8.19 RBC 4.01 L Hgb 12.9 L Hct 36.4 L MCV 90.8 MCH 32.2 MCHC 35.4 RDW Std Deviation 44.8 RDW Coeff of Rogers 13.5 Plt Count 270 MPV 9.6 Immature Gran % (Auto) 0.2 Neut % (Auto) 77.5 Lymph % (Auto) 9.2 [place] % (Auto) 11.1 Eos % (Auto) 1.5 Baso % (Auto) 0.5 Neut # (Auto) 6.35 Lymph # (Auto) 0.75 L [place] # (Auto) 0.91 H Eos # (Auto) 0.12 Baso # (Auto) 0.04 Immature Gran # (Auto) 0.02 PT INR APTT PTT Ratio Heparin Anti-Xa, Unfract 0.78 H* Sodium 128 L Potassium 4.0 Chloride 91 L Carbon Dioxide 30 Anion Gap 7 BUN 13 Creatinine 0.93 Est Cr Clr Drug Dosing 73.3 Est GFR ( Amer) 90.2 Est GFR (Non-Af Amer) 77.8 BUN/Creatinine Ratio 14.0 Glucose 122 H POC Glucose 119 H 136 H Calcium 9.0 Magnesium 2.1 Total Bilirubin AST ALT Alkaline Phosphatase Troponin I High Sens Total Protein Albumin Globulin Albumin/Globulin Ratio Lipase Diagnostic Findings ECHO 05/21/23: 1. Mildly dilated left ventricle with severely reduced systolic function. EF 25-30%. Global hypokinesis. No left ventricular hypertrophy. 2. Normal right ventricular size with moderately reduced systolic function. 3. Mild biatrial dilation. 4. Mild mitral regurgitation. 5. Mild pulmonary hypertension. Estimated RVSP 39 mmHg. 6. Compared to prior BRENDA study on 12/06/2022, LV systolic function has declined. Labs reviewed from 05/21/2023 demonstrated stable renal function, improving hyponatremia, reasonable hemoglobin. Telemetry personally reviewed: Atrial flutter but improved heart rate with heart rate mostly less than 100 bpm but greater than 60. Pulmonology progress note reviewed. Medications Administered Current Inpatient Medications Acetaminophen (Acetaminophen 325 Mg Tab) 650 mg PO Q4H PRN PRN Reason: Pain or Fever Stop: 06/19/23 17:40 Last Admin: 05/21/23 06:08 Dose: 650 mg Aspirin (Aspirin 81 Mg Ectab) 81 mg PO QAM [facility] Stop: 06/20/23 08:59 Last Admin: 05/21/23 08:16 Dose: 81 mg Dextrose (Dextrose 50% 50 Ml Syringe) 25 - 50 ml IV UD PRN; Protocol PRN Reason: Hypoglycemia Protocol Stop: 06/19/23 17:40 Fluticasone Propionate (Fluticasone Propionate Na Spr 16 Gm Btl) 2 sprays NA DAILY [facility] Stop: 06/20/23 08:59 Last Admin: 05/21/23 08:17 Dose: 2 sprays Fluticasone/Vilanterol (Fluticasone/Vilanterol 100/25mcg 14 Puffs/Inhaler) 1 puffs INH DAILY [facility] Stop: 06/20/23 08:59 Last Admin: 05/21/23 08:16 Dose: 1 puffs Folic Acid (Folic Acid 1 Mg Tab) 1 mg PO QAM [facility] Stop: 06/20/23 08:59 Last Admin: 05/21/23 08:16 Dose: 1 mg Furosemide (Furosemide 40 Mg/4 Ml Vial) 40 mg IV QAM [facility] Stop: 06/20/23 08:59 Last Admin: 05/21/23 08:16 Dose: 40 mg Gabapentin (Gabapentin 300 Mg Cap) 300 mg PO BID [facility] Stop: 06/19/23 20:59 Last Admin: 05/20/23 23:28 Dose: 300 mg Glucagon (Glucagon For Inj 1 Mg Vial) 1 mg SQ UD PRN; Protocol PRN Reason: Hypoglycemia Protocol Stop: 06/19/23 17:40 Glucose (Glucose 10 Tab/Tube) 4 - 8 tab PO UD PRN; Protocol PRN Reason: Hypoglycemia Treatment Stop: 06/19/23 17:40 Glucose (Glucose 40% Gel 15 Gm Tube) 15 - 30 gm PO UD PRN; Protocol PRN Reason: Hypoglycemia Protocol Stop: 06/19/23 17:40 Heparin Sodium/Dextrose (Heparin Sodium/Dextrose) 25,000 units in 500 mls @ 0 mls/hr IV .Q0M [facility]; Protocol Stop: 06/19/23 13:14 Last Titration: 05/21/23 07:45 Dose: 0 units/hr, 0 mls/hr Lorazepam 1 mg/ Syringe 1 mls @ 2 mls/min IV ONE PRN; Protocol PRN Reason: EtoH Withdrawal AWSS 6-10 Insulin Aspart (Insulin Aspart Per Unit Charge) 0 units SC ACHS [facility] Stop: 06/19/23 17:40 Last Admin: 05/21/23 08:15 Dose: 2 units Ipratropium Logan (Ipratropium Logan Nasal Mcguffey 0.06% 15ml) 1 sprays MAYE TID [facility] Stop: 06/19/23 20:59 Last Admin: 05/21/23 08:17 Dose: 1 sprays Melatonin (Melatonin 3 Mg Tab) 3 mg PO HS [facility] Stop: 06/19/23 20:59 Last Admin: 05/20/23 23:28 Dose: 3 mg Metoprolol Succinate (Metoprolol Succ 50mg Ext Rel Tab) 50 mg PO BID [facility] Stop: 06/19/23 20:59 Last Admin: 05/20/23 23:29 Dose: 50 mg Miscellaneous (Carbohydrates For Hypoglycemia ) 15 - 30 gm PO UD PRN PRN Reason: Hypoglycemia Protocol Stop: 06/19/23 17:40 Pantoprazole Sodium (Pantoprazole 40 Mg Tab) 40 mg PO DAILY [facility]; Protocol Stop: 06/19/23 17:59 Last Admin: 05/21/23 08:16 Dose: 40 mg Ropinirole HCl (Ropinirole Hcl 0.25 Mg Tablet) 0.25 mg PO HS [facility] Stop: 06/19/23 20:59 Last Admin: 05/20/23 23:28 Dose: 0.25 mg Thiamine HCl (Thiamine Hcl 100 Mg Tab) 100 mg PO BID [facility] Stop: 06/19/23 20:59 Last Admin: 05/20/23 23:28 Dose: 100 mg PG Care Time/CCT Total # of Minutes Spent Total Time Spent with Patient: Total time spent is greater than 50% in coordination of care (as documented) at patient's floor/unit and/or counseling patient: Coding Level of Care Code 80548 SUB INP/OBS CARE 3/50MIN Diagnoses Heart failure with mid-range ejection fraction I50.22 Atrial flutter with rapid ventricular response I48.92 Cardiomyopathy, unspecified type I42.9 Cardiomyopathy type: unspecified Recurrent pleural effusion J90 Hypertension I10 Hypertension type: unspecified (3) Cardiomyopathy Cardiomyopathy type: unspecified Qualified Code(s): I42.9 - Cardiomyopathy, unspecified (5) Hypertension Hypertension type: unspecified Qualified Code(s): I10 - Essential (primary) hypertension
--- NOTE | 2023-05-21 12:15 | XCELERA ---
[id number] [id number]
--- NOTE | 2023-05-21 15:22 | Procedure Note ---
Procedure Note Date of Service May 21, 2023 Note Procedure: LEFT Thoracentesis Attending: Dr. Cuba APC: Markell Shaikh PA-C Indication: Recurrent effusion, SOB Anesthesia: 8.0 mL of Lidocaine 1% without epinephrine. Written consent was obtained and on the chart per attending providers. Prior to procedure, radiology films and pertinent labs were reviewed by myself and demonstrated a moderate LEFT-sided effusion. A time-out was completed verifying correct patient, procedure, site, positioning, and implant(s) or special equipment if applicable. Utilizing bedside ultrasound, chest wall was evaluated for location for optimal catheter insertion. The skin was marked using gentle pressure. The LEFT sided chest wall was prepped with chlorhexidine and draped in the typical sterile fashion. 8.0 mL of 1% Lidocaine without epinephrine was used to anesthetize the skin down to the pleural space. Return of pleural fluid confirmed entry into the pleural space. Lidocaine was injected into the pleural space for increased anesthetization. Scapel was used to make a small incision of the superficial tissue, parallel to the direction of the rib anatomy. The thoracentesis catheter was advanced over the rib into the pleural space. Entry into the pleural space was heralded by pleural fluid return into the syringe while under gentle aspiration. The catheter was advanced into the pleural space without resistance. Using the one-way valve system, a total of 1700 mL of baylee fluid was removed. Procedure was terminated due to patient coughing. The catheter was quickly removed while patient exhaled completely. The catheter was observed to be intact. A sterile dressing was applied. Post proc edure chest x-ray was ordered. Pleural fluid was no sent for analysis. Blood Loss: Minimal Complications: None Post procedure Chest X-ray was ordered and reviewed by myself which demonstrated a moderate pneumothorax. Case reviewed with my attending. Question of possible degree of trapped lung. Will repeat chest x-ray in 4 hours. Patient reassessed and feels comfortable without complaints of pleuritic pain, chest pain, or cough. Coding CPT Codes Pulmonary/Thoracic - Pulmonary and Thoracic: 62522 Thoracentesis w imaging ([id number]) [facility] [place] (Charges) Pulmonary/Thoracic Procedure 1: Pulmonary and Thoracic: 15705 Thoracentesis w imaging
--- NOTE | 2023-05-21 15:36 | XRay Report ---
XR chest 1V portable HISTORY: Status post thoracentesis. COMPARISON: Chest 05/20/2023. FINDINGS: Significant decrease in size in the now trace left pleural effusion status post thoracentes is. There is a moderate left pneumothorax identified. Maximal pleural gap of the left lung base measu res approximately 3 cm. No midline shift. The heart is mildly enlarged. There are calcifications with in the aortic knob. Left basilar densities favor residual atelectasis. The right lung is clear. No ac odessa fractures. IMPRESSION: 1. Significant decrease in size in the now trace left pleural effusion status post thoracentesis. 2. There is a moderate left pneumothorax. 3. This was discussed with Markell Shaikh at the time of dictation. ACT 112: Negative or not required by law. Electronically signed by: Bartolome Meyers M.D. 05/21/2023 3:35 PM
[2023-05-21] MEDS: Heparin IV Adult Wt-Based Standard *NO* INITIAL Bolus Protocol IV SCH (15:54)
[2023-05-21] MEDS: VALSARTAN/SACUBITRIL 26/24MG TAB PO SCH (20:39)
--- NOTE | 2023-05-21 20:40 | Hospitalist Progress Note ---
Date of Service May 21, 2023 Assessment & Plan (1) Atrial flutter with rapid ventricular response: Plan: s/p cardioversion 03/27/23 with congregational of NSR, but multiple loop recorder interrogations in March and April show recurrent atrial flutter since that cardioversion. He has been on metoprolol succinate + cardizem + Eliquis at home for this issue. Presented to [facility] yesterday with rapid a.flutter. Echo with EF 25-30% - NEW - which very well may be tachy-arrhythmia induced from the a.flutter. Appreciate cardiology consultation. Cardizem has been stopped due to depressed EF. Metoprolol succ increased to 50mg BID. Pentecostal of NSR would be ideal given his new onset systolic CHF. Thus, cardiology is planning a flutter ablation later this week. Patient aware of such. Holding Eliquis in prep for the ablation. Cont heparin drip in sagar. (2) Pleural effusion: Plan: Recurrent left-sided pleural effusion s/p thoracentesis x 3 in the past. Pulmonary performed thoracentesis again today - 1700cc of fluid removed. Recurrent effusion likely due to CHF. Unfortunately it appears there is a small pneumothorax on the left post- thoracentesis - defer management to pulmonology. Despite the pneumothorax he is in no distress, O2 sats are wnl, etc. (3) HFrEF (heart failure with reduced ejection fraction): Plan: acute on chronic. transesophageal echo on 12/06/2022 revealed LVEF at 45-50%. Now EF 25-30%. Likely tachy-arrhythmia induced. See #1 above. Cont lasix 40mg IV daily. Adding Entresto BID. Cont meto succ BID. Cardizem has been stopped. Daily Weights 1500mL fluid restriction Daily BMP (4) Alcohol use: Plan: Regular alcohol use daily, with last consumption the evening of 05/18 (3 drinks total) He denies alcohol withdrawal history or seizures AWSS at risk protocol Continue daily thiamine, folic acid supplementation (5) Acute hyponatremia: Plan: Na 126 yesterday 128 today likely 2nd to hypervolemia should improve with diuresis cont IV lasix daily BMP if any worsening or failure to improve check urine osm, urine Na, and serum osm (6) DM2 (diabetes mellitus, type 2): Plan: Last A1c 5.7% on 01/30/2023 Hold metformin novolog SSI Plan DVT proph - heparin drip; temporarily on hold due to thoracentesis Admission and Anticipated Discharge Date Admission Date: May 20, 2023 Subjective saw patient post-thoracentesis on left (1700cc of fluid obtained by pulmonology) he did not notice any difference in his breathing post-procedure good appetite denies dyspnea at rest tele - ongoing a.flutter with rates >100 denies any chest pain Review of Systems Review of Systems: gen - no fevers cv - no chest pain, no orthopnea pulm - no cough GI - no N/V Physical Exam Physical Exam: gen - NAD, resting comfortably in bed neck - mild JVD noted heart - tachy, irregular, s1 s2, no murmur lungs - decreased BS on left with course BS and crackles L base; mild crackles R base; no increased work of breathing abd - soft NT ND BS+ ext - no edema, pulses 2+ b/l psych - a/o x 3 Results & Data Results & Data Vital Signs (Past 12 Hours) Vital Signs Temp Pulse Pulse Resp BP Pulse Ox O2 Del Method 05/21/23 19:40 36.6 C 114 H 18 135/86 95 Room Air 05/21/23 16:41 36.5 C 109 H 18 135/88 97 Room Air 05/21/23 15:28 106 H 05/21/23 12:05 36.5 C 90 16 130/85 97 Room Air Laboratory Results Laboratory Results - last 24 hr 05/20/23 05/20/23 05/21/23 20:11 22:07 05:16 WBC 8.19 RBC 4.01 L Hgb 12.9 L Hct 36.4 L MCV 90.8 MCH 32.2 MCHC 35.4 RDW Std Deviation 44.8 RDW Coeff of Rogers 13.5 Plt Count 270 MPV 9.6 Immature Gran % (Auto) 0.2 Neut % (Auto) 77.5 Lymph % (Auto) 9.2 [place] % (Auto) 11.1 Eos % (Auto) 1.5 Baso % (Auto) 0.5 Neut # (Auto) 6.35 Lymph # (Auto) 0.75 L [place] # (Auto) 0.91 H Eos # (Auto) 0.12 Baso # (Auto) 0.04 Immature Gran # (Auto) 0.02 Heparin Anti-Xa, Unfract 0.90 H* 0.78 H* Sodium 126 L 128 L Potassium 3.8 4.0 Chloride 90 L 91 L Carbon Dioxide 26 30 Anion Gap 10 7 BUN 11 13 Creatinine 0.99 0.93 Est Cr Clr Drug Dosing 68.9 73.3 Est GFR ( Amer) 83.6 90.2 Est GFR (Non-Af Amer) 72.1 77.8 BUN/Creatinine Ratio 11.1 14.0 Glucose 162 H 122 H POC Glucose 119 H Calcium 9.2 9.0 Magnesium 2.1 05/21/23 05/21/23 05/21/23 07:18 11:26 16:30 WBC RBC Hgb Hct MCV MCH MCHC RDW Std Deviation RDW Coeff of [place] Plt Count MPV Immature Gran % (Auto) Neut % (Auto) Lymph % (Auto) [place] % (Auto) Eos % (Auto) Baso % (Auto) Neut # (Auto) Lymph # (Auto) [place] # (Auto) Eos # (Auto) Baso # (Auto) Immature Gran # (Auto) Heparin Anti-Xa, Unfract Sodium Potassium Chloride Carbon Dioxide Anion Gap BUN Creatinine Est Cr Clr Drug Dosing Est GFR ( Amer) Est GFR (Non-Af Amer) BUN/Creatinine Ratio Glucose POC Glucose 136 H 99 119 H Calcium Magnesium 05/21/23 20:10 WBC RBC Hgb Hct MCV MCH MCHC RDW Std Deviation RDW Coeff of [place] Plt Count MPV Immature Gran % (Auto) Neut % (Auto) Lymph % (Auto) [place] % (Auto) Eos % (Auto) Baso % (Auto) Neut # (Auto) Lymph # (Auto) [place] # (Auto) Eos # (Auto) Baso # (Auto) Immature Gran # (Auto) Heparin Anti-Xa, Unfract Sodium Potassium Chloride Carbon Dioxide Anion Gap BUN Creatinine Est Cr Clr Drug Dosing Est GFR ( Amer) Est GFR (Non-Af Amer) BUN/Creatinine Ratio Glucose POC Glucose 149 H Calcium Magnesium PG Care Time/CCT Total # of Minutes Spent Total Time Spent with Patient: Total time spent is greater than 50% in coordination of care (as documented) at patient's floor/unit and/or counseling patient: Coding Level of Care Code 29875 SUB INP/OBS CARE 2/35MIN Diagnoses Atrial flutter with rapid ventricular response I48.92 Pleural effusion J90 HFrEF (heart failure with reduced ejection fraction) I50.20 Alcohol use Z78.9 Acute hyponatremia E87.1 DM2 (diabetes mellitus, type 2) E11.9
--- NOTE | 2023-05-22 05:58 | Electrocardiogram Report ---
Test Reason : Blood Pressure : / mmHG Vent. Rate : 126 BPM Atrial Rate : 252 BPM P-R Int : 000 ms QRS Dur : 088 ms QT Int : 350 ms P-R-T Axes : -86 021 058 degrees QTc Int : 506 ms Atrial flutter with 2:1 A-V conduction Nonspecific ST abnormality Abnormal ECG When compared with ECG of 08-APR-2023 14:40, No significant change Confirmed by Gerard Farr ([id number]) on 05/22/2023 5:57:37 AM Referred By: Confirmed By:Gerard Farr
[2023-05-22 06:23] LABS: Basophils # (auto) 0.02 K/uL (0.00-0.20); Basophils % (auto) 0.2 %; Eosinophils # (auto) 0.06 K/uL (0.00-0.50); Eosinophils % (auto) 0.6 %; Hematocrit (blood only) 38.3 % (42.0-52.0); Hemoglobin 13.5 g/dl (14.0-18.0); Immature Granulocytes # (auto) 0.05 K/uL (0.01-0.20); Immature Granulocytes % (auto) 0.5 %; Lymphocytes # (auto) 0.71 K/uL (1.20-3.40); Lymphocytes % (auto) 6.5 %; Mean Corpuscular Hemoglobin 31.8 pg (25.0-34.0); Mean Corpuscular Hgb Conc 35.2 g/dL (32.0-36.0); Mean Corpuscular Volume 90.3 fL (80.0-100.0); Mean Platelet Volume 10.1 fL (9.4-12.4); Monocytes # (auto) 1.18 K/uL (0.11-0.59); Monocytes % (auto) 10.9 %; Neutrophils # (auto) 8.83 K/uL (1.40-6.50); Neutrophils % (auto) 81.3 %; Platelet Count 275 K/uL (130-400); RDW Coefficient of Variation 13.3 % (11.5-14.5); RDW Standard Deviation 44.1 fL (36.4-46.3); Red Blood Count 4.24 M/uL (4.70-6.10); White Blood Count 10.85 K/ul (4.8-10.8)
[2023-05-22 06:36] LABS: BUN Creatinine Ratio 18.3 (10-20); Calcium 8.9 mg/dl (8.6-10.3); Creatinine Clr Calc Pharmacy 66.5 ml/min; Est GFR (African American) 90.2 ml/min; Est GFR (Non-African American) 77.8 ml/min
--- NOTE | 2023-05-22 06:50 | XRay Report ---
XR chest 1V portable HISTORY: 78 years-old Male f/u LEFT pneumo acute shortness of breath COMPARISON: 05/21/2023 TECHNIQUE: AP view of the chest FINDINGS: Cardiac silhouette is enlarged. Pulmonary vascular congestion with interstitial coarsening. Mild biba silar opacities with trace right and small left pleural effusions. Cardiac loop recorder device. Pers istent left-sided pneumothorax, apical pleural separation of 3.3 cm. Bones appear grossly intact. IMPRESSION: 1. No significant changes of the left-sided hydropneumothorax. 2. Cardiomegaly with pulmonary vascular congestion. 3. Persistent bibasilar opacities. ACT 112: Negative or not required by law. The above report was generated using voice recognition software. It may contain grammatical, syntax o r spelling errors. Electronically signed by: Jayesh Gonzalez M.D. 05/22/2023 6:49 AM
--- NOTE | 2023-05-22 06:59 | XRay Report ---
XR chest 1V portable CLINICAL HISTORY: monitor left pneumothorax COMPARISON STUDY: Chest radiograph May 21, 2023. FINDINGS: A left hydropneumothorax is similar size to chest radiograph of May 21, 2023 at 7:06 PM. M oderate basilar component is noted with a small apical component. There is no right pneumothorax. Lef t basilar opacity persists. Cardiomediastinal silhouette is stable. IMPRESSION: No significant change in a moderate left hydropneumothorax. ACT 112: Negative or not required by law. Electronically signed by: Greg Gee M.D. 05/22/2023 6:58 AM
--- NOTE | 2023-05-22 09:27 | Cardiology Progress Note ---
Date of Service May 22, 2023 Assessment & Plan (1) Heart failure with mid-range ejection fraction: (2) Atrial flutter with rapid ventricular response: (3) Cardiomyopathy: (4) Recurrent pleural effusion: (5) Hypertension: Plan ASSESSMENT/PLAN: 1. Acute heart failure with reduced EF: Volume status much improved. Clinically doing well. Lying flat without evidence of orthopnea. Started on Entresto yesterday. Will continue metoprolol succinate and current dose of khanh ly Lasix. 2. Atrial flutter: Recommend bahai of sinus rhythm. Ablation planned for tomorrow. Anticoagulation has currently been held. Given the time between discontinuation of heparin and the planned procedure we will perform a BRENDA prior. 3. Cardiomyopathy: LV systolic function is now severely reduced. Likely tachycardia induced. On metoprolol succinate and Entresto. Hopefully with returned to sinus rhythm and normalization of his rate we will see improvement of the LV function. 4. Hypertension: Blood pressure well-controlled today. 5. Recurrent pleural effusion: Thoracentesis yesterday. Moderate pneumothorax. This appears stable. Admission and Anticipated Discharge Date Admission Date: May 20, 2023 Subjective This morning the patient claimed he feeling well. He did not report significant breathing difficulty. He underwent thoracentesis yesterday. Minimal activity. Review of Systems Review of Systems: Per HPI Physical Exam Physical Exam: The patient is alert and oriented. Mood and affect appeared normal. He answered all questions appropriately. Lying flat. HEENT: The sclerae are anicteric. Neuro: Cranial nerves intact Lungs: Normal respiratory Cardiac: Irregular rhythm. Tachycardic at times. Pulses: The patient has palpable radial pulses bilaterally that are equal in intensity Extremities: There was no evidence of hypoperfusion. There is no cyanosis or clubbing. Skin: I did not appreciate any rashes on examination today. Results & Data Vital Signs (Past 12 Hours) Vital Signs Temp Pulse Resp BP Pulse Ox O2 Del Method O2 Flow Rate 05/22/23 07:47 36.3 C L 106 H 18 104/73 95 Room Air 05/22/23 03:26 36.3 C L 105 H 15 103/67 97 Room Air 05/22/23 00:05 Non-rebreather 15 05/21/23 22:40 36.6 C 119 H 20 123/85 96 Room Air Laboratory Results Abnormal Lab Results 05/21/23 05/21/2324 11:26 16:30 20:10 WBC RBC Hgb Hct MCV MCH MCHC RDW Std Deviation RDW Coeff of Rogers Plt Count MPV Immature Gran % (Auto) Neut % (Auto) Lymph % (Auto) [place] % (Auto) Eos % (Auto) Baso % (Auto) Neut # (Auto) Lymph # (Auto) [place] # (Auto) Eos # (Auto) Baso # (Auto) Immature Gran # (Auto) Sodium Potassium Chloride Carbon Dioxide Anion Gap BUN Creatinine Est Cr Clr Drug Dosing Est GFR ( Amer) Est GFR (Non-Af Amer) BUN/Creatinine Ratio Glucose POC Glucose 99 119 H 149 H Calcium 05/22/23 05/22/23 05:43 07:26 WBC 10.85 H RBC 4.24 L Hgb 13.5 L Hct 38.3 L MCV 90.3 MCH 31.8 MCHC 35.2 RDW Std Deviation 44.1 RDW Coeff of Rogers 13.3 Plt Count 275 MPV 10.1 Immature Gran % (Auto) 0.5 Neut % (Auto) 81.3 Lymph % (Auto) 6.5 [place] % (Auto) 10.9 Eos % (Auto) 0.6 Baso % (Auto) 0.2 Neut # (Auto) 8.83 H Lymph # (Auto) 0.71 L [place] # (Auto) 1.18 H Eos # (Auto) 0.06 Baso # (Auto) 0.02 Immature Gran # (Auto) 0.05 Sodium 128 L Potassium 4.0 Chloride 94 L Carbon Dioxide 26 Anion Gap 8 BUN 17 Creatinine 0.93 Est Cr Clr Drug Dosing 66.5 Est GFR ( Amer) 90.2 Est GFR (Non-Af Amer) 77.8 BUN/Creatinine Ratio 18.3 Glucose 119 H POC Glucose 112 H Calcium 8.9 PG Care Time/CCT Total # of Minutes Spent Total Time Spent with Patient: Total time spent is greater than 50% in coordination of care (as documented) at patient's floor/unit and/or counseling patient: Coding Level of Care Code 76175 SUB INP/OBS CARE 2/35MIN Diagnoses Heart failure with mid-range ejection fraction I50.22 Atrial flutter with rapid ventricular response I48.92 Cardiomyopathy, unspecified type I42.9 Cardiomyopathy type: unspecified Recurrent pleural effusion J90 Hypertension I10 Hypertension type: unspecified (3) Cardiomyopathy Cardiomyopathy type: unspecified Qualified Code(s): I42.9 - Cardiomyopathy, unspecified (5) Hypertension Hypertension type: unspecified Qualified Code(s): I10 - Essential (primary) hypertension
--- NOTE | 2023-05-22 09:30 | Pulmonology Progress Note ---
Date of Service May 22, 2023 Assessment & Plan (1) Recurrent pleural effusion: (2) Atrial flutter: (3) Systolic CHF: Heart failure chronicity: chronic Qualified Code(s): I50.22 - Chronic systolic (congestive) heart failure (4) HFrEF (heart failure with reduced ejection fraction): Plan IMPRESSION: 78-year-old male with a history of chronic cough, abnormal chest CT, and recurrent LEFT-sided pleural effusion in the setting of persistent atrial flutter who presents back to the emergency department with complaints of shortness of breath and findings of LEFT-sided effusion. RECOMMENDATIONS: 1. Recurrent LEFT-sided pleural effusion -patient underwent LEFT-sided thoracentesis yesterday with removal of 1700 mL of baylee-colored pleural fluid. Patient tolerated procedure well. Unfortunately, postprocedural chest x-ray showed concerns for a moderate-sized pneumothorax with majority of the pneumothorax located in the basilar component and small apical component. Patient completely without symptoms. Follow-up chest x-ray shows the reaccumulation of fluid with persistent apical pneumothorax. Question degree of trapped lung in a patient with multiple thoracentesis procedures in the setting of recurrent LEFT-sided effusion. No immediate intervention necessary at this time. Again, this stresses the importance of the patient needing definitive follow-up with thoracic surgery to evaluate her in the setting of recurrent transudative effusion. Again, the patient did not have significant improvement in symptomatology upon removal of 1700 mL of pleural fluid. Uncertain of the need of serial thoracentesis procedures moving forward. Will continue to monitor hydropneumothorax. 2. Atrial flutter - Findings have been consistent since about September. Reviewed cardiology consultation and appreciate their guidance and management. 3. CHF - Continue with volume offloading per cardiology guidance. Thank you for allowing us to participate in the care of this pleasant patient. Pulmonary will continue to follow. Admission and Anticipated Discharge Date Admission Date: May 20, 2023 Subjective Patient seen and evaluated at bedside. He is doing well from a respiratory standpoint. He complains of no chest pain, pleuritic pain, shortness of breath, or cough. He has many questions related to his heart. Review of Systems Review of Systems: A complete 10 point review of systems was reviewed with the patient with pertinent positives and negatives as per history of present illness. All else were negative. Physical Exam Physical Exam: VITAL SIGNS - Vital signs and nursing notes were reviewed. GENERAL - 78-year-old male appearing his stated age who is in no acute distress. Communicates well with provider and answers questions appropriately. LUNGS - Auscultation reveals diminished breath sounds at the LEFT sided lung base. CARDIAC - RRR with S1/S2. No murmur, rubs, or gallops appreciated. ABDOMEN - Abdominal inspection demonstrates on obese abdomen. BS normoactive all four quadrants. No tenderness, palpable masses, or ascites noted. EXTREMITIES - Nail clubbing not present. No peripheral cyanosis. No pretibial edema present. +3/5 radial palpated throughout. PSYCH - A&Ox3 and cooperates fully with examiner. Pt is very pleasant and i nteracts well with examiner. Results & Data Results & Data Vital Signs (Past 12 Hours) Vital Signs Temp Pulse Resp BP Pulse Ox O2 Del Method O2 Flow Rate 05/22/23 07:47 36.3 C L 106 H 18 104/73 95 Room Air 05/22/23 03:26 36.3 C L 105 H 15 103/67 97 Room Air 05/22/23 00:05 Non-rebreather 15 05/21/23 22:40 36.6 C 119 H 20 123/85 96 Room Air PG Care Time/CCT Total # of Minutes Spent Total Time Spent with Patient: Total time spent is greater than 50% in coordination of care (as documented) at patient's floor/unit and/or counseling patient: Coding Level of Care Code 16027 SUB INP/OBS CARE 2/35MIN Diagnoses Recurrent pleural effusion J90 Atrial flutter I48.92 Chronic systolic congestive heart failure I50.22 Heart failure chronicity: chronic HFrEF (heart failure with reduced ejection fraction) I50.20
--- NOTE | 2023-05-22 20:37 | Hospitalist Progress Note ---
Date of Service May 22, 2023 Assessment & Plan (1) Atrial flutter with rapid ventricular response: Plan: s/p cardioversion 03/27/23 with jew of NSR only briefly, but multiple loop recorder interrogations in March and April showed recurrent atrial flutter since that cardioversion. He has been on metoprolol succinate + cardizem + Eliquis at home for this issue. Presented to [facility] with rapid a.flutter. Echo with EF 25-30% - NEW - which very well may be tachy-arrhythmia induced from the a.flutter. Appreciate cardiology consultation. Cardizem has been stopped due to depressed EF. Metoprolol succ increased to 50mg BID. Mu-Ism of NSR would be ideal given his new onset systolic CHF. Thus, cardiology is planning a flutter ablation tomorrow; Dr Parmar to perform. NPO after TN for such. Gave ablation handout to pt and his daughter. Holding Eliquis in prep for the ablation. Cont heparin drip in sagar. (2) Pleural effusion: Plan: Recurrent left-sided pleural effusion s/p thoracentesis x 3 in the past. Pulmonary performed thoracentesis again this admission - 1700cc of fluid removed. Recurrent effusion likely due to CHF. Unfortunately it appears there is a small pneumothorax on the left post- thoracentesis vs trapped lung --- latter favored. No Rx needed at this time; serial CXR are stable. Despite the trapped lung vs pneumothorax he is in no distress, O2 sats are wnl, etc. Referral to thoracic surgery recommended by pulmonary due to recurrent L sided effusion. No contraindication from pulm standpoint to undergo a flutter ablation tomorrow. (3) HFrEF (heart failure with reduced ejection fraction): Plan: acute on chronic. transesophageal echo on 12/06/2022 revealed LVEF at 45-50%. Now EF 25-30%. Likely tachy-arrhythmia induced. See #1 above. Cont lasix 40mg IV daily but suspect we are approaching euvolemia based on exam and his weights. Low-dose Entresto BID added by cards. Cont meto succ BID. Cardizem has been stopped. Daily Weights 1500mL fluid restriction Daily BMP (4) Alcohol use: Plan: Regular alcohol use daily, with last consumption the evening of 05/18 (3 drinks total) He denies alcohol withdrawal history or seizures AWSS at risk protocol Continue daily thiamine, folic acid supplementation (5) Acute hyponatremia: Plan: Na 126 at admission 128 again today likely 2nd to hypervolemia should improve with diuresis cont IV lasix daily BMP if any worsening or failure to improve check urine osm, urine Na, and serum osm (6) DM2 (diabetes mellitus, type 2): Plan: Last A1c 5.7% on 01/30/2023 Hold metformin novolog SSI Plan DVT proph - heparin drip daughter extensively updated at bedside Admission and Anticipated Discharge Date Admission Date: May 20, 2023 Subjective patient resting in bed comfortably daughter and grand-children at bedside numerous questions about his plan of care, ablation procedure planned for tomorrow, etc patient denies any dyspnea or HOLLOWAY today denies pleuritic chest pain or substernal chest pain eating well no new issues tele - aflutter, rates >100 Review of Systems Review of Systems: cv - no orthopnea, no edema pulm - no cough GI - no abd pain or N/V Physical Exam Physical Exam: gen - NAD, resting comfortably in bed, looks good neck - no JVD heart - tachy, irregular, s1 s2, no murmur lungs - mildly decreased BS on left; otherwise CTA b/l; no rales or wheeze abd - soft NT ND BS+ ext - no edema, pulses 2+ b/l psych - mild confusion/poor recall Results & Data Results & Data Vital Signs (Past 12 Hours) Vital Signs Temp Pulse Resp BP Pulse Ox O2 Del Method 05/22/23 19:42 36.4 C L 109 H 22 110/76 97 Room Air 05/22/23 15:55 36.6 C 120 H 20 109/74 95 Room Air 05/22/23 11:31 36.5 C 108 H 20 119/55 L 98 Room Air Laboratory Results Laboratory Results - last 24 hr 05/22/23 05/22/23 05/22/23 05:43 07:26 11:10 WBC 10.85 H RBC 4.24 L Hgb 13.5 L Hct 38.3 L MCV 90.3 MCH 31.8 MCHC 35.2 RDW Std Deviation 44.1 RDW Coeff of Rogers 13.3 Plt Count 275 MPV 10.1 Immature Gran % (Auto) 0.5 Neut % (Auto) 81.3 Lymph % (Auto) 6.5 [place] % (Auto) 10.9 Eos % (Auto) 0.6 Baso % (Auto) 0.2 Neut # (Auto) 8.83 H Lymph # (Auto) 0.71 L [place] # (Auto) 1.18 H Eos # (Auto) 0.06 Baso # (Auto) 0.02 Immature Gran # (Auto) 0.05 Sodium 128 L Potassium 4.0 Chloride 94 L Carbon Dioxide 26 Anion Gap 8 BUN 17 Creatinine 0.93 Est Cr Clr Drug Dosing 66.5 Est GFR ( Amer) 90.2 Est GFR (Non-Af Amer) 77.8 BUN/Creatinine Ratio 18.3 Glucose 119 H POC Glucose 112 H 76 Calcium 8.9 05/22/23 05/22/23 16:32 20:21 POC Glucose 115 H 154 H PG Care Time/CCT Total # of Minutes Spent Total Time Spent with Patient: Total time spent is greater than 50% in coordination of care (as documented) at patient's floor/unit and/or counseling patient: Coding Level of Care Code 10880 SUB INP/OBS CARE 2/35MIN Diagnoses Atrial flutter with rapid ventricular response I48.92 Pleural effusion J90 HFrEF (heart failure with reduced ejection fraction) I50.20 Alcohol use Z78.9 Acute hyponatremia E87.1 DM2 (diabetes mellitus, type 2) E11.9
[2023-05-23 06:33] LABS: BUN Creatinine Ratio 17.6 (10-20); Calcium 8.9 mg/dl (8.6-10.3); Creatinine Clr Calc Pharmacy 45.5 ml/min; Est GFR (Non-African American) 49.1 ml/min; Potassium 3.9 mmol/L (3.5-5.1)
--- NOTE | 2023-05-23 07:51 | Pulmonology Progress Note ---
Date of Service May 23, 2023 Assessment & Plan (1) Recurrent pleural effusion: (2) Atrial flutter: (3) Systolic CHF: Heart failure chronicity: chronic Qualified Code(s): I50.22 - Chronic systolic (congestive) heart failure (4) HFrEF (heart failure with reduced ejection fraction): Plan IMPRESSION: 78-year-old male with a history of chronic cough, abnormal chest CT, and recurrent LEFT-sided pleural effusion in the setting of persistent atrial flutter who presents back to the emergency department with complaints of shortness of breath and findings of LEFT-sided effusion. RECOMMENDATIONS: 1. Recurrent LEFT-sided pleural effusion -patient underwent LEFT-sided thoracentesis on 05/20 with removal of 1700 mL of baylee-colored pleural fluid. Again, while the procedure was well-tolerated, the patient did have postprocedural findings of hydropneumothorax. This likely represents trapped lung in a patient with recurrent effusion. Unfortunately, the effusion has appeared already started to reaccumulate. We will repeat chest x-ray today. Moving forward, I certainly would be reluctant for routine thoracentesis on this patient given his ongoing recurrence, lack of symptoms or improvement after the procedure, and need for definitive evaluation with thoracic medicine. Patient will require CT of the chest without contrast prior to discharge preoperative evaluation from a thoracic standpoint. If CT can be obtained prior to discharge, our office can arrange establishing outpatient follow-up with [facility] thoracic surgery as he is currently established. Otherwise, pulmonary medicine has little more to offer from our perspective, and it is hoped that control the patient's rate will help lessen his symptoms of dyspnea and generalized fatigue/malaise. 2. Atrial flutter - Findings have been consistent since about September. Reviewed cardiology consultation and appreciate their guidance and management. 3. CHF - Continue with volume offloading per cardiology guidance. Thank you for allowing us to participate in the care of this pleasant patient. Pulmonary will sign off at this time. Admission and Anticipated Discharge Date Admission Date: May 20, 2023 Subjective Patient was seen and evaluated at bedside this morning. He reports no complai nts of chest pain, pleuritic pain, shortness of breath, cough, or hemoptysis. He is excited to undergo ablation procedure today. He offers no complaints otherwise. Review of Systems Review of Systems: A complete 10 point review of systems was reviewed with the patient with pertinent positives and negatives as per history of present illness. All else were negative. Physical Exam Physical Exam: VITAL SIGNS - Vital signs and nursing notes were reviewed. GENERAL - 78-year-old male appearing his stated age who is in no acute distress. Communicates well with provider and answers questions appropriately. LUNGS - Auscultation reveals diminished breath sounds at the LEFT sided lung base. CARDIAC - RRR with S1/S2. No murmur, rubs, or gallops appreciated. ABDOMEN - Abdominal inspection demonstrates on obese abdomen. BS normoactive all four quadrants. No tenderness, palpable masses, or ascites noted. EXTREMITIES - Nail clubbing not present. No peripheral cyanosis. No pretibial edema present. +3/5 radial palpated throughout. PSYCH - A&Ox3 and cooperates fully with examiner. Pt is very pleasant and interacts well with examiner. Results & Data Results & Data Vital Signs (Past 12 Hours) Vital Signs Temp Pulse Pulse Resp BP Pulse Ox O2 Del Method 05/23/23 07:13 36.4 C L 104 H 20 108/74 92 Room Air 05/23/23 02:54 36.7 C 103 H 20 99/65 L 93 Room Air 05/23/23 00:00 112 H 05/22/23 22:57 Room Air 05/22/23 22:39 36.4 C L 95 H 20 100/64 95 Room Air PG Care Time/CCT Total # of Minutes Spent Total Time Spent with Patient: Total time spent is greater than 50% in coordination of care (as documented) at patient's floor/unit and/or counseling patient: Coding Level of Care Code 80268 SUB INP/OBS CARE 2/35MIN Diagnoses Recurrent pleural effusion J90 Atrial flutter I48.92 Chronic systolic congestive heart failure I50.22 Heart failure chronicity: chronic HFrEF (heart failure with reduced ejection fraction) I50.20
--- NOTE | 2023-05-23 10:31 | Pre Anesthesia Assessment ---
Date of Service May 23, 2023 Pre Sedation Assessment Vital Signs Temp Pulse Pulse Pulse Resp BP Pulse Ox 05/23/23 10:26 109 H 18 103/89 97 05/23/23 08:50 99 H 106/66 05/23/23 08:00 103 H 05/23/23 08:00 05/23/23 07:13 36.4 C L 104 H 20 108/74 92 05/23/23 02:54 36.7 C 103 H 20 99/65 L 93 05/23/23 00:00 112 H 05/22/23 22:57 05/22/23 22:39 36.4 C L 95 H 20 100/64 95 05/22/23 19:42 36.4 C L 109 H 22 110/76 97 05/22/23 15:55 36.6 C 120 H 20 109/74 95 05/22/23 11:31 36.5 C 108 H 20 119/55 L 98 O2 Del Method 05/23/23 10:26 Room Air 05/23/23 08:50 05/23/23 08:00 05/23/23 08:00 Room Air 05/23/23 07:13 Room Air 05/23/23 02:54 Room Air 05/23/23 00:00 05/22/23 22:57 Room Air 05/22/23 22:39 Room Air 05/22/23 19:42 Room Air 05/22/23 15:55 Room Air 05/22/23 11:31 Room Air Cardiovascular + tachycardic and + irregularly irregular Respiratory + respiratory effort normal Pre-Sedation Airway Assessment Smoking Status: Never smoker Hx Sleep Apnea: No Hx Difficult Intubation: No Short, Thick Neck: No Thyromental Distance: > or= 3.5 Finger Breadths Oral Cavity: + Dental Abnormalities Mallampati Class: III ASA: ASA3 Procedure Planning Contraindications for Sedation: none Current Medications Reviewed: Yes Notes The planned sedation has been discussed with the patient. Informed Consent was obtained. I have identified the patient, determined the appropriateness of sedation and have assessed the patient immediately prior to the procedure. All medicine(s) and interventions are by my order.
[2023-05-23] MEDS ORDERED: ACETAMINOPHEN 325 MG TAB PO PRN (12:27)
--- NOTE | 2023-05-23 12:27 | Post Anesthesia Assessment ---
Date of Service May 23, 2023 Post Sedation Assessment Vital Signs Temp Pulse Pulse Pulse Resp BP Pulse Ox 05/23/23 10:26 109 H 18 103/89 97 05/23/23 08:50 99 H 106/66 05/23/23 08:00 103 H 05/23/23 08:00 05/23/23 07:13 36.4 C L 104 H 20 108/74 92 05/23/23 02:54 36.7 C 103 H 20 99/65 L 93 05/23/23 00:00 112 H 05/22/23 22:57 05/22/23 22:39 36.4 C L 95 H 20 100/64 95 05/22/23 19:42 36.4 C L 109 H 22 110/76 97 05/22/23 15:55 36.6 C 120 H 20 109/74 95 O2 Del Method 05/23/23 10:26 Room Air 05/23/23 08:50 05/23/23 08:00 05/23/23 08:00 Room Air 05/23/23 07:13 Room Air 05/23/23 02:54 Room Air 05/23/23 00:00 05/22/23 22:57 Room Air 05/22/23 22:39 Room Air 05/22/23 19:42 Room Air 05/22/23 15:55 Room Air Recovery Score Activity: Moves 4 extremities Respiration: Deep Breath/Cough Circulation: +/-20% PreAnes Value Consciousness: Arouseable (by name) Oxygen Saturation: O2 needed for >90% Discharge Sedation Level of Care: Fast Track Phase II Post Sedation Plan On clinical assessment, the patient appears to have tolerated the sedation without complications. Patient is recovering as anticipated. Patient will continue to be monitored by nursing and may be discharged when sedation discharge criteria are met per below protocol. Upon Completions of procedure up to 15 minutes continue every 5 minute vital signs and the P.A.R. score; then discharge to a Phase I or Fast Track to Phase II per the following guidelines: * Discharge Patient to appropriate Phase II area if PAR is 8 or greater or return to pre- procedure baseline. The post - procedure orders will be as directed. * If PAR score is less than 8 or not return to pre-procedure baseline then p atient will follow Phase I monitoring till PAR is reached for Phase II. The Phase I may be done in procedure room or may call to secure a Phase I area. * If naloxone or flumazenil are used for reversal, hold in Phase I for continued monitoring from when last reversal dose was given for a minimum of 60 minutes or longer pending the nurse and/or physician discretion of patient condition before discharge to Phase II. Please call the Sedation Physician to re-evaluate and complete post-note for discharge to Phase II area. Do NOT discharge from procedure sedation or Phase 1 until post- sedation evaluation note is complete by procedure /sedation MD Sedation Discharge Instructions to be given to the patient at discharge to home.
--- NOTE | 2023-05-23 12:27 | Electrophysiology Report ---
Date of Service May 23, 2023 Electrophysiology Procedure Electrophysiology Procedure Report Procedure performed: Ablation of SVT, three-dimensional electro anatomical mapping, complete electrophysiologic testing including pacing from the left atrium via the coronary sinus, arrhythmia induction Staff drapery inspector: Uriah Parmar MD Indication: The patient is a 78-year-old gentleman with a history of atrial flutter. Continues to have symptoms and now has an element of reduced LV systolic function. He has an associated tachycardia. He is advised to consider catheter based therapy for treatment. Procedure detail: The patient was informed the risks benefits and alternatives to the intended procedure. He understood which proceed. He is taken to the electrophysiology suite in a fasting state. Conscious sedation was administered per protocol the patient was monitored electrocardiographically throughout today's procedure. The right femoral area was prepped and draped in usual sterile fashion. This area was anesthetized using subcutaneous menstruation of a xylocaine and Marcaine solution. The right femoral vein was accessed 3 times using modified Seldinger technique and sheaths were placed over guidewires at this site. The sheath was used facilitate passage of the EP catheters to their respective chambers under fluoroscopic guidance. This included right ventricular, coronary sinus and roving ablation catheter. The patient presented in atrial flutter. The elements of the arrhythmia were characterized prior to ablation. Once the elements were known radiofrequency ablation catheter was advanced to the area of interest and ablation was performed until the tachycardia terminated. Subsequent to ablation complete electrophysiologic testing to characterize the baseline conduction was performed. Attempts at arrhythmia induction were also performed. At the conclusion the procedure the catheters and sheaths were removed. Hemostasis was achieved at the access site using manual pressure. The patient tolerated procedure well. There were no immediate complications. Baseline arrhythmia Three-dimensional electro anatomical mapping suggested an isthmus dependent right atrial flutter. Cycle length was 230 milliseconds. The entire cycle length could be accounted for in the right atrium Concealed entrainment was obtained from pacing the proximal coronary sinus. A short post pacing interval was noted. Manifest entrainment with long post pacing interval was noted with pacing of the distal coronary sinus. Ablation: The patient was felt to suffer from typical right atrial isthmus dependent flutter. A 3.5 mm contact force sensing irrigated radiofrequency ablation catheter was advanced to the caval tricuspid isthmus in linear lesions were placed in a power limited mode the patient's arrhythmia terminated with the 1st application. Repeat applications were made in order to ensure complete block through the caval tricuspid isthmus. Post ablation intervals: Av Wenckebach occurred at 350 milliseconds The effective refractory period of the fast pathway was 310 milliseconds The effective refractory period of the slow pathway was 270 milliseconds The arrhythmia induction Subsequent tachycardia termination an attempt to induce the arrhythmia was made using burst atrial pacing from both the medial and lateral portions of the caval tricuspid isthmus down to cycle length of 250 milliseconds. No tachycardia was induced Impression: Successful ablation of typical isthmus dependent right atrial flutter Successful creation of bidirectional block through the caval tricuspid isthmus Normal baseline conduction intervals Evidence of dual AV carleen physiology without associated echo beats or tachycardia No evidence of accessory pathway conduction. [facility] Electrophysiology codes EP Procedure 1: Electrophysiology: 67817 EPS and Ablation SVT Procedure 2: Electrophysiology: 03643 3D mapping Procedure 3: Electrophysiology: 92716 Arrhythmia induction Procedure 4: Electrophysiology: 21980-66 Comp EPS w/LA pacing PG Moderate Sedation Codes Moderate Sedation Codes Procedure 1: Sedation/Anesthesia: 87778 Mod Sedation by the same physician;Init15 Min Child Age 5 & Up Procedure 2: Sedation/Anesthesia: 23723 Mod Sedation by the same physician; Jet Logan [id number] Minutes
[2023-05-23] MEDS: LIDOCAINE 1% LOCAL 20 ML VIAL ONE (12:48)
[2023-05-23] MEDS: BENZOCAINE/TETRACAIN/BUTAM 50 APPLN/5 GM CAN EXT ONE (12:49)
[2023-05-23] MEDS: fentaNYL citrate PF 100 MCG/2 ML VIAL ONE (12:49)
[2023-05-23] MEDS: MIDAZOLAM HCL 5 MG/ML 1 ML VIAL ONE (12:49)
[2023-05-23] MEDS: ISOPROTERENOL HCL 0.2 MG/ML 5 ML AMP IV ONE (12:50)
[2023-05-23] MEDS: HEPARIN (PORCINE) 1000 UNIT/ML 10 ML (CATH LAB USE ONLY) ONE (13:18)
[2023-05-23] MEDS: diphenhydrAMINE 50 MG/ML VIAL ONE (13:18)
--- NOTE | 2023-05-23 19:33 | Cardiology Progress Note ---
Date of Service May 23, 2023 Assessment & Plan (1) Heart failure with mid-range ejection fraction: (2) Atrial flutter with rapid ventricular response: (3) Cardiomyopathy: (4) Recurrent pleural effusion: (5) Hypertension: Plan ASSESSMENT/PLAN: 1. Acute heart failure with reduced EF: Volume status much improved. Clinically doing well. Lying flat without evidence of orthopnea. Entresto on hold (?). Will restart entresto, continue metoprolol and add SGLT 2 inhibitor. 2. Atrial flutter: Successful RFA today with return to sinus rhythm 3. Cardiomyopathy: LV systolic function is now severely reduced. Likely tachycardia induced. On metoprolol succinate and Entresto. Hopefully with returned to sinus rhythm and normalization of his rate we will see improvement of the LV function. WIll also start SGLT2 inhibitor 4. Hypertension: Blood pressure well-controlled today. 5. Recurrent pleural effusion: Thoracentesis yesterday. Possible trapped lung. Pulmonology following Admission and Anticipated Discharge Date Admission Date: May 20, 2023 Subjective Patient without dyspnea. No chest pain. Anxious for procedure. Physical Exam Physical Exam: The patient is alert and oriented. Mood and affect appeared normal. He answered all questions appropriately. Lying flat. HEENT: The sclerae are anicteric. Neuro: Cranial nerves intact Lungs: Normal respiratory Cardiac: regular rhythm. Pulses: The patient has palpable radial pulses bilaterally that are equal in intensity Extremities: There was no evidence of hypoperfusion. There is no cyanosis or clubbing. Skin: I did not appreciate any rashes on examination today. Results & Data Vital Signs (Past 12 Hours) Vital Signs Temp Pulse Pulse Pulse Resp BP Pulse Ox 05/23/23 16:00 103 H 05/23/23 14:42 36.7 C 105 H 16 119/74 99 05/23/23 13:49 100 H 05/23/23 13:42 36.8 C 101 H 16 117/78 99 05/23/23 13:36 36.9 C 103 H 16 99/64 L 97 05/23/23 13:22 36.7 C 102 H 20 106/72 96 05/23/23 13:00 96 H 18 108/73 98 05/23/23 12:45 96 H 18 111/77 98 05/23/23 10:26 109 H 18 103/89 97 05/23/23 08:50 99 H 106/66 05/23/23 08:00 103 H 05/23/23 08:00 O2 Del Method 05/23/23 16:00 05/23/23 14:42 Room Air 05/23/23 13:49 05/23/23 13:42 Room Air 05/23/23 13:36 Room Air 05/23/23 13:22 Room Air 05/23/23 13:00 Room Air 05/23/23 12:45 Room Air 05/23/23 10:26 Room Air 05/23/23 08:50 05/23/23 08:00 05/23/23 08:00 Room Air PG Care Time/CCT Total # of Minutes Spent Total Time Spent with Patient: Total time spent is greater than 50% in coordination of care (as documented) at patient's floor/unit and/or counseling patient: Coding Level of Care Code 63735 SUB INP/OBS CARE 2/35MIN Diagnoses Heart failure with mid-range ejection fraction I50.22 Atrial flutter with rapid ventricular response I48.92 Cardiomyopathy, unspecified type I42.9 Cardiomyopathy type: unspecified Recurrent pleural effusion J90 Hypertension I10 Hypertension type: unspecified (3) Cardiomyopathy Cardiomyopathy type: unspecified Qualified Code(s): I42.9 - Cardiomyopathy, unspecified (5) Hypertension Hypertension type: unspecified Qualified Code(s): I10 - Essential (primary) hypertension
--- NOTE | 2023-05-23 19:38 | Hospitalist Progress Note ---
Date of Service May 23, 2023 Assessment & Plan (1) Atrial flutter with rapid ventricular response: Plan: s/p cardioversion 03/27/23 with rastafarian of NSR only briefly, but multiple loop recorder interrogations in March and April showed recurrent atrial flutter since that cardioversion. He has been on metoprolol succinate + cardizem + Eliquis at home for this issue. Presented to [facility] with rapid a.flutter. Echo with EF 25-30% - NEW - which very well may be tachy-arrhythmia induced from the a.flutter. Appreciate cardiology consultation. Cardizem has been stopped due to depressed EF. Metoprolol succ increased to 50mg BID and tolerating. [facility] of NSR would be ideal given his new onset systolic CHF. Thus, s/p a.flutter ablation today by Dr Parmar with successful rastafarian of NSR. Appreciate Dr Farr and Dr Parmar's assistance Eliquis resumed Heparin stopped (2) Pleural effusion: Plan: Recurrent left-sided pleural effusion s/p thoracentesis x 3 in the past. Pulmonary performed thoracentesis again this admission - 1700cc of fluid removed. Recurrent effusion likely due to CHF. Unfortunately it appears there is a small pneumothorax on the left post-thoracen tesis vs trapped lung --- latter favored. No Rx needed at this time; serial CXR are stable. Despite the trapped lung vs pneumothorax he is in no distress, O2 sats are wnl, etc. Referral to thoracic surgery recommended by pulmonary due to recurrent L sided effusion. (3) HFrEF (heart failure with reduced ejection fraction): Plan: acute on chronic. transesophageal echo on 12/06/2022 revealed LVEF at 45-50%. Now EF 25-30%. Likely tachy-arrhythmia induced. See #1 above. Creatinine increased from <1 to 1.3 today thus - placed lasix on hold and Entresto on hold if Cr tomorrow am is improved can resume both looks euvolemic on exam today cont meto succ BID (4) Alcohol use: Plan: Regular alcohol use daily, with last consumption the evening of / (3 drinks total) He denies alcohol withdrawal history or seizures AWSS at risk protocol Continue daily thiamine, folic acid supplementation (5) Acute hyponatremia: Plan: Na 126 at admission 130 today likely 2nd to hypervolemia daily BMP if any worsening or failure to improve check urine osm, urine Na, and serum osm (6) DM2 (diabetes mellitus, type 2): Plan: Last A1c 5.7% on 01/30/2023 Hold metformin novolog SSI Plan DVT proph - Eliquis daughter extensively updated at bedside yesterday Dr Parmar updated her post-ablation dispo - home - to be determined by cardiology will get PT eval to ensure readiness for d/c home Admission and Anticipated Discharge Date Admission Date: May 20, 2023 Subjective tele overnight - a.flutter follow a.flutter ablation --- NSR, sinus tach saw patient post-ablation -- resting comfortably, ate good dinner NO COMPLAINTS Review of Systems Review of Systems: CV - no orthopnea pulm - no dyspnea or [facility] - no abd pain Physical Exam Physical Exam: gen - NAD, resting comfortably in bed, looks very good neck - no JVD heart - mildly tachy but regular, s1 s2, no murmur lungs - mildly decreased BS on left; otherwise CTA b/l; no rales or wheeze abd - soft NT ND BS+ ext - no edema, pulses 2+ b/l vascular - right femoral site from ablation clean, no hematoma Results & Data Results & Data Vital Signs (Past 12 Hours) Vital Signs Temp Pulse Pulse Pulse Resp BP Pulse Ox 05/23/23 16:00 103 H 05/23/23 14:42 36.7 C 105 H 16 119/74 99 05/23/23 13:49 100 H 05/23/23 13:42 36.8 C 101 H 16 117/78 99 05/23/23 13:36 36.9 C 103 H 16 99/64 L 97 05/23/23 13:22 36.7 C 102 H 20 106/72 96 05/23/23 13:00 96 H 18 108/73 98 05/23/23 12:45 96 H 18 111/77 98 05/23/23 10:26 109 H 18 103/89 97 05/23/23 08:50 99 H 106/66 05/23/23 08:00 103 H 05/23/23 08:00 O2 Del Method 05/23/23 16:00 05/23/23 14:42 Room Air 05/23/23 13:49 05/23/23 13:42 Room Air 05/23/23 13:36 Room Air 05/23/23 13:22 Room Air 05/23/23 13:00 Room Air 05/23/23 12:45 Room Air 05/23/23 10:26 Room Air 05/23/23 08:50 05/23/23 08:00 05/23/23 08:00 Room Air Laboratory Results Laboratory Results - last 24 hr 05/22/23 05/23/23 05/23/23 20:21 05:44 07:27 Sodium 130 L Potassium 3.9 Chloride 95 L Carbon Dioxide 28 Anion Gap 7 BUN 24 H Creatinine 1.36 D Est Cr Clr Drug Dosing 45.5 Est GFR ( Amer) 57.0 Est GFR (Non-Af Amer) 49.1 BUN/Creatinine Ratio 17.6 Glucose 123 H POC Glucose 154 H 120 H Calcium 8.9 05/23/23 05/23/23 13:10 16:25 Sodium Potassium Chloride Carbon Dioxide Anion Gap BUN Creatinine Est Cr Clr Drug Dosing Est GFR ( Amer) Est GFR (Non-Af Amer) BUN/Creatinine Ratio Glucose POC Glucose 99 96 Calcium PG Care Time/CCT Total # of Minutes Spent Total Time Spent with Patient: Total time spent is greater than 50% in coordination of care (as documented) at patient's floor/unit and/or counseling patient: Coding Level of Care Code 01632 SUB INP/OBS CARE 2/35MIN Diagnoses Atrial flutter with rapid ventricular response I48.92 Pleural effusion J90 HFrEF (heart failure with reduced ejection fraction) I50.20 Alcohol use Z78.9 Acute hyponatremia E87.1 DM2 (diabetes mellitus, type 2) E11.9
--- NOTE | 2023-05-23 19:52 | XCELERA ---
[id number]
[2023-05-23] MEDS: APIXABAN 5 MG TABLET PO SCH (23:29)
[2023-05-24 06:22] LABS: BUN Creatinine Ratio 22.3 (10-20); Calcium 9.2 mg/dl (8.6-10.3); Creatinine Clr Calc Pharmacy 51.1 ml/min; Est GFR (African American) 65.6 ml/min; Est GFR (Non-African American) 56.6 ml/min; Potassium 4.6 mmol/L (3.5-5.1)
--- NOTE | 2023-05-24 07:32 | Pulmonology Progress Note ---
Date of Service May 24, 2023 Assessment & Plan (1) Recurrent pleural effusion: (2) Atrial flutter: (3) Systolic CHF: Heart failure chronicity: chronic Qualified Code(s): I50.22 - Chronic systolic (congestive) heart failure (4) HFrEF (heart failure with reduced ejection fraction): Plan IMPRESSION: 78-year-old male with a history of chronic cough, abnormal chest CT, and recurrent LEFT-sided pleural effusion in the setting of persistent atrial flutter who presents back to the emergency department with complaints of shortness of breath and findings of LEFT-sided effusion. RECOMMENDATIONS: 1. Recurrent LEFT-sided pleural effusion -doing well at baseline and continues to saturate well on room air. Plan to assess patient's lung parenchyma today with CT. Moving forward, I certainly would be reluctant for routine thoracentesis on this patient given his ongoing recurrence, lack of symptoms or improvement after the procedure, and need for definitive evaluation with thoracic medicine. Patient will require CT of the chest without contrast prior to discharge preoperative evaluation from a thoracic standpoint. 2. Atrial flutter - Post ablation procedure. 3. CHF - Appears to be more euvolemic at this point. 4. Abnormal Chest CT -previous findings noted during evaluation of the patient's full effusion. Will order chest CT to evaluate previously noted nodules and wit h recent thoracentesis and concerns for pneumothorax ex vacuo, will assess the lung parenchyma as well. Thank you for allowing us to participate in the care of this pleasant patient. Pulmonary will sign off at this time. Admission and Anticipated Discharge Date Admission Date: May 20, 2023 Subjective Patient seen and evaluated at bedside. He reports good nights rest. He offers no complaints of chest pain, palpitations, or shortness of breath. He feels as though he can "feel my breathing on the LEFT side. He is unable to describe this in great detail. He remains saturating well on room air and offers no other complaints. Review of Systems Review of Systems: A complete 10 point review of systems was reviewed with the patient with pertinent positives and negatives as per history of present illness. All else were negative. Physical Exam Physical Exam: VITAL SIGNS - Vital signs and nursing notes were reviewed. GENERAL - 78-year-old male appearing his stated age who is in no acute distress. Communicates well with provider and answers questions appropriately. LUNGS - Auscultation reveals diminished breath sounds at the LEFT sided lung base. CARDIAC - RRR with S1/S2. No murmur, rubs, or gallops appreciated. ABDOMEN - Abdominal inspection demonstrates on obese abdomen. BS normoactive all four quadrants. No tenderness, palpable masses, or ascites noted. EXTREMITIES - Nail clubbing not present. No peripheral cyanosis. No pretibial edema present. +3/5 radial palpated throughout. PSYCH - A&Ox3 and cooperates fully with examiner. Pt is very pleasant and interacts well with examiner. Results & Data Results & Data Vital Signs (Past 12 Hours) Vital Signs Temp Pulse Pulse Resp BP Pulse Ox O2 Del Method 05/24/23 04:10 36.5 C 90 18 108/68 95 Room Air 05/23/23 22:51 37.0 C 95 H 18 107/69 97 Room Air 05/23/23 22:17 80 05/23/23 21:54 100 H 05/23/23 20:00 Room Air PG Care Time/CCT Total # of Minutes Spent Total Time Spent with Patient: Total time spent is greater than 50% in coordination of care (as documented) at patient's floor/unit and/or counseling patient: Coding Level of Care Code 73077 SUB INP/OBS CARE 2/35MIN Diagnoses Recurrent pleural effusion J90 Atrial flutter I48.92 Chronic systolic congestive heart failure I50.22 Heart failure chronicity: chronic HFrEF (heart failure with reduced ejection fraction) I50.20
[2023-05-24] MEDS: FUROSEMIDE 20 MG TAB PO SCH (09:23)
--- NOTE | 2023-05-24 10:32 | CT Scan Report ---
CT chest diagnostic wo con CT DOSE: 674.91 mGy.cm CLINICAL HISTORY: 78 years-old Male with f/u abnormal chest CT. Follow-up study in a patient with in determinate nodular foci of the lungs TECHNIQUE: Multiaxial CT images of the chest were performed without contrast. A dose lowering techni que was utilized adhering to the principles of ALARA. COMPARISON: Chest CT 02/07/2023, February 21, 2022. FINDINGS: Unremarkable thyroid. No new or progressive lymphadenopathy identified within the chest. Mi ld cardiomegaly. Decreased attenuation of the cardiac blood pool may represent anemia. Aiqo-mx-ijpynx te coronary artery calcifications. Atherosclerosis of the thoracic aorta without aneurysm. Moderate sized left pleural effusion has increased in size from prior. Left-sided hydropneumothorax w ith pleural separation anteriorly measuring up to approximately 2 cm. There is partial collapse of th e left lung with volume loss most pronounced in the left lower lobe. There is left lower lobe mucous plugging with atelectasis and consolidation. There is mild subsegmental right basilar atelectasis. Pr eviously noted 1.7 cm nodular density in the left upper lobe is not definitively seen. Stable 2.4 x 1 .1 cm irregular right upper lobe nodular density on image 89 series 4. Unchanged 7 mm groundglass nod ules in the basal right lower lobe, image 157. No acute upper abdominal abnormality. Left renal cyst is partially imaged. Mild nonspecific distal es ophageal wall thickening with air-fluid level noted within the esophagus. Probable sebaceous cyst of the left upper back is again seen measuring 3 cm. No acute fracture. IMPRESSION: 1. Left-sided hydropneumothorax with moderate amount of pleural fluid which has increased from the pr ior study. 2. Volume loss with consolidation and partial collapse of the left lung. 3. Unchanged 2.4 cm irregular right upper lobe nodule is stable dating back to 02/21/2022. 4. Stable 7 mm groundglass nodule within the right lower lobe. 5. No lymphadenopathy. Please refer to below summary of Fleischner criteria recommendations for follow-up of incidental CT n odules (Oliva Berrios, Guidelines for management of small pulmonary nodules detected on CT scans: A sta tement from the Fleischner Society, Radiology 237: [id number].) SOLID NODULES Solitary nodule size: <6 mm * Low risk patients: no follow-up needed * high risk patients: optional CT at 12 months Solitary nodule size: 6-8 mm * Low risk patients: follow-up at 6-12 months, then consider further follow-up at 18-24 months * high risk patients: initial follow-up CT at 6-12 months and then at 18-24 months if no change Solitary nodule size: >8 mm * either low or high risk patients - consider follow-up CT at 3 months, and/or CT-PET, and/or biopsy Multiple nodules size: <6 mm * Low risk patients: no routine follow-up * high risk patients: optional CT at 12 months Multiple nodules size: 6-8 mm * Low risk patients: follow-up at 3-6 months, then consider further follow-up at 18-24 months * high risk patients: follow-up at 3-6 months, then at 18-24 months if no change Multiple nodules size: >8 mm * Low risk patients: follow-up at 3-6 months, then consider further follow-up at 18-24 months * high risk patients: follow-up at 3-6 months, then at 18-24 months if no change Note: newly detected indeterminate nodule in persons 35 years of age or older. * Low risk patients: minimal or absent history of smoking and/or other known risk factors * high risk patients: history of smoking or of other known risk factors (e.g. first degree relative with lung cancer, or exposure to asbestos, radon, uranium) * if a nodule up to 8 mm is partly solid or is ground glass further follow-up is required after 24 m onths to exclude possible slow growing adenocarcinoma (SAMMI) SUBSOLID NODULES Solitary pure ground-glass nodule * nodule size <6 mm - no CT follow-up required * nodule size >=6 mm - follow-up CT at 6-12 months, then every 2 years until 5 years Solitary part-solid nodule * nodule size <6 mm - no CT follow-up required * nodule size >=6 mm - follow-up CT at 3-6 months. If unchanged, and solid component remains <6 mm, then annual follow-up for 5 years Multiple subsolid nodules * nodule size <6 mm - follow-up CT at 3-6 months, consider further follow-up at 2 and 4 years if sta ble * nodule size >=6 mm - follow-up CT at 3-6 months, subsequent management based on the most suspiciou s nodule(s) The above report was generated using voice recognition software. It may contain grammatical, syntax o r spelling errors. ACT 112: Negative or not required by law. Electronically signed by: Jayesh Gonzalez M.D. 05/24/2023 10:30 AM
[2023-05-24] MEDS: COLCHICINE 0.6 MG TAB PO ONE (16:22)
--- NOTE | 2023-05-24 16:44 | Hospitalist Progress Note ---
Date of Service May 24, 2023 Assessment & Plan (1) Atrial flutter with rapid ventricular response: Plan: s/p cardioversion 03/27/23 with adventist of NSR only briefly, but multiple loop recorder interrogations in March and April showed recurrent atrial flutter since that cardioversion. He has been on metoprolol succinate + cardizem + Eliquis at home for this issue. Presented to [facility] with rapid a.flutter. Echo with EF 25-30% - NEW - which very well may be tachy-arrhythmia induced from the a.flutter. Appreciate cardiology consultation. Cardizem has been stopped due to depressed EF. Metoprolol succ increased to 50mg BID and tolerating. He is now POD #1 s/p a.flutter ablation by Dr Parmar with successful adventist of NSR. Appreciate Dr Farr and Dr Parmar's assistance. Eliquis resumed last pm. (2) Pericarditis: Plan: EKG this afternoon stable with no ST changes. Pain is central, pleuritic, and worse supine with improvement by sitting. c/w pericarditis. responded rapidly to colchicine. likely post-procedural in setting of aflutter ablation. plan - colchicine 0.6mg BID x 1-2 weeks then down to once daily for up to 3 months. of note -- no large pericardial effusion on CT chest today. (3) Pleural effusion: Plan: Recurrent left-sided pleural effusion s/p thoracentesis x 3 in the past. Pulmonary performed thoracentesis again this admission - 1700cc of fluid removed. Recurrent effusion likely due to CHF. Unfortunately it appears there is a small pneumothorax on the left post-thoracentesis vs trapped lung --- latter favored. No Rx needed at this time; serial CXR are stable. Despite the trapped lung vs pneumothorax he is in no distress, O2 sats are wnl, etc. Referral to thoracic surgery recommended by pulmonary due to recurrent L sided effusion. CT chest today was obtained in prep for that appointment. repeat cxr in am for stability. (4) HFrEF (heart failure with reduced ejection fraction): Plan: acute on chronic. transesophageal echo on 12/06/2022 revealed LVEF at 45-50%. Now EF 25-30%. Likely tachy-arrhythmia induced. See #1 above. looks euvolemic on exam today resume Entresto BID add aldactone tomorrow - 25mg resume lasix at 20mg/day cont meto succ BID (5) Alcohol use: Plan: Regular alcohol use daily, with last consumption the evening of 05/18 (3 drinks total) He denies alcohol withdrawal history or seizures AWSS at risk protocol Continue daily thiamine, folic acid supplementation (6) Acute hyponatremia: Plan: Na 126 at admission 130 again today - stable likely 2nd to hypervolemia daily BMP (7) DM2 (diabetes mellitus, type 2): Plan: Last A1c 5.7% on 01/30/2023 Hold metformin novolog SSI Plan DVT proph - Eliquis daughter extensively updated at bedside today awaiting PT eval to ensure safe & strong enough to return home care d/w Dr Parmar & Dr Farr Admission and Anticipated Discharge Date Admission Date: May 20, 2023 Subjective tele overnight - sinus tach, then NSR this am starting sometime shortly after waking up this morning he started to have central pleuritic chest pain has been present all day the pleuritic pain is NOT lateral over either lung during my visit I asked him to sit at side of bed (he was recumbent in bed when I arrived) and the pleuritic pain was better with sitting up I discussed his care with Dr Parmar and Dr Farr gave colchicine x 1 for presumed pericarditis within 2 hours the pain was significantly better denies any dyspnea Review of Systems Review of Systems: cv - see HPI; no orthopnea - just pleuritic pain; no edema pulm - no cough, no dyspnea GI - no abd pain or N/V Physical Exam Physical Exam: gen - NAD, looks uncomfortable lying at about 20-30 degrees in bed, improved with sitting at side of bed neck - no JVD heart - RRR, s1 s2, no murmur chest - no reproducible chest wall pain to palpation lungs - mildly decreased BS on left; otherwise CTA b/l; no rales or wheeze abd - soft NT ND BS+ ext - no edema, pulses 2+ b/l Results & Data Results & Data Vital Signs (Past 12 Hours) Vital Signs Temp Pulse Pulse Resp BP Pulse Ox O2 Del Method 05/24/23 12:00 37.0 C 79 16 129/65 97 Room Air 05/24/23 08:00 90 05/24/23 08:00 Room Air 05/24/23 08:00 36.6 C 87 20 119/68 98 Room Air Laboratory Results Laboratory Results - last 48 hr 05/23/23 05/23/23 05/23/23 13:10 16:25 20:15 Sodium Potassium Chloride Carbon Dioxide Anion Gap BUN Creatinine Est Cr Clr Drug Dosing Est GFR ( Amer) Est GFR (Non-Af Amer) BUN/Creatinine Ratio Glucose POC Glucose 99 96 105 H Calcium 05/24/23 05/24/23 05/24/23 05:47 07:33 11:36 Sodium 130 L Potassium 4.6 Chloride 97 L Carbon Dioxide 26 Anion Gap 7 BUN 27 H Creatinine 1.21 Est Cr Clr Drug Dosing 51.1 Est GFR ( Amer) 65.6 Est GFR (Non-Af Amer) 56.6 BUN/Creatinine Ratio 22.3 H Glucose 122 H POC Glucose 136 H 214 H Calcium 9.2 PG Care Time/CCT Total # of Minutes Spent Total Time Spent with Patient: Total time spent is greater than 50% in coordination of care (as documented) at patient's floor/unit and/or counseling patient: Coding Level of Care Code 34167 SUB INP/OBS CARE 3/50MIN Diagnoses Atrial flutter with rapid ventricular response I48.92 Pericarditis I31.9 Pleural effusion J90 HFrEF (heart failure with reduced ejection fraction) I50.20 Alcohol use Z78.9 Acute hyponatremia E87.1 DM2 (diabetes mellitus, type 2) E11.9
--- NOTE | 2023-05-24 18:12 | Cardiology Progress Note ---
Date of Service May 24, 2023 Assessment & Plan (1) Heart failure with mid-range ejection fraction: (2) Atrial flutter with rapid ventricular response: (3) Cardiomyopathy: (4) Recurrent pleural effusion: (5) Hypertension: (6) Pericarditis: Plan ASSESSMENT/PLAN: 1. Acute heart failure with reduced EF: He appears euvolemic. Continue metoprolol succinate and Entresto. Will initiate spironolactone. Can continue low-dose Lasix. Strict I's and O's, daily weights and low-sodium diet, less than 2000 mg daily recommended. Recommend SGLT2 inhibitor to be initiated in near future, if no contraindication. 2. Atrial flutter s/p ablation: He underwent ablation with Dr. Parmar on 05/23/2023. Remains in sinus rhythm. Continue anticoagulation for now. Continue beta-perez. 3. Cardiomyopathy: LV systolic function is now severely reduced. Likely tachycardia induced. If not significantly improved after improved heart rate and religion of sinus rhythm, other secondary workup can be completed, including ischemic workup. LV systolic function will hopefully improve with improved heart rate and religion of sinus. Continue metoprolol succinate. Continue Entresto. Optimize medical therapy. If no significant improvement after optimized medical therapy, would consider ICD for primary prevention. 4. Hypertension: Blood pressure well-controlled today. Adjusting heart failure medications as above. 5. Recurrent pleural effusion: Followed by pulmonology. 6. Pericarditis: Chest pain consistent with pericarditis. Cannot rule out pleurisy given recent thoracentesis. Continue colchicine. Pain already much better. Could also treat with aspirin 325 mg twice daily if pain does not further improve. Colchicine for 3 months if tolerated. 7. Disposition: Plan of care communicated with Dr. Rosales of the primary hospitalist service. Dr. Lai will be on-call tomorrow for any assistance. Please call him with questions or concerns. Upon discharge, follow-up with Dr. Gan, his primary combatant diver qualified. Admission and Anticipated Discharge Date Admission Date: May 20, 2023 Subjective Patient seen this afternoon. This morning he developed pleuritic chest discomfort. It is also positional, worsening when he lays down. Chest pain resolves when he exhales. He denies shortness of breath, syncope, near syncope, palpitations, or edema. He received colchicine earlier this evening and the chest discomfort has improved. His daughter, Elizabeth, was present at the bedside. Physical Exam Physical Exam: Gen.: No acute distress. Alert. HEENT: Anicteric sclera. Neck: Thick neck. Cardiac: No ventricular heave. Regular. Normal S1-S2. No murmurs, rubs, or gallops. Pulmonary: Decreased breath sounds at the left base. Otherwise, clear to auscultation bilaterally without wheezes, rales, or rhonchi. Abdomen: Soft, nontender, nondistended, with normoactive bowel sounds. No bruits noted. Extremities: 2+ radial pulses bilaterally. 2+ posterior tibialis pulses bilaterally. No pitting edema. No cyanosis. Psychiatric: Affect appears appropriate. Results & Data Vital Signs (Past 12 Hours) Vital Signs Temp Pulse Pulse Resp BP Pulse Ox O2 Del Method 05/24/23 16:00 37.0 C 80 18 138/63 98 Room Air 05/24/23 12:00 37.0 C 79 16 129/65 97 Room Air 05/24/23 08:00 90 05/24/23 08:00 Room Air 05/24/23 08:00 36.6 C 87 20 119/68 98 Room Air Intake & Output 05/22/23 05/23/23 05/24/23 05/25/23 06:59 06:59 06:59 06:59 Intake Total 399.234 / 399.234 895 / 895 650 / 650 Output Total 450 / 450 800 / 800 600 / 600 Balance 399.234 / 399.234 445 / 445 -150 / -150 -600 / -600 Weight 189 lb 13.088 oz 189 lb 13.088 oz 174 lb 6.17 oz Laboratory Results Laboratory Results - last 24 hr 05/23/23 05/24/23 05/24/23 20:15 05:47 07:33 Sodium 130 L Potassium 4.6 Chloride 97 L Carbon Dioxide 26 Anion Gap 7 BUN 27 H Creatinine 1.21 Est Cr Clr Drug Dosing 51.1 Est GFR ( Amer) 65.6 Est GFR (Non-Af Amer) 56.6 BUN/Creatinine Ratio 22.3 H Glucose 122 H POC Glucose 105 H 136 H Calcium 9.2 05/24/23 05/24/23 11:36 17:01 Sodium Potassium Chloride Carbon Dioxide Anion Gap BUN Creatinine Est Cr Clr Drug Dosing Est GFR ( Amer) Est GFR (Non-Af Amer) BUN/Creatinine Ratio Glucose POC Glucose 214 H 199 H Calcium Diagnostic Findings Labs reviewed and notable for hyponatremia, stable renal function, normal potassium. ECG personally reviewed from 05/24/2023 at 1543: Sinus with PACs at [address] chest report reviewed from 05/24/2023: Left-sided hydropneumothorax with moderate amount of pleural fluid. Volume loss with consolidation and partial collapse of the left lung. Unchanged 2.4 cm irregular right upper lobe nodule stable dating back to 02/21/2022. Stable right lower lobe nodule. Medications Administered Current Inpatient Medications Acetaminophen (Acetaminophen 325 Mg Tab) 650 mg PO Q4H PRN PRN Reason: Pain or Fever Stop: 06/19/23 17:40 Last Admin: 05/21/23 06:08 Dose: 650 mg Acetaminophen (Acetaminophen 325 Mg Tab) 650 mg PO Q4H PRN PRN Reason: Pain Stop: 06/22/23 12:26 Apixaban (Apixaban 5 Mg Tablet) 5 mg PO BID [facility] Stop: 06/22/23 22:44 Last Admin: 05/24/23 08:37 Dose: 5 mg Aspirin (Aspirin 81 Mg Ectab) 81 mg PO QAM [facility] Stop: 06/20/23 08:59 Last Admin: 05/24/23 08:38 Dose: 81 mg Dextrose (Dextrose 50% 50 Ml Syringe) 25 - 50 ml IV UD PRN; Protocol PRN Reason: Hypoglycemia Protocol Stop: 06/19/23 17:40 Fluticasone Propionate (Fluticasone Propionate Na Spr 16 Gm Btl) 2 sprays NA DAILY [facility] Stop: 06/20/23 08:59 Last Admin: 05/24/23 08:40 Dose: 2 sprays Fluticasone/Vilanterol (Fluticasone/Vilanterol 100/25mcg 14 Puffs/Inhaler) 1 puffs INH DAILY [facility] Stop: 06/20/23 08:59 Last Admin: 05/24/23 08:40 Dose: 1 puffs Folic Acid (Folic Acid 1 Mg Tab) 1 mg PO QAM [facility] Stop: 06/20/23 08:59 Last Admin: 05/24/23 08:38 Dose: 1 mg Furosemide (Furosemide 20 Mg Tab) 20 mg PO QAM [facility] Stop: 06/23/23 08:59 Last Admin: 05/24/23 09:23 Dose: 20 mg Gabapentin (Gabapentin 300 Mg Cap) 300 mg PO BID [facility] Stop: 06/19/23 20:59 Last Admin: 05/24/23 08:39 Dose: 300 mg Glucagon (Glucagon For Inj 1 Mg Vial) 1 mg SQ UD PRN; Protocol PRN Reason: Hypoglycemia Protocol Stop: 06/19/23 17:40 Glucose (Glucose 10 Tab/Tube) 4 - 8 tab PO UD PRN; Protocol PRN Reason: Hypoglycemia Treatment Stop: 06/19/23 17:40 Glucose (Glucose 40% Gel 15 Gm Tube) 15 - 30 gm PO UD PRN; Protocol PRN Reason: Hypoglycemia Protocol Stop: 06/19/23 17:40 Lorazepam 1 mg/ Syringe 1 mls @ 2 mls/min IV ONE PRN; Protocol PRN Reason: EtoH Withdrawal AWSS 6-10 Insulin Aspart (Insulin Aspart Per Unit Charge) 0 units SC ACHS [facility] Stop: 06/19/23 17:40 Last Admin: 05/24/23 17:24 Dose: 3 units Ipratropium Alger (Ipratropium Alger Nasal Madelia 0.06% 15ml) 1 sprays MAYE TID [facility] Stop: 06/19/23 20:59 Last Admin: 05/24/23 15:53 Dose: 1 sprays Melatonin (Melatonin 3 Mg Tab) 3 mg PO HS [facility] Stop: 06/19/23 20:59 Last Admin: 05/23/23 20:14 Dose: 3 mg Metoprolol Succinate (Metoprolol Succ 50mg Ext Rel Tab) 50 mg PO BID [facility] Stop: 06/19/23 20:59 Last Admin: 05/24/23 08:39 Dose: 50 mg Miscellaneous (Carbohydrates For Hypoglycemia ) 15 - 30 gm PO UD PRN PRN Reason: Hypoglycemia Protocol Stop: 06/19/23 17:40 Pantoprazole Sodium (Pantoprazole 40 Mg Tab) 40 mg PO DAILY [facility]; Protocol Stop: 06/19/23 17:59 Last Admin: 05/24/23 08:38 Dose: 40 mg Ropinirole HCl (Ropinirole Hcl 0.25 Mg Tablet) 0.25 mg PO HS [facility] Stop: 06/19/23 20:59 Last Admin: 05/23/23 20:10 Dose: 0.25 mg Sacubitril/Valsartan (Valsartan/Sacubitril 26/24mg Tab) 1 tab PO BID [facility] Stop: 06/20/23 20:59 Last Admin: 05/24/23 08:37 Dose: 1 tab Thiamine HCl (Thiamine Hcl 100 Mg Tab) 100 mg PO BID [facility] Stop: 06/19/23 20:59 Last Admin: 05/24/23 08:39 Dose: 100 mg PG Care Time/CCT Total # of Minutes Spent Total Time Spent with Patient: Total time spent is greater than 50% in coordination of care (as documented) at patient's floor/unit and/or counseling patient: Coding Level of Care Code 01345 SUB INP/OBS CARE 3/50MIN Diagnoses Heart failure with mid-range ejection fraction I50.22 Atrial flutter with rapid ventricular response I48.92 Cardiomyopathy, unspecified type I42.9 Cardiomyopathy type: unspecified Recurrent pleural effusion J90 Hypertension I10 Hypertension type: unspecified Pericarditis I31.9 (3) Cardiomyopathy Cardiomyopathy type: unspecified Qualified Code(s): I42.9 - Cardiomyopathy, unspecified (5) Hypertension Hypertension type: unspecified Qualified Code(s): I10 - Essential (primary) hypertension
[2023-05-24] MEDS: COLCHICINE 0.6 MG TAB PO SCH (20:39)
--- NOTE | 2023-05-25 00:03 | Electrocardiogram Report ---
Test Reason : Blood Pressure : / mmHG Vent. Rate : 099 BPM Atrial Rate : 099 BPM P-R Int : 186 ms QRS Dur : 094 ms QT Int : 360 ms P-R-T Axes : 067 043 081 degrees QTc Int : 462 ms Sinus rhythm with Premature atrial complexes Nonspecific T wave abnormality Abnormal ECG When compared with ECG of 20-MAY-2023 08:39, Sinus rhythm has replaced Atrial flutter ST no longer depressed in Inferior leads Nonspecific T wave abnormality now evident in Lateral leads Confirmed by Gerard Farr ([id number]) on 05/25/2023 12:02:48 AM Referred By: REFERRED SELF Confirmed By:Gerard Farr
--- NOTE | 2023-05-25 00:20 | Electrocardiogram Report ---
Test Reason : Blood Pressure : / mmHG Vent. Rate : 095 BPM Atrial Rate : 095 BPM P-R Int : 176 ms QRS Dur : 090 ms QT Int : 354 ms P-R-T Axes : 062 013 053 degrees QTc Int : 444 ms Sinus rhythm with Premature atrial complexes Nonspecific T wave abnormality Abnormal ECG When compared with ECG of 23-MAY-2023 12:59, No significant change was found Confirmed by Gerard Farr ([id number]) on 05/25/2023 12:20:37 AM Referred By: REFERRED SELF Confirmed By:Gerard Farr
--- NOTE | 2023-05-25 07:51 | XRay Report ---
XR chest 1V portable HISTORY: 78 years-old Male f/u acute shortness of breath COMPARISON: Chest CT 05/24/2023 TECHNIQUE: AP view of the chest FINDINGS: Cardiac silhouette is enlarged. Pulmonary vascular congestion. Atherosclerosis of the aorta. Left-ralph ed hydropneumothorax redemonstrated. The pneumothorax component is noted with 3 mm pleural separation at the apex. Moderate amount of layering left basilar pleural fluid with left lung volume loss and c onsolidation. Bones appear grossly intact. IMPRESSION: 1. Cardiomegaly with pulmonary vascular congestion. 2. Unchanged left-sided hydropneumothorax with left lung volume loss and consolidation. ACT 112: Negative or not required by law. The above report was generated using voice recognition software. It may contain grammatical, syntax o r spelling errors. Electronically signed by: Jayesh Gonzalez M.D. 05/25/2023 7:49 AM
[2023-05-25 08:21] LABS: BUN Creatinine Ratio 24.8 (10-20); Calcium 9.2 mg/dl (8.6-10.3); Creatinine Clr Calc Pharmacy 52.9 ml/min; Est GFR (African American) 68.3 ml/min; Est GFR (Non-African American) 58.9 ml/min
--- NOTE | 2023-05-25 08:55 | Pulmonology Progress Note ---
Date of Service May 25, 2023 Assessment & Plan (1) Recurrent pleural effusion: (2) Atrial flutter: (3) Systolic CHF: Heart failure chronicity: chronic Qualified Code(s): I50.22 - Chronic systolic (congestive) heart failure (4) HFrEF (heart failure with reduced ejection fraction): Plan IMPRESSION: 78-year-old male with a history of chronic cough, abnormal chest CT, and recurrent LEFT-sided pleural effusion in the setting of persistent atrial flutter who presents back to the emergency department with complaints of shortness of breath and findings of LEFT-sided effusion. He underwent thoracentesis and had a small pneumothorax, unclear if this was ex vacuo. He had his a flutter ablated now and is doing well clinically. RECOMMENDATIONS: 1. Recurrent LEFT-sided pleural effusion -doing well at baseline and continues to saturate well on room air. Chest x-ray shows small apical pneumothorax with recurrence of the effusion. No indication for repeat pleural procedures currently. The patient can be dismissed from the hospital with outpatient pulmonary follow-up with Dr. Giordano. Given the recurrent effusion and the lymphocytic exudative nature, reengagement of thoracic surgery may be appropriate. The CT of the chest which had been previously requested was accomplished during this hospitalization. 2. Atrial flutter - Post ablation procedure. 3. CHF -diuretics per cardiology 4. Pulmonary nodule: Stable on imaging dating back to last year. Continued surveillance recommended. Thank you for allowing us to participate in the care of this pleasant patient. Patient stable to discharge from a pulmonary perspective. Feel free to contact us with questions or concerns Admission and Anticipated Discharge Date Admission Date: May 20, 2023 Subjective Patient seen and examined. EMR reviewed. He is doing well clinically. He denies any chest pain or shortness of breath. He is off oxygen. He is not coughing wheezing or expectorating phlegm. He denies any palpitations. No fevers chills or night sweats. He overall feels that he is doing well clinically. He is not having any crepitus. Review of Systems 2 Review of Systems: All systems reviewed & are unremarkable except as noted in Subjective Physical Exam 2 Constitutional: WD/WN, vitals as above Neck: trachea midline, no thyromegaly Respiratory: normal respiratory effort, lungs clear to auscultation Cardiovascular: RRR, no murmur, no edema Gastrointestinal (Abdomen): normal bowel sounds, soft, nontender, no hepatosplenomegaly Musculoskeletal: Extremities: extremities normal to inspection Skin: no rashes, warm and dry Neurologic: Nonfocal exam Lymphatic: no cervical lymphadenopathy Results & Data Results & Data Vital Signs (Past 12 Hours) Vital Signs Temp Pulse Pulse Resp BP Pulse Ox O2 Del Method 05/25/23 07:29 81 05/25/23 07:17 36.6 C 86 19 144/81 H 96 Room Air 05/25/23 03:00 36.5 C 80 19 101/62 96 Room Air 05/24/23 23:58 36.5 C 84 18 102/63 94 Room Air 05/24/23 22:22 87 Laboratory Results 05/22/23 05:43 05/25/23 07:24 Diagnostic Findings Chest x-ray from today was independently reviewed. Trace apical pneumothorax on the left with recurrent effusion. PG Care Time/CCT Total # of Minutes Spent Total Time Spent with Patient: Total time spent is greater than 50% in coordination of care (as documented) at patient's floor/unit and/or counseling patient: Coding Level of Care Code 48229 SUB INP/OBS CARE 2/35MIN Diagnoses Recurrent pleural effusion J90 Atrial flutter I48.92 Chronic systolic congestive heart failure I50.22 Heart failure chronicity: chronic HFrEF (heart failure with reduced ejection fraction) I50.20
[2023-05-25] MEDS: SPIRONOLACTONE 25 MG TAB PO SCH (10:45)
--- NOTE | 2023-05-25 11:29 | Cardiology Progress Note ---
Date of Service May 25, 2023 Assessment & Plan (1) Heart failure with mid-range ejection fraction: Plan: -appears compensated at this time. -continue metoprolol succinate, Entresto, Lasix, spironolactone. -daily weights and sliding-scale diuretics at home. -continue low-salt diet. -considered SGLT2 inhibitor. (2) Atrial flutter with rapid ventricular response: Plan: -remains in sinus rhythm since ablation on May 22. -continue on anticoagulation. (3) Cardiomyopathy: Plan: -possibly tachycardic induced. -continue medical therapy. -hopefully his ejection fraction will improve with medical management. -follow-up echocardiogram as an outpatient. (4) Hypertension: Plan: -adequate control on current regimen. (5) Pericarditis: Plan: -continue colchicine for now. Admission and Anticipated Discharge Date Admission Date: May 20, 2023 Subjective The patient is resting comfortably in bed without complaints of chest pain or dyspnea. He is anxious for hospital discharge. Physical Exam Physical Exam: This is a well-developed well-nourished white male in no acute distress. HEENT exam is negative. Neck is supple with full carotid upstrokes. No obvious bruits. Jugular is pressure is flat 90. No thyromegaly. Cardiovascular exam reveals a regular rhythm with normal S1-S2. No S3, S4, or rubs are noted. Lungs no decreased breath sounds at the bases. Abdomen is soft without bruits. Extremities reveal intact radial artery pulses bilaterally. There is no periphe ral edema. Results & Data Vital Signs (Past 12 Hours) Vital Signs Temp Pulse Pulse Resp BP Pulse Ox O2 Del Method 05/25/23 10:34 95 05/25/23 08:00 Room Air 05/25/23 07:29 81 05/25/23 07:17 36.6 C 86 19 144/81 H 96 Room Air 05/25/23 03:00 36.5 C 80 19 101/62 96 Room Air 05/24/23 23:58 36.5 C 84 18 102/63 94 Room Air Diagnostic Findings court monitor notes sinus rhythm with occasional PVCs. No atrial flutter. PG Care Time/CCT Total # of Minutes Spent Total Time Spent with Patient: Total time spent is greater than 50% in coordination of care (as documented) at patient's floor/unit and/or counseling patient: Coding Level of Care Code 00801 SUB INP/OBS CARE 350MIN Diagnoses Heart failure with mid-range ejection fraction I50.22 Atrial flutter with rapid ventricular response I48.92 Cardiomyopathy, unspecified type I42.9 Cardiomyopathy type: unspecified Hypertension I10 Hypertension type: unspecified Pericarditis I31.9 (3) Cardiomyopathy Cardiomyopathy type: unspecified Qualified Code(s): I42.9 - Cardiomyopathy, unspecified (4) Hypertension Hypertension type: unspecified Qualified Code(s): I10 - Essential (primary) hypertension
--- NOTE | 2023-05-25 14:39 | Discharge Summary ---
Date of Service May 25, 2023 Admission HPI Per Admitting Provider Bradlye is a 78-year-old male with PMH of paroxysmal A-fib (on Eliquis), recurrent left-sided pleural effusion, chronic cough, lung mass/multiple pulmonary nodules, subarachnoid hemorrhage, TBI, T2DM, GERD, alcoholism, and HTN. He presented for worsening SOB the evening of 05/18. Patient reports he had a hard time catching his breath while walking to the bathroom, but also has SOB at rest and is conversationally dyspneic. He had trouble sleeping at night, and called his daughter at 7:40 AM today to bring him to the hospital. Positionally dyspneic; lays on his left side at night. He noted increased heart rate this morning around 122 bpm and he checked at home. He also reports that he has had increased fatigue over the past week. Note: Patient has had recurrent left- sided pleural effusions beginning January 2023 (cytology was negative for malignancy at that time). Patient notes he has had a black and blue bruise on his chest from device implantation; however he had this checked and is still getting readings. Patient's daughter (Elizabeth) is at the bedside and provides additional history. She reports that he had an appointment on Sunday 05/21 at 2:[address] Villegas at [place]; this was a consultation to have a procedure done at [place]. Patient did not take his regular morning medicine today; he reports no recent change in medications. Last took Eliquis the evening of 05/18. Patient lives by himself. He denies any recent falls, injuries, or trauma to the chest wall. He does not use ambulatory assist devices such as cane or walker. No sick contacts. No supplemental oxygen at home. No CPAP at night. Patient denies smoking, tobacco use. He does endorse regular alcohol use; last drink was the evening of 05/18 where he drank 3 total drinks (little champagne bottles, vodka with Celsius, and wine). He reports he has been drinking less because he "cannot do it". Patient does believe that alcohol helps him sleep, as melatonin does not help. He denies history of alcohol withdrawal or seizures. ED course: NSS 500 mL IV Metoprolol tartrate 2.5 mg IV ROS: Patient endorses increased fatigue over the last week, SOB at rest, MOYER, and chronic dry cough. Patient denies fever, chills, nightsweats, dizziness/lightheadedness with walking, wheezing, pleuritic CP, hemoptysis, chest pain, chest palpitations, abdominal pain, N/V/D, urinary s/s, or swelling/erythema/pain/numbness/tingling in arms or legs. Discharge Exam gen - NAD, looks uncomfortable lying at about 20-30 degrees in bed, improved with sitting at side of bed neck - no JVD heart - RRR, s1 s2, no murmur chest - no reproducible chest wall pain to palpation lungs - mildly decreased BS on left; otherwise CTA b/l; no rales or wheeze abd - soft NT ND BS+ ext - no edema, pulses 2+ b/l Discharge Data Allergies Allergy/AdvReac Type Severity Reaction Status Date / Time No Known Drug Allergies Allergy Unknown Verified 05/20/23 11:00 Consultations 05/20/23 11:40 Consult Cardiology Routine 05/20/23 11:48 Consult Pulmonology Routine 05/25/23 10:47 Burn CD for patient Routine Procedures Performed Operation Date: 05/23/23 11:00 Actual Procedures p EPS + Ablation for SVT Flutter - Uriah Parmar MD s Echo Doppler Complete - Uriah Parmar MD s Echo Color Flow - Uriah Parmar MD s Echo Transesophageal - Uriah Parmar MD Ordered Studies 05/23/23 06:45 EP Lab Images for PACS ONCE 05/24/23 07:28 CT chest diagnostic wo con Routine Hospital Course (1) Atrial flutter with rapid ventricular response: s/p cardioversion 03/27/23 with zoroastrianism of NSR only briefly, but multiple loop recorder interrogations in March and April showed recurrent atrial flutter since that cardioversion. He has been on metoprolol succinate + cardizem + Eliquis at home for this issue. Presented to [facility] with rapid a.flutter. Echo with EF 25-30% - NEW - which very well may be tachy-arrhythmia induced from the a.flutter. Appreciate cardiology consultation. Cardizem has been stopped due to depressed EF. Metoprolol succ increased to 50mg BID and tolerating. He is now POD #1 s/p a.flutter ablation by Dr Parmar with successful zoroastrianism of NSR. Appreciate Dr Farr and Dr Parmar's assistance. Rajinder resumed last pm. (2) Pericarditis: EKG this afternoon stable with no ST changes. Pain is central, pleuritic, and worse supine with improvement by sitting. c/w pericarditis. responded rapidly to colchicine. likely post-procedural in setting of aflutter ablation. plan - colchicine 0.6mg BID x 1-2 weeks then down to once daily for up to 3 months. of note -- no large pericardial effusion on CT chest today. (3) Pleural effusion: Recurrent left-sided pleural effusion s/p thoracentesis x 3 in the past. Pulmonary performed thoracentesis again this admission - 1700cc of fluid removed. Recurrent effusion likely due to CHF. Unfortunately it appears there is a small pneumothorax on the left post-thoracentesis vs trapped lung --- latter favored. No Rx needed at this time; serial CXR are stable. Despite the trapped lung vs pneumothorax he is in no distress, O2 sats are wnl, etc. Referral to thoracic surgery recommended by pulmonary due to recurrent L sided effusion. CT chest today was obtained in prep for that appointment. repeat cxr in am for stability. (4) HFrEF (heart failure with reduced ejection fraction): acute on chronic. transesophageal echo on 12/06/2022 revealed LVEF at 45-50%. Now EF 25-30%. Likely tachy-arrhythmia induced. See #1 above. looks euvolemic on exam today resume Entresto BID add aldactone tomorrow - 25mg resume lasix at 20mg/day cont meto succ BID (5) Alcohol use: Regular alcohol use daily, with last consumption the evening of 05/18 (3 drinks total) He denies alcohol withdrawal history or seizures AWSS at risk protocol Continue daily thiamine, folic acid supplementation (6) Acute hyponatremia: Na 126 at admission 130 again today - stable likely 2nd to hypervolemia daily BMP (7) DM2 (diabetes mellitus, type 2): Last A1c 5.7% on 01/30/2023 Hold metformin novolog SSI Plan DVT proph - Rajinder daughter extensively updated at bedside today awaiting PT eval to ensure safe & strong enough to return home care d/w Dr Parmar & Dr Farr Home Health Attestation I certify that this patient is under my care and that I, or a physicians assistant professor sculpture working with me, had a face to-face encounter that meets the home health [id number] encounter requirements with this patient. The encounter with the patient was in whole, or in part, for the following medical condition, which is the primary reason for home health care (list medical condition): I certify that, based on my findings, the following services are medically necessary home health services: My clinical findings support the need for the above services because: Further, I certify that my clinical findings support that this patient is homebound (i.e. absences from home require considerable and taxing effort and are for medical reasons or religion services or infrequently or of short duration when for other reasons) because: Certification for Home Health Services: Based on the above findings, I certify that this patient is confined to the home and needs intermittent nursing home care, physical therapy and/or speech therapy or continues to need occupational therapy. The patient is under my care, and I have initiated the establishment of the plan of care. This patient will be followed by a physician who will periodically review the plan of care. Discharge Plan Discharge Items Patient Disposition: Home - Home Health Services Reason For Visit: Shortness of breath Discharge Diagnosis: 1. shortness of breath - due to congestive heart failure and left-sided pleural effusion 2. congestive heart failure 3. atrial flutter with ablation procedure by Dr Uriah Parmar; now back in normal rhythm 4. pericarditis - improved with colchicine medicine 5. left-sided pleural effusion - thoracentesis procedure with removal of over 1500ml - likely due to congestive heart failure; thoracic surgery follow-up needed Activity: Per Instructions section Lifting: No more than 10 pounds Exercise/Sports: Wait until after follow-up appointment Non-emergency contact: Primary Care Provider, Brineyard Supervisor and Traffic Chief Call non-emergency contact if: your symptoms worsen and you have a fever Follow-up/Referrals: Gabino Ferrell MD [Primary Care Provider] - (1-2 weeks) Uriah Parmar MD [Physician] - (1 week - we will help obtain an appointment for you) Markell Shaikh PA-C [Hospitalist] - (1-2 weeks - we will help obtain an appointment for you. Pulmonology office.) Diet: Carb Consistent or DM2 and Heart Healthy Fluids: 1500ml (6 cups) Addtl Attending Provider Instructions: Mr Fermin - You were hospitalized due to rapid atrial flutter and worsening congestive heart failure. Both conditions led to a build-up of fluid in your lungs including the large left-sided pleural effusion (pocket of fluid in left chest cavity) that required drainage by Mr Markell Shaikh, pulmonology. It was felt that the uncontrolled atrial flutter was worsening your heart function leading to the congestive heart failure. You received diuretics (fluid pills) to remove the excess fluid build-up. You also underwent an ablation procedure by Dr Uriah Parmar to stop the atrial flutter. This procedure was successful, and you have been in normal rhythm since the ablation. Your chest x-rays leading up to discharge have been stable, but you will need to see a thoracic surgeon in the near-future as there is considerable concern that the pleural effusion is going to return. Physical therapy saw you and are recommending home PT/OT along with home nursing. Recommendations - 1. Congestive heart failure medicines - * INCREASE your metoprolol succinate to 50mg twice daily; new prescription sent to [facility] for you * TAKE furosemide (diuretic) 20mg each morning starting 05/26/23; prescription sent to [facility]; this keeps fluid from building up * TAKE spironolactone (another diuretic) 12.5mg each morning starting 05/26/23; prescription sent to [facility]; this keeps fluid from building up * TAKE Entresto 1 tablet twice daily starting TONIGHT, 05/25/23; prescription sent to [facility] 2. For the suspected pericarditis (inflammation/irritation of the lining of the heart that caused the chest discomfort with deep breaths yesterday) - * TAKE colchicine 0.6mg twice daily x 6 days, then reduce to 0.6mg once daily thereafter; start TONIGHT upon return home; prescription sent to [facility] for you * most common side effect - diarrhea 3. HOLD your aspirin for now 4. STOP your diltiazem 5. Your blood sugars were VERY WELL controlled during the hospital stay. Please REDUCE your metformin to 500mg once daily with your morning meal 6. Please abstain from alcohol if at all possible 7. Try to limit total salt intake to no more than about 2000mg in a 24 hour period; see salt handout Follow-up - appointment dates/times to be arranged Return to [facility] if - * you are having worsening shortness of breath * you have chest pains * you have any concerns about the ablation procedure site in the right groin (worsening redness, swelling, pain, drainage, etc) * any other concerns It was our pleasure to care for you ! -Dr Connie Lairdtl Agriscience Teacher Provider Instructions: Instructions following your atrial flutter ablation procedure - * You may shower when you get home today * However, try to keep the dressing in the right groin clean and dry today * Remove the dressing in the right groin TOMORROW, 05/26/23 * NO tub baths or swimming in any body of water/pool for 10 days * Avoid any lotions, powder or creams to the puncture site in the right groin * You may notice a small lump at the puncture site - smaller than the size of a quarter - this is normal * Activity Restrictions: * NO driving until 05/27/23 * Do not lift, pull or push anything greater than 10 pounds for 7 days * No heavy exertional activities until seen by cardiology; light walks, etc are OK at this time CONGESTIVE HEART FAILURE INSTRUCTIONS: Call 911 and go to the Emergency Room if: * You have tightness or pain in your chest that does not go away with rest or Nitroglycerin * You are very short of breath even with rest Call your doctor if any of the following symptoms or problems start or get worse: * Shortness of breath or difficulty breathing * Wake up at night short of breath * Chest pain * Cough * Swelling of your hands, fee, or legs * More fatigued or tired with your normal activity * Palpitations - sudden fast heart beats WEIGHT * Weigh yourself every morning after using the bathroom. * Use the same scale. * Wear the same amount of clothing. * Write your weight down on your chart. * Call your heart doctor if you gain more than 2-3 pounds in 1-2 days. This is typically the first sign you are taking on water weight from congestive heart failure. MEDICATIONS * Use this discharge instruction sheet for instructions. * Take your medications at the time your doctor ordered. * Do not skip a dose of your medicines. * If you miss a dose of medicine, take as soon as possible, but DO NOT DOUBLE A DOSE. * Read your medicine information when you get home. * Know all of the side effects of your medicine. * Call your doctor's office if you have any side effects. * Be sure all of your doctors know what medicine and herbs you take (including cold, flu, and herbal medicine). * Pain Medicine: If you do not get relief from your pain, please call your doctor for help. Take the following with you to your follow-up doctor appointments: * Weight Chart * Medication List * List of questions Do not drink excessive alcohol, beer or wine. Pending Studies at Discharge: No Stand-Alone Forms: My [facility], Smoking Cessation Medications and DC Order Prescriptions: New spironolactone 25 mg Tablet 12.5 mg PO QAM Qty: 30 2RF furosemide 20 mg Tablet 20 mg PO QAM Qty: 30 2RF colchicine [Colcrys] 0.6 mg Tablet 0.6 mg PO DIRECTED Qty: 60 0RF Rx Instructions: take 1 tablet twice daily x 6 days, then reduce to 1 tablet daily thereafter. Entresto 24-26 mg Tablet 1 tab PO BID Qty: 60 2RF Continued fluticasone furoate-vilanterol [Breo Ellipta] 100-25 mcg/dose blister with device 1 inh inhalation DAILY Qty: 3 3RF gabapentin 300 mg capsule 300 mg PO BID Qty: 180 3RF fluticasone propionate [Flonase Allergy Relief] 50 mcg/actuation spray,suspension 2 spray intranasal DAILY Qty: 48 0RF Rx Instructions: administer into each nostril ipratropium bromide 21 mcg (0.03 %) spray,non-aerosol 2 spray intranasal TID Rx Instructions: administer into each nostril Eliquis 5 mg tablet 5 mg PO BID Qty: 180 3RF Hold Instructions: Resume on 02/08/23. Hold for 7 days omeprazole 40 mg capsule,delayed release(DR/EC) 40 mg PO DAILY Qty: 90 3RF melatonin 3 mg Tablet 3 mg PO HS Qty: 30 0RF folic acid 1 mg Tablet 1 mg PO QAM Qty: 30 0RF thiamine HCl (vitamin B1) [Vitamin B-1] 100 mg Tablet 100 mg PO BID ropinirole 0.25 mg tablet 0.25 mg PO HS Changed metoprolol succinate 50 mg tablet extended release 24 hr 50 mg PO BID Qty: 60 2RF metformin 500 mg tablet 500 mg PO QAM Qty: 360 1RF Held aspirin 81 mg Tablet,Delayed Release (Dr/Ec) 81 mg PO QAM Qty: 30 0RF Hold Instructions: hold until seen by cardiology Discontinued diltiazem HCl 120 mg capsule,extended release 24hr 120 mg PO DAILY Qty: 90 3RF Discharge Orders: Discharge Order (Routine); Ordered 05/25/23 Ordered By: Jam Flores/Other Patient Handouts: Having Catheter Ablation, Tips for Using Less Salt, What Is Heart Failure Admission Data Admit Date/Time: 05/20/23 11:40 Attending Provider: Jam Rosales Admit Provider: Jam Henson Primary Care Provider: Gabino Ferrell Other Providers: Gerard Farr; Mayur Cuba Coding Diagnoses Atrial flutter with rapid ventricular response I48.92 Pericarditis I31.9 Pleural effusion J90 HFrEF (heart failure with reduced ejection fraction) I50.20 Alcohol use Z78.9 Acute hyponatremia E87.1 DM2 (diabetes mellitus, type 2) E11.9
== END 2023-05-25 15:57 | disposition home health service (06) | DRG 273 ==
LOC: ED 08:24 → SUATTDRO 11:40 → EDINP 11:40 → 2S 11:46